=== PATIENT | female | born 1935 | race Caucasian/White ===

== ENCOUNTER 2017-06-18 19:16 | Inpatient (IN) | payer OTHER, BC ==
[~2017-06-18] VITALS: Ht 149.9 cm; Wt 80.6 kg
[~2017-06-18 19:16] MED LIST changes: -ASPI-232 PO; -ATOR-26 PO; -CARV3.122 PO; -CRG625 PO; -FLVHFA110 INH; -IRBE1TAB46 PO; -POTA20TA16 PO; -PRED1SUS17 OPR
--- NOTE | 2017-06-18 19:47 | EMERGENCY ROOM VISIT NOTE ---
History Report prepared by Larissa: Perico Dietrich Under the Supervision of: Dr. Thiago Pardo M.D. First contact with patient: 19:34 Chief Complaint: CARDIAC ASSESSMENT Stated Complaint: RAPID AND IRREGULAR HEART RATE History of Present Illness The patient is an 82 year old female who presents to the Emergency Room with complaints of episodes of a rapid and irregular heart rate that started yesterday. She says that she may have had this before but not this persistent. She states that she has not been getting any pain, but has felt very anxious. The patient notes that she has asthma, and has been increasing her use of her albuterol to 2 puffs twice per day. She states that she sometimes does not use the albuterol at all, and she tries to not take it too often because she knows that it can cause a rapid or irregular heart rate. The patient notes that she had a double bypass in 2007, and 4 years ago she was notified that at least one bypass was 90 to 95% blocked. She went to [facility] to have stents placed but there were concerns so it did not happen. She notes no history of atrial flutter , atrial fibrillation, of supraventricular tachycardia. She denies any leg swelling. Source of History: patient Onset: Yesterday Position: other (heart) Quality: other (rapid and irregular heart rate) Timing: other (episodes) Associated Symptoms: No chest pain Note: Associated symptoms: Anxiety from palpitations. Denies leg swelling. Review of Systems See HPI for pertinent positives & negatives. A total of 10 systems reviewed and were otherwise negative. Past Medical & Surgical Medical Problems: (1) Coronary artery disease (2) Hypertension Surgical Problems: (1) H/O cardiac catheterization (2) S/P CABG (coronary artery bypass graft) Family History Family history omitted secondary to patient's advanced age. Social History Smoking Status: Never Smoker Alcohol Use: occasionally Marital Status: Occupation Status: retired Current/Historical Medications Scheduled Amoxicillin (Amoxil), 2,000 MG PO UD Aspirin (Aspir-81), 1 TAB PO DAILY Atorvastatin (Lipitor), 80 MG PO DAILY Carvedilol (Coreg), 3.125 MG PO BID Ferrous Sulfate (Ferrous Sulfate), 325 MG PO 3XWK Furosemide (Lasix), 20 MG PO DAILY Irbesartan (Irbesartan), 0.5 TAB PO DAILY Multiple Vitamins W/ Minerals (Preservision Areds), 1 CAP PO BID Nitroglycerin (Nitrostat), 0.4 MG UT PRN Potassium Ext Rel (Klor-Con), 20 MEQ PO DAILY Prednisolone Acetate (Ophth) (Prednisolone Acetate), 1 DROP OPR HS Ranolazine (Ranexa), 500 MG PO BID Scheduled PRN Fluticasone Propionate (Flovent Hfa), 2 PUFFS INH BID PRN for Shortness of Breath Allergies Coded Allergies: Lisinopril (Verified Allergy, Unknown, "THROAT CLOSES", 06/01/12) Sulfamethoxazole (Verified Allergy, Unknown, RASH, 06/01/12) Aspirin (Verified Adverse Reaction, Unknown, BLEEDING, 06/01/12) Physical Exam Vital Signs Date Time Temp Pulse Resp B/P (MAP) Pulse Ox O2 Delivery O2 Flow Rate FiO2 06/18/17 22:21 73 16 95 06/18/17 22:06 68 22 96 06/18/17 22:01 134/80 06/18/17 21:51 73 21 98 06/18/17 21:46 171/78 06/18/17 21:36 65 20 98 06/18/17 21:21 68 20 97 06/18/17 21:06 64 19 96 06/18/17 21:01 144/76 06/18/17 20:51 81 17 95 06/18/17 20:46 71 26 96 06/18/17 20:31 73 24 95 Room Air 06/18/17 20:30 116/68 06/18/17 20:01 122/75 06/18/17 19:23 36.8 89 18 169/101 96 Room Air Physical Exam GENERAL: Patient is in no acute distress. HEENT: No acute trauma, normocephalic atraumatic, mucous membranes moist, no nasal congestion, no scleral icterus. NECK: No stridor, no adenopathy, no meningismus, trachea is midline. LUNGS: Crackles at both bases. No wheezing. Breath sounds are equal. HEART: 2/6 systolic murmur. Irregular rhythm with a normal rate. ABDOMEN: Soft, nontender, bowel sounds positive, no hernias, no peritonitis. EXTREMITIES: No cyanosis or edema, full range of motion of all the joints without pain or difficulty, no signs for acute trauma. NEUROLOGIC: Oriented x 3, no acute motor or sensory deficits, no focal weakness. SKIN: No rash, no jaundice, no diaphoresis. Medical Decision & Procedures ER Provider Diagnostic Interpretation: X-ray results as stated below per interpretation by me and the radiologist: SINGLE VIEW CHEST CLINICAL HISTORY: Dyspnea. FINDINGS: An AP, portable, upright chest radiograph is compared to study dated 12/14/2013. The examination is degraded by portable technique and patient rotation. The patient is status post midline sternotomy. The heart is enlarged and there is atherosclerotic calcification of the thoracic area. There is pulmonary vascular congestion. A large hiatal hernia is identified. Bibasilar atelectasis is observed. No airspace consolidation, large pleural effusion, or pneumothorax is seen. The skeletal structures are osteopenic. The bony thorax is grossly intact. Degenerative change and scoliosis are noted in the thoracic spine. IMPRESSION: 1. Cardiomegaly with evidence of mild congestive failure. 2. Large hiatal hernia. Electronically signed by: Thiago Ng M.D. 06/18/2017 8:16 PM Dictated Date/Time: 06/18/2017 8:15 PM Laboratory Results 06/18/17 19:55 Red Blood Count 4.02, Mean Corpuscular Volume 91.3, Mean Corpuscular Hemoglobin 30.3, Mean Corpuscular Hemoglobin Concent 33.2, Mean Platelet Volume 10.2, Neutrophils (%) (Auto) 56.5, Lymphocytes (%) (Auto) 25.8, Monocytes (%) (Auto) 13.0, Eosinophils (%) (Auto) 3.2, Basophils (%) (Auto) 1.2, Neutrophils # (Auto ) 3.70, Lymphocytes # (Auto) 1.69, Monocytes # (Auto) 0.85, Eosinophils # (Auto ) 0.21, Basophils # (Auto) 0.08 06/18/17 19:55 Test 06/18/17 19:55 White Blood Count 6.55 K/uL (4.8-10.8) Red Blood Count 4.02 M/uL (4.2-5.4) Hemoglobin 12.2 g/dL (12.0-16.0) Hematocrit 36.7 % (37-47) Mean Corpuscular Volume 91.3 fL (80-100) Mean Corpuscular Hemoglobin 30.3 pg (25-34) Mean Corpuscular Hemoglobin Concent 33.2 g/dl (32-36) Platelet Count 234 K/uL (130-400) Mean Platelet Volume 10.2 fL (7.4-10.4) Neutrophils (%) (Auto) 56.5 % Lymphocytes (%) (Auto) 25.8 % Monocytes (%) (Auto) 13.0 % Eosinophils (%) (Auto) 3.2 % Basophils (%) (Auto) 1.2 % Neutrophils # (Auto) 3.70 K/uL (1.4-6.5) Lymphocytes # (Auto) 1.69 K/uL (1.2-3.4) Monocytes # (Auto) 0.85 K/uL (0.11-0.59) Eosinophils # (Auto) 0.21 K/uL (0-0.5) Basophils # (Auto) 0.08 K/uL (0-0.2) RDW Standard Deviation 52.8 fL (36.4-46.3) RDW Coefficient of Variation 15.8 % (11.5-14.5) Immature Granulocyte % (Auto) 0.3 % Immature Granulocyte # (Auto) 0.02 K/uL (0.00-0.02) Anion Gap 9.0 mmol/L (3-11) Est Creatinine Clear Calc Drug Dose 43.1 ml/min Estimated GFR () 68.6 Estimated GFR (Non- 59.2 BUN/Creatinine Ratio 23.4 (10-20) Calcium Level 8.6 mg/dl (8.5-10.1) Magnesium Level 1.9 mg/dl (1.8-2.4) Total Bilirubin 0.4 mg/dl (0.2-1) Aspartate Amino Transf (AST/SGOT) 23 U/L (15-37) Alanine Aminotransferase (ALT/SGPT) 20 U/L (12-78) Alkaline Phosphatase 85 U/L (45-117) Troponin I 0.208 ng/ml (0-0.045) Total Protein 6.6 gm/dl (6.4-8.2) Albumin 3.1 gm/dl (3.4-5.0) Globulin 3.5 gm/dl (2.5-4.0) Albumin/Globulin Ratio 0.9 (0.9-2) Thyroid Stimulating Hormone (TSH) 1.310 uIu/ml (0.300-4.500) Laboratory results reviewed by me. ECG Indication: palpitations Rate (beats per minute): 86 Rhythm: sinus rhythm Findings: PVC, no acute ischemic change Change: no significant change (compared to December 15 2013) ED Course 1934: The patient was evaluated in room B5. A complete history and physical exam was performed. 2111: Upon reexamination the patient is resting. I discussed results and treatment plan with the patient. She verbalizes agreement and understanding. The patient will be evaluated for further management. 2119: I discussed the patient with Dr. Earnestine Almeida investigation clerk - he will evaluate the patient for further treatment. Medical Decision Differential diagnosis includes but is not limited to atrial fibrillation or atrial flutter, SVT, PVC's or PAC's, anxiety, anemia, [place], electrolyte imbalance , medication reaction. The patient presents with palpitations. Testing here reveals no leukocytosis or concerning anemia. No significant electrolyte abnormality, kidney failure or hepatitis. There is no coagulopathy. EKG shows a sinus rhythm with PVCs, there is no acute ischemia. Cardiac enzyme testing 1 is elevated-this could be consistent with cardiac injury or strain. Chest film shows some possible mild pulmonary vascular congestion, there was no pneumonia or pneumothorax. The patient denies chest pain but she does have an elevation to her cardiac troponin. Given her coronary history, I do think a hospital stay is warranted. She may have had a dysrhythmia yesterday or earlier today that led to the troponin bump. Non-Q-wave [place] I suppose is also a possibility. I did speak to the on-call hospitalist, I talked with case management. The patient is aware of her findings. Of note, no aspirin was given as the patient takes aspirin daily. Medication Reconcilliation Current Medication List: was personally reviewed by me Blood Pressure Screening Patient's blood pressure: Elevated blood pressure Blood pressure disposition: Elevated BP felt to be situational Consults Time Called: 2114 Consulting Physician: Dr. Earnestine Almeida investigation clerk Returned Call: [id number] I discussed the patient with Dr. Earnestine Almeida investigation clerk - he will evaluate the patient for further treatment. Impression Primary Impression: Palpitations Additional Impression: Elevated troponin Scribe Attestation The scribe's documentation has been prepared under my direction and personally reviewed by me in its entirety. I confirm that the note above accurately reflects all work, treatment, procedures, and medical decision making performed by me. Departure Information Dispostion Being Evaluated By Hospitalist Referrals Flakita Reyna M.D. (PCP) Patient Instructions My [facility] Problem Qualifiers
[2017-06-18 20:12] LABS: BASO % 1.2 %; BASO ABS # 0.08 K/uL (0-0.2); COMPLETE YES; EOS % 3.2 %; HEMATOCRIT 36.7 % (37-47); IG% 0.3 %; LYMPH % 25.8 %; LYMPH ABS # 1.69 K/uL (1.2-3.4); MEAN CELL VOLUME 91.3 fL (80-100); MEAN CORPUSCULAR HEMOGLOBIN 30.3 pg (25-34); MEAN CORPUSCULAR HGB CONC 33.2 g/dl (32-36); MEAN PLATELET VOLUME 10.2 fL (7.4-10.4); NEUT % 56.5 %; PLATELET COUNT 234 K/uL (130-400); RED BLOOD COUNT 4.02 M/uL (4.2-5.4); WHITE BLOOD COUNT 6.55 K/uL (4.8-10.8)
--- NOTE | 2017-06-18 20:18 | DIAGNOSTIC IMAGING REPORT ---
SINGLE VIEW CHEST CLINICAL HISTORY: Dyspnea. FINDINGS: An AP, portable, upright chest radiograph is compared to study dated 12/14/2013. The examination is degraded by portable technique and patient rotation. The patient is status post midline sternotomy. The heart is enlarged and there is atherosclerotic calcification of the thoracic area. There is pulmonary vascular congestion. A large hiatal hernia is identified. Bibasilar atelectasis is observed. No airspace consolidation, large pleural effusion, or pneumothorax is seen. The skeletal structures are osteopenic. The bony thorax is grossly intact. Degenerative change and scoliosis are noted in the thoracic spine. IMPRESSION: 1. Cardiomegaly with evidence of mild congestive failure. 2. Large hiatal hernia. Electronically signed by: Thiago Ng M.D. 06/18/2017 8:16 PM Dictated Date/Time: 06/18/2017 8:15 PM
[2017-06-18] MEDS ORDERED: CARV3.122 PO (20:28)
[2017-06-18] MEDS ORDERED: ASPI-232 PO (20:28)
[2017-06-18] MEDS ORDERED: IRBE1TAB46 PO ×2 (20:28→22:36)
[2017-06-18] MEDS ORDERED: PRED1SUS17 OPR (20:28)
[2017-06-18] MEDS ORDERED: FLVHFA110 INH (20:28)
[2017-06-18] MEDS ORDERED: FURO-85 PO (20:28)
[2017-06-18] MEDS ORDERED: ATOR-26 PO (20:28)
[2017-06-18] MEDS ORDERED: POTA20TA16 PO (20:28)
[2017-06-18 20:36] LABS: BUN/CREATININE RATIO 23.4 (10-20); CALCIUM 8.6 mg/dl (8.5-10.1); CREATININE 0.91 mg/dl (0.60-1.20); MAGNESIUM 1.9 mg/dl (1.8-2.4); POTASSIUM 3.6 mmol/L (3.5-5.1)
[2017-06-18 20:50] LABS: ALB/GLOB RATIO 0.9 (0.9-2); THYROID STIMULATING HORMONE 1.31 uIu/ml (0.300-4.500)
[2017-06-18] MEDS ORDERED: ONDANSETRON INJ 2 MG/ML 2 ML VIAL IV PRN (22:30)
[2017-06-18] MEDS ORDERED: NITROGLYCERIN 0.4 MG SL PER TAB CHARGE UT SCH (22:30)
[2017-06-18] MEDS ORDERED: FLUTICASONE HFA 110MCG INHALER INH PRN (22:30)
[2017-06-18] MEDS ORDERED: NITROGLYCERIN 0.4 MG SL PER TAB CHARGE SL PRN (22:30)
[2017-06-18] MEDS ORDERED: MAGNESIUM HYDROXIDE SUSP 30 ML UDC PO PRN (22:30)
[2017-06-18] MEDS ORDERED: ALUMINUM/MAGNESIUM/SIMETH (MAALOX MAX) 30 ML UDC PO PRN (22:30)
[2017-06-18] MEDS ORDERED: ACETAMINOPHEN 325 MG TAB PO PRN (22:30)
[2017-06-18] MEDS ORDERED: FUROSEMIDE INJ 20 MG in SYRINGE 0 ML IV ONE (22:50)
[2017-06-18 23:21] VITALS: BP 181/101; PULSE 81; TEMP 36.8; O2SAT 98; Ht 149.9 cm; Wt 80.6 kg
--- NOTE | 2017-06-18 23:41 | HISTORY & PHYSICAL EXAMINATION ---
DATE OF ADMISSION: 06/18/2017 CHIEF COMPLAINT: Palpitations. HISTORY OF PRESENT ILLNESS: This is an 82-year-old female with past medical history significant for CAD, status post double bypass in 2007 and about 4 years ago had one of the bypass graft blocked, tried to put a stent but decided not put it and on medical management and advised to avoid strenuous activity, history of angioedema, history of hypertension, hyperlipidemia, asthma, exertional angina, macular degeneration, enlarged thyroid presents with palpitations. The patient says since last couple of days she noticed heart racing and also at times irregular and that caused the worry and she came to the ER. Denies any chest pain with heart racing, no shortness of breath. She denies any headaches, no dizziness, no blurred vision, no sore throat. She has chronic cough with her asthma. No difficulty swallowing. No nausea, no vomiting, no abdominal pain. Normal bowel and bladder movements. Appetite is okay. No blood in the stools, no black stools, no blood in the urine. No skin rash, no swelling in the legs. Otherwise, ambulates okay in the house, but lately she is getting more short of breath. Denies any PND. ALLERGIES: LISINOPRIL, SULFA, ANTIBIOTICS. PAST MEDICAL HISTORY: As mentioned above. PAST SURGICAL HISTORY: CABG in 2007, cardiac catheterization, colonoscopies, injection of drug into eyes, appendectomy, cataract surgery, total knee arthroplasty. MEDICATIONS: Currently, the patient is on Coreg 3.125 mg p.o. b.i.d., irbesartan 75 mg p.o. daily, potassium chloride 20 mEq p.o. daily, Ranexa 500 mg p.o. b.i.d., Lasix 20 mg p.o. daily, atorvastatin 80 mg p.o. daily, Flovent HFA 110 mcg 2 puffs b.i.d., albuterol 2 puffs 4 times daily, ferrous sulfate 325 mg p.o. 3 times weekly, PreserVision tablets 1 tablet p.o. b.i.d., Nitrostat 0.4 mg sublingual p.r.n., prednisolone 1% ophthalmic solution on right eye before bedtime, aspirin 81 mg p.o. daily, amoxicillin 2000 mg 1 hour before dental work. FAMILY HISTORY: Significant for father had heart disorder and of heart attack at the age of 57 and father had hypertension. Mother had lupus. Daughter has asthma. Brother has osteoarthritis, heart disorder. SOCIAL HISTORY: Never smoked. No alcohol use. No drug use. She is currently single and lives alone and daughter lives close by. REVIEW OF SYMPTOMS: As per HPI. Rest of review of systems negative. PHYSICAL EXAMINATION: GENERAL: The patient is moderately build, patient is old and frail, not in distress. VITAL SIGNS: Temperature 36.8, pulse 65, respiration 20, blood pressure 171/78, oxygen 98% on room air. HEENT: No pallor, no icterus. Pupils equal, round react to light. NECK: No JVD, no neck masses, no carotid bruits. CARDIOVASCULAR: S1, S2 heard. Somewhat irregular rhythm. No murmurs. RESPIRATORY SYSTEM: Normal AP diameter. No accessory muscle use. Mild bibasilar crackles present. No wheezing. ABDOMEN: Soft, bowel sounds present, nontender. No distention. CENTRAL NERVOUS SYSTEM: Cranial nerves II-XII grossly intact. Nonfocal. EXTREMITIES: No edema, no erythema. LABORATORIES: Sodium 142, potassium 3.6, chloride 107, bicarbonate 26, BUN 21, creatinine 0.9, serum glucose 125, calcium 8.6, magnesium 1.9, total bilirubin 0.4, AST 23, ALT 20, alkaline phosphatase 25, troponin 10.2. TSH 1.3. WBC 6.5, hemoglobin 12.2, hematocrit 36.7, platelets 234. Chest x-ray: Cardiomegaly with evidence of mild CHF. EKG: Sinus rhythm with a rate of 86, PVCs: No acute ST changes seen. ASSESSMENT AND PLAN: This is an 82-year-old female who presents with palpitations. 1. Palpitations and EKG shows normal sinus rhythm with PVCs. The patient thought her pulses are irregular. Patient has history of coronary artery disease status post double bypass in 2007 and about 4 years ago one of the bypasses blocked, but currently only on medical management and advised not to climb steps and not to do strenuous work. We will monitor in the tele floor. Follow repeat EKG and echocardiogram, cardiology consult. 2. Mild elevation of troponin, possibly secondary to palpation, rule out acute coronary syndrome secondary to history of coronary artery disease. Follow serial cardiac enzymes, echocardiogram. 3. Possible acute diastolic congestive heart failure, chest x-ray showed mild congestion and the patient relatively getting more short of breath. We will follow echocardiogram and patient is on Lasix 20 mg p.o. daily but we will give IV Lasix 20 daily and follow the response. 4. Hypertension. Continue home medications of Coreg and irbesartan. We will monitor the blood pressure. 5. Hyperlipidemia. Continue statin. 6. Exertional angina on Ranexa. 5. Deep venous thrombosis prophylaxis, heparin subQ. DISPOSITION: Admit to tele floor. Expect to discharge home and follow with family doctor and cardiology. Level 1 full code. MTDD
[2017-06-19] VITALS (7 sets, daily range): BP systolic 122–152; BP diastolic 73–83; PULSE 62–72; TEMP 36.6–37; O2SAT 94–99
[2017-06-19] MEDS ORDERED: INFLUENZA VACCINE HIGH DOSE 65+ 0.5 ML SYR IM. ONE (00:15)
[2017-06-19] MEDS ORDERED: INFLUENZA ADMINISTRATION CHARGE ONE (00:15)
[2017-06-19] MEDS ORDERED: PrednisoLONE ACET 1% OP SUSP 5 ML BTL OPR STA (00:45)
[2017-06-19] MEDS ORDERED: NURSING VERBAL MED ORDER ONE (00:45)
[2017-06-19] MEDS ORDERED: IRBESARTAN 75 MG TAB PO STA (00:47)
[2017-06-19] MEDS ORDERED: POTASSIUM CHLORIDE 20 MEQ TABCR PO STA (00:47)
[2017-06-19] MEDS ORDERED: ATORVASTATIN 40 MG TAB PO STA (00:47)
[2017-06-19 07:03] LABS: BASO ABS # 0.06 K/uL (0-0.2); COMPLETE YES; EOS % 3.3 %; HEMATOCRIT 38.5 % (37-47); IG% 0.2 %; LYMPH % 36.2 %; LYMPH ABS # 2.21 K/uL (1.2-3.4); MEAN CELL VOLUME 91.4 fL (80-100); MEAN CORPUSCULAR HEMOGLOBIN 30.4 pg (25-34); MEAN CORPUSCULAR HGB CONC 33.2 g/dl (32-36); MEAN PLATELET VOLUME 10.2 fL (7.4-10.4); MONO % 11.8 %; NEUT % 47.5 %; PLATELET COUNT 228 K/uL (130-400); RED BLOOD COUNT 4.21 M/uL (4.2-5.4); WHITE BLOOD COUNT 6.11 K/uL (4.8-10.8)
[2017-06-19 07:13] LABS: PROTHROMBIN TIME (PATIENT) 10.8 SECONDS (9.0-12.0)
[2017-06-19 07:20] LABS: CALCIUM 9.1 mg/dl (8.5-10.1); CREATININE 0.85 mg/dl (0.60-1.20); POTASSIUM 3.6 mmol/L (3.5-5.1)
[2017-06-19] MEDS: ASPIRIN 81 MG ECTAB PO SCH (07:56)
[2017-06-19] MEDS: RANOLAZINE 500 MG ER TAB PO SCH ×2 (07:56→22:10)
[2017-06-19] MEDS: CEROVITE ADV FORMULA TAB PO SCH (07:56)
[2017-06-19 08:00] LABS: CKMB/CK RATIO 5.7 (0-3.0)
[2017-06-19] MEDS ORDERED: FUROSEMIDE INJ 20 MG in SYRINGE 0 ML IV SCH (09:00)
[2017-06-19] MEDS ORDERED: POTASSIUM CHLORIDE 20 MEQ TABCR PO SCH ×2 (09:00→21:00)
[2017-06-19] MEDS ORDERED: CARVEDILOL 3.125 MG TAB PO SCH (09:00)
[2017-06-19] MEDS ORDERED: ATORVASTATIN 40 MG TAB PO SCH ×2 (09:00→21:00)
[2017-06-19] MEDS ORDERED: IRBESARTAN 75 MG TAB PO SCH ×2 (09:00→21:00)
[2017-06-19] MEDS: HEPARIN SOD 5000 UNIT/0.5 ML CARP SQ SCH ×2 (09:07→22:13)
[2017-06-19] MEDS ORDERED: CARVEDILOL 3.125 MG TAB PO ONE (09:30)
--- NOTE | 2017-06-19 10:17 | Progress Note ---
Internal Med Progress Note Date of Service: Jun 19, 2017. Provider Documentation: SUBJECTIVE: pt sitting on chair , offers no complain no palpitation , no chest discomfort ,no SOB mentions of having palpitation intermittently associated with SOB /FARIAS and occasional dizzy spell no symptoms since admission BP was elevated 170 -160 evaluated by Cardiology -Coreg dose increased observe in tele for further adjustment OBJECTIVE: Vital Signs-as noted below Exam: General-no sign of distress , comfortable Eyes-sclera non icteric ENT-NAd Neck-no thyromegaly , no carotid bruit Lungs-CTA ,no rales or wheeze noted Heart-regular S1/s2 Abdomen-soft, non tender Extremities-bilateral trace edema Neuro-AAO x3, no focal deficit Lab data as noted below. ASSESSMENT & PLAN: PALPITATION /DIZZY SPELL tele reveals no Afib ; frequent PVC's symptom has resolved since admission appreciate Cardiology eval Coreg dose increased form 3.125 mg BID to 6.25 mg BID monitor in tele HTN : BP elevated SBP > 160 Coreg dose increased -BP has improved cont on ARB cont Lasix ACUTE ON CHRONIC DIASTOLIC CHF possible due to uncontrolled BP /HTN had SOB /FARIAS Cxray shows mild pulmonary congestion ordered for PRO BNP to be checked pt given IV Lasix transitioned to PO Lasix 20 mg daily ( home dose ) ECHO ordered to assess LV function -report pending cardiology following CKD STAGE 3 : renal function at baseline HX OF CAD : s/p CABD in 2007 repeat Cardiac cath in 2013 Severe torres martinez CAD (left main and left circumflex stenosis) with patent LYOSN to LAD. LCx intervention not performed secondary to severe LM disease. pt is continued with medical management ECHO ordered for assessment of LV function mild elevation of Troponin possible due to CHF /uncontrolled HTN on Renexa for chronic stable angina DVT PROPHYLAXIS sub q heparin DISPOSITION: lives at home ; independent in ADL's PT/OT eval requested expected to be discharged home will benefit with home health visiting nurse Medicine follow up with Dr Reyna Cardiology follow up with Dr Babcock Vital Signs: Date Time Temp Pulse Resp B/P (MAP) Pulse Ox O2 Delivery O2 Flow Rate FiO2 06/20/17 12:25 36.9 72 16 117/74 (88) 94 Room Air 06/20/17 12:00 Room Air 06/20/17 08:12 37.0 61 20 145/79 (101) 93 Room Air 06/20/17 08:00 Room Air 06/20/17 04:00 Room Air 06/20/17 03:48 36.5 70 18 117/70 (86) 94 Room Air 06/20/17 00:03 36.6 74 18 116/70 (85) 95 Room Air 06/20/17 00:01 Room Air 06/19/17 20:00 Room Air 06/19/17 16:00 Room Air 06/19/17 15:30 36.8 72 18 123/73 (90) 95 Room Air Lab Results: Results Past 24 Hours Test 06/20/17 06:24 Range/Units Sodium Level 139 136-145 mmol/L Potassium Level 3.8 3.5-5.1 mmol/L Chloride Level 103 98-107 mmol/L Carbon Dioxide Level 30 21-32 mmol/L Anion Gap 6.0 3-11 mmol/L Blood Urea Nitrogen 24 7-18 mg/dl Creatinine 1.05 0.60-1.20 mg/dl Est Creatinine Clear Calc Drug Dose 38.6 ml/min Estimated GFR () 57.7 Estimated GFR (Non- 49.8 BUN/Creatinine Ratio 22.6 10-20 Random Glucose 99 70-99 mg/dl Calcium Level 9.0 8.5-10.1 mg/dl Magnesium Level 2.1 1.8-2.4 mg/dl
--- NOTE | 2017-06-19 10:17 | CARDIOLOGY CONSULTATION ---
DATE OF CONSULTATION: 06/19/2017 [facility] FOR: [facility] REASON FOR CONSULTATION: Heart palpitations. HISTORY OF PRESENT ILLNESS: This is an 82-year-old female who had 2-vessel bypass in 2007 due to left main trunk disease. She had a cardiac catheterization performed approximately 4 years ago at which time it was noted that the LYONS to the LAD was patent, but the graft to the left circumflex was occluded. An attempt was made to intervene and open up the proximal left circumflex, but because of the severe left main trunk disease, this was not possible. The patient has been treated medically. She has chronic but stable angina. Last evening, she felt her heart was a little bit irregular. She took her pulse and noticed some skipped beats. This made her very anxious and worried. She called our service and talk with Dr. Tamayo who recommended that she come to the Emergency Department. She has been admitted in the Emergency Department and after admission she has maintained sinus rhythm but has unifocal PVCs which I believe she may be feeling. She was noted to be hypokalemic and has been given potassium supplements. She has had no chest pain, but in general, she does not get chest pain should become short of breath with pressure on her chest, radiating to her back as her angina equivalent. This usually occurs with activity. She is currently symptom free. Her EKG on admission shows no acute changes. Her cardiac markers; the troponins are slightly elevated at 0.23. I am uncertain as to whether this is chronic elevation of troponin. ALLERGIES: ASPIRIN, LISINOPRIL, SULFAMETHOXAZOLE. PAST MEDICAL HISTORY: As outlined above, the patient does have ischemic heart disease with prior CABG in 2007 receiving a LYONS to the LAD and a saphenous vein graft to left circumflex artery closed several years ago and she has been treated medically for severe [place] coronary artery disease with chronic but stable angina. She has a history of hypertension which at times is labile. She is treated for chronic stage III kidney disease and dyslipidemia. FAMILY MEDICAL HISTORY: Significant for heart disease and hypertension. SOCIAL HISTORY: She is a never smoker. She is single and lives alone with her daughter close by. REVIEW OF SYSTEMS: A 10-point review of systems is negative except for the history of chief complaint. PHYSICAL EXAMINATION: GENERAL: She is alert and oriented. VITAL SIGNS: Blood pressure is 150/80. Pulse is regular at 70 beats per minute. She is afebrile. HEENT: She is normocephalic. Pupils are equal and reactive to light. Extraocular muscles are intact bilaterally. NECK: The neck veins are flat. Carotids have good upstrokes bilaterally without bruits. Thyroid is nonpalpable. RESPIRATORY: Breath sounds equal bilaterally and clear to auscultation. CARDIOVASCULAR: Heart has a regular rhythm. Normal S1, S2. No S3, S4. No cardiac rubs or murmurs. GASTROINTESTINAL: Abdomen is soft, nontender without organomegaly. EXTREMITIES: Free of edema, digit clubbing, or cyanosis. NEUROLOGIC: Grossly intact. SKIN: Warm to touch. LYMPH NODES: Negative to palpation. IMPRESSION: 1. Symptomatic premature ventricular contractions. 2. Known ischemic heart disease with prior coronary artery bypass surgery with a patent left internal mammary artery to the left anterior descending and a closed saphenous vein graft to the left circumflex artery. 3. Chronic but stable angina. RECOMMENDATIONS: At this point, I would replace the patient's potassium with supplements. I will contact Dr. Christine, her usual manager quality improvement to ask regarding the extent of her coronary artery disease and status. I think that she is medical management only. I will increase her carvedilol as this may improve her PVCs.
[2017-06-19] MEDS ORDERED: CRG625 PO (10:37)
[2017-06-19 15:23] LABS: CKMB/CK RATIO 4.5 (0-3.0)
--- NOTE | 2017-06-19 15:25 | ECHOCARDIOGRAM REPORT ---
*NOTICE TO RECEIVING [employer] This information is strictly Confidential and protected under [place] law. [place] law prohibits you from making any further disclosure of this information unless further disclosure is expressly permitted by the written consent of the person to whom it pertains or is authorized by law. A general authorization for the release of medical or other information is not sufficient for this purpose. Hospital accepts no responsibility if the information is made available to any other person, INCLUDING THE PATIENT. Interpretation Summary * Name: BALWINDER BALTAZAR Study Date: 06/19/2017 07:13 AM BP: 133/74 mmHg * Patient Location: C.2T\S\S239\S\1 HR: 71 * : 1935 (M/d/yyyy) Gender: Female Height: 58 in * Age: 82 yrs Ethnicity: [place] Weight: 175 lb * Ordering Physician: Manish Colby * Referring Physician: Kieran Christine * Performed By: Kathleen Obrien RCS * * Reason For Study: PALIPITATIONS / ELEVATED TROPONIN * BSA: 1.7 m2 * -- Conclusions -- * The left ventricle is grossly normal size. * Left ventricular systolic function is normal. * Ejection Fraction = 55-60%. * The right ventricular systolic function is normal. * The left atrial size is normal. * Right atrial size is normal. * No significant valvular pathology Procedure Details * A complete two-dimensional transthoracic echocardiogram was performed (2D, M-mode, Doppler and color flow Doppler). Left Ventricle * The left ventricle is grossly normal size. * Left ventricular systolic function is normal. * Ejection Fraction = 55-60%. Right Ventricle * The right ventricle is normal size. * The right ventricular systolic function is normal. Atria * The left atrial size is normal. * Right atrial size is normal. * The interatrial septum is intact with no evidence for an atrial septal defect. Mitral Valve * The mitral valve anatomy is normal. * Significant mitral regurgitation is absent. Tricuspid Valve * The tricuspid valve anatomy is normal. * Significant tricuspid regurgitation is absent. Aortic Valve * The aortic valve is tricuspid. The leaflet thickness if normal. There is no aortic stenosis, and no significant insufficiency. * The aortic valve opens well. * There is no significant aortic regurgitation. Pulmonic Valve * The pulmonic valve is not well seen, but is grossly normal. * Mild pulmonic valvular regurgitation. Great Vessels * The aortic root and proximal ascending aorta are normal sized. Pericardium/Pleural * There is no pericardial effusion. Left Ventricular Diastolic Function * Grade I diastolic dysfunction, (abnormal relaxation pattern). MMode 2D Measurements and Calculations IVSd 1.6 cm IVSs 2.0 cm LVIDd 3.9 cm LVIDs 2.7 cm LVPWd 1.2 cm LVPWs 1.5 cm IVS/LVPW 1.3 FS 29.6 % EDV(Teich) 64.3 ml ESV(Teich) 27.5 ml EF(Teich) 57.3 % EDV(cubed) 57.5 ml ESV(cubed) 20.1 ml EF(cubed) 65.1 % % IVS thick 25.1 % % LVPW thick 21.3 % LV mass(C)d 201.4 grams LV mass(C)dI 117.0 grams/m\S\2 LV mass(C)s 182.8 grams LV mass(C)sI 106.2 grams/m\S\2 SV(Teich) 36.8 ml SI(Teich) 21.4 ml/m\S\2 SV(cubed) 37.4 ml SI(cubed) 21.8 ml/m\S\2 Ao root diam 3.3 cm Ao root area 8.7 cm\S\2 ACS 1.9 cm LA dimension 3.9 cm LA/Ao 1.2 LVOT diam 2.0 cm LVOT area 3.2 cm\S\2 LVAd ap4 27.7 cm\S\2 LVLd ap4 6.8 cm EDV(MOD-sp4) 90.8 ml EDV(sp4-el) 95.4 ml LVAs ap4 21.2 cm\S\2 LVLs ap4 6.1 cm ESV(MOD-sp4) 60.9 ml ESV(sp4-el) 62.3 ml EF(MOD-sp4) 32.9 % EF(sp4-el) 34.7 % LVAd ap2 23.2 cm\S\2 LVLd ap2 6.4 cm EDV(MOD-sp2) 71.2 ml EDV(sp2-el) 72.0 ml LVAs ap2 14.9 cm\S\2 LVLs ap2 5.4 cm ESV(MOD-sp2) 35.5 ml ESV(sp2-el) 35.0 ml EF(MOD-sp2) 50.1 % EF(sp2-el) 51.4 % LVLd %diff -6.99 % EDV(MOD-bp) 82.9 ml LVLs %diff -14.09 % ESV(MOD-bp) 47.0 ml EF(MOD-bp) 43.3 % SV(MOD-sp4) 29.9 ml SI(MOD-sp4) 17.4 ml/m\S\2 SV(MOD-sp2) 35.6 ml SI(MOD-sp2) 20.7 ml/m\S\2 SV(MOD-bp) 35.9 ml SI(MOD-bp) 20.9 ml/m\S\2 SV(sp4-el) 33.1 ml SI(sp4-el) 19.2 ml/m\S\2 SV(sp2-el) 37.0 ml SI(sp2-el) 21.5 ml/m\S\2 Doppler Measurements and Calculations MV E max henrietta 77.6 cm/sec MV A max henrietta 103.0 cm/sec MV E/A 0.75 MV P1/2t max henrietta 82.8 cm/sec MV P1/2t 79.1 msec MVA(P1/2t) 2.8 cm\S\2 MV dec slope 306.5 cm/sec\S\2 MV dec time 0.25 sec Ao V2 max 108.8 cm/sec Ao max PG 4.7 mmHg Ao max PG (full) 2.5 mmHg ANGÉLICA(V,A) 2.2 cm\S\2 ANGÉLICA(V,D) 2.2 cm\S\2 LV V1 max PG 2.3 mmHg LV V1 max 75.5 cm/sec PA V2 max 73.2 cm/sec PA max PG 2.1 mmHg PI max henrietta 160.8 cm/sec PI max PG 10.3 mmHg PI dec slope 138.0 cm/sec\S\2 PI P1/2t 341.2 msec
[2017-06-19] MEDS ORDERED: PrednisoLONE ACET 1% OP SUSP 5 ML BTL OPR SCH (21:00)
[2017-06-19] MEDS: CARVEDILOL 6.25 MG TAB PO SCH (22:11)
[2017-06-20 00:03] VITALS: BP 116/70; PULSE 74; TEMP 36.6; O2SAT 95
[2017-06-20 03:48] VITALS: BP 117/70; PULSE 70; TEMP 36.5; O2SAT 94
--- NOTE | 2017-06-20 07:22 | Clinical Documentation Query ---
RAQUEL Alfaro : CLINICAL DOCUMENTATION QUERY Patient is an 82 year old female admitted for evaluation of palpitations and acute on chronic diastolic CHF. bi consultant noted a history of CKD stage 3. Despite normal creatinine, estimated GFR since 2010 of 44-64 ml/min. Please clarify as clinically appropriate as this impacts accurate DRG assignment. Thank you. In your clinical opinion is this patient being managed for: ( x ) Chronic kidney disease, stage 3 ( ) Not Agree ( ) Other explanation of clinical findings (Please Explain) ( ) Unable to determine (Please Define) ( ) Need to Discuss The medical record reflects the following clinical findings, treatment, and risk factors. Clinical Indicators:estimated GFR since 2011 of 44-64 ml/min Treatment: Serial chemistries Risk Factors: Age, hypertension, medications Please clarify and document your clinical opinion in the progress notes and discharge summary. Terms such as "probable", "suspected", "likely", "questionable", "possible", or "still to be ruled out" are acceptable. IF IN AGREEMENT, YOU MUST DOCUMENT ABOVE DIAGNOSTIC STATEMENT IN DAILY PROGRESS NOTES AND DISCHARGE SUMMARY. This document is not part of the patient's record. Thank You, Niko Ferrari, RN [phone]
[2017-06-20 07:26] LABS: BUN/CREATININE RATIO 22.6 (10-20); CREATININE 1.05 mg/dl (0.60-1.20); MAGNESIUM 2.1 mg/dl (1.8-2.4); POTASSIUM 3.8 mmol/L (3.5-5.1)
[2017-06-20] MEDS: RANOLAZINE 500 MG ER TAB PO SCH (07:52)
[2017-06-20] MEDS: ASPIRIN 81 MG ECTAB PO SCH (07:52)
[2017-06-20] MEDS: CEROVITE ADV FORMULA TAB PO SCH (07:53)
[2017-06-20] MEDS: CARVEDILOL 6.25 MG TAB PO SCH (07:53)
[2017-06-20] MEDS: HEPARIN SOD 5000 UNIT/0.5 ML CARP SQ SCH (07:54)
[2017-06-20 08:12] VITALS: BP 145/79; PULSE 61; TEMP 37; O2SAT 93
[2017-06-20] MEDS ORDERED: FUROSEMIDE 20 MG TAB PO SCH (09:00)
[2017-06-20] MEDS ORDERED: FERROUS SULFATE 325 MG TAB PO SCH (09:00)
[2017-06-20 12:25] VITALS: BP 117/74; PULSE 72; TEMP 36.9; O2SAT 94
--- NOTE | 2017-06-20 12:36 | PROGRESS NOTE ---
DATE: 06/20/2017 FOLLOWUP VISIT SUBJECTIVE: The patient is an 82-year-old female who was admitted with symptomatic premature ventricular contractions. She has a history of significant coronary artery disease, deemed medical management. I spoke with her usual compensation and hris analyst, Dr. Christine yesterday, who indicated that she was medical management for her ischemic heart disease. The patient did have a slight elevation in her cardiac troponins on admission, which remained consistently elevated and may be chronic. Following admission, she has done well. Her potassium was supplemented and her carvedilol was increased. This seemed to improve the frequency of her PVCs. Her chest x-ray on admission suggested some mild congestive heart failure and she did have an elevated pro-natriuretic peptide. She was given extra diuretics on admission and currently feels well. I believe that she may be transitioned to outpatient care and early followup through our office. ALLERGIES: ASPIRIN, LISINOPRIL, AND SULFAMETHOXAZOLE. OBJECTIVE: GENERAL: She is alert and oriented in no acute distress, sitting comfortably, eating her lunch. VITAL SIGNS: Blood pressure is 130/80. Pulse is regular at 60 beats per minute. She is afebrile. HEENT: She is normocephalic. Pupils are equal and reactive to light. Extraocular muscles are intact bilaterally. NECK: The neck veins are flat. Carotids have good upstrokes bilaterally without bruits. Thyroid is nonpalpable. RESPIRATORY: Breath sounds equal bilaterally and clear to auscultation. CARDIOVASCULAR: Heart has a regular rhythm. Normal S1 and S2. No S3 or S4. No cardiac rubs or murmurs. GASTROINTESTINAL: Abdomen is soft and nontender without organomegaly. EXTREMITIES: Free of edema, digit clubbing, or cyanosis. NEUROLOGIC: Grossly intact. SKIN: Warm to touch. LYMPH NODES: Negative to palpation. IMPRESSION: 1. Symptomatic premature ventricular contractions. 2. Known ischemic heart disease, deemed to medical management. 3. Mild to congestive heart failure. 4. Chronic renal insufficiency. RECOMMENDATIONS: The patient, I believe, can be discharged with close followup as an outpatient. I will arrange for her to be seen in our office next week. ZUCKER HILLSIDE HOSPITALJose A
--- NOTE | 2017-06-20 15:04 | Discharge Instructions ---
Discharge Instructions Date of Service Jun 20, 2017. Admission Reason for Admission: Elevated Troponin, Palpitations Discharge Discharge Diagnosis / Problem: PALPITATION /PREMATURE VENTRICULAR CONTRACTIONS -IMPROVED Discharge Goals Goal(s): Decrease discomfort, Improve disease control, Diagnostic testing, Therapeutic intervention Activity Recommendations Activity Limitations: resume your previous activity . Instructions / Follow-Up Instructions / Follow-Up HOSPITAL FOLLOW UP : CARDIOLOGY FOLLOW UP 06/27/2017 2:40 PM Kieran Christine, Cardiology, [facility] MEDICATION : COREG 6.25 MG TWICE DAILY ( DOSE INCREASED ) -SCRIPT SENT TO YOUR PHARMACY STOP TAKING COREG 3.125 TWICE DAILY Current Hospital Diet Patient's current hospital diet: AHA Diet (Heart Healthy) Discharge Diet Recommended Diet: AHA Diet (Heart Healthy) Pending Studies Studies pending at discharge: no Medical Emergencies . Who to Call and When: Medical Emergencies: If at any time you feel your situation is an emergency, please call 911 immediately. . Non-Emergent Contact Non-Emergency issues call your: Primary Care Provider . . "Provider Documentation" section prepared by Teresa Gupta. . VTE Core Measure Inpt VTE Proph given/why not?: Unfractionated heparin SQ
[2017-06-20 15:14] VITALS: BP 117/74; PULSE 72; TEMP 36.9; O2SAT 94
--- NOTE | 2017-06-20 18:08 | Discharge Summary ---
Discharge Summary Date of Service Jun 20, 2017. Discharge Summary Admission Date: Jun 18, 2017 at 22:35 Discharge Date: Jun 20, 2017 Discharge Disposition: Home with services Principal Diagnosis: PALPITATION /PREMATURE VENTRICULAR CONTRACTIONS -IMPROVED Procedures: ECHO : * The left ventricle is grossly normal size. * Left ventricular systolic function is normal. * Ejection Fraction = 55-60%. * The right ventricular systolic function is normal. * The left atrial size is normal. * Right atrial size is normal. * No significant valvular pathology Consultations: [facility] CARDIOLOGY DR ESTEVEZ Medication Reconciliation New Medications: Carvedilol (Carvedilol) 6.25 Mg Tab 6.25 MG PO BID for 30 Days, #60 TAB 2 Refills Continued Medications: Amoxicillin (Amoxil) 500 Mg Cap 2000 MG PO UD, #21 CAP 4 CAPSULES 1 HOUR BEFORE DENTAL PROCEDURES Aspirin (Aspir-81) 81 Mg Tab 1 TAB PO DAILY for 90 Days, #90 TAB 3 Refills Atorvastatin (Lipitor) 80 Mg Tab 80 MG PO DAILY, TAB Ferrous Sulfate (Ferrous Sulfate) 325 Mg Tab 325 MG PO 3XWK Fluticasone Propionate (Flovent Hfa) 120 Puffs/56717 Mcg Aero 2 PUFFS INH BID PRN for Shortness of Breath for 30 Days, #1 INHALER 3 Refills Furosemide (Lasix) 20 Mg Tab 20 MG PO DAILY, TAB Irbesartan (Irbesartan) 75 Mg Tab 1 TAB PO DAILY, #20 Multiple Vitamins W/ Minerals (Preservision Areds) 1 Cap Cap 1 CAP PO BID Nitroglycerin (Nitrostat) 0.4 Mg Sub 0.4 MG UT PRN, BTL Potassium Ext Rel (Klor-Con) 20 Meq Tabcr 20 MEQ PO DAILY, TAB Prednisolone Acetate (Ophth) (Prednisolone Acetate) 1 % Blanca 1 DROP OPR HS for 10 Days, BTL EACH EYE Ranolazine (Ranexa) 500 Mg Tab 500 MG PO BID Discontinued Medications: Carvedilol (Coreg) 3.125 Mg Tab 3.125 MG PO BID, TAB Admission Information HPI (per Admitting provider): DATE OF ADMISSION: 06/18/2017 CHIEF COMPLAINT: Palpitations. HISTORY OF PRESENT ILLNESS: This is an 82-year-old female with past medical history significant for CAD, status post double bypass in 2007 and about 4 years ago had one of the bypass graft blocked, tried to put a stent but decided not put it and on medical management and advised to avoid strenuous activity, history of angioedema, history of hypertension, hyperlipidemia, asthma, exertional angina, macular degeneration, enlarged thyroid presents with palpitations. The patient says since last couple of days she noticed heart racing and also at times irregular and that caused the worry and she came to the ER. Denies any chest pain with heart racing, no shortness of breath. She denies any headaches, no dizziness, no blurred vision, no sore throat. She has chronic cough with her asthma. No difficulty swallowing. No nausea, no vomiting, no abdominal pain. Normal bowel and bladder movements. Appetite is okay. No blood in the stools, no black stools, no blood in the urine. No skin rash, no swelling in the legs. Otherwise, ambulates okay in the house, but lately she is getting more short of breath. Denies any PND. ALLERGIES: LISINOPRIL, SULFA, ANTIBIOTICS. PAST MEDICAL HISTORY: As mentioned above. PAST SURGICAL HISTORY: CABG in 2007, cardiac catheterization, colonoscopies, injection of drug into eyes, appendectomy, cataract surgery, total knee arthroplasty. MEDICATIONS: Currently, the patient is on Coreg 3.125 mg p.o. b.i.d., irbesartan 75 mg p.o. daily, potassium chloride 20 mEq p.o. daily, Ranexa 500 mg p.o. b.i.d., Lasix 20 mg p.o. daily, atorvastatin 80 mg p.o. daily, Flovent HFA 110 mcg 2 puffs b.i.d., albuterol 2 puffs 4 times daily, ferrous sulfate 325 mg p.o. 3 times weekly, PreserVision tablets 1 tablet p.o. b.i.d., Nitrostat 0.4 mg sublingual p.r.n., prednisolone 1% ophthalmic solution on right eye before bedtime, aspirin 81 mg p.o. daily, amoxicillin 2000 mg 1 hour before dental work. FAMILY HISTORY: Significant for father had heart disorder and of heart attack at the age of 57 and father had hypertension. Mother had lupus. Daughter has asthma. Brother has osteoarthritis, heart disorder. SOCIAL HISTORY: Never smoked. No alcohol use. No drug use. She is currently single and lives alone and daughter lives close by. REVIEW OF SYMPTOMS: As per HPI. Rest of review of systems negative. Physical Exam (per Admitting): PHYSICAL EXAMINATION: GENERAL: The patient is moderately build, patient is old and frail, not in distress. VITAL SIGNS: Temperature 36.8, pulse 65, respiration 20, blood pressure 171/78, oxygen 98% on room air. HEENT: No pallor, no icterus. Pupils equal, round react to light. NECK: No JVD, no neck masses, no carotid bruits. CARDIOVASCULAR: S1, S2 heard. Somewhat irregular rhythm. No murmurs. RESPIRATORY SYSTEM: Normal AP diameter. No accessory muscle use. Mild bibasilar crackles present. No wheezing. ABDOMEN: Soft, bowel sounds present, nontender. No distention. CENTRAL NERVOUS SYSTEM: Cranial nerves II-XII grossly intact. Nonfocal. EXTREMITIES: No edema, no erythema. Hospital Course PALPITATION /DIZZY SPELL resolved, no further symptoms Coreg dose increased form 3.125 mg BID to 6.25 mg BID frequent PVC's -improved since adjustment of Beta phyllis appreciate Cardiology eval stable to be discharged home with above adjustment Cardiology follow up with Dr Babcock next week in [facility] Cardiology office HTN : BP improved after Coreg dose increased cont on ARB /Lasix ACUTE ON CHRONIC DIASTOLIC CHF compensated now given IV Lasix on admission possible due to uncontrolled BP /HTN Cxray shows mild pulmonary congestion -elevated Pro BNP transitioned to PO Lasix 20 mg daily ( home dose ) /cont on ARB ECHO : * The left ventricle is grossly normal size. * Left ventricular systolic function is normal. * Ejection Fraction = 55-60%. * The right ventricular systolic function is normal. * The left atrial size is normal. * Right atrial size is normal. * No significant valvular pathology cardiology following no further adjustment of diuretics needed CKD STAGE 3 : renal function at baseline HX OF CAD : s/p CABD in 2007 repeat Cardiac cath in 2013 Severe [place] CAD (left main and left circumflex stenosis) with patent LYONS to LAD. LCx intervention not performed secondary to severe LM disease. pt is continued with medical management ECHO shows normal LV , no wall motion abnormality mild elevation of Troponin possible due to CHF /uncontrolled HTN on Renexa for chronic stable angina DVT PROPHYLAXIS sub q heparin DISPOSITION: stable to be discharged home arrangements made for home health visiting nurse Medicine follow up with Dr Reyna Cardiology follow up with Dr Babcock Total time spent on discharge = 38 MINS This includes examination of the patient, discharge planning, medication reconciliation, and communication with other providers. Discharge Instructions Discharge Instructions Date of Service Jun 20, 2017. Admission Reason for Admission: Elevated Troponin, Palpitations Discharge Discharge Diagnosis / Problem: PALPITATION /PREMATURE VENTRICULAR CONTRACTIONS -IMPROVED Discharge Goals Goal(s): Decrease discomfort, Improve disease control, Diagnostic testing, Therapeutic intervention Activity Recommendations Activity Limitations: resume your previous activity . Instructions / Follow-Up Instructions / Follow-Up HOSPITAL FOLLOW UP : CARDIOLOGY FOLLOW UP 06/27/2017 2:40 PM Kieran Christine DO Cardiology, [facility] MEDICATION : COREG 6.25 MG TWICE DAILY ( DOSE INCREASED ) -SCRIPT SENT TO YOUR PHARMACY STOP TAKING COREG 3.125 TWICE DAILY Current Hospital Diet Patient's current hospital diet: AHA Diet (Heart Healthy) Discharge Diet Recommended Diet: AHA Diet (Heart Healthy) Pending Studies Studies pending at discharge: no Medical Emergencies . Who to Call and When: Medical Emergencies: If at any time you feel your situation is an emergency, please call 911 immediately. . Non-Emergent Contact Non-Emergency issues call your: Primary Care Provider . . "Provider Documentation" section prepared by Teresa Gupta. . VTE Core Measure Inpt VTE Proph given/why not?: Unfractionated heparin SQ Additional Copies To Flakita Reyna M.D. Nanci, Kieran Manzo DO
--- NOTE | 2017-06-20 18:08 | Progress Note ---
Internal Med Progress Note Date of Service: Jun 20, 2017. Provider Documentation: SUBJECTIVE: no complain of chest pain or discomfort no palpitation BP much improved pt feels well evaluated by Cardiology earlier stable to be discharged home today OBJECTIVE: Vital Signs-as noted below Exam: General-no sign of distress , comfortable Eyes-sclera non icteric ENT-NAd Neck-no thyromegaly , no carotid bruit Lungs-CTA ,no rales or wheeze noted Heart-regular S1/s2 Abdomen-soft, non tender Extremities-bilateral trace edema Neuro-AAO x3, no focal deficit Lab data as noted below. ASSESSMENT & PLAN: PALPITATION /DIZZY SPELL resolved, no further symptoms Coreg dose increased form 3.125 mg BID to 6.25 mg BID frequent PVC's -improved since adjustment of Beta phyllis appreciate Cardiology eval stable to be discharged home with above adjustment Cardiology follow up with Dr Babcock next week in [facility] Cardiology office HTN : BP improved after Coreg dose increased cont on ARB /Lasix ACUTE ON CHRONIC DIASTOLIC CHF compensated now given IV Lasix on admission possible due to uncontrolled BP /HTN Cxray shows mild pulmonary congestion -elevated Pro BNP transitioned to PO Lasix 20 mg daily ( home dose ) /cont on ARB ECHO : * The left ventricle is grossly normal size. * Left ventricular systolic function is normal. * Ejection Fraction = 55-60%. * The right ventricular systolic function is normal. * The left atrial size is normal. * Right atrial size is normal. * No significant valvular pathology cardiology following no further adjustment of diuretics needed CKD STAGE 3 : renal function at baseline HX OF CAD : s/p CABD in 2007 repeat Cardiac cath in 2013 Severe [place] CAD (left main and left circumflex stenosis) with patent LYONS to LAD. LCx intervention not performed secondary to severe LM disease. pt is continued with medical management ECHO ordered for assessment of LV function mild elevation of Troponin possible due to CHF /uncontrolled HTN on Renexa for chronic stable angina DVT PROPHYLAXIS sub q heparin DISPOSITION: stable to be discharged home arrangements made for home health visiting nurse Medicine follow up with Dr Reyna Cardiology follow up with Dr Babcock Vital Signs: Date Time Temp Pulse Resp B/P (MAP) Pulse Ox O2 Delivery O2 Flow Rate FiO2 06/20/17 15:14 36.9 72 16 94 Room Air 06/20/17 12:25 36.9 72 16 117/74 (88) 94 Room Air 06/20/17 12:00 Room Air 06/20/17 08:12 37.0 61 20 145/79 (101) 93 Room Air 06/20/17 08:00 Room Air 06/20/17 04:00 Room Air 06/20/17 03:48 36.5 70 18 117/70 (86) 94 Room Air 06/20/17 00:03 36.6 74 18 116/70 (85) 95 Room Air 06/20/17 00:01 Room Air 06/19/17 20:00 Room Air Lab Results: Results Past 24 Hours Test 06/20/17 06:24 Range/Units Sodium Level 139 136-145 mmol/L Potassium Level 3.8 3.5-5.1 mmol/L Chloride Level 103 98-107 mmol/L Carbon Dioxide Level 30 21-32 mmol/L Anion Gap 6.0 3-11 mmol/L Blood Urea Nitrogen 24 7-18 mg/dl Creatinine 1.05 0.60-1.20 mg/dl Est Creatinine Clear Calc Drug Dose 38.6 ml/min Estimated GFR () 57.7 Estimated GFR (Non- 49.8 BUN/Creatinine Ratio 22.6 10-20 Random Glucose 99 70-99 mg/dl Calcium Level 9.0 8.5-10.1 mg/dl Magnesium Level 2.1 1.8-2.4 mg/dl
== END 2017-06-20 15:36 | disposition home health service (06) | DRG 291 ==
LOC: C.EDB 19:18 → C.2T 22:35 → ENRESERV 22:44
PROVIDERS: ADMIT Hospitalist; ATTEND Hospitalist
DX: I13.0 Hypertensive heart and chronic kidney disease with heart failure and stage 1 through stage 4 chronic kidney disease, or unspecified chronic kidney disease (principal); I50.33 Acute on chronic diastolic (congestive) heart failure; I49.3 Ventricular premature depolarization; N18.3 Chronic kidney disease, stage 3 (moderate); I25.118 Atherosclerotic heart disease of native coronary artery with other forms of angina pectoris; E78.5 Hyperlipidemia, unspecified; J45.909 Unspecified asthma, uncomplicated; H35.30 Unspecified macular degeneration; Z51.81 Encounter for therapeutic drug level monitoring; Z79.899 Other long term (current) drug therapy; Z79.82 Long term (current) use of aspirin; Z95.1 Presence of aortocoronary bypass graft; Z82.49 Family history of ischemic heart disease and other diseases of the circulatory system; Z82.69 Family history of other diseases of the musculoskeletal system and connective tissue; Z82.61 Family history of arthritis; Z82.5 Family history of asthma and other chronic lower respiratory diseases

== ENCOUNTER → 2017-06-18 | Outpatient (CLI) | payer OTHER, BC ==
[~2017-06-18] MED LIST: ALBUAER2 INH; AMOX500C3 PO; ASPEC81 PO; ASPI-232 PO; ATOR-26 PO; CALC8.5C PO; CARV3.122 PO; CARV6.252 PO; CLC100 PO; CRG625 PO; FAMO40TA6 PO; FERR325T5 PO; FLUT110A INH; FLVHFA110 INH; FURO-85 PO; IRBE1TAB46 PO; LPT/40 PO; MULTCAP33 PO; NITR0.4S UT; POTA-335 PO; POTA20TA16 PO; PRED1SUS17 OPR; PRED1SUS3 OPR; RANO500T PO; TRIA0.1C20 TOP; VLT500 PO
== END | disposition home or self-care (01) ==
LOC: C.RDSM 13:30
PROVIDERS: ATTEND Physical Medicine & Rehabilitation Sports Medicine
DX: M25.561 Pain in right knee (principal); Z96.698 Presence of other orthopedic joint implants

== ENCOUNTER 2019-10-23 06:30 | Inpatient (IN) ==
[2019-10-23 07:00] LABS: Basophils # (auto) 0.06 K/uL (0-0.2); Basophils % (auto) 0.8 %; Eosinophils # (auto) 0.26 K/uL (0-0.5); Eosinophils % (auto) 3.4 %; Hematocrit (blood only) 40.2 % (37-47); Hemoglobin 13.5 g/dL (12.0-16.0); Immature Granulocytes # (auto) 0.03 K/uL (0.00-0.02); Immature Granulocytes % (auto) 0.4 %; Lymphocytes # (auto) 1.65 K/uL (1.2-3.4); Lymphocytes % (auto) 21.7 %; Mean Corpuscular Hemoglobin 31.5 pg (25-34); Mean Corpuscular Hgb Conc 33.6 g/dL (32-36); Mean Corpuscular Volume 93.7 fL (80-100); Mean Platelet Volume 10.8 fL (7.4-10.4); Monocytes # (auto) 0.91 K/uL (0.11-0.59); Neutrophils % (auto) 61.7 %; Platelet Count 211 K/uL (130-400); RDW Coefficient of Variation 16.1 % (11.5-14.5); RDW Standard Deviation 55.1 fL (36.4-46.3); Red Blood Count 4.29 M/uL (4.2-5.4); White Blood Count 7.61 K/uL (4.8-10.8)
[2019-10-23] MEDS ORDERED: FUROSEMIDE 40 MG/4 ML VIAL IV STA (07:04)
[2019-10-23] MEDS ORDERED: METOPROLOL TARTRATE 1 MG/ML VIAL IV PRN (07:06)
[2019-10-23] MEDS: MAGNESIUM SULFATE / D5W 1 GM/100 ML BAG IV SCH ×4 (07:13→08:13)
[2019-10-23 07:17] LABS: Alanine Aminotransferase 21 U/L (12-78); Albumin Level 3.5 gm/dl (3.4-5.0); Aspartate Aminotransferase 23 U/L (15-37); BUN Creatinine Ratio 22.1 (10-20); Blood Urea Nitrogen 21 mg/dl (7-18); Calcium 8.8 mg/dl (8.5-10.1); Carbon Dioxide 28 mmol/L (21-32); Chloride 107 mmol/L (98-107); Est GFR (African American) 65.9; Est GFR (Non-African American) 56.8; Glucose 109 mg/dl (70-99); Lipase 305 U/L (73-393); Sodium 140 mmol/L (136-145)
[2019-10-23 07:19] LABS: INR 1.1 (0.9-1.1); Partial Thromboplastin Time 25.9 Seconds (21.0-31.0); Prothrombin Time 10.8 Seconds (9.0-12.0)
[2019-10-23 07:31] LABS: Alkaline Phosphatase 78 U/L (45-117); Bilirubin,Total 0.6 mg/dl (0.2-1); Creatine Kinase 52 U/L (26-192); Creatine Kinase MB 2.8 ng/ml (0.5-3.6); Globulin 3.6 gm/dl (2.5-4.0); Total Protein 7.1 gm/dl (6.4-8.2); Troponin I 0.056 ng/ml (0-0.045)
[2019-10-23] MEDS ORDERED: Heparin IV Standard *NO* Bolus IV ONE (07:45)
--- NOTE | 2019-10-23 07:57 | XRay Report ---
XR chest 1V portable HISTORY: Atypical Chest Pain COMPARISON: Chest 03/01/2019. FINDINGS: There are low lung volumes. Large hiatus hernia, unchanged. There are poststernotomy change s. The heart remains mildly enlarged. Bibasilar linear densities favor subsegmental atelectasis. Ther e is mild central pulmonary vascular congestion without overt edema. No pleural effusions. No pneumot horax. IMPRESSION: 1. Mild central pulmonary vascular congestion without overt edema. 2. Large hiatus hernia, unchanged. 3. Bibasilar linear densities are nonspecific but favor subsegmental atelectasis. ACT 112: Negative or not required by law. Electronically signed by: Lg Mills M.D. 10/23/2019 7:55 AM
[2019-10-23] MEDS: HEPARIN SODIUM/DEXTROSE 25,000 UNITS/500 ML BAG IV SCH (08:43)
[2019-10-23] MEDS ORDERED: METOPROLOL TARTRATE 25 MG TAB PO STA (09:27)
[2019-10-23] MEDS ORDERED: METOPROLOL TARTRATE 25 MG TAB PO SCH (09:30)
--- NOTE | 2019-10-23 09:52 | History & Physical Report ---
Date of Service October 23, 2019 Assessment & Plan (1) Atrial fibrillation: The patient presented with palpitations and was found to be in rapid atrial fibrillation. She was given 5 mg of IV Lopressor and seemed to have converted to sinus rhythm. Her heart rate was in 60s at the time of my evaluation. Will obtain an EKG to confirm the rhythm. As stated above she is not sure if she took her carvedilol last night but she did take it this morning before coming to the ER. We will start metoprolol tartrate 25 mg twice a day and titrate the dose to achieve heart rate in 60s and maintaining sinus rhythm. She may be converted to metoprolol succinate once optimum dosing is reached. Sh daya had mild pitting edema in the left leg only, likely because of obtaining vein from that leg for the CABG surgery. Otherwise she looked euvolemic. She was given 40 mg of IV Lasix in the ER. We will continue 40 mg IV Lasix daily. Given her significant coronary artery disease, will request cardiology to evaluate. A consult order has already been placed by ER. We will continue heparin for now and she may be switched to some oral anticoagulant. We will also order an echocardiogram. Pathophysiology of atrial fibrillation and the rationale of anticoagulation and risk of bleeding discussed with the patient and her daughter. Present on Admission?: Yes (2) Coronary artery disease: Her first troponin is mildly elevated which may be secondary to stress because by tachycardia as she has an occluded graft. Will trend troponin. Continue aspirin and atorvastatin. Present on Admission?: Yes (3) Hypertension: Continue irbesartan Present on Admission?: Yes (4) Asthma: She takes Flovent and albuterol as needed. Currently not active. Present on Admission?: Yes History of Present Illness Chief Complaint: Palpitations Primary Care Provider: Emely Christine DO This is an 84-year-old female who lives at home alone and came to the ER because of palpitations. Her significant past medical history includes coronary artery disease for which she underwent bypass surgery by Dr. Rico in [facility] in 2007. She had left main disease and she underwent internal mammary artery graft to the LAD and SVG from the aorta to the posterior ventricular branch of the right coronary artery. She has since developed total occlusion of the SVG graft and had patent LYONS to the LAD according to the cardiac catheterization done in 2012. She suffers from chronic stable angina as a result and has been advised by her duct cleaner, Dr. Christine to avoid extreme physical exertion. Her room is on the first floor and she has an electric chair that takes her upst airs. She is on optimal medications including aspirin 81 mg, atorvastatin 80 mg, carvedilol 6.25 mg twice a day, Lasix 20 mg daily and ranolazine 500 mg twice a day. She saw Dr. Christine on 10/13 for a routine follow-up and all her medications were continued. It was noticed that she had some more pedal edema so she was advised to take an additional 20 mg of Lasix that day. Last night she woke up in the middle of the night and felt her heart racing. She went back to sleep and this morning she woke up around 5 AM and still felt her heart beating very fast. She obtained her blood pressure, is not sure about the exact reading but stated that her blood pressure was okay. The heart rate rate in 120s. She decided to come to the ER because of that. She denied any chest pain or shortness of breath during that time. She denied any lightheadedness or dizziness. She denies any abdominal pain, diarrhea or constipation. She has not had any nausea or vomiting. She does not have any problems urinating. She has not had any fever or chills in the past few days. She has never had this sensation of palpitations before. In the ER EKG demonstrated rapid atrial fibrillation. She was given 5 mg of IV Lopressor and seemed to have converted to sinus rhythm after that. Of note she stated that she does not remember if she took her carvedilol and ranolazine last night. But she did take them this morning before coming to the ER. She has never smoked, she drinks occasionally. She lives at home by herself. Her daughter lives nearby. 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 Allergies Allergy/AdvReac Type Severity Reaction Status Date / Time lisinopril Allergy Unknown "THROAT Verified 10/23/19 07:57 CLOSES" sulfamethoxazole Allergy Unknown RASH Verified 10/23/19 07:57 aspirin AdvReac Unknown BLEEDING Verified 10/23/19 07:57 ENVIRONMENTAL ALLERGIES Allergy Unknown . Uncoded 10/23/19 07:57 Home Medications Home Medications Medication Instructions Recorded Confirmed Type ferrous sulfate 325 mg PO 3XWK #0 12/14/13 10/23/19 History nitroglycerin 0.4 mg SUBLINGUAL DIRECTED PRN 12/14/13 10/23/19 History #0 btl ranolazine 500 mg PO BID #0 12/14/13 10/23/19 History vitamins A,C,I-sayh-hwibif 1 cap PO BID #0 12/14/13 10/23/19 History [PreserVision AREDS] aspirin [Aspirin Low Dose] 81 mg PO QAM #0 06/18/17 10/23/19 History atorvastatin 80 mg PO HS #0 tab 06/18/17 10/23/19 History furosemide 20 mg PO QAM #0 tab 06/18/17 10/23/19 History potassium chloride 20 meq PO HS #0 tab 06/18/17 10/23/19 History prednisolone acetate 1 drp OPHTHALMIC (EYE) HS 10 Days 06/18/17 10/23/19 History #0 btl albuterol sulfate 2 puff INHALATION Q6H PRN #0 01/27/18 10/23/19 History irbesartan 75 mg PO HS #0 01/27/18 10/23/19 History alendronate 70 mg PO WK 03/01/19 10/23/19 History carvedilol 6.25 mg PO BID 03/01/19 10/23/19 History fluticasone propionate [Flovent 2 puff INHALATION BID 03/01/19 10/23/19 History HFA] Past Med/Surg History Medical History (Updated 10/23/19 @ 09:44 by Leonard Benavidez MD) Asthma (Chronic) CHF (congestive heart failure) Coronary artery disease (Chronic) Hypertension (Chronic) Scoliosis (Chronic) Surgical History H/O cardiac catheterization (Resolved) S/P CABG (coronary artery bypass graft) (Resolved) Social History Preferred Language: Telugu Communication Ability: Effective [place] Order Scheduler Required: No Beliefs That Will Affect Care: None Current Living Situation: Alone Other Information That Helps Us Care for You: No Feels Safe at Home: Yes Safety Concerns: Feels Safe At This Time Smoking Status: Never smoker Hx Alcohol Use: Yes Alcohol type: wine Hx Substance Use: No Review of Systems Review of Systems: All systems reviewed & are unremarkable except as noted in HPI & below Physical Exam Physical Exam: General: Alert and oriented x 3. NAD HENT: Normocephalic, atraumatic, pupils round and equally reactive to light, oral mucosa: moist Neck: Supple, no lymph nodes palpated, no thyromegaly CVS: Normal S1, S2. No murmur, rub or gallop. PMI non displaced. Peripheral pulses normal. Resp: Normal percussion. Normal breath sounds bilaterally. No wheezing or rales heard Abdomen: Soft, non tender, no hepatosplenomegaly. Bowel sounds positive Extremities: Mild pitting edema in the left leg Neuro: Power 5/5 throughout, grossly normal sensations, DTR's normal Psychiatry: Normal mood, normal thought process Results & Data Vital Signs (Past 12 Hours) Vital Signs Temp Pulse Pulse Resp BP BP Pulse Ox 10/23/19 07:58 121 H 17 121/72 96 10/23/19 07:12 130 H 134/85 10/23/19 06:38 36.3 C L 152 H 18 101/66 97 Laboratory Results Laboratory Results - last 24 hr 10/23/19 10/23/19 10/23/19 06:51 06:51 06:51 WBC 7.61 RBC 4.29 Hgb 13.5 Hct 40.2 MCV 93.7 MCH 31.5 MCHC 33.6 RDW Std Deviation 55.1 H RDW Coeff of [place] 16.1 H Plt Count 211 MPV 10.8 H Immature Gran % (Auto) 0.4 Neut % (Auto) 61.7 Lymph % (Auto) 21.7 [place] % (Auto) 12.0 Eos % (Auto) 3.4 Baso % (Auto) 0.8 Immature Gran # (Auto) 0.03 H Neut # (Auto) 4.70 Lymph # (Auto) 1.65 [place] # (Auto) 0.91 H Eos # (Auto) 0.26 Baso # (Auto) 0.06 PT 10.8 INR 1.1 APTT 25.9 PTT Ratio 1.0 Sodium 140 Potassium 4.0 Chloride 107 Carbon Dioxide 28 Anion Gap 5.0 BUN 21 H Creatinine 0.93 Est Cr Clr Drug Dosing Not Reportable Est GFR ( Amer) 65.9 Est GFR (Non-Af Amer) 56.8 BUN/Creatinine Ratio 22.1 H Glucose 109 H Calcium 8.8 Total Bilirubin 0.6 AST 23 ALT 21 Alkaline Phosphatase 78 Total Creatine Kinase 52 CK-MB (CK-2) 2.8 CK/CKMB % Calc 5.4 H Troponin I 0.056 H* NT-Pro-B Natriuret Pep Total Protein 7.1 Albumin 3.5 Globulin 3.6 Albumin/Globulin Ratio 1.0 Lipase 305 10/23/19 06:51 WBC RBC Hgb Hct MCV MCH MCHC RDW Std Deviation RDW Coeff of [place] Plt Count MPV Immature Gran % (Auto) Neut % (Auto) Lymph % (Auto) [place] % (Auto) Eos % (Auto) Baso % (Auto) Immature Gran # (Auto) Neut # (Auto) Lymph # (Auto) [place] # (Auto) Eos # (Auto) Baso # (Auto) PT INR APTT PTT Ratio Sodium Potassium Chloride Carbon Dioxide Anion Gap BUN Creatinine Est Cr Clr Drug Dosing Est GFR ( Amer) Est GFR (Non-Af Amer) BUN/Creatinine Ratio Glucose Calcium Total Bilirubin AST ALT Alkaline Phosphatase Total Creatine Kinase CK-MB (CK-2) CK/CKMB % Calc Troponin I NT-Pro-B Natriuret Pep 1475 Total Protein Albumin Globulin Albumin/Globulin Ratio Lipase Diagnostic Findings Chest x-ray, personally reviewed did not show any acute infiltrate ECG Indication: tachycardia Rate (beats per minute): 130 Rhythm: atrial fibrillation Findings: + RBBB Code Status & VTE Plan VTE Prophylaxis Plan VTE Prophylaxis will be ordered: Yes
[2019-10-23] MEDS ORDERED: ICU PROTOCOL FOR HYPERGLYCEMIA PRN (10:31)
[2019-10-23] MEDS: ASPIRIN 81 MG ECTAB PO SCH (11:43)
--- NOTE | 2019-10-23 14:06 | Emergency Department Note ---
Entered by Angelica Van acting as a scribe for History of Present Illness General Chief complaint: Tachycardia Stated complaint: RAPID HEART BEAT Time Seen by Provider: 10/23/19 06:48 History of Present Illness Provider complaint: tachycardia Onset (ago): hour(s) 6 Severity: similar to prior episodes (of Afib) Pain Consistency: + other (episode) Quality: + other (tachycardia) Associated symptoms: + chest pain (tightness) and + other (under mild stress and excitement, ) Treatments prior to arrival: other (carvedilol 0500) The patient is an 84 year old female who presents to the ED with complaints of an episode of tachycardia that started 6 hours ago. The patient states that this feeling started in the middle of the night. The patient notes that she has been in Afib one time in the past, but she quickly reverted back into a normal sinus rhythm. The patient states that she was packing late last night to go to [place] which was slightly stressful but also exciting. The patient notes that she feels a mild tightness in her chest. The patient states that she forgot to take her carvedilol last night, so she took it at 0500 this morning. The patient notes that she also takes a baby aspirin and Lasix daily. Home Medications Home Medications Medication Instructions Recorded Confirmed Type ferrous sulfate 325 mg PO 3XWK #0 12/14/13 10/23/19 History nitroglycerin 0.4 mg SUBLINGUAL DIRECTED PRN 12/14/13 10/23/19 History #0 btl ranolazine 500 mg PO BID #0 12/14/13 10/23/19 History vitamins A,C,Q-xrbl-pcbksp 1 cap PO BID #0 12/14/13 10/23/19 History [PreserVision AREDS] aspirin [Aspirin Low Dose] 81 mg PO QAM #0 06/18/17 10/23/19 History atorvastatin 80 mg PO HS #0 tab 06/18/17 10/23/19 History furosemide 20 mg PO QAM #0 tab 06/18/17 10/23/19 History potassium chloride 20 meq PO HS #0 tab 06/18/17 10/23/19 History prednisolone acetate 1 drp OPHTHALMIC (EYE) HS 10 Days 06/18/17 10/23/19 History #0 btl albuterol sulfate 2 puff INHALATION Q6H PRN #0 01/27/18 10/23/19 History irbesartan 75 mg PO HS #0 01/27/18 10/23/19 History alendronate 70 mg PO WK 03/01/19 10/23/19 History carvedilol 6.25 mg PO BID 03/01/19 10/23/19 History fluticasone propionate [Flovent 2 puff INHALATION BID 03/01/19 10/23/19 History HFA] Allergies Allergy/AdvReac Type Severity Reaction Status Date / Time lisinopril Allergy Unknown "THROAT Verified 10/23/19 07:57 CLOSES" sulfamethoxazole Allergy Unknown RASH Verified 10/23/19 07:57 aspirin AdvReac Unknown BLEEDING Verified 10/23/19 07:57 ENVIRONMENTAL ALLERGIES Allergy Unknown . Uncoded 10/23/19 07:57 Past Med/Surg History Medical History (Updated 10/23/19 @ 14:05 by Gautam Anthony MD) Asthma (Chronic) CHF (congestive heart failure) Coronary artery disease (Chronic) Hypertension (Chronic) Scoliosis (Chronic) Surgical History H/O cardiac catheterization (Resolved) S/P CABG (coronary artery bypass graft) (Resolved) Social History Preferred Language: [place] Citizen Communication Ability: Effective [place] Required: No Beliefs That Will Affect Care: None Current Living Situation: Alone Other Information That Helps Us Care for You: No Feels Safe at Home: Yes Safety Concerns: Feels Safe At This Time Smoking Status: Never smoker Hx Alcohol Use: Yes Alcohol type: wine Hx Substance Use: No Review of Systems See HPI for pertinent positives & negatives. and A total of 10 systems reviewed and were otherwise negative Physical Exam Vital Signs Vital Signs - 24 hr 10/23/19 06:38 10/23/19 06:46 10/23/19 07:12 Temperature 36.3 C L Temperature Source Oral Pulse Rate 152 H 130 H Pulse Rate [Apical] Pulse Rhythm [Apical] Respiratory Rate 18 Respiratory Effort / Characteristics Non-Labored Spontaneous Respiratory Depth Normal Respiratory Pattern Blood Pressure 101/66 134/85 Blood Pressure [Right Arm] Blood Pressure Mean 77 Blood Pressure Mean [Right Arm] Pulse Oximetry 97 Oxygen Delivery Method Room Air Room Air Sepsis Recent Fever Within 48 Hours No Sepsis Action Taken by Nursing No Action Required 10/23/19 07:58 Temperature Temperature Source Pulse Rate Pulse Rate [Apical] 121 H Pulse Rhythm [Apical] Irregular Respiratory Rate 17 Respiratory Effort / Characteristics Non-Labored Spontaneous Respiratory Depth Normal Respiratory Pattern Regular Blood Pressure Blood Pressure [Right Arm] 121/72 Blood Pressure Mean Blood Pressure Mean [Right Arm] 88 Pulse Oximetry 96 Oxygen Delivery Method Room Air Sepsis Recent Fever Within 48 Hours Sepsis Action Taken by Nursing GENERAL: Awake, alert, well-appearing, in no acute distress HENT: Normocephalic, atraumatic. Oropharynx unremarkable. EYES: Normal conjunctiva. Sclera non-icteric. NECK: Supple. No nuchal rigidity. FROM. No JVD. RESPIRATORY: Clear to auscultation. CARDIAC: Regular rate, normal rhythm. Extremities warm and well perfused. Pulses equal. ABDOMEN: Soft, non-distended. No tenderness to palpation. No rebound or guarding. No masses. RECTAL: Deferred. MUSCULOSKELETAL: Chest examination reveals no tenderness. The back is symmetrical on inspection without obvious abnormality. There is no CVA t enderness to palpation. No joint edema. LOWER EXTREMITIES: Calves are equal size bilaterally and non-tender. No edema. No discoloration. NEURO: Normal sensorium. No sensory or motor deficits noted. SKIN: No rash or jaundice noted. Course Course 0659: Past medical records reviewed. The patient was evaluated in room C05. A complete history and physical exam was performed. 0744: I discussed the patient's case with Dr. Sabi Almeida, Hospitalist. He will evaluate the patient for further management. Consultations Consultation #1: I discussed the patient's case with Dr. Sabi Almeida, Hospitalist. He will evaluate the patient for further management. Time: 07:44 Administered Medications Aspirin (Ecotrin Ectab) 81 mg PO QAM [facility] Stop: 11/22/19 10:59 Last Admin: 10/23/19 11:43 Dose: 81 mg Documented by: [id number] Heparin Sodium/Dextrose (Heparin Sodium/Dextrose) 25,000 units in 500 mls @ 20 mls/hr IV .Q24H [facility]; Protocol Stop: 11/22/19 07:44 Last Admin: 10/23/19 08:43 Dose: 1,000 units/hr, 20 mls/hr Documented by: [id number] Cosigned by: [id number] Discontinued Medications Furosemide (Lasix) 40 mg IV NOW STA Stop: 10/23/19 07:05 Last Admin: 10/23/19 07:12 Dose: 40 mg Documented by: [id number] Heparin Sodium/Dextrose () 1 ea IV ONE ONE; Protocol Stop: 10/23/19 07:46 Last Admin: 10/23/19 08:44 Dose: 1 ea Documented by: [id number] Magnesium Sulfate/Dextrose (Magnesium Sulfate / D5w) 1 gm in 100 mls @ 100 mls/hr IV Q1H [facility] Stop: 10/23/19 11:14 Last Infusion: 10/23/19 08:43 Dose: 0 mls/hr Documented by: [id number] Admin: 10/23/19 08:13 Dose: 400 mls/hr Documented by: [id number] Infusion: 10/23/19 08:12 Dose: 0 mls/hr Documented by: [id number] Admin: 10/23/19 07:57 Dose: 400 mls/hr Documented by: [id number] Infusion: 10/23/19 07:56 Dose: 0 mls/hr Documented by: [id number] Admin: 10/23/19 07:42 Dose: 400 mls/hr Documented by: [id number] Infusion: 10/23/19 07:42 Dose: 400 mls/hr Documented by: [id number] Admin: 10/23/19 07:13 Dose: 100 mls/hr Documented by: [id number] Metoprolol Tartrate (Lopressor) 5 mg IV Q5M PRN PRN Reason: Tachycardia Stop: 11/22/19 07:05 Last Admin: 10/23/19 07:12 Dose: 5 mg Documented by: [id number] Metoprolol Tartrate (Lopressor) 25 mg PO NOW STA Stop: 10/23/19 09:28 Last Admin: 10/23/19 09:42 Dose: 25 mg Documented by: [id number] Critical Care Time I have personally spent greater than 30 minutes of critical care time in the direct management of this patient. This includes bedside care, interpretation of diagnostic studies, and testing, discussion with consultants, patient, and family members, and other required patient management activities. This 30 minutes is in excess of all separately billable procedures. Medical Decision Making Differential Diagnosis Differential diagnosis: Etiologies such as premature contractions, electrolyte abnormality, cardiac dysrhythmia, thyroid dysfunction, pulmonary embolism, infection, gastrointestinal, as well as others were entertained. Medical Records Attestation: I reviewed the patient's medical records. Home Medications Current Medication List: was personally reviewed by me Laboratory Data Attestation: I reviewed the patient's lab results. Result diagrams: 10/23/19 06:51 10/23/19 06:51 Lab Results 10/23/19 10/23/19 10/23/19 Range/Units 06:51 06:51 06:51 WBC 7.61 (4.8-10.8) K/uL RBC 4.29 (4.2-5.4) M/uL Hgb 13.5 (12.0-16.0) g/dL Hct 40.2 (37-47) % MCV 93.7 (80-100) fL MCH 31.5 (25-34) pg MCHC 33.6 (32-36) g/dL RDW Std Deviation 55.1 H (36.4-46.3) fL RDW Coeff of Mariana 16.1 H (11.5-14.5) % Plt Count 211 (130-400) K/uL MPV 10.8 H (7.4-10.4) fL Immature Gran % (Auto) 0.4 % Neut % (Auto) 61.7 % Lymph % (Auto) 21.7 % [place] % (Auto) 12.0 % Eos % (Auto) 3.4 % Baso % (Auto) 0.8 % Immature Gran # (Auto) 0.03 H (0.00-0.02) K/uL Neut # (Auto) 4.70 (1.4-6.5) K/uL Lymph # (Auto) 1.65 (1.2-3.4) K/uL [place] # (Auto) 0.91 H (0.11-0.59) K/uL Eos # (Auto) 0.26 (0-0.5) K/uL Baso # (Auto) 0.06 (0-0.2) K/uL PT 10.8 (9.0-12.0) Seconds INR 1.1 (0.9-1.1) APTT 25.9 (21.0-31.0) Seconds PTT Ratio 1.0 Sodium 140 (136-145) mmol/L Potassium 4.0 (3.5-5.1) mmol/L Chloride 107 (98-107) mmol/L Carbon Dioxide 28 (21-32) mmol/L Anion Gap 5.0 (3-11) BUN 21 H (7-18) mg/dl Creatinine 0.93 (0.6-1.2) mg/dl Est Cr Clr Drug Dosing Not Reportable Est GFR ( Amer) 65.9 Est GFR (Non-Af Amer) 56.8 BUN/Creatinine Ratio 22.1 H (10-20) Glucose 109 H (70-99) mg/dl Calcium 8.8 (8.5-10.1) mg/dl Total Bilirubin 0.6 (0.2-1) mg/dl AST 23 (15-37) U/L ALT 21 (12-78) U/L Alkaline Phosphatase 78 (45-117) U/L Total Creatine Kinase 52 (26-192) U/L CK-MB (CK-2) 2.8 (0.5-3.6) ng/ml CK/CKMB % Calc 5.4 H (0-3.0) Troponin I 0.056 H* (0-0.045) ng/ml NT-Pro-B Natriuret Pep (0-1800) pg/ml Total Protein 7.1 (6.4-8.2) gm/dl Albumin 3.5 (3.4-5.0) gm/dl Globulin 3.6 (2.5-4.0) gm/dl Albumin/Globulin Ratio 1.0 (0.9-2) Lipase 305 (73-393) U/L 10/23/19 Range/Units 06:51 WBC (4.8-10.8) K/uL RBC (4.2-5.4) M/uL Hgb (12.0-16.0) g/dL Hct (37-47) % MCV (80-100) fL MCH (25-34) pg MCHC (32-36) g/dL RDW Std Deviation (36.4-46.3) fL RDW Coeff of [place] (11.5-14.5) % Plt Count (130-400) K/uL MPV (7.4-10.4) fL Immature Gran % (Auto) % Neut % (Auto) % Lymph % (Auto) % [place] % (Auto) % Eos % (Auto) % Baso % (Auto) % Immature Gran # (Auto) (0.00-0.02) K/uL Neut # (Auto) (1.4-6.5) K/uL Lymph # (Auto) (1.2-3.4) K/uL [place] # (Auto) (0.11-0.59) K/uL Eos # (Auto) (0-0.5) K/uL Baso # (Auto) (0-0.2) K/uL PT (9.0-12.0) Seconds INR (0.9-1.1) APTT (21.0-31.0) Seconds PTT Ratio Sodium (136-145) mmol/L Potassium (3.5-5.1) mmol/L Chloride (98-107) mmol/L Carbon Dioxide (21-32) mmol/L Anion Gap (3-11) BUN (7-18) mg/dl Creatinine (0.6-1.2) mg/dl Est Cr Clr Drug Dosing Est GFR ( Amer) Est GFR (Non-Af Amer) BUN/Creatinine Ratio (10-20) Glucose (70-99) mg/dl Calcium (8.5-10.1) mg/dl Total Bilirubin (0.2-1) mg/dl AST (15-37) U/L ALT (12-78) U/L Alkaline Phosphatase (45-117) U/L Total Creatine Kinase (26-192) U/L CK-MB (CK-2) (0.5-3.6) ng/ml CK/CKMB % Calc (0-3.0) Troponin I (0-0.045) ng/ml NT-Pro-B Natriuret Pep 1475 (0-1800) pg/ml Total Protein (6.4-8.2) gm/dl Albumin (3.4-5.0) gm/dl Globulin (2.5-4.0) gm/dl Albumin/Globulin Ratio (0.9-2) Lipase (73-393) U/L Imaging Data Radiologist's Impression: Radiology results as stated below per my review and the radiologist's interpretation: XR chest 1V portable HISTORY: Atypical Chest Pain COMPARISON: Chest 03/01/2019. FINDINGS: There are low lung volumes. Large hiatus hernia, unchanged. There are poststernotomy changes. The heart remains mildly enlarged. Bibasilar linear densities favor subsegmental atelectasis. There is mild central pulmonary vascular congestion without overt edema. No pleural effusions. No pneumothorax. IMPRESSION: 1. Mild central pulmonary vascular congestion without overt edema. 2. Large hiatus hernia, unchanged. 3. Bibasilar linear densities are nonspecific but favor subsegmental atelectasis. ACT 112: Negative or not required by law. Electronically signed by: Lg Mills M.D. 10/23/2019 7:55 AM ECG Data Attestation: I personally reviewed and interpreted this ECG as follows: Indication: + palpitations Rate (beats per minute): 135 Rhythm: + atrial fibrillation (withh RVR) ECG Intervals/blocks: + Right Bundle branch block ECG ST segments: no ST depression and no ST elevation ECG Findings: + Other (QTC 453) Comparison ECG Date: from (03/01/2019) Change: the following changes noted (Afib is new) Blood Pressure Blood Pressure Findings: Normal blood pressure Blood Pressure Disposition: did not require urgent referral MDM Narrative This is an 84-year-old female who presents emergency department and new onset A. fib with RVR. The patient was given 4 g of magnesium here in the emergency department as well as Lopressor. She was also started on a heparin drip. She does have an elevation in her troponin and she was discussed with both the hospitalist as well as cardiology service. Patient and family were in agreement with the treatment plan. Impression & Plan Atrial fibrillation with RVR Discharge Plan Visit Data *Final* Discharge Date/Time: 10/23/19 09:51 Chief Complaint: Tachycardia Stated Complaint: RAPID HEART BEAT ED Provider: Gautam Anthony Discharge Problem: Atrial fibrillation with RVR Patient Disposition: Admitted As Inpatient Discharge Instructions Interventions: ED Discharge Assessment Last Done: 10/23/19 09:51 The scribe's documentation has been prepared under my direction and personally reviewed by me in its entirety. I confirm that the note above accurately reflects all work, treatment, procedures, and medical decision making performed by me.
--- NOTE | 2019-10-23 14:11 | Cardiology Consultation ---
Date of Consultation October 23, 2019 Assessment & Plan (1) Paroxysmal atrial fibrillation with rapid ventricular response: Patient is a 84-year-old female with underlying ischemic heart disease with prior remote coronary bypass grafting for left main disease and stable class 2-3 angina pectoris. She presents now with an episode of atrial fibrillation with rapid response occurring without overt precipitating cause other than the stressors of packing for an upcoming trip. Patient spontaneously converted to sinus rhythm after dose of metoprolol. Currently is comfortable however telemetry continues to demonstrate short runs of wide-complex tachycardia asymptomatically. Troponins are minimally elevated consistent with heart rate and demand based on chronic ischemia. Echocardiogram is pending Discussed above findings in detail with patient and daughter. I am concerned regarding likelihood of recurrence of atrial arrhythmias in this patient as well as the presence of ventricular arrhythmias. Her history and current presentation does not suggest an acute coronary syndrome. Plan: We will initiate antiarrhythmic therapy with amiodarone following EKGs and telemetry. Echocardiogram will be reviewed carvedilol will be reduced to 3.125 mg twice per day. We will continue anticoagulation with IV heparin initiated on presentation with ultimate goals likely conversion to Eliquis. Would anticipate at least 48 hours more telemetry (2) S/P CABG (coronary artery bypass graft): Underwent two-vessel grafting in 2007 for left main disease receiving a LYONS graft to the LAD and a saphenous vein graft to the circumflex. Vein graft to circumflex has been known to be occluded by past evaluation History of Present Illness Reason for Consultation: Paroxysmal atrial fibrillation, symptomatic Requesting Physician: Dr Benavidez Attending Physician: Leonard Benavidez MD History of Present Illness Patient is a very complex 84-year-old female with ongoing cardiac issues 1. Chronic severe CAD - left main and left circumflex stenosis status post coronary bypass grafting 2007 with patent LYONS to LAD and occluded SVG to Lcx. - stable class 2-3 angina. 2. Compensated diastolic heart failure 4. Symptomatic premature ventricular complexes - palpitations controlled 5. Chronic pedal edema - more prominent per examination today 6. Labile HTN - controlled 7. Kyphoscoliosis with restricted respiratory physiology 8. Dyslipidemia - controlled - tolerating 80 mg atorvastatin 9. CKD 3 Patient presents this admission noting with packing last evening with anticipation of travel to [place] today. Shortly after completing activities she developed sudden cessation of heart pounding in her back and chest with mild chest tightness. She noted no dizziness lightness syncope or near syncope. Did check her heart rate and blood pressure with blood pressure normal though heart rate significantly elevated. She presented to the emergency room where she was found to be in atrial fibrillation with rapid response rates 135 to 140 bpm. She was given IV metoprolol subset conversion to sinus rhythm. She is referred now for further evaluation. She notes no chest pains or recent anginal symptoms and up until event had been active as per usual with good tolerance. Notes no fevers chills unexplained infections. Notes no abdominal pain or bloating notes no worsening edema. Was given a diuretic and has been using it for lower extremity edema with good control. Appetite and weight have been generally stable. Currently feels well without complaints since admission. Telemetry however is demonstrated intermittent runs of wide-complex tachycardia 6-12 beats in duration. Allergies Allergy/AdvReac Type Severity Reaction Status Date / Time lisinopril Allergy Unknown "THROAT Verified 10/23/19 07:57 CLOSES" sulfamethoxazole Allergy Unknown RASH Verified 10/23/19 07:57 aspirin AdvReac Unknown BLEEDING Verified 10/23/19 07:57 ENVIRONMENTAL ALLERGIES Allergy Unknown . Uncoded 10/23/19 07:57 Home Medications Home Medications Medication Instructions Recorded Confirmed Type ferrous sulfate 325 mg PO 3XWK #0 12/14/13 10/23/19 History nitroglycerin 0.4 mg SUBLINGUAL DIRECTED PRN 12/14/13 10/23/19 History #0 btl ranolazine 500 mg PO BID #0 12/14/13 10/23/19 History vitamins A,C,K-[id number] 1 cap PO BID #0 12/14/13 10/23/19 History [PreserVision AREDS] aspirin [Aspirin Low Dose] 81 mg PO QAM #0 06/18/17 10/23/19 History atorvastatin 80 mg PO HS #0 tab 06/18/17 10/23/19 History furosemide 20 mg PO QAM #0 tab 06/18/17 10/23/19 History potassium chloride 20 meq PO HS #0 tab 06/18/17 10/23/19 History prednisolone acetate 1 drp OPHTHALMIC (EYE) HS 10 Days 06/18/17 10/23/19 History #0 btl albuterol sulfate 2 puff INHALATION Q6H PRN #0 01/27/18 10/23/19 History irbesartan 75 mg PO HS #0 05/29/18 02/22/20 History alendronate 70 mg PO WK 03/01/19 10/23/19 History carvedilol 6.25 mg PO BID 03/01/19 10/23/19 History fluticasone propionate [Flovent 2 puff INHALATION BID 03/01/19 10/23/19 History HFA] Patient History Medical History (Updated 10/23/19 @ 15:59 by Jere Bah MD) Asthma (Chronic) CHF (congestive heart failure) Coronary artery disease (Chronic) Hypertension (Chronic) Scoliosis (Chronic) Surgical History H/O cardiac catheterization (Resolved) S/P CABG (coronary artery bypass graft) (Resolved) Social History Preferred Language: Haitian Communication Ability: Effective Market Investigator Required: No Beliefs That Will Affect Care: None Current Living Situation: Alone Other Information That Helps Us Care for You: No Feels Safe at Home: Yes Safety Concerns: Feels Safe At This Time Smoking Status: Never smoker Hx Alcohol Use: Yes Alcohol type: wine Hx Substance Use: No Review of Systems Review of Systems: All systems reviewed & are unremarkable except as noted in HPI & below Physical Exam Constitutional: WD/WN, vitals as above + thin; no acute distress Eyes: PERRL, conjunctivae normal, anicteric sclerae ENMT: external ear and nose normal, oropharynx normal Neck: trachea midline, no thyromegaly Respiratory: normal respiratory effort, lungs clear to auscultation Auscultation: + diminished lung sounds Cardiovascular: Rate/Rhythm: regular rate and regular rhythm Heart Sounds: normal S1 and normal S2; no gallop and no murmur Palpation: normal PMI Vessels: normal carotid upstroke and radial pulses present; no JVD and no carotid bruit Extremities: no edema Gastrointestinal (Abdomen): normal bowel sounds, soft, nontender, no hepatosplenomegaly Musculoskeletal: no cyanosis or clubbing, extremities motor strength 5/5 Skin: no rashes, warm and dry Neurologic: PERRL, EOMI, accommodation nl, no face palsy, no dysarthria Psychiatric: A+Ox3, euthymic affect Results & Data ([facility]) Vital Signs (Past 12 Hours) Vital Signs Temp Pulse Pulse Resp BP BP Pulse Ox 10/23/19 10:42 36.4 C L 61 16 119/72 95 10/23/19 09:51 62 16 108/57 L 96 10/23/19 07:58 121 H 17 121/72 96 10/23/19 07:12 130 H 134/85 10/23/19 06:38 36.3 C L 152 H 18 101/66 97 Laboratory Results Laboratory Results - last 24 hr 10/23/19 10/23/19 10/23/19 06:51 06:51 06:51 WBC 7.61 RBC 4.29 Hgb 13.5 Hct 40.2 MCV 93.7 MCH 31.5 MCHC 33.6 RDW Std Deviation 55.1 H RDW Coeff of [place] 16.1 H Plt Count 211 MPV 10.8 H Immature Gran % (Auto) 0.4 Neut % (Auto) 61.7 Lymph % (Auto) 21.7 [place] % (Auto) 12.0 Eos % (Auto) 3.4 Baso % (Auto) 0.8 Immature Gran # (Auto) 0.03 H Neut # (Auto) 4.70 Lymph # (Auto) 1.65 [place] # (Auto) 0.91 H Eos # (Auto) 0.26 Baso # (Auto) 0.06 PT 10.8 INR 1.1 APTT 25.9 PTT Ratio 1.0 Sodium 140 Potassium 4.0 Chloride 107 Carbon Dioxide 28 Anion Gap 5.0 BUN 21 H Creatinine 0.93 Est Cr Clr Drug Dosing Not Reportable Est GFR ( Amer) 65.9 Est GFR (Non-Af Amer) 56.8 BUN/Creatinine Ratio 22.1 H Glucose 109 H Calcium 8.8 Total Bilirubin 0.6 AST 23 ALT 21 Alkaline Phosphatase 78 Total Creatine Kinase 52 CK-MB (CK-2) 2.8 CK/CKMB % Calc 5.4 H Troponin I 0.056 H* NT-Pro-B Natriuret Pep Total Protein 7.1 Albumin 3.5 Globulin 3.6 Albumin/Globulin Ratio 1.0 Lipase 305 10/23/19 10/23/19 10/23/19 06:51 14:06 14:06 WBC RBC Hgb Hct MCV MCH MCHC RDW Std Deviation RDW Coeff of [place] Plt Count MPV Immature Gran % (Auto) Neut % (Auto) Lymph % (Auto) [place] % (Auto) Eos % (Auto) Baso % (Auto) Immature Gran # (Auto) Neut # (Auto) Lymph # (Auto) [place] # (Auto) Eos # (Auto) Baso # (Auto) PT INR APTT 47.7 H* PTT Ratio 1.8 Sodium Potassium Chloride Carbon Dioxide Anion Gap BUN Creatinine Est Cr Clr Drug Dosing Est GFR ( Amer) Est GFR (Non-Af Amer) BUN/Creatinine Ratio Glucose Calcium Total Bilirubin AST ALT Alkaline Phosphatase Total Creatine Kinase CK-MB (CK-2) CK/CKMB % Calc Troponin I 10.400 H* NT-Pro-B Natriuret Pep 1475 Total Protein Albumin Globulin Albumin/Globulin Ratio Lipase
[2019-10-23 14:49] LABS: Partial Thromboplastin Ratio 1.8
[2019-10-23 14:55] LABS: Partial Thromboplastin Time 47.7 Seconds (21.0-31.0)
[2019-10-23] MEDS: AMIODARONE 200 MG TAB PO SCH ×2 (17:11→20:57)
--- NOTE | 2019-10-23 18:12 | Electrocardiogram Report ---
Test Reason : Blood Pressure : / mmHG Vent. Rate : 135 BPM Atrial Rate : 136 BPM P-R Int : 000 ms QRS Dur : 144 ms QT Int : 302 ms P-R-T Axes : 000 076 -74 degrees QTc Int : 453 ms Atrial fibrillation with rapid ventricular response Right bundle branch block Abnormal ECG When compared with ECG of 01-MAR-2019 08:57, Atrial fibrillation has replaced Sinus rhythm Vent. rate has increased BY 66 BPM Questionable change in QRS axis Inverted T waves have replaced nonspecific T wave abnormality in Inferior leads Confirmed by Yaniv Pickens ([id number]) on 10/23/2019 6:12:12 PM Referred By: REFERRED SELF Confirmed By:Uche Pickens
--- NOTE | 2019-10-23 18:20 | Electrocardiogram Report ---
Test Reason : Blood Pressure : / mmHG Vent. Rate : 066 BPM Atrial Rate : 066 BPM P-R Int : 156 ms QRS Dur : 090 ms QT Int : 472 ms P-R-T Axes : 044 008 089 degrees QTc Int : 494 ms Normal sinus rhythm Prolonged QT Right bundle branch block Abnormal ECG When compared with ECG of 23-OCT-2019 06:46, (unconfirmed) Sinus rhythm has replaced Atrial fibrillation Vent. rate has decreased BY 69 BPM Confirmed by Yaniv Pickens ([id number]) on 10/23/2019 6:20:28 PM Referred By: REFERRED SELF Confirmed By:Uche Pickens
[2019-10-23] MEDS: RANOLAZINE 500 MG ER TAB PO SCH (20:53)
[2019-10-23] MEDS: IRBESARTAN 75 MG TAB PO SCH (20:54)
[2019-10-23] MEDS: carvediloL 3.125 MG TAB PO SCH (20:54)
[2019-10-23] MEDS: ATORVASTATIN 40 MG TAB PO SCH (20:55)
[2019-10-23] MEDS ORDERED: PNEUMOCOCCAL POLYSACCHARIDES 25 MCG/0.5 ML VIAL/SYR IM ONE (21:00)
[2019-10-23] MEDS ORDERED: PNEUMOCOCCAL ADMINISTRATION CHARGE ONE (21:00)
[2019-10-24 04:09] LABS: Basophils # (auto) 0.05 K/uL (0-0.2); Basophils % (auto) 0.9 %; Eosinophils # (auto) 0.25 K/uL (0-0.5); Eosinophils % (auto) 4.6 %; Hematocrit (blood only) 34.6 % (37-47); Hemoglobin 11.5 g/dL (12.0-16.0); Immature Granulocytes # (auto) 0.01 K/uL (0.00-0.02); Immature Granulocytes % (auto) 0.2 %; Lymphocytes # (auto) 1.97 K/uL (1.2-3.4); Lymphocytes % (auto) 35.9 %; Mean Corpuscular Hemoglobin 30.4 pg (25-34); Mean Corpuscular Hgb Conc 33.2 g/dL (32-36); Mean Corpuscular Volume 91.5 fL (80-100); Monocytes # (auto) 0.85 K/uL (0.11-0.59); Monocytes % (auto) 15.5 %; Neutrophils # (auto) 2.36 K/uL (1.4-6.5); Neutrophils % (auto) 42.9 %; Platelet Count 182 K/uL (130-400); RDW Coefficient of Variation 16.1 % (11.5-14.5); RDW Standard Deviation 54.2 fL (36.4-46.3); Red Blood Count 3.78 M/uL (4.2-5.4); White Blood Count 5.49 K/uL (4.8-10.8)
[2019-10-24 04:34] LABS: BUN Creatinine Ratio 23.7 (10-20); Calcium 8.4 mg/dl (8.5-10.1); Creatinine Clr Calc Pharmacy 37.7 ml/min; Est GFR (African American) 63.4; Est GFR (Non-African American) 54.7; Potassium 3.4 mmol/L (3.5-5.1)
[2019-10-24 04:36] LABS: Partial Thromboplastin Ratio 3.3
[2019-10-24 04:39] LABS: Partial Thromboplastin Time 88.1 Seconds (21.0-31.0)
[2019-10-24] MEDS ORDERED: POTASSIUM CHLORIDE 20 MEQ TABCR PO STA (08:08)
[2019-10-24] MEDS: AMIODARONE 200 MG TAB PO SCH ×4 (08:26→20:23)
[2019-10-24] MEDS: carvediloL 3.125 MG TAB PO SCH ×2 (08:27→20:23)
[2019-10-24] MEDS: ASPIRIN 81 MG ECTAB PO SCH (08:27)
[2019-10-24] MEDS: RANOLAZINE 500 MG ER TAB PO SCH ×2 (08:28→20:24)
[2019-10-24] MEDS: FUROSEMIDE 40 MG in SYRINGE 0 ML IV SCH (08:28)
[2019-10-24] MEDS ORDERED: FUROSEMIDE 40 MG/4 ML VIAL IV SCH (09:00)
[2019-10-24] MEDS: HEPARIN SODIUM/DEXTROSE 25,000 UNITS/500 ML BAG IV SCH (09:55)
[2019-10-24 11:24] LABS: Partial Thromboplastin Ratio 2.4
[2019-10-24 11:33] LABS: Partial Thromboplastin Time 64.9 Seconds (21.0-31.0)
--- NOTE | 2019-10-24 12:13 | Cardiology Progress Note ---
Date of Service October 24, 2019 Assessment & Plan (1) Paroxysmal atrial fibrillation with rapid ventricular response: Patient is a 84-year-old female with underlying ischemic heart disease with prior remote coronary bypass grafting for left main disease and stable class 2-3 angina pectoris. She presents now with an episode of atrial fibrillation with rapid response occurring without overt precipitating cause other than the stressors of packing for an upcoming trip. Patient spontaneously converted to sinus rhythm after dose of metoprolol. Currently is comfortable however telemetry continues to demonstrate short runs of wide-complex tachycardia asymptomatically. Troponins are minimally elevated consistent with heart rate and demand based on chronic ischemia. Echocardiogram is pending Discussed above findings in detail with patient and daughter. I am concerned regarding likelihood of recurrence of atrial arrhythmias in this patient as well as the presence of ventricular arrhythmias. Her history and current presentation does not suggest an acute coronary syndrome. Plan: We will initiate antiarrhythmic therapy with amiodarone following EKGs and telemetry. Echocardiogram will be reviewed carvedilol will be reduced to 3.125 mg twice per day. We will continue anticoagulation with IV heparin initiated on presentation with ultimate goals likely conversion to Eliquis. Would anticipate at least 48 hours more telemetry 10/24/2019 as above. Troponins have risen further consistent with demand based ischemia on area of distribution of known coronary artery disease. Echocardiogram with hypokinesis posterior lateral wall consistent with circumflex area distribution. Patient asymptomatic we will continue anticoagulation with heparin with planned conversion to Eliquis. Continue amiodarone load EKG in a.m. maintain telemetry (2) S/P CABG (coronary artery bypass graft): Underwent two-vessel grafting in 2007 for left main disease receiving a LYONS graft to the LAD and a saphenous vein graft to the circumflex. Vein graft to circumflex has been known to be occluded by past evaluation (3) Demand ischemia of myocardium: Subjective Patient feels well today. No chest pains or shortness of breath. No tachypalpitations. No further arrhythmias on telemetry. No bleeding difficulties on anticoagulation with heparin Review of Systems Review of Systems: All systems reviewed & are unremarkable except as noted in HPI & below Physical Exam Constitutional: WD/WN, vitals as above + thin; no acute distress Eyes: PERRL, conjunctivae normal, anicteric sclerae ENMT: external ear and nose normal, oropharynx normal Neck: trachea midline, no thyromegaly Respiratory: normal respiratory effort, lungs clear to auscultation Auscultation: + diminished lung sounds Cardiovascular: Rate/Rhythm: regular rate and regular rhythm Heart Sounds: normal S1 and normal S2; no gallop and no murmur Palpation: normal PMI Vessels: normal carotid upstroke and radial pulses present; no JVD and no carotid bruit Extremities: no edema Gastrointestinal (Abdomen): normal bowel sounds, soft, nontender, no hepatosplenomegaly Musculoskeletal: no cyanosis or clubbing, extremities motor strength 5/5 Skin: no rashes, warm and dry Neurologic: PERRL, EOMI, accommodation nl, no face palsy, no dysarthria Psychiatric: A+Ox3, euthymic affect Results & Data Vital Signs (Past 12 Hours) Vital Signs Temp Pulse Pulse Resp BP Pulse Ox 10/24/19 11:40 36.7 C 72 18 120/69 95 10/24/19 07:42 36.8 C 61 18 134/71 93 10/24/19 07:00 55 L 10/24/19 02:56 36.6 C 69 18 109/74 97 Laboratory Results Laboratory Results - last 24 hr 10/23/19 10/23/19 10/23/19 14:06 14:06 18:45 WBC RBC Hgb Hct MCV MCH MCHC RDW Std Deviation RDW Coeff of [place] Plt Count MPV Immature Gran % (Auto) Neut % (Auto) Lymph % (Auto) [place] % (Auto) Eos % (Auto) Baso % (Auto) Immature Gran # (Auto) Neut # (Auto) Lymph # (Auto) [place] # (Auto) Eos # (Auto) Baso # (Auto) APTT 47.7 H* PTT Ratio 1.8 Sodium Potassium Chloride Carbon Dioxide Anion Gap BUN Creatinine Est Cr Clr Drug Dosing Est GFR ( Amer) Est GFR (Non-Af Amer) BUN/Creatinine Ratio Glucose Calcium Magnesium Troponin I 10.400 H* 13.700 H* 10/24/19 10/24/19 10/24/19 03:56 03:56 03:56 WBC 5.49 RBC 3.78 L Hgb 11.5 L Hct 34.6 L MCV 91.5 MCH 30.4 MCHC 33.2 RDW Std Deviation 54.2 H RDW Coeff of [place] 16.1 H Plt Count 182 MPV 11.0 H Immature Gran % (Auto) 0.2 Neut % (Auto) 42.9 Lymph % (Auto) 35.9 [place] % (Auto) 15.5 Eos % (Auto) 4.6 Baso % (Auto) 0.9 Immature Gran # (Auto) 0.01 Neut # (Auto) 2.36 Lymph # (Auto) 1.97 [place] # (Auto) 0.85 H Eos # (Auto) 0.25 Baso # (Auto) 0.05 APTT 88.1 H* PTT Ratio 3.3 Sodium 138 Potassium 3.4 L Chloride 105 Carbon Dioxide 28 Anion Gap 5.0 BUN 23 H Creatinine 0.96 Est Cr Clr Drug Dosing 37.7 Est GFR ( Amer) 63.4 Est GFR (Non-Af Amer) 54.7 BUN/Creatinine Ratio 23.7 H Glucose 110 H Calcium 8.4 L Magnesium Troponin I 10/24/19 10/24/19 03:56 10:49 WBC RBC Hgb Hct MCV MCH MCHC RDW Std Deviation RDW Coeff of [place] Plt Count MPV Immature Gran % (Auto) Neut % (Auto) Lymph % (Auto) [place] % (Auto) Eos % (Auto) Baso % (Auto) Immature Gran # (Auto) Neut # (Auto) Lymph # (Auto) [place] # (Auto) Eos # (Auto) Baso # (Auto) APTT 64.9 H* PTT Ratio 2.4 Sodium Potassium Chloride Carbon Dioxide Anion Gap BUN Creatinine Est Cr Clr Drug Dosing Est GFR ( Amer) Est GFR (Non-Af Amer) BUN/Creatinine Ratio Glucose Calcium Magnesium 2.6 H Troponin I
--- NOTE | 2019-10-24 14:33 | Hospitalist Progress Note ---
Date of Service October 24, 2019 Assessment & Plan (1) Atrial fibrillation: The patient presented with palpitations and was found to be in rapid atrial fibrillation. She was given 5 mg of IV Lopressor and seemed to have converted to sinus rhythm. She took her carvedilol last night but she did take it this morning before coming to the ER. She was given 40 mg of IV Lasix in the ER. Has had 2 episodes of wide-complex tachycardia She has been put amiodarone Beta-phyllis has been discontinued and continue with carvedilol Appreciate cardiology input and recommendation Remains in sinus rhythm as of this morning (2) Coronary artery disease: Her first troponin is mildly elevated which may be secondary to stress because by tachycardia as she has an occluded graft.Continue aspirin and atorvastatin. Troponin went up to 13 (3) NSTEMI (non-ST elevated myocardial infarction): Initial troponin on admission was 0.05 Subsequent troponin troponin went up to 13 Echocardiogram showed hypokinesis posterior lateral wall consistent with circumflex area distribution Troponin elevation is secondary to demand ischemia Has been on intravenous heparin and remains free of any chest pain and/or shortness of breath (4) Hypertension: Continue irbesartan Remains stable (5) Asthma: She takes Flovent and albuterol as needed. Currently not active No acute issue. Admission and Anticipated Discharge Date Admission Date: October 24, 2019 Subjective 10/24/2019 Patient was seen and examined in medical telemetry unit She has significant CAD with remote coronary bypass graft for left main arterial disease and vein graft to circumflex has been known to be occluded by past evaluation Presented with palpitations secondary to A. fib with RVR without significant chest Has been feeling a lot better as of today on intravenous amiodarone Review of Systems Review of Systems: All systems reviewed and are unremarkable except as noted below Cardiovascular: no chest pain, no chest pain at rest, no dyspnea and no palpitations Physical Exam Physical Exam: Lying in bed comfortably Constitutional: well developed and well nourished; no acute distress and not ill appearing Eyes: PERRL, conjunctivae normal, anicteric sclerae ENMT: external ear and nose normal, oropharynx normal Neck: trachea midline, no thyromegaly Respiratory: normal respiratory effort Auscultation: lungs clear to auscultation bilaterally Cardiovascular: Rate/Rhythm: regular rate and regular rhythm Heart Sounds: no murmur Gastrointestinal (Abdomen): Inspection/Auscultation: abdomen normal to inspection and normal bowel sounds Percussion/Palpation: abdomen soft; abdomen nontender Musculoskeletal: No acute arthritis involving any joint Neurologic: moves all extremities; no focal motor deficits Lymphatic: no cervical or axillary lymphadenopathy Results & Data ([facility]) Vital Signs (Past 12 Hours) Vital Signs Temp Pulse Pulse Resp BP Pulse Ox 10/24/19 11:40 36.7 C 72 18 120/69 95 10/24/19 07:42 36.8 C 61 18 134/71 93 10/24/19 07:00 55 L 10/24/19 02:56 36.6 C 69 18 109/74 97 Laboratory Results Short CBC 10/24/19 Range/Units 03:56 WBC 5.49 (4.8-10.8) K/uL Hgb 11.5 L (12.0-16.0) g/dL Hct 34.6 L (37-47) % Plt Count 182 (130-400) K/uL BMP 10/24/19 03:56 Sodium 138 Potassium 3.4 L Chloride 105 Carbon Dioxide 28 BUN 23 H Creatinine 0.96 Glucose 110 H Calcium 8.4 L Cardiac Enzymes 10/23/19 10/23/19 Range/Units 14:06 18:45 Troponin I 10.400 H* 13.700 H* (0-0.045) ng/ml Medications Administered Current Inpatient Medications Amiodarone HCl (Cordarone) 200 mg PO QID BRADEN Stop: 11/22/19 16:59 Last Admin: 10/24/19 12:19 Dose: 200 mg Documented by: Aspirin (Ecotrin Ectab) 81 mg PO QAM BRADEN Stop: 11/22/19 10:59 Last Admin: 10/24/19 08:27 Dose: 81 mg Documented by: Atorvastatin Calcium (Lipitor) 80 mg PO HS BRADEN Stop: 11/22/19 20:59 Last Admin: 10/23/19 20:55 Dose: 80 mg Documented by: Carvedilol (Coreg) 3.125 mg PO BID BRADEN Stop: 11/22/19 20:59 Last Admin: 10/24/19 08:27 Dose: 3.125 mg Documented by: Ferrous Sulfate (Feosol) 325 mg PO MoWeFr@0900 BRADEN Stop: 11/24/19 08:59 Heparin Sodium/Dextrose (Heparin Sodium/Dextrose) 25,000 units in 500 mls @ 20 mls/hr IV .Q24H BRADEN; Protocol Stop: 11/22/19 07:44 Last Titration: 10/24/19 13:09 Dose: 900 units/hr, 18 mls/hr Documented by: Furosemide 40 mg/ Syringe 4 mls @ 4 mls/min IV DAILY BRADEN Stop: 11/23/19 08:59 Last Admin: 10/24/19 08:28 Dose: 4 mls/min Documented by: Irbesartan (Avapro) 75 mg PO HS BRADEN Stop: 11/22/19 20:59 Last Admin: 10/23/19 20:54 Dose: 75 mg Documented by: Ranolazine (Ranexa) 500 mg PO BID BRADEN Stop: 11/22/19 20:59 Last Admin: 10/24/19 08:28 Dose: 500 mg Documented by:
--- NOTE | 2019-10-24 16:50 | Electrocardiogram Report ---
Test Reason : Blood Pressure : / mmHG Vent. Rate : 066 BPM Atrial Rate : 066 BPM P-R Int : 146 ms QRS Dur : 154 ms QT Int : 494 ms P-R-T Axes : 079 094 093 degrees QTc Int : 517 ms Normal sinus rhythm Right bundle branch block Abnormal ECG When compared with ECG of 23-OCT-2019 12:10, Right bundle branch block is now Present Confirmed by Yaniv Pickens ([id number]) on 10/24/2019 4:50:01 PM Referred By: REFERRED SELF Confirmed By:Uche Pickens
[2019-10-24] MEDS: ATORVASTATIN 40 MG TAB PO SCH (20:23)
[2019-10-24] MEDS: IRBESARTAN 75 MG TAB PO SCH (20:23)
[2019-10-25 04:12] LABS: BUN Creatinine Ratio 25.2 (10-20); Est GFR (African American) 56.2; Est GFR (Non-African American) 48.5; Potassium 4.1 mmol/L (3.5-5.1)
[2019-10-25 04:16] LABS: Partial Thromboplastin Ratio 2.4
[2019-10-25 04:18] LABS: Partial Thromboplastin Time 66.1 Seconds (21.0-31.0)
[2019-10-25 04:26] LABS: Thyroid Stimulating Hormone 1.81 uIu/ml (0.300-4.500)
[2019-10-25] MEDS: HEPARIN SODIUM/DEXTROSE 25,000 UNITS/500 ML BAG IV SCH (07:55)
[2019-10-25] MEDS: AMIODARONE 200 MG TAB PO SCH ×2 (07:56→17:28)
[2019-10-25] MEDS: ASPIRIN 81 MG ECTAB PO SCH (07:56)
[2019-10-25] MEDS: RANOLAZINE 500 MG ER TAB PO SCH (07:56)
[2019-10-25] MEDS: carvediloL 3.125 MG TAB PO SCH ×2 (07:56→21:09)
[2019-10-25] MEDS: FUROSEMIDE 40 MG in SYRINGE 0 ML IV SCH (07:57)
[2019-10-25] MEDS ORDERED: FERROUS SULFATE 325 MG TAB PO SCH (09:00)
--- NOTE | 2019-10-25 09:52 | Cardiology Progress Note ---
Date of Service October 25, 2019 Assessment & Plan (1) Paroxysmal atrial fibrillation with rapid ventricular response: Patient is a 84-year-old female with underlying ischemic heart disease with prior remote coronary bypass grafting for left main disease and stable class 2-3 angina pectoris. She presents now with an episode of atrial fibrillation with rapid response occurring without overt precipitating cause other than the stressors of packing for an upcoming trip. Patient spontaneously converted to sinus rhythm after dose of metoprolol. Currently is comfortable however telemetry continues to demonstrate short runs of wide-complex tachycardia asymptomatically. Troponins are minimally elevated consistent with heart rate and demand based on chronic ischemia. Echocardiogram is pending Discussed above findings in detail with patient and daughter. I am concerned regarding likelihood of recurrence of atrial arrhythmias in this patient as well as the presence of ventricular arrhythmias. Her history and current presentation does not suggest an acute coronary syndrome but rather demand based ischemia secondary to rapid rate. Plan: Reduce amiodarone to 200 mg twice per day. Stop ranolazine. Switch IV heparin to Eliquis this evening Continue monitor overnight (2) S/P CABG (coronary artery bypass graft): Underwent two-vessel grafting in 2007 for left main disease receiving a LYONS graft to the LAD and a saphenous vein graft to the circumflex. Vein graft to circumflex has been known to be occluded by past evaluation (3) Demand ischemia of myocardium: Subjective Patient seen and examined, chart, medications, telemetry reviewed. No arrhythmias overnight, no further atrial fibrillation QT is chronically prolonged Physical Exam Constitutional: WD/WN, vitals as above + thin; no acute distress Eyes: PERRL, conjunctivae normal, anicteric sclerae ENMT: external ear and nose normal, oropharynx normal Neck: trachea midline, no thyromegaly Respiratory: normal respiratory effort, lungs clear to auscultation Auscultation: + diminished lung sounds Cardiovascular: Rate/Rhythm: regular rate and regular rhythm Heart Sounds: normal S1 and normal S2; no gallop and no murmur Palpation: normal PMI Ve ssels: normal carotid upstroke and radial pulses present; no JVD and no carotid bruit Extremities: no edema Gastrointestinal (Abdomen): normal bowel sounds, soft, nontender, no hepatosplenomegaly Musculoskeletal: no cyanosis or clubbing, extremities motor strength 5/5 Skin: no rashes, warm and dry Neurologic: PERRL, EOMI, accommodation nl, no face palsy, no dysarthria Psychiatric: A+Ox3, euthymic affect Results & Data Vital Signs (Past 12 Hours) Vital Signs Temp Pulse Pulse Resp BP BP Pulse Ox 10/25/19 07:43 36.7 C 61 18 133/70 96 10/25/19 07:25 57 L 10/25/19 03:06 37 C 67 18 110/60 95 10/24/19 23:11 98/51 L 10/24/19 22:57 36.9 C 66 18 95/53 L 94 10/24/19 22:20 63
--- NOTE | 2019-10-25 10:28 | Electrocardiogram Report ---
Test Reason : Blood Pressure : / mmHG Vent. Rate : 064 BPM Atrial Rate : 064 BPM P-R Int : 156 ms QRS Dur : 154 ms QT Int : 502 ms P-R-T Axes : 076 060 074 degrees QTc Int : 517 ms Normal sinus rhythm Right bundle branch block Abnormal ECG When compared with ECG of 24-OCT-2019 06:55, T wave inversion no longer evident in Anterior leads Confirmed by Yaniv Pickens ([id number]) on 10/25/2019 10:28:15 AM Referred By: REFERRED SELF Confirmed By:Uche Pickens
--- NOTE | 2019-10-25 13:34 | Hospitalist Progress Note ---
Date of Service October 25, 2019 Assessment & Plan (1) Atrial fibrillation: The patient presented with palpitations and was found to be in rapid atrial fibrillation. She was given 5 mg of IV Lopressor and seemed to have converted to sinus rhythm. She took her carvedilol last night but she did take it this morning before coming to the ER. She was given 40 mg of IV Lasix in the ER. Has had 2 episodes of wide-complex tachycardia She has been put amiodarone Beta-phyllis has been discontinued and continue with carvedilol Appreciate cardiology input and recommendation Remains in sinus rhythm as of this morning potline monitor did not show any more arrhythmias Remains asymptomatic and has been ambulating without any difficulty We will continue current medications and discharge home tomorrow morning (2) Coronary artery disease: Her first troponin is mildly elevated which may be secondary to stress because by tachycardia as she has an occluded graft.Continue aspirin and atorvastatin. Troponin went up to 13 (3) NSTEMI (non-ST elevated myocardial infarction): Initial troponin on admission was 0.05 Subsequent troponin troponin went up to 13 Echocardiogram showed hypokinesis posterior lateral wall consistent with circumflex area distribution Troponin elevation is secondary to demand ischemia Has been on intravenous heparin and remains free of any chest pain and/or shortness of breath She will be discharged tomorrow morning (4) Hypertension: Continue irbesartan Remains stable (5) Asthma: She takes Flovent and albuterol as needed. Currently not active No acute issue. Admission and Anticipated Discharge Date Admission Date: October 24, 2019 Subjective 10/24/2019 Patient was seen and examined in medical telemetry unit She has significant CAD with remote coronary bypass graft for left main arterial disease and vein graft to circumflex has been known to be occluded by past evaluation Presented with palpitations secondary to A. fib with RVR without significant chest Has been feeling a lot better as of today on intravenous amiodarone 10/25/2019 The patient was seen and examined in medical telemetry unit She remains in sinus rhythm and did not have any more arrhythmias She is free of pain and has been ambulating without any difficulty Review of Systems Review of Systems: All systems reviewed and are unremarkable except as noted below Cardiovascular: no chest pain, no chest pain at rest and no palpitations Physical Exam Physical Exam: Lying in bed comfortably Constitutional: well developed and well nourished; no acute distress and not ill appearing Eyes: PERRL, conjunctivae normal, anicteric sclerae ENMT: external ear and nose normal, oropharynx normal Neck: trachea midline, no thyromegaly Respiratory: normal respiratory effort Auscultation: lungs clear to auscultation bilaterally Cardiovascular: Rate/Rhythm: regular rate and regular rhythm Heart Sounds: no murmur Gastrointestinal (Abdomen): Inspection/Auscultation: abdomen normal to inspection and normal bowel sounds Percussion/Palpation: abdomen soft; abdomen nontender Neurologic: moves all extremities; no focal motor deficits Lymphatic: no cervical or axillary lymphadenopathy Results & Data ([facility]) Vital Signs (Past 12 Hours) Vital Signs Temp Pulse Pulse Resp BP BP Pulse Ox 10/25/19 11:59 36.8 C 62 18 107/63 96 10/25/19 07:43 36.7 C 61 18 133/70 96 10/25/19 07:25 57 L 10/25/19 03:06 37 C 67 18 110/60 95 Laboratory Results BMP 10/25/19 03:47 Sodium 140 Potassium 4.1 D Chloride 107 Carbon Dioxide 28 BUN 27 H Creatinine 1.06 Glucose 108 H Calcium 8.0 L Medications Administered Current Inpatient Medications Amiodarone HCl (Cordarone) 200 mg PO BIDM [facility] Stop: 11/24/19 16:59 Apixaban (Eliquis) 5 mg PO BID [facility] Stop: 11/24/19 20:59 Aspirin (Ecotrin Ectab) 81 mg PO QAM [facility] Stop: 11/22/19 10:59 Last Admin: 10/25/19 07:56 Dose: 81 mg Documented by: Atorvastatin Calcium (Lipitor) 80 mg PO HS [facility] Stop: 11/22/19 20:59 Last Admin: 10/24/19 20:23 Dose: 80 mg Documented by: Carvedilol (Coreg) 3.125 mg PO BID [facility] Stop: 11/22/19 20:59 Last Admin: 10/25/19 07:56 Dose: 3.125 mg Documented by: Ferrous Sulfate (Feosol) 325 mg PO MoWeFr@0900 [facility] Stop: 11/24/19 08:59 Last Admin: 10/25/19 07:56 Dose: 325 mg Documented by: Heparin Sodium/Dextrose (Heparin Sodium/Dextrose) 25,000 units in 500 mls @ 20 mls/hr IV .Q24H [facility]; Protocol Stop: 11/22/19 07:44 Last Admin: 10/25/19 07:55 Dose: 900 units/hr, 18 mls/hr Documented by: Furosemide 40 mg/ Syringe 4 mls @ 4 mls/min IV DAILY [facility] Stop: 11/23/19 08:59 Last Admin: 10/25/19 07:57 Dose: 4 mls/min Documented by: Irbesartan (Avapro) 75 mg PO HS [facility] Stop: 11/22/19 20:59 Last Admin: 10/24/19 20:23 Dose: 75 mg Documented by: Miscellaneous (Stop Order) 1 ea N/A ONE ONE Stop: 10/25/19 21:01 Ranolazine (Ranexa) 500 mg PO BID [facility] Stop: 11/22/19 20:59 Last Admin: 10/25/19 07:56 Dose: 500 mg Documented by:
[2019-10-25] MEDS ORDERED: Nursing to Pharmacy Communication ONE (18:39)
[2019-10-25] MEDS ORDERED: PREDNISOLONE ACETATE 1% OPB SCH (21:00)
[2019-10-25] MEDS: PRESERVISION ARED PO SCH (21:02)
[2019-10-25] MEDS: IRBESARTAN 75 MG TAB PO SCH (21:04)
[2019-10-25] MEDS: APIXABAN 5 MG TABLET PO SCH (21:05)
[2019-10-25] MEDS: ATORVASTATIN 40 MG TAB PO SCH (21:07)
[2019-10-26 07:55] LABS: Partial Thromboplastin Time 27.6 Seconds (21.0-31.0)
[2019-10-26] MEDS: AMIODARONE 200 MG TAB PO SCH (08:11)
[2019-10-26] MEDS: ASPIRIN 81 MG ECTAB PO SCH (08:14)
[2019-10-26] MEDS: carvediloL 3.125 MG TAB PO SCH (08:14)
[2019-10-26] MEDS: APIXABAN 5 MG TABLET PO SCH (08:16)
[2019-10-26] MEDS: PRESERVISION ARED PO SCH (08:17)
[2019-10-26] MEDS: FUROSEMIDE 40 MG in SYRINGE 0 ML IV SCH (08:17)
--- NOTE | 2019-10-26 10:09 | Cardiology Progress Note ---
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 She presents now with an episode of atrial fibrillation with rapid response occurring without overt precipitating cause other than the stressors of packing for an upcoming trip. Patient spontaneously converted to sinus rhythm after dose of metoprolol. Currently is comfortable however telemetry continues to demonstrate short runs of wide-complex tachycardia asymptomatically. Troponins are minimally elevated consistent with heart rate and demand based on chronic ischemia. Echocardiogram is pending Discussed above findings in detail with patient and daughter. I am concerned regarding likelihood of recurrence of atrial arrhythmias in this patient as well as the presence of ventricular arrhythmias. Her history and current presentation does not suggest an acute coronary syndrome but rather demand based ischemia secondary to rapid rate. Plan: Patient with paroxysmal atrial fibrillation with associated demand induced ischemia. Tolerating amiodarone load. Will discharge on amiodarone 200 mg twice per day for 1 week then 200 mg/day. Reduced dose carvedilol 3.125 mg twice per day. Addition of Isordil 20 mg twice daily. Continue outpatient medications otherwise including ibesartan and furosemide. 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 Vein graft to circumflex has been known to be occluded by past evaluation (3) Demand ischemia of myocardium: Subjective Patient was seen and examined, chart, medications, telemetry reviewed. No complaints overnight no chest pains or shortness of breath. No dizziness or lightheadedness. No swelling ankles legs feet. EKG demonstrates shortening QT interval. No arrhythmias on telemetry Review of Systems Review of Systems: All systems reviewed & are unremarkable except as noted in HPI & below Physical Exam Constitutional: WD/WN, vitals as above + thin; no acute distress Eyes: PERRL, conjunctivae normal, anicteric sclerae ENMT: external ear and nose normal, oropharynx normal Neck: trachea midline, no thyromegaly Respiratory: normal respiratory effort, lungs clear to auscultation Auscultation: + diminished lung sounds Cardiovascular: Rate/Rhythm: regular rate and regular rhythm Heart Sounds: normal S1 and normal S2; no gallop and no murmur Palpation: normal PMI Vessels: normal carotid upstroke and radial pulses present; no JVD and no carotid bruit Extremities: no edema Gastrointestinal (Abdomen): normal bowel sounds, soft, nontender, no hepatosplenomegaly Musculoskeletal: no cyanosis or clubbing, extremities motor strength 5/5 Skin: no rashes, warm and dry Neurologic: PERRL, EOMI, accommodation nl, no face palsy, no dysarthria Psychiatric: A+Ox3, euthymic affect Results & Data Vital Signs (Past 12 Hours) Vital Signs Temp Pulse Pulse Resp BP BP Pulse Ox 10/26/19 08:10 64 154/74 H 10/26/19 07:56 56 L 10/26/19 07:51 36.7 C 62 18 145/78 H 96 10/26/19 03:00 36.5 C 65 18 109/63 94 10/25/19 23:15 36.8 C 66 18 129/66 94 10/25/19 22:58 63
--- NOTE | 2019-10-26 13:31 | Hospitalist Progress Note ---
Date of Service October 26, 2019 Assessment & Plan (1) Atrial fibrillation: The patient presented with palpitations and was found to be in rapid atrial fibrillation. She was given 5 mg of IV Lopressor and seemed to have converted to sinus rhythm. She took her carvedilol last night but she did take it this morning before coming to the ER. She was given 40 mg of IV Lasix in the ER. Has had 2 episodes of wide-complex tachycardia She has been put amiodarone Beta-phyllis has been discontinued and continue with carvedilol Appreciate cardiology input and recommendation Remains in sinus rhythm as of this morning library monitor did not show any more arrhythmias Remains asymptomatic and has been ambulating without any difficulty No cardiac symptoms and no arrhythmias Will be discharged home this afternoon Cardiac medications as per instructions from the production control clerk will be continued (2) Coronary artery disease: Her first troponin is mildly elevated which may be secondary to stress because by tachycardia as she has an occluded graft.Continue aspirin and atorvastatin. Troponin went up to 13 (3) NSTEMI (non-ST elevated myocardial infarction): Initial troponin on admission was 0.05 Subsequent troponin troponin went up to 13 Echocardiogram showed hypokinesis posterior lateral wall consistent with circumflex area distribution Troponin elevation is secondary to demand ischemia Has been on intravenous heparin and remains free of any chest pain and/or shortness of breath She will be discharged tomorrow morning Remains asymptomatic and without any arrhythmias (4) Hypertension: Continue irbesartan Remains stable (5) Asthma: She takes Flovent and albuterol as needed. Currently not active No acute issue. Admission and Anticipated Discharge Date Admission Date: October 24, 2019 Anticipated date of discharge: 10/26/19 Subjective 10/24/2019 Patient was seen and examined in medical telemetry unit She has significant CAD with remote coronary bypass graft for left main arterial disease and vein graft to circumflex has been known to be occluded by past evaluation Presented with palpitations secondary to A. fib with RVR without significant chest Has been feeling a lot better as of today on intravenous amiodarone 10/25/2019 The patient was seen and examined in medical telemetry unit She remains in sinus rhythm and did not have any more arrhythmias She is free of pain and has been ambulating without any difficulty 10/26/2019 The patient was seen and examined in medical telemetry unit in presence of the daughter She remains stable and she denies any complaints She has been ambulating well in the hallway and is ready to go home Review of Systems Review of Systems: All systems reviewed and are unremarkable except as noted below Cardiovascular: no chest pain, no chest pain at rest and no palpitations Physical Exam Physical Exam: Lying in bed comfortably Constitutional: well developed and well nourished; no acute distress and not ill appearing Eyes: PERRL, conjunctivae normal, anicteric sclerae ENMT: external ear and nose normal, oropharynx normal Neck: trachea midline, no thyromegaly Respiratory: normal respiratory effort Auscultation: lungs clear to auscultation bilaterally Cardiovascular: Rate/Rhythm: regular rate and regular rhythm Heart Sounds: no murmur Extremities: no edema Gastrointestinal (Abdomen): Inspection/Auscultation: abdomen normal to inspection and normal bowel sounds Percussion/Palpation: abdomen soft; abdomen nontender Musculoskeletal: No acute arthritis involving any joints Neurologic: moves all extremities; no focal motor deficits Psychiatric: A+Ox3, euthymic affect Lymphatic: no cervical or axillary lymphadenopathy Results & Data ([facility]) Vital Signs (Past 12 Hours) Vital Signs Temp Pulse Pulse Resp BP BP Pulse Ox 10/26/19 11:18 36.6 C 72 18 134/74 96 10/26/19 08:10 64 154/74 H 10/26/19 07:56 56 L 10/26/19 07:51 36.7 C 62 18 145/78 H 96 10/26/19 03:00 36.5 C 65 18 109/63 94 Medications Administered Current Inpatient Medications Amiodarone HCl (Cordarone) 200 mg PO BIDM [facility] Stop: 11/24/19 16:59 Last Admin: 10/26/19 08:11 Dose: 200 mg Documented by: Apixaban (Eliquis) 5 mg PO BID [facility] Stop: 11/24/19 20:59 Last Admin: 10/26/19 08:16 Dose: 5 mg Documented by: Aspirin (Ecotrin Ectab) 81 mg PO QAM [facility] Stop: 11/22/19 10:59 Last Admin: 10/26/19 08:14 Dose: 81 mg Documented by: Atorvastatin Calcium (Lipitor) 80 mg PO HS [facility] Stop: 11/22/19 20:59 Last Admin: 10/25/19 21:07 Dose: 80 mg Documented by: Carvedilol (Coreg) 3.125 mg PO BID [facility] Stop: 11/22/19 20:59 Last Admin: 10/26/19 08:14 Dose: 3.125 mg Documented by: Ferrous Sulfate (Feosol) 325 mg PO MoWeFr@0900 [facility] Stop: 11/24/19 08:59 Last Admin: 10/25/19 07:56 Dose: 325 mg Documented by: Furosemide (Lasix) 20 mg PO QAM [facility] Stop: 11/26/19 08:59 Heparin Sodium/Dextrose (Heparin Sodium/Dextrose) 25,000 units in 500 mls @ 0 mls/hr IV .Q0M [facility]; Protocol Stop: 11/22/19 07:44 Last Titration: 10/25/19 21:09 Dose: 0 units/hr, 0 mls/hr Documented by: Irbesartan (Avapro) 75 mg PO [facility] Stop: 11/22/19 20:59 Last Admin: 10/25/19 21:04 Dose: 75 mg Documented by: Isosorbide Dinitrate (Isordil) 20 mg PO BID17 [facility] Stop: 11/25/19 16:59 Preservision Ared 2 - Nf Patient's Own Med 1 ea PO BID [facility] Stop: 11/24/19 20:59 Last Admin: 10/26/19 08:17 Dose: 1 tabs Documented by: Prednisolone Acetate (Pred Forte 1%) 1 drops OPB [facility] Stop: 11/24/19 20:59 Last Admin: 10/25/19 21:02 Dose: 1 drops Documented by:
--- NOTE | 2019-10-26 14:41 | Electrocardiogram Report ---
Test Reason : Blood Pressure : / mmHG Vent. Rate : 062 BPM Atrial Rate : 062 BPM P-R Int : 140 ms QRS Dur : 150 ms QT Int : 496 ms P-R-T Axes : 071 043 087 degrees QTc Int : 503 ms Normal sinus rhythm Right bundle branch block Abnormal ECG When compared with ECG of 25-OCT-2019 06:36, T wave inversion now evident in Anterior leads Confirmed by Yaniv Pickens ([id number]) on 10/26/2019 2:40:32 PM Referred By: REFERRED SELF Confirmed By:Uche Pickens
[2019-10-26] MEDS ORDERED: ISOSORBIDE DINITRATE 20 MG TAB PO SCH (17:00)
[2019-10-27] MEDS ORDERED: FUROSEMIDE 20 MG TAB PO SCH (09:00)
--- NOTE | 2019-10-27 10:36 | Discharge Summary ---
Date of Service October 27, 2019 Admission HPI Per Admitting Provider This is an 84-year-old female who lives at home alone and came to the ER because of palpitations. Her significant past medical history includes coronary artery disease for which she underwent bypass surgery by Dr. Rico in [facility] in 2007. She had left main disease and she underwent internal mammary artery graft to the LAD and SVG from the aorta to the posterior ventricular branch of the right coronary artery. She has since developed total occlusion of the SVG graft and had patent LYONS to the LAD according to the cardiac catheterization done in 2012. She suffers from chronic stable angina as a result and has been advised by her graduate rn, Dr. Christine to avoid extreme physical exertion. Her room is on the first floor and she has an electric chair that takes her upstairs. She is on optimal medications including aspirin 81 mg, atorvastatin 80 mg, carvedilol 6.25 mg twice a day, Lasix 20 mg daily and ranolazine 500 mg twice a day. She saw Dr. Christine on 10/13 for a routine follow-up and all her medications were continued. It was noticed that she had some more pedal edema so she was advised to take an additional 20 mg of Lasix that day. Last night she woke up in the middle of the night and felt her heart racing. She went back to sleep and this morning she woke up around 5 AM and still felt her heart beating very fast. She obtained her blood pressure, is not sure about the exact reading but stated that her blood pressure was okay. The heart rate rate in 120s. She decided to come to the ER because of that. She denied any chest pain or shortness of breath during that time. She denied any lightheadedness or dizziness. She denies any abdominal pain, diarrhea or constipation. She has not had any nausea or vomiting. She does not have any problems urinating. She has not had any fever or chills in the past few days. She has never had this sensation of palpitations before. In the ER EKG demonstrated rapid atrial fibrillation. She was given 5 mg of IV Lopressor and seemed to have converted to sinus rhythm after that. Of note she stated that she does not remember if she took her carvedilol and ranolazine last night. But she did take them this morning before coming to the ER. She has never smoked, she drinks occasionally. She lives at home by herself. Her daughter lives nearby. 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 Admission Exam Per Admitting Provider Physical Exam: General: Alert and oriented x 3. NAD HENT: Normocephalic, atraumatic, pupils round and equally reactive to light, o ral mucosa: moist Neck: Supple, no lymph nodes palpated, no thyromegaly CVS: Normal S1, S2. No murmur, rub or gallop. PMI non displaced. Peripheral pulses normal. Resp: Normal percussion. Normal breath sounds bilaterally. No wheezing or rales heard Abdomen: Soft, non tender, no hepatosplenomegaly. Bowel sounds positive Extremities: Mild pitting edema in the left leg Neuro: Power 5/5 throughout, grossly normal sensations, DTR's normal Psychiatry: Normal mood, normal thought process Principal Diagnosis Atrial fibrillation with RVR, demand ischemia/non-ST elevation CT, CAD, controlled asthma Discharge Exam Constitutional well developed and well nourished; no acute distress and not ill appearing Eyes PERRL, conjunctivae normal, anicteric sclerae ENMT external ear and nose normal, oropharynx normal Neck trachea midline, no thyromegaly Respiratory normal respiratory effort Auscultation: lungs clear to auscultation bilaterally Cardiovascular Rate/Rhythm: regular rate and regular rhythm Heart Sounds: no murmur Extremities: no edema Gastrointestinal (Abdomen) Inspection/Auscultation: abdomen normal to inspection and normal bowel sounds Percussion/Palpation: abdomen soft; abdomen nontender Neurologic moves all extremities; no focal motor deficits Psychiatric A+Ox3, euthymic affect Lymphatic no cervical or axillary lymphadenopathy Discharge Data Allergies Allergy/AdvReac Type Severity Reaction Status Date / Time lisinopril Allergy Unknown "THROAT Verified 10/23/19 07:57 CLOSES" sulfamethoxazole Allergy Unknown RASH Verified 10/23/19 07:57 aspirin AdvReac Unknown BLEEDING Verified 10/23/19 07:57 ENVIRONMENTAL ALLERGIES Allergy Unknown . Uncoded 10/23/19 07:57 Consultations 10/23/19 08:28 Consult Cardiology Stat 10/23/19 08:29 ED Decision to Admit Stat 10/23/19 10:31 Consult Case Management - Discharge Planning Routine Hospital Course (1) Atrial fibrillation: The patient presented with palpitations and was found to be in rapid atrial fibrillation. She was given 5 mg of IV Lopressor and seemed to have converted to sinus rhythm. She took her carvedilol last night but she did take it this morning before coming to the ER. She was given 40 mg of IV Lasix in the ER. Has had 2 episodes of wide-complex tachycardia She has been put amiodarone Beta-phyllis has been discontinued and continue with carvedilol Appreciate cardiology input and recommendation Remains in sinus rhythm as of this morning monitoring analyst did not show any more arrhythmias Remains asymptomatic and has been ambulating without any difficulty No cardiac symptoms and no arrhythmias Will be discharged home this afternoon Cardiac medications as per instructions from the graduate rn will be continued (2) Coronary artery disease: Her first troponin is mildly elevated which may be secondary to stress because by tachycardia as she has an occluded graft.Continue aspirin and atorvastatin. Troponin went up to 13 (3) NSTEMI (non-ST elevated myocardial infarction): Initial troponin on admission was 0.05 Subsequent troponin troponin went up to 13 Echocardiogram showed hypokinesis posterior lateral wall consistent with circumflex area distribution Troponin elevation is secondary to demand ischemia Has been on intravenous heparin and remains free of any chest pain and/or shortness of breath She will be discharged tomorrow morning Remains asymptomatic and without any arrhythmias (4) Hypertension: Continue irbesartan Remains stable (5) Asthma: She takes Flovent and albuterol as needed. Currently not active No acute issue. Total Time Total Time Spent Total Time Spent (In Minutes): 35 minutes Total Time Includes: Examination of the Patient, Discharge Planning, Medication Reconciliation and Communication With Other Providers Discharge Plan Discharge Items Patient Disposition: Home - Self-Care Reason For Visit: ATRIAL FIBRILLATION Discharge Diagnosis: Atrial fibrillation with RVR, demand ischemia/non-ST elevation CT, CAD, controlled asthma Condition on Discharge: Good Activity: Resume your previous activity Non-emergency contact: Primary Care Provider Call non-emergency contact if: you have any medication questions and your symptoms worsen Follow-up/Referrals: Emely Christine DO [Primary Care Provider] - 10/28/19 10:05 am (Your appointment is with Dr Trotter in the [place] office. If you need to change this appointment, please call [phone]. Your cardiology appointment is with him Fede Marino on 03 November at 10:45 AM) Diet: Heart Healthy Addtl Attending Provider Instructions: Please take precaution to avoid falls Take your cardiac medications as directed Pending Studies at Discharge: No Stand-Alone Forms: My [facility], Smoking Cessation Medications and DC Order Prescriptions: New amiodarone 200 mg Tablet 200 mg PO UD 30 Days Qty: 60 RF: 0 Eliquis 5 mg Tablet 5 mg PO BID 30 Days Qty: 60 RF: 0 carvedilol 3.125 mg Tablet 3.125 mg PO BID 30 Days Qty: 60 RF: 0 isosorbide dinitrate 20 mg Tablet 20 mg PO BID17 30 Days Qty: 60 RF: 0 Continued ferrous sulfate 325 mg (65 mg iron) Tablet 325 mg PO 3XWK Qty: 0 RF: 0 nitroglycerin 0.4 mg Tablet, Sublingual 0.4 mg sublingual DIRECTED PRN (Reason: Chest Pain) Qty: 0 RF: 0 PreserVision AREDS [id number] Capsule 1 cap PO BID Qty: 0 RF: 0 atorvastatin 80 mg Tablet 80 mg PO HS Qty: 0 RF: 0 aspirin [Aspirin Low Dose] 81 mg Tablet,Delayed Release (Dr/Ec) 81 mg PO QAM Qty: 0 RF: 0 prednisolone acetate 1 % Drops,Suspension 1 drp OPHTHALMIC (EYE) HS 10 Days Qty: 0 RF: 0 furosemide 20 mg Tablet 20 mg PO QAM Qty: 0 RF: 0 potassium chloride 20 mEq Tablet Extended Release 20 meq PO HS Qty: 0 RF: 0 irbesartan 75 mg Tablet 75 mg PO HS Qty: 0 RF: 0 albuterol sulfate 90 mcg/actuation Hfa Aerosol Inhaler 2 puff INHALATION Q6H PRN (Reason: shortness of breath/ wheezing) Qty: 0 RF: 0 alendronate 70 mg tablet 70 mg PO WK RF: 0 Flovent HFA 110 mcg/actuation HFA aerosol inhaler 2 puff inhalation BID RF: 0 Discontinued ranolazine 500 mg Tablet Extended Release 12 Hr 500 mg PO BID Qty: 0 RF: 0 carvedilol 6.25 mg tablet 6.25 mg PO BID RF: 0 Discharge Orders: Discharge Order (Routine); Ordered 10/26/19 Ordered By: Mia Arshad Admission Data Admit Date/Time: 10/24/19 08:05 Attending Provider: Mia Arshad Admit Provider: Leonard Benavidez Primary Care Provider: Emely Christine Other Providers: Jere Bah ; Leonard Benavidez DC Date/Time DO NOT enter until pt leaves facility: 10/26/19 16:40
--- NOTE | 2019-10-29 08:48 | Coding Query ---
PRESENT ON ADMISSION QUERY To promote full compliance with coding requirements relating to pateint care, physician participation is requested in all cases of warp tying machine knotter uncertainty. Please assist us with the question(s) below: Please place an X within the parenthesis (x). The following diagnosis(es) listed in this patient's medical record require physician assistance to determine if they were present on admission (POA) or not. Please advise for each diagnosis whether it was present on admission, not present on admission, or if it was clinically undetermined. 1.Per the progress notes: NSTEMI (non-ST elevated myocardial infarction): Initial troponin on admission was 0.05 Subsequent troponin troponin went up to 13 Echocardiogram showed hypokinesis posterior lateral wall consistent with circumflex area distribution Troponin elevation is secondary to demand ischemia ( ) Present On Admission ( ) Not Present On Admission ( +) Clinically Undetermined My document stated what she had so as the cardiology note. Thank you for your time, Ryann Cid, CLIP RIVETER, SYSTEMS SOFTWARE DESIGNER *Definition of the present on admission (POA)-Present on admission is defined as present at the time the order for inpatient admission occurs. Conditions that develop during an outpatient encounter prior to a written order for inpatient admission (including emergency department, observation, or outpatient surgery) are considered present on admission. MTDD
== END 2019-10-26 16:40 | disposition home or self-care (01) | DRG 281 ==
LOC: ED 06:30 → 2W 06:30 → SUATTDRO 09:15 → 2W 09:51

== ENCOUNTER 2020-04-12 10:50 | Observation (INO) ==
[2020-04-12] MEDS ORDERED: MIDAZOLAM HCL 5 MG/ML 1 ML VIAL ONE (11:23)
[2020-04-12] MEDS ORDERED: fentaNYL citrate 100 MCG/2 ML VIAL ONE ×2 (11:23→13:23)
[2020-04-12] MEDS ORDERED: CEFAZOLIN 250 MG/ML 1 GM VIAL ONE (11:23)
--- NOTE | 2020-04-12 11:37 | Pre Anesthesia Assessment ---
Date of Service April 12, 2020 Pre Sedation Assessment Cardiovascular + bradycardic Respiratory normal respiratory effort, lungs clear to auscultation Pre-Sedation Airway Assessment Smoking Status: Never smoker Hx Sleep Apnea: No Short, Thick Neck: No Thyromental Distance: > or= 3.5 Finger Breadths Oral Cavity: + Dentures Mallampati Class: III ASA: ASA2 NPO Status Date of Last Intake of Fluids: 04/12/20 Time of Last Intake of Fluids: 07:00 Date of Last Intake of Solid Food: 04/11/20 Time of Last Intake of Solid Foods: 22:00 Procedure Planning Contraindications for Sedation: none Current Medications Reviewed: Yes Notes The planned sedation has been discussed with the patient. Informed Consent was obtained. I have identified the patient, determined the appropriateness of sedation and have assessed the patient immediately prior to the procedure. All medicine(s) and interventions are by my order.
--- NOTE | 2020-04-12 11:37 | History & Physical Bridge Note ---
Date of Service April 12, 2020 History & Physical Bridge Note I have examined the patient, reviewed the History & Physical and in the interval since the performance of the History & Physical I have noted the following changes of clinical significance: no changes noted
[2020-04-12] MEDS ORDERED: LIDOCAINE HCL 1% 20 ML VIAL ONE (11:42)
[2020-04-12] MEDS ORDERED: BUPIVACAINE 0.25% 30 ML VIAL ONE (11:42)
[2020-04-12] MEDS ORDERED: BACITRACIN INJ 50,000 UNIT VIAL ONE (11:43)
[2020-04-12] MEDS ORDERED: MIDAZOLAM HCL 1 MG/ML 2ML VIAL ONE (13:23)
--- NOTE | 2020-04-12 14:01 | Post Anesthesia Assessment ---
Date of Service April 12, 2020 Post Sedation Assessment Recovery Score Activity: Moves 4 extremities Respiration: Deep Breath/Cough Circulation: +/-20% PreAnes Value Consciousness: Fully Awake Oxygen Saturation: > 92% On Room Air Discharge Sedation Level of Care: Fast Track Phase II Post Sedation Plan On clinical assessment, the patient appears to have tolerated the sedation without complications. Patient is recovering as anticipated. Patient will continue to be monitored by nursing and may be discharged when sedation discharge criteria are met per below protocol. Upon Completions of procedure up to 15 minutes continue every 5 minute vital signs and the P.A.R. score; then discharge to a Phase I or Fast Track to Phase II per the following guidelines: * Discharge Patient to appropriate Phase II area if PAR is 8 or greater or return to pre- procedure baseline. The post - procedure orders will be as directed. * If PAR score is less than 8 or not return to pre-procedure baseline then patient will follow Phase I monitoring till PAR is reached for Phase II. The Phase I may be done in procedure room or may call to secure a Phase I area. * If naloxone or flumazenil are used for reversal, hold in Phase I for continued monitoring from when last reversal dose was given for a minimum of 60 minutes or longer pending the nurse and/or physician discretion of patient condition before discharge to Phase II. Please call the Sedation Physician to re-evaluate and complete post-note for discharge to Phase II area. Do NOT discharge from procedure sedation or Phase 1 until post- sedation evaluation note is complete by procedure /sedation MD Sedation Discharge Instructions to be given to the patient at discharge to home.
[2020-04-12] MEDS ORDERED: ACETAMINOPHEN 325 MG TAB PO PRN (14:03)
[2020-04-12] MEDS ORDERED: NURSING DECISION MEDICATION ONE (14:03)
--- NOTE | 2020-04-12 14:03 | Operative Report ---
Post Operative Report Pre & Post Diagnosis sss Operation Date: 04/12/20 13:00 <No data on this case meets the specified criteria> I identified the patient and participated in the time-out.: Yes Procedure Operation Date: 04/12/20 13:00 Actual Procedures p Pacer with A/V Leads (Dual) - Carlene Perrin DO Surgeon Carlene Perrin, Varnisher none Estimated Blood Loss 20 Findings Consistent with Post-Op Diagnosis Fluids 25 Specimens none Anesthesia Type MAC Complications none Disposition Accompanied Patient To Recovery: Yes Disposition: Recovery Room Indications SSS Description of Procedure see official report I attest to the content of the Intraoperative Record and any orders documented therein. Any exceptions are noted below.
[2020-04-12] MEDS ORDERED: NITROGLYCERIN SL 0.4 MG/TAB TAB SL PRN (14:21)
--- NOTE | 2020-04-12 14:21 | Discharge Summary ---
Date of Service April 13, 2020 Admission HPI Per Admitting Provider Pt admitted for elective ppm due to TBS/SSS Admission Exam Per Admitting Provider aaox3, NAD NC/AT, EOMI Supple No JVD Nrl S1/S2, No murmur CTA b/l no w/r/r soft nt/nd no LE edema b/l skin intact no focal deficits Principal Diagnosis TBS/SSS s/p ppm Discharge Exam aaox3, NAD NC/AT, EOMI Supple No JVD Nrl S1/S2, No murmur CTA b/l no w/r/r soft nt/nd no LE edema b/l skin intact no focal deficits left pectoral incision intact, no hematoma mild ecchymosis Discharge Data Allergies Allergy/AdvReac Type Severity Reaction Status Date / Time lisinopril Allergy Unknown "THROAT Verified 04/12/20 14:08 CLOSES" sulfamethoxazole Allergy Unknown RASH Verified 04/12/20 14:08 aspirin AdvReac Unknown BLEEDING Verified 04/12/20 14:08 ENVIRONMENTAL ALLERGIES Allergy Unknown . Uncoded 04/12/20 14:08 Procedures Performed Operation Date: 04/12/20 13:00 Actual Procedures p Pacer with A/V Leads (Dual) - Carlene Perrin DO Ordered Studies ECG: SR CXR: No PTX, leads in position PPM Interrogation: Normal function Stable lead testing since implant 04/12/20 06:45 EP Lab Images for PACS ONCE 04/12/20 12:30 CL Cath Imgs for PACS use only Routine Hospital Course (1) SSS (sick sinus syndrome): (2) Tachy-trish syndrome: (3) Atrial fibrillation: Total Time Total Time Spent Total Time Spent (In Minutes): 40 Total Time Includes: Examination of the Patient, Discharge Planning, Medication Reconciliation and Other Discharge Plan Discharge Items Patient Disposition: Home - Self-Care Reason For Visit: DC ICD Discharge Diagnosis: SSS and TBS s/p dual chamber ppm Condition on Discharge: Good Activity: As commented below Activity Comment: do not raise the left elbow over the left shoulder for 1 month Lifting: No more than 10 pounds Lifting Comment: do not lift more than 10 pounds with the left arm for 2 weeks Bathing: Keep incision dry Bathing Comment: keep dressing on and dry until your wound check next week Non-emergency contact: Spanish Interpreter Call non-emergency contact if: you have any medication questions Follow-up/Referrals: Emely Christine DO [Primary Care Provider] - Diet: Heart Healthy Addtl Attending Provider Instructions: device and wound check next week as scheduled at [facility] Try to wear either a sport bra or the surgical bra for the next few weeks to help with healing If you notice any swelling at the device site call [facility] Pending Studies at Discharge: No Stand-Alone Forms: My [facility] Medications and DC Order Prescriptions: New carvedilol 6.25 mg Tablet 6.25 mg PO BID 30 Days Qty: 60 RF: 0 Continued ferrous sulfate 325 mg (65 mg iron) Tablet 325 mg PO 3XWK Qty: 0 RF: 0 nitroglycerin 0.4 mg Tablet, Sublingual 0.4 mg sublingual DIRECTED PRN (Reason: Chest Pain) Qty: 0 RF: 0 PreserVision AREDS [id number] Capsule 1 cap PO BID Qty: 0 RF: 0 atorvastatin 80 mg Tablet 80 mg PO HS Qty: 0 RF: 0 aspirin [Aspirin Low Dose] 81 mg Tablet,Delayed Release (Dr/Ec) 81 mg PO QAM Qty: 0 RF: 0 prednisolone acetate 1 % Drops,Suspension 1 drp OPHTHALMIC (EYE) HS 10 Days Qty: 0 RF: 0 furosemide 20 mg Tablet 20 mg PO QAM Qty: 0 RF: 0 potassium chloride 20 mEq Tablet Extended Release 20 meq PO HS Qty: 0 RF: 0 irbesartan 75 mg Tablet 37.5 mg PO HS Qty: 0 RF: 0 albuterol sulfate 90 mcg/actuation Hfa Aerosol Inhaler 2 puff INHALATION Q6H PRN (Reason: shortness of breath/ wheezing) Qty: 0 RF: 0 isosorbide dinitrate [Isordil] 10 mg Tablet 10 mg PO BID RF: 0 betamethasone valerate 0.1 % Ointment See Rx Instructions .ROUTE .COMPLEX RF: 0 fluorouracil [Efudex] 5 % Cream 1 applic TOPICAL BID RF: 0 apixaban 5 mg Tablet 5 mg PO BID RF: 0 alendronate 70 mg tablet 70 mg PO WK RF: 0 Flovent HFA 110 mcg/actuation HFA aerosol inhaler 2 puff inhalation BID RF: 0 Discontinued carvedilol [Coreg] 3.125 mg Tablet 3.125 mg PO BID RF: 0 Discharge Orders: Discharge Order (Routine); Ordered 04/13/20 Ordered By: Carlene Perrin Admission Data Admit Date/Time: 04/12/20 12:51 Attending Provider: Carlene Perrin Admit Provider: Carlene Perrin Primary Care Provider: Emely Christine
[2020-04-12 15:48] LABS: Creatinine Clr Calc Pharmacy 38.5 ml/min; Est GFR (African American) 63.7
[2020-04-12] MEDS: ISOSORBIDE DINITRATE 10 MG TAB PO SCH (17:51)
[2020-04-12] MEDS ORDERED: IRBESARTAN 75 MG TAB PO SCH (21:00)
[2020-04-12] MEDS ORDERED: ATORVASTATIN 40 MG TAB PO SCH (21:00)
[2020-04-12] MEDS ORDERED: POTASSIUM CHLORIDE 20 MEQ TABCR PO SCH (21:00)
[2020-04-12] MEDS ORDERED: prednisoLONE acetate 1% OP SUSP 5 ML BTL OPB SCH (21:00)
[2020-04-12] MEDS ORDERED: FLUTICASONE HFA 110MCG INHALER INH SCH (21:00)
[2020-04-12] MEDS: APIXABAN 5 MG TABLET PO SCH (21:08)
[2020-04-12] MEDS: carvediloL 6.25 MG TAB PO SCH (21:08)
[2020-04-12] MEDS: OXYCODONE/ACETAMINOPHEN 5mg/325mg TAB PO PRN (21:15)
--- NOTE | 2020-04-13 06:36 | Electrocardiogram Report ---
Test Reason : Blood Pressure : / mmHG Vent. Rate : 060 BPM Atrial Rate : 060 BPM P-R Int : 190 ms QRS Dur : 158 ms QT Int : 494 ms P-R-T Axes : 000 024 048 degrees QTc Int : 494 ms Atrial-paced rhythm Right bundle branch block Abnormal ECG When compared with ECG of 26-OCT-2019 07:05, Electronic atrial pacemaker has replaced Sinus rhythm Nonspecific T wave abnormality now evident in Inferior leads Confirmed by Vivek Lovett ([id number]) on 04/13/2020 6:36:16 AM Referred By: Carlene Perrin Confirmed By:Vivek Lovett
[2020-04-13] MEDS: OXYCODONE/ACETAMINOPHEN 5mg/325mg TAB PO PRN (07:44)
[2020-04-13] MEDS: ISOSORBIDE DINITRATE 10 MG TAB PO SCH (07:45)
[2020-04-13] MEDS: APIXABAN 5 MG TABLET PO SCH (07:45)
[2020-04-13] MEDS: carvediloL 6.25 MG TAB PO SCH (07:46)
[2020-04-13] MEDS ORDERED: FUROSEMIDE 20 MG TAB PO SCH (09:00)
[2020-04-13] MEDS ORDERED: CEROVITE ADV FORMULA TAB PO SCH (09:00)
[2020-04-13] MEDS ORDERED: ASPIRIN 81 MG ECTAB PO SCH (09:00)
[2020-04-13] MEDS ORDERED: FLUTICASONE FUROATE 100MCG 14 PUFFS/INHALER INH SCH (09:00)
--- NOTE | 2020-04-13 09:45 | XRay Report ---
XR chest 2V PA/lateral CLINICAL HISTORY: post ppm dyspnea COMPARISON STUDY: 10/23/2019 FINDINGS: Fixed hiatal hernia. Prior median sternotomy. Lungs are considered clear. IMPRESSION: No acute process. Fixed hiatal hernia. ACT 112: Negative or not required by law. The above report was generated using voice recognition software. It may contain grammatical, syntax or spelling errors. Electronically signed by: Fede Astorga M.D. 04/13/2020 9:44 AM
--- NOTE | 2020-04-17 22:44 | Operative Report (OR) ---
DATE OF OPERATION: 04/12/2020 PREOPERATIVE DIAGNOSIS: Sick sinus syndrome. POSTOPERATIVE DIAGNOSIS: Sick sinus syndrome. PROCEDURE: Dual chamber rate responsive permanent pacemaker under fluoroscopic guidance. SURGEON: Carlene Perrin DO. ASSISTANTS: None. ANESTHESIA: Monitored conscious sedation administered under my supervision by Yesenia Campo. Start time 12:40, end time 1352. A total of 7 mg of Versed and 150 mcg of fentanyl. INTRAVENOUS LOSS: 25 mL. ANTIBIOTICS: 1 gram of Ancef. BLOOD LOSS: 30 mL. URINE OUTPUT: Not applicable. SPECIMENS: None. FINDINGS: See below. DRAINS: None. INDICATIONS: This is an 85-year-old female with past medical history for sick sinus syndrome, paroxysmal atrial fibrillation diagnosed in October 2019. She did not tolerate amiodarone secondary to hyperthyroidism. Her CHADS2-VASc score is 6. She is on Coreg and Eliquis. PAT, coronary artery disease, history of CABG x2 with her catheterization in 2012 showing that the LYONS to LAD was patent, but the SVG to the circ was occluded, right bundle branch block, chronic heart failure with preserved ejection fraction secondary to diastolic dysfunction, [place] Heart Association class 2, chronic kidney disease stage III, prediabetic, hypertension, very uncontrolled hyperlipidemia, osteoporosis, history of nonmelanoma skin cancer. Due to her sick sinus syndrome, she was recommended a pacemaker. CONSENT: Consent was obtained prior to the patient going into electrophysiology lab. The patient was informed of the risks, benefits and alternative procedure. Risks include but not limited to, coronary artery disease, myocardial infarction, arrhythmias, , cerebrovascular accident, injury to the blood vessels, chamber of the heart, lung, bleeding, and infection. The patient understood these risks and agreed with procedure as planned. Informed consent was obtained. DESCRIPTION OF THE PROCEDURE: The patient was brought into the electrophysiology lab in fasting state. She was connected to continuous monitoring analyst. Timeout was performed to ensure patient identity and procedure correctly. The patient was prepped and draped over the left inferior space in normal surgical standard fashion. Monitored conscious sedation was given throughout the procedure for patient's comfort level. [place] precautions were maintained throughout the procedure. 10 mL of 1% lidocaine, bupivacaine mixture were given in the left deltopectoral groove. Incision was made in left deltopectoral groove. Blunt dissection was performed down to identify the cephalic vein. Cephalic vein was identified and isolated using 0 silk ties. The vein was nicked with 11 blade and a guidewire was inserted without any resistance. An 8-Indian sheath was inserted over the guidewire without any resistance. Dilator was removed and second guidewire was then advanced through the sheath to allow for retained venous access. Sheath was removed, flushed and reinserted over the dilator, reinserted over one of the guidewires. Guidewire and dilator removed. The right ventricular lead was then advanced into right ventricle and positioned in intraventricular apex under fluoroscopic guidance. There was adequate pacing and sensing thresholds and no diaphragmatic stimulation with high output pacing. The 8-Indian sheath was peeled away and lead was fixated in pectoralis muscle using 0 silk suture. An OptiSeal 7-Indian sheath was advanced through the retained guidewire without any resistance. Guidewire and dilator removed. The right atrial lead was then advanced into right atrium and positioned interatrial appendage under fluoroscopic guidance. There was adequate pacing and sensing thresholds and no diaphragmatic stimulation with high output pacing. The 8-Indian sheath was peeled away and lead was fixated to pectoralis muscle using 0 silk suture. A pursestring was placed around the venous puncture site to stop any backbleeding with a 2-[address] needle. Then, a pacemaker pocket was created using blunt dissection over the pectoralis muscle within the pectoralis fascia. The pocket was flushed with copious amounts of bacitracin saline wash and inspected for hemostasis. The pulse generator was then attached to the leads making sure the pins were in appropriate position, passed set screws and set screws were all tightened. Pulse generator was in a Tyrx pouch followed then by being placed in the pocket, making sure that the leads were lying flat beneath the device. Incision was closed in 3-layer fashion with 2-0 Vicryl interrupted suture followed by 3-0 Vicryl interrupted suture, followed by 4-0 Monocryl running stitch and Dermabond was applied followed by a Telfa and micropore dressing. EQUIPMENT: 1. Pulse generator is a Medtronic Krystal XT DR ATUL Marina [id number], serial number [id number]. 2. Tyrx pouch is reference [id number], lot #[id number], expiration 01/15/2021. 3. Right atrial lead Medtronic 5076-52 cm, serial #[id number]. 4. Right ventricular lead, Medtronic 5076-58 cm, serial #[id number]. INTRAOPERATIVE TESTIN. Right atrial lead: P waves 1.6 millivolts, impedance 570 ohms, threshold 0.6 volts at 0.4 milliseconds. 2. Right ventricular lead: R waves 8.4 millivolts, impedance is 1083 ohms, threshold 0.4 volts at 0.4 milliseconds. FINAL PARAMETERS THROUGH THE DEVICE: 1. Right atrial lead: P waves 1.5 millivolts, impedance 608 ohms, threshold 0.7 volts at 0.4 milliseconds. 2. Right ventricular lead: R-wave 8.8 millivolts, impedance 988 ohms, threshold 0.5 volts at 0.4 milliseconds. FINAL PARAMETERS: MVP-R 60/130, right atrial amplitude 3.5 volts, pulse width 0.4 milliseconds, sensitivity 0.3 millivolts. Right ventricular amplitude 3.5 volts, pulse width 0.4 milliseconds, sensitivity 1.2 millivolts. IMPRESSION: Successful implantation of a dual chamber rate responsive permanent pacemaker under fluoroscopic guidance secondary to sick sinus syndrome. PLAN: Monitor patient overnight, 12-lead ECG, chest x-ray. She is not allowed to lift left elbow or left shoulder for 1 month. She cannot lift more than 10 pounds with the left arm for 2 weeks. She is to keep the dressing on and dry until her wound check next week. I attest to the content of the Intraoperative Record and any orders documented therein. Any exceptions are noted below. MARIO
== END 2020-04-13 10:58 | disposition home or self-care (01) ==
LOC: EP 10:50 → 2S 10:50

== ENCOUNTER 2024-07-20 10:41 | Inpatient (IN) ==
--- NOTE | 2024-07-20 11:13 | Emergency Department Note ---
History of Present Illness General Chief complaint: Back Injury/Pain Stated complaint: TROUBLE WALKING, LOWER BACK/HIP PAIN, SCOLLIOSIS Time Seen by Provider: 07/20/24 10:59 History of Present Illness Maximum Pain Intensity: 1 This is an 89-year-old female that presents to the emergency department via private vehicle accompanied by daughter with complaints of "low back pain". The patient notes that this past Friday morning she began with left hip pain but describes it where the low back and hip meet in the posterior aspect. She denies any known trauma or injury. Now it is on both sides. She does take anticoagulation she believes for stroke prevention noting history of A-fib but last dose was yesterday waiting on mail order to arrive. She denies any trauma, injury or falls. She denies any fevers, chills, nausea or vomiting. No chest pain. The patient denies any bowel or bladder incontinence. No numbness or tingling in the genital region. She notes pain at the present time as she is in bed is quite minimal but when she attempts to walk the pain significantly increases. Home Medications Medication Instructions Recorded Confirmed Type ferrous sulfate 325 mg (65 mg 325 mg PO DAILY ##0 12/14/13 07/20/24 History iron) tablet nitroglycerin 0.4 mg sublingual 0 mg sublingual DIRECTED PRN 12/14/13 07/20/24 History tablet Chest Pain #0 BTLS vitamins A,C,L-[id number] 4,296 1 cap PO BID ##0 12/14/13 07/20/24 History mcg-226 mg-90 mg capsule (PreserVision AREDS) furosemide 20 mg tablet 10 mg PO DAILY #0 tabs 06/18/17 07/20/24 History potassium chloride 20 mEq 20 meq PO DAILY #0 tabs 06/18/17 07/20/24 History tablet,extended release albuterol sulfate 90 mcg/actuation 2 puff inhalation QID PRN 01/27/18 07/20/24 History aerosol inhaler Shortness Of Breath Or Wheezing ##0 irbesartan 75 mg tablet 37.5 mg PO HS ##0 01/27/18 07/20/24 History alendronate 70 mg tablet 70 mg PO WK 03/01/19 07/20/24 History apixaban 5 mg tablet 5 mg PO BID 04/12/20 07/20/24 History isosorbide dinitrate 10 mg tablet 10 mg PO TID 04/12/20 07/20/24 History aflibercept 2 mg/0.05 mL 0 mg intravitreal UD 01/30/21 07/20/24 History intravitreal syringe (Eylea) aspirin 81 mg chewable tablet 81 mg PO DAILY 01/30/21 07/20/24 History (Aspirin Childrens) ranolazine 500 mg tablet,extended 500 mg PO BID 01/30/21 07/20/24 History release,12 hr fluticasone furoate 100 1 inh inhalation QAM 04/21/24 07/20/24 History mcg/actuation blister powder for inhalation (Arnuity Ellipta) metoprolol succinate 100 mg 100 mg PO QAM 04/21/24 07/20/24 History tablet,extended release 24 hr pantoprazole 20 mg tablet,delayed 20 mg PO QAM 04/21/24 07/20/24 History release rosuvastatin 40 mg tablet 20 mg PO QAM 04/21/24 07/20/24 History meclizine 25 mg tablet 25 mg PO Q8H PRN dizzy 07/20/24 07/20/24 History prednisolone acetate 1 % eye 1 drp OPR HS 07/20/24 07/20/24 History drops,suspension Allergies Allergy/AdvReac Type Severity Reaction Status Date / Time lisinopril Allergy Unknown "THROAT Verified 01/31/21 00:02 CLOSES" sulfamethoxazole Allergy Unknown RASH Verified 01/31/21 00:02 aspirin AdvReac Unknown BLEEDING Verified 01/31/21 00:02 Past Med/Surg History Problem List (Updated 07/20/24 @ 18:04 by Trevon Valencia PA-C) Abnormal CT scan, pelvis (Acute) Abnormal urinalysis (Acute) Trouble walking (Acute) Low back pain at multiple sites Tachy-trish syndrome Pt admitted for elective ppm. Underwent procedure without any complications; monitored overnight; her coreg was increased and she was discharged home following day. NSTEMI (non-ST elevated myocardial infarction) Demand ischemia of myocardium Paroxysmal atrial fibrillation with rapid ventricular response Atrial fibrillation with RVR (Acute) Atrial fibrillation (Acute) increase coreg and restart eliquis Asthma (Chronic) Scoliosis (Chronic) Back pain, acute (Acute 12/14/13) Shoulder pain (Acute) Medical History Acute hyperglycemia Vertigo Kyphoscoliosis Dyslipidemia CKD (chronic kidney disease), stage III Chronic heart failure with preserved ejection fraction (HFpEF) PAF (paroxysmal atrial fibrillation) Ambulatory dysfunction Dizziness SSS (sick sinus syndrome) Pt admitted for elective ppm. Underwent procedure without any complications; monitored overnight; her coreg was increased and she was discharged home following day. Coronary artery disease Hypertension CHF (congestive heart failure) Surgical History History of cataract surgery History of appendectomy History of coronary artery bypass graft Family History Other Asthma Hypertension Social History Smoking Status: Never smoker Second Hand Exposure: No; Do You Dip or Chew Tobacco: No; Hx Alcohol Use: No Hx Substance Use: No Preferred Language: Tuvaluan Communication Ability: Effective Primer Charger Required: No Beliefs That Will Affect Care: None marital status: Current Living Situation: Alone Other Information That Helps Us Care for You: No Feels Safe at Home: Yes Safety Concerns: Feels Safe At This Time Assistive Devices: Cane, Denture - Upper, Glasses, Hearing Aid - Bilateral, Stair Lift, Walker and Wheelchair Review of Systems A total of 10 systems reviewed and were otherwise negative Physical Exam Vital Signs Vital Signs - 24 hr 07/20/24 10:55 07/20/24 12:16 07/20/24 14:02 Temperature 36.5 C Temperature Source Temporal Artery Scan Pulse Rate 79 Pulse Rate [Right Finger] 62 66 Respiratory Rate 17 16 18 Respiratory Effort / Characteristics Non-Labored Spontaneous Non-Labored Spontaneous Non-Labored Respiratory Depth Normal Normal Normal Respiratory Pattern Regular Regular Blood Pressure 104/67 Blood Pressure [Right Arm] 132/87 132/69 Blood Pressure Mean 79 Blood Pressure Mean [Right Arm] 102 90 Blood Pressure Position [Right Arm] Lying Pulse Oximetry 95 96 96 Oxygen Delivery Method Room Air Room Air Room Air Sepsis Recent Fever Within 48 Hours No Sepsis New/Unexplained Change in Mental Status N/A Sepsis Action Taken by Nursing No Action Required VITAL SIGNS - Vital signs and nursing notes were reviewed. Stable and afebrile. GENERAL -89-year-old female appearing her stated age who is in no acute distress. Communicates well with provider and answers questions appropriately. SKIN - Without rashes. No meningeal or petechial rash. No herpetic lesions. The skin overlying the low back area is unremarkable. HEAD - NC/AT. EYES - PERRL with EOMI bilaterally. Sclera anicteric. EARS - No deformities of external structures noted on gross examination bilaterally. NOSE - Midline and without cyanosis. No epistaxis or purulent drainage noted. MOUTH/OROPHARYNX - Without perioral cyanosis. NECK - Neck with FROM. No nuchal rigidity. LUNGS - CTA CARDIAC - RRR ABDOMEN - Abdominal contour normal without pulsations or visible masses. BS normoactive all four quadrants. No tenderness, palpable masses, hepatosplenomegaly, or ascites noted. EXTREMITIES - No clubbing or peripheral cyanosis. +5/5 strength noted in UE/LE bilaterally. NEUROLOGIC - Cranial nerves II through XII grossly intact. Patellar reflexes within normal limits. MUSCULOSKELETALthere is no reproducible tenderness overlying the low back to palpation. PSYCH -alert, oriented and pleasant on exam. Course Administered Medications Acetaminophen (Acetaminophen 325 Mg Tab) 650 mg PO QID [facility] Stop: 08/19/24 16:59 Last Admin: 07/20/24 16:45 Dose: 650 mg Documented By: JOYCELYN Isosorbide Dinitrate (Isosorbide Dinitrate 5 Mg Tab) 10 mg PO TID@0800,1300,1800 [facility] Stop: 08/19/24 17:59 Last Admin: 07/20/24 16:46 Dose: 10 mg Documented By: JOYCELYN Lidocaine (Lidocaine 5% 1 Patch) 1 patch TD QAM [facility] Stop: 08/19/24 16:14 Last Admin: 07/20/24 16:45 Dose: Not Given Documented By: [facility] Discontinued Medications Piperacillin Sod/Tazobactam Sod (Zosyn) 4.5 gm in 100 mls @ 200 mls/hr IV NOW ONE; Protocol Stop: 07/20/24 13:28 Last Infusion: 07/20/24 14:04 Dose: Infused Documented By: [facility] Admin: 07/20/24 13:16 Dose: 200 mls/hr Documented By: [facility] Medical Decision Making Laboratory Data 07/20/24 11:19 07/20/24 11:19 Lab Results 07/20/24 07/20/24 Range/Units 11:19 11:41 WBC 8.51 (4.8-10.8) K/ul RBC 4.23 (4.20-5.40) M/uL Hgb 13.0 (12.0-16.0) g/dl Hct 39.6 (37.0-47.0) % MCV 93.6 (80.0-100.0) fL MCH 30.7 (25.0-34.0) pg MCHC 32.8 (32.0-36.0) g/dL RDW Std Deviation 51.6 H (36.4-46.3) fL RDW Coeff of [place] 15.0 H (11.5-14.5) % Plt Count 156 (130-400) K/uL MPV 10.7 (9.4-12.4) fL Immature Gran % (Auto) 0.4 % Neut % (Auto) 67.6 % Lymph % (Auto) 14.8 % [place] % (Auto) 14.5 % Eos % (Auto) 1.9 % Baso % (Auto) 0.8 % Neut # (Auto) 5.76 (1.40-6.50) K/uL Lymph # (Auto) 1.26 (1.20-3.40) K/uL [place] # (Auto) 1.23 H (0.11-0.59) K/uL Eos # (Auto) 0.16 (0.00-0.50) K/uL Baso # (Auto) 0.07 (0.00-0.20) K/uL Immature Gran # (Auto) 0.03 (0.01-0.20) K/uL Sodium 140 (136-145) mmol/L Potassium 4.0 (3.5-5.1) mmol/L Chloride 105 (98-107) mmol/L Carbon Dioxide 29 (21-32) mmol/L Anion Gap 6 (3-11) BUN 16 (6-23) mg/dl Creatinine 0.86 (0.6-1.2) mg/dl Est Cr Clr Drug Dosing Not Reportable eGFR 64.94 BUN/Creatinine Ratio 18.6 (10-20) Glucose 125 H (70-99(Fasting)) mg/dl Calcium 9.4 (8.6-10.3) mg/dl Total Bilirubin 0.9 (0.2-1.0) mg/dl AST 23 (13-39) U/L ALT 10 (7-52) U/L Alkaline Phosphatase 69 (34-104) U/L Total Protein 6.7 (6.0-8.3) gm/dl Albumin 3.7 (3.4-5.0) gm/dl Globulin 3.0 (2.5-4.0) gm/dl Albumin/Globulin Ratio 1.2 (0.9-2) Urine Color Dark Yellow Urine Appearance Cloudy A (Clear) Urine pH 5.5 (4.5-7.5) Ur Specific [place] 1.027 (1.000-1.030) Urine Protein 1+ H (Negative) Urine Glucose (UA) Negative (Negative) Urine Ketones Trace H (Negative) Urine Blood Negative (Negative) Urine Nitrite Negative (Negative) Urine Bilirubin Negative (Negative) Urine Urobilinogen Positive H (Negative) Ur Leukocyte Esterase 2+ H (Negative) Urine WBC (Auto) 11-20 H (0-5) /hpf Urine RBC (Auto) 0-2 (0-2) /hpf U Hyaline Cast (Auto) 11-20 H (0-2) /lpf U Epithel Cells (Auto) >20 H (0-2) /hpf Urine Bacteria (Auto) 2+ H (None Seen) Urine Mucus Present A (None Prsent) Imaging Data Radiologist's Impression: Lumbar Spine CT 07/20/24 11:08 CT OF THE LUMBAR SPINE CLINICAL HISTORY: L>R low back pain COMPARISON STUDY: Lumbar spine radiographs May 16, 2021. TECHNIQUE: Helical axial images of the lumbar spine were obtained. Sagittal and coronal reconstructions were viewed. Automated exposure control was utilized for the study. A dose lowering technique was utilized adhering to the principles of ALARA. FINDINGS: There is severe lumbar spine levoscoliosis. Vertebral body heights are maintained. No acute fractures are identified. There are no osseous lesions. Severe multilevel disc space narrowing is noted with vacuum disc phenomenon at multiple levels. There is also severe multilevel facet arthrosis. The central canal and neural foramen are suboptimally assessed given CT technique. Please note that the pelvis CT will be reported separately. Paraspinal soft tissues are unremarkable by CT. The sacroiliac joints are intact. IMPRESSION: 1. No acute lumbar spine fracture or subluxation. 2. Severe lumbar spine scoliosis. 3. Severe multilevel degenerative changes within the lumbar spine. ACT 112: Negative or not required by law. Electronically signed by: Jose Carlos Doyle M.D. 07/20/2024 11:[address] 07/20/24 11:08 CT pelvis wo con HISTORY: 89 years-old Female L>R low back pain acute bilateral hip pain without reported trauma COMPARISON: Lumbar spine CT of same day TECHNIQUE: Multiple axial CT images of the bony pelvis were obtained without IV contrast. A dose lowering technique was used consistent with the principals of ALARA. FINDINGS: Colonic diverticulosis. There is mild wall thickening of the midsigmoid. Extensive colonic diverticulosis. Trace free pelvic fluid. Decompressed urinary bladder. Small fat filled umbilical hernia. Atherosclerosis of the aorta and branch vessels. CT lumbar spine dictated separately. Partially imaged scoliosis with moderate to advanced degenerative changes. Demineralized appearance of the bones. There is mild osteoarthritis of the hips. No acute fracture, dislocation or avascular necrosis. Mild to moderate degeneration of the SI joints. Chronic-appearing angulation of the S5 segment. IMPRESSION: 1. No acute fracture identified. 2. Colonic diverticulosis with equivocal mild acute diverticulitis of the mid sigmoid. 3. Trace free pelvic fluid. 4. Mild osteoarthritis of the hips. ACT 112: Negative or not required by law. The above report was generated using voice recognition software. It may contain grammatical, syntax or spelling errors. Electronically signed by: Alexis Tan M.D. 07/20/2024 11:55 AM MDM Narrative Patient was seen and evaluated as above in room D04. Review was performed of triage nursing notes and vital signs. I did review pertinent previous visits and patient history. After obtaining a thorough history and physical examination the above work up was performed. Patient presents to us today for evaluation of low back pain. On assessment she is clinically well-appearing and nontoxic. Current pain 1/10 and minimal. Pain does increase with movement/weightbearing. There has been no reported trauma or injury. Patient has a benign abdominal examination. No fever. Options of care were discussed with the patient. IV access with established. Labs were drawn. CT imaging of the L-spine and pelvis were ordered. CT imaging as above. There is potential mild diverticulitis. Labs reveal no leukocytosis or concerning anemia. No emergent metabolic disturbance. Mild hyperglycemia. Evidence of possible UTI noted. Patient did have significant trouble ambulating to the bathroom. Although the pain at rest in the bed is minimal to nonexistent, when she attempts to ambulate she is dragging the right leg secondary to severe pain in the back area. She has no neurovascular deficits on exam. At this time noting the patient's ambulatory dysfunction in the setting of potential diverticulitis plus UTI will proceed with IV antibiotics, and inpatient management for further evaluation and assessment. Case discussed with the hospitalist service. Please refer to further documentation regarding her stay. GCS: 15 In the evaluation and treatment of this patient the following differential diagnosis entertained: Fracture, dislocation, subluxation, cauda equina syndrome, AAA, diverticulitis, appendicitis, torsion, osteomyelitis, piriformis syndrome, strain, sprain, among others. Impression & Plan Back pain, acute, Trouble walking, Abnormal urinalysis, Abnormal CT scan, pelvis Discharge Plan Visit Data Chief Complaint: Back Injury/Pain Stated Complaint: TROUBLE WALKING, LOWER BACK/HIP PAIN, SCOLLIOSIS ED Provider: [facility] ED Midlevel Provider: Trevon Valencia Discharge Problem: Back pain, acute, Trouble walking, Abnormal urinalysis, Abnormal CT scan, pelvis Patient Disposition: Admitted As Inpatient Condition: Good Discharge Instructions Interventions: ED Discharge Assessment Last Done: 07/20/24 15:13
[2024-07-20 11:41] LABS: Basophils # (auto) 0.07 K/uL (0.00-0.20); Basophils % (auto) 0.8 %; Eosinophils # (auto) 0.16 K/uL (0.00-0.50); Eosinophils % (auto) 1.9 %; Hematocrit (blood only) 39.6 % (37.0-47.0); Immature Granulocytes # (auto) 0.03 K/uL (0.01-0.20); Immature Granulocytes % (auto) 0.4 %; Lymphocytes # (auto) 1.26 K/uL (1.20-3.40); Lymphocytes % (auto) 14.8 %; Mean Corpuscular Hemoglobin 30.7 pg (25.0-34.0); Mean Corpuscular Hgb Conc 32.8 g/dL (32.0-36.0); Mean Corpuscular Volume 93.6 fL (80.0-100.0); Mean Platelet Volume 10.7 fL (9.4-12.4); Monocytes # (auto) 1.23 K/uL (0.11-0.59); Monocytes % (auto) 14.5 %; Neutrophils # (auto) 5.76 K/uL (1.40-6.50); Neutrophils % (auto) 67.6 %; Platelet Count 156 K/uL (130-400); RDW Standard Deviation 51.6 fL (36.4-46.3); Red Blood Count 4.23 M/uL (4.20-5.40); White Blood Count 8.51 K/ul (4.8-10.8)
--- NOTE | 2024-07-20 11:45 | Emergency Department Note ---
ED Visit Note I was consulted by the Advanced Practice Provider Trevon Valencia PA-C. I performed a substantive portion of the visit including all aspects of medical decision making. Patient noted to have diverticulitis and UTI. Patient was admitted to the medicine service. .
--- NOTE | 2024-07-20 11:56 | CT Scan Report ---
CT pelvis wo con HISTORY: 89 years-old Female L>R low back pain acute bilateral hip pain without reported trauma COMPARISON: Lumbar spine CT of same day TECHNIQUE: Multiple axial CT images of the bony pelvis were obtained without IV contrast. A dose lowe ring technique was used consistent with the principals of DENISE. FINDINGS: Colonic diverticulosis. There is mild wall thickening of the midsigmoid. Extensive colonic diverticul osis. Trace free pelvic fluid. Decompressed urinary bladder. Small fat filled umbilical hernia. Ather osclerosis of the aorta and branch vessels. CT lumbar spine dictated separately. Partially imaged scoliosis with moderate to advanced degenerativ e changes. Demineralized appearance of the bones. There is mild osteoarthritis of the hips. No acute fracture, dislocation or avascular necrosis. Mild to moderate degeneration of the SI joints. Chronic- appearing angulation of the S5 segment. IMPRESSION: 1. No acute fracture identified. 2. Colonic diverticulosis with equivocal mild acute diverticulitis of the mid sigmoid. 3. Trace free pelvic fluid. 4. Mild osteoarthritis of the hips. ACT 112: Negative or not required by law. The above report was generated using voice recognition software. It may contain grammatical, syntax o r spelling errors. Electronically signed by: Alexis Tan M.D. 07/20/2024 11:55 AM
[2024-07-20 12:00] LABS: Alanine Aminotransferase 10 U/L (7-52); Albumin Globulin Ratio 1.2 (0.9-2); Albumin Level 3.7 gm/dl (3.4-5.0); Alkaline Phosphatase 69 U/L (34-104); Anion Gap 6 (3-11); Aspartate Aminotransferase 23 U/L (13-39); BUN Creatinine Ratio 18.6 (10-20); Bilirubin,Total 0.9 mg/dl (0.2-1.0); Blood Urea Nitrogen 16 mg/dl (6-23); Calcium 9.4 mg/dl (8.6-10.3); Carbon Dioxide 29 mmol/L (21-32); Chloride 105 mmol/L (98-107); Glucose 125 mg/dl (70-99(Fasting)); Sodium 140 mmol/L (136-145); Total Protein 6.7 gm/dl (6.0-8.3)
--- NOTE | 2024-07-20 12:01 | CT Scan Report ---
CT OF THE LUMBAR SPINE CLINICAL HISTORY: L>R low back pain COMPARISON STUDY: Lumbar spine radiographs May 16, 2021. TECHNIQUE: Helical axial images of the lumbar spine were obtained. Sagittal and coronal reconstruct ions were viewed. Automated exposure control was utilized for the study. A dose lowering technique was utilized adhering to the principles of ALARA. FINDINGS: There is severe lumbar spine levoscoliosis. Vertebral body heights are maintained. No acute fractures are identified. There are no osseous lesions. Severe multilevel disc space narrowing is no riley with vacuum disc phenomenon at multiple levels. There is also severe multilevel facet arthrosis. The central canal and neural foramen are suboptimally assessed given CT technique. Please note that t he pelvis CT will be reported separately. Paraspinal soft tissues are unremarkable by CT. The sacroil iac joints are intact. IMPRESSION: 1. No acute lumbar spine fracture or subluxation. 2. Severe lumbar spine scoliosis. 3. Severe multilevel degenerative changes within the lumbar spine. ACT 112: Negative or not required by law. Electronically signed by: Jose Carlos Doyle M.D. 07/20/2024 11:59 AM
[2024-07-20 12:06] LABS: Appearance Urine Cloudy (Clear); Bacteria Urine Automated 2+ (None Seen); Bilirubin Urine Negative (Negative); Blood Urine Negative (Negative); Color Urine Dark Yellow; Epithelial Cell Urine Auto >20 /hpf (0-2); Glucose Urine UA Negative (Negative); Ketones Urine Trace (Negative); Leukocyte Esterase Urine 2+ (Negative); Mucus Urine Present (None Prsent); Nitrite Urine Negative (Negative); Protein Urine 1+ (Negative); RBC Urine Automated 0-2 /hpf (0-2); Specific Gravity Urine 1.027 (1.000-1.030); Urobilinogen Urine Positive (Negative); pH Urine 5.5 (4.5-7.5)
[2024-07-20] MEDS: PIPERACILLIN/TAZOBACTAM 4.5 GM/100 ML BAG IV ONE (13:16)
--- NOTE | 2024-07-20 13:30 | History & Physical Report ---
Date of Service July 20, 2024 Assessment & Plan (1) Low back pain at multiple sites: (2) Ambulatory dysfunction: (3) Chronic heart failure with preserved ejection fraction (HFpEF): (4) CKD (chronic kidney disease), stage III: (5) Dyslipidemia: Plan This is an 89-year-old female who has significant past medical history of severe CAD, chronic HFpEF, PAF, TBI status post PPM, HTN, HLD, CKD stage III, osteoporosis, idiopathic scoliosis, macular degeneration who presents to the hospital secondary to severe pain in her hip/leg. Ambulatory dysfunction Low back pain admit to medical --Lumbar CT: . Severe lumbar spine scoliosis.Severe multilevel degenerative changes within the lumbar spine. --Pelvis CT: Colonic diverticulosis with equivocal mild acute diverticulitis of the mid sigmoid. Pt is without GI or abdominal sx, diverticulitis unlikely with tx with musculoskeletal back pain with scheduled APAP, Lidocaine patch, Heat, PT/OT prn tramadol for severe pain Abnormal Urinalysis received IV zosyn in ED pt w/o urinary sx, fever or leukocytosis, possible contamination await urine culture CAD hx of CABG Chronic HFpEF PAF TBI s/p PPM HTN/HLD chronic, stable continue home meds asa, statin, lasix, irbesartan, isosorbide dinitrate, metoprolol, apixaban, ranolazine CKD-3 baseline cr 1.1 avoid nephrotoxic agents DVT ppx: Eliquis FULL CODE PCP: Emely Christine Dispo: admit to med/surg Pt was seen and examined in collaboration with Dr. Gonzalez, please see addendum I spent a total of 76 minutes reviewing notes, outpatient records, labs, medication, coordinating, documenting and providing care for this patient excluding time spent in the performance of separately billed services. History of Present Illness Chief Complaint: Hip pain x 4 days. Primary Care Provider: Emely Christine, DO This is an 89-year-old female who has significant past medical history of severe CAD, chronic HFpEF, PAF, TBI status post PPM, HTN, HLD, CKD stage III, osteoporosis, idiopathic scoliosis, macular degeneration who presents to the hospital secondary to severe pain in her hip/leg. Pain started 4 days ago. Pain is now also located on the right hip. She has a cane/walker at home, but this pain has made it very difficult for her to move. Her hx was obtained from patient, daughter and chart review. She has hx of scoliosis and has chronic pain from this, but this felt different. She does have chronic knee pain due to arthritis. She denies f/c/s, beltre, dizziness, chest pain, n/v/d, abd pain, cough, congestion, sore throat, dysuria, increased urgency, frequency, hematuria. She does have chronic SOB with exertion, but she feels this is unchanged. She follows with [facility]. She has occasional constipation. She eats beans to help this. She denies any falls. She denies any alcohol or tobacco use. SHe lives alone and typically ambulates with a walker. Allergies Allergy/AdvReac Type Severity Reaction Status Date / Time lisinopril Allergy Unknown "THROAT Verified 01/31/21 00:02 CLOSES" sulfamethoxazole Allergy Unknown RASH Verified 01/31/21 00:02 aspirin AdvReac Unknown BLEEDING Verified 01/31/21 00:02 Home Medications Medication Instructions Recorded Confirmed Type ferrous sulfate 325 mg (65 mg 325 mg PO DAILY ##0 12/14/13 07/20/24 History iron) tablet nitroglycerin 0.4 mg sublingual 0 mg sublingual DIRECTED PRN 12/14/13 07/20/24 History tablet Chest Pain #0 BTLS vitamins A,C,M-cefh-vlnhts 4,296 1 cap PO BID ##0 12/14/13 07/20/24 History mcg-226 mg-90 mg capsule (PreserVision AREDS) furosemide 20 mg tablet 10 mg PO DAILY #0 tabs 06/18/17 07/20/24 History potassium chloride 20 mEq 20 meq PO DAILY #0 tabs 06/18/17 07/20/24 History tablet,extended release albuterol sulfate 90 mcg/actuation 2 puff inhalation QID PRN 01/27/18 07/20/24 History aerosol inhaler Shortness Of Breath Or Wheezing ##0 irbesartan 75 mg tablet 37.5 mg PO HS ##0 01/27/18 07/20/24 History alendronate 70 mg tablet 70 mg PO WK 03/01/19 07/20/24 History apixaban 5 mg tablet 5 mg PO BID 04/12/20 07/20/24 History isosorbide dinitrate 10 mg tablet 10 mg PO TID 04/12/20 07/20/24 History aflibercept 2 mg/0.05 mL 0 mg intravitreal UD 01/30/21 07/20/24 History intravitreal syringe (Eylea) aspirin 81 mg chewable tablet 81 mg PO DAILY 01/30/21 07/20/24 History (Aspirin Childrens) ranolazine 500 mg tablet,extended 500 mg PO BID 01/30/21 07/20/24 History release,12 hr fluticasone furoate 100 1 inh inhalation QAM 04/21/24 07/20/24 History mcg/actuation blister powder for inhalation (Arnuity Ellipta) metoprolol succinate 100 mg 100 mg PO QAM 04/21/24 07/20/24 History tablet,extended release 24 hr pantoprazole 20 mg tablet,delayed 20 mg PO QAM 04/21/24 07/20/24 History release rosuvastatin 40 mg tablet 20 mg PO QAM 04/21/24 07/20/24 History meclizine 25 mg tablet 25 mg PO Q8H PRN dizzy 07/20/24 07/20/24 History prednisolone acetate 1 % eye 1 drp OPR HS 07/20/24 07/20/24 History drops,suspension Past Med/Surg History Problem List (Updated 07/20/24 @ 13:45 by Keri Brantley PA-C) Low back pain at multiple sites Tachy-trish syndrome Pt admitted for elective ppm. Underwent procedure without any complications; monitored overnight; her coreg was increased and she was discharged home following day. NSTEMI (non-ST elevated myocardial infarction) Demand ischemia of myocardium Paroxysmal atrial fibrillation with rapid ventricular response Atrial fibrillation with RVR (Acute) Atrial fibrillation (Acute) increase coreg and restart eliquis Asthma (Chronic) Scoliosis (Chronic) Back pain, acute (Acute 12/14/13) Shoulder pain (Acute) Medical History Acute hyperglycemia Vertigo Kyphoscoliosis Dyslipidemia CKD (chronic kidney disease), stage III Chronic heart failure with preserved ejection fraction (HFpEF) PAF (paroxysmal atrial fibrillation) Ambulatory dysfunction Dizziness SSS (sick sinus syndrome) Pt admitted for elective ppm. Underwent procedure without any complications; monitored overnight; her coreg was increased and she was discharged home following day. Coronary artery disease Hypertension CHF (congestive heart failure) Surgical History History of cataract surgery History of appendectomy History of coronary artery bypass graft Family History Other Asthma Hypertension Social History Smoking Status: Never smoker Second Hand Exposure: No; Do You Dip or Chew Tobacco: No; Hx Alcohol Use: No Hx Substance Use: No Preferred Language: Bolivian Communication Ability: Effective Refueler Required: No Beliefs That Will Affect Care: None marital status: Current Living Situation: Alone Feels Safe at Home: Yes Assistive Devices: Cane, Glasses, Stair Lift, Walker and Wheelchair Review of Systems Review of Systems: All systems reviewed & are unremarkable except as noted in HPI & below Physical Exam Physical Exam: please refer to Dr. Gonzalez addendum for physical exam findings Results & Data Results & Data Vital Signs (Past 12 Hours) Vital Signs Temp Pulse Pulse Resp BP BP Pulse Ox 07/20/24 12:16 62 16 132/87 96 07/20/24 10:55 36.5 C 79 17 104/67 95 O2 Del Method 07/20/24 12:16 Room Air 07/20/24 10:55 Room Air Laboratory Results I have independently reviewed and interpreted patient's admitting labs including CBC, CMP,UA. Diagnostic Findings Lumbar Spine CT 07/20/24 11:08 CT OF THE LUMBAR SPINE CLINICAL HISTORY: L>R low back pain COMPARISON STUDY: Lumbar spine radiographs May 16, 2021. TECHNIQUE: Helical axial images of the lumbar spine were obtained. Sagittal and coronal reconstructions were viewed. Automated exposure control was utilized for the study. A dose lowering technique was utilized adhering to the principles of ALARA. FINDINGS: There is severe lumbar spine levoscoliosis. Vertebral body heights are maintained. No acute fractures are identified. There are no osseous lesions. Severe multilevel disc space narrowing is noted with vacuum disc phenomenon at multiple levels. There is also severe multilevel facet arthrosis. The central canal and neural foramen are suboptimally assessed given CT technique. Please note that the pelvis CT will be reported separately. Paraspinal soft tissues are unremarkable by CT. The sacroiliac joints are intact. IMPRESSION: 1. No acute lumbar spine fracture or subluxation. 2. Severe lumbar spine scoliosis. 3. Severe multilevel degenerative changes within the lumbar spine. ACT 112: Negative or not required by law. Electronically signed by: Jose Carlos Doyle M.D. 07/20/2024 11:[address] 07/20/24 11:08 CT pelvis wo con HISTORY: 89 years-old Female L>R low back pain acute bilateral hip pain without reported trauma COMPARISON: Lumbar spine CT of same day TECHNIQUE: Multiple axial CT images of the bony pelvis were obtained without IV contrast. A dose lowering technique was used consistent with the principals of DENISE. FINDINGS: Colonic diverticulosis. There is mild wall thickening of the midsigmoid. Extensive colonic diverticulosis. Trace free pelvic fluid. Decompressed urinary bladder. Small fat filled umbilical hernia. Atherosclerosis of the aorta and branch vessels. CT lumbar spine dictated separately. Partially imaged scoliosis with moderate to advanced degenerative changes. Demineralized appearance of the bones. There is mild osteoarthritis of the hips. No acute fracture, dislocation or avascular necrosis. Mild to moderate degeneration of the SI joints. Chronic-appearing angulation of the S5 segment. IMPRESSION: 1. No acute fracture identified. 2. Colonic diverticulosis with equivocal mild acute diverticulitis of the mid sigmoid. 3. Trace free pelvic fluid. 4. Mild osteoarthritis of the hips. ACT 112: Negative or not required by law. The above report was generated using voice recognition software. It may contain grammatical, syntax or spelling errors. Electronically signed by: Alexis Tan M.D. 07/20/2024 11:55 AM Medications Administered Medication List Discontinued Medications Piperacillin Sod/Tazobactam Sod (Zosyn) 4.5 gm in 100 mls @ 200 mls/hr IV NOW ONE; Protocol Stop: 07/20/24 13:28 Last Admin: 07/20/24 13:16 Dose: 200 mls/hr Documented By: SHUBHAM COVID-19 Results Results COVID-19 Adm Lab Results: RBC 4.23 M/uL (4.20-5.40) 07/20/24 WBC 8.51 K/ul (4.8-10.8) 07/20/24 Hgb 13.0 g/dl (12.0-16.0) 07/20/24 Hct 39.6 % (37.0-47.0) 07/20/24 Plt Count 156 K/uL (130-400) 07/20/24 Neutrophils (%) (Auto) 67.6 % 07/20/24 Lymphocytes (%) (Auto) 14.8 % 07/20/24 Monocytes # (Auto) 1.23 K/uL (0.11-0.59) H 07/20/24 Eosinophils # (Auto) 0.16 K/uL (0.00-0.50) 07/20/24 Immature Granulocyte % (Auto) 0.4 % 07/20/24 Neutrophils # (Auto) 5.76 K/uL (1.40-6.50) 07/20/24 Lymphocytes # (Auto) 1.26 K/uL (1.20-3.40) 07/20/24 Monocytes # (Auto) 1.23 K/uL (0.11-0.59) H 07/20/24 Eosinophils # (Auto) 0.16 K/uL (0.00-0.50) 07/20/24 Basophils # (Auto) 0.07 K/uL (0.00-0.20) 07/20/24 Immature Granulocyte # (Auto) 0.03 K/uL (0.01-0.20) 4 Na 140 mmol/L (136-145) 07/20/24 K 4.0 mmol/L (3.5-5.1) 07/20/24 Cl 105 mmol/L (98-107) 07/20/24 CO2 29 mmol/L (21-32) 07/20/24 Anion Gap 6 (3-11) 07/20/24 BUN 16 mg/dl (6-23) 07/20/24 Creatinine 0.86 mg/dl (0.6-1.2) 07/20/24 BUN/Creatinine Ratio 18.6 (10-20) 07/20/24 Glucose Level 125 mg/dl (70-99(Fasting)) H 07/20/24 Ca 9.4 mg/dl (8.6-10.3) 07/20/24 Total Bilirubin 0.9 mg/dl (0.2-1.0) 07/20/24 AST/SGOT 23 U/L (13-39) 07/20/24 ALT/SGPT 10 U/L (7-52) 07/20/24 Alkaline Phosphatase 69 U/L (34-104) 07/20/24 Total Protein 6.7 gm/dl (6.0-8.3) 07/20/24 Albumin 3.7 gm/dl (3.4-5.0) 07/20/24 Globulin 3.0 gm/dl (2.5-4.0) 07/20/24 Albumin/Globulin Ratio 1.2 (0.9-2) 07/20/24 Code Status & VTE Plan Code Status FULL CODE Supervising Physician Co-Signing Physician Notes 89-year-old female who has significant past medical history of severe CAD, chronic HFpEF, PAF, TBI status post PPM, HTN, HLD, CKD stage III, osteoporosis, idiopathic scoliosis, macular degeneration who presents to the hospital secondary to severe pain in her hip/leg over the past few days Denied abd pain, urinary symptoms, fever, chills On exam General: Elderly woman in no distress Eyes: PERRL, conjunctivae normal, not pale, anicteric sclerae, EOM intact bilaterally ENMT: External ear and nose normal, oropharynx normal Respiratory: Normal respiratory effort, no respiratory distress, lungs clear to auscultation, no crackles and no wheezes Cardiovascular: RRR s1 s2 Gastrointestinal (Abdomen): Abdomen is not distended, soft, non-tender to palpation, no guarding, no palpable hepatosplenomegaly, normal bowel sounds Musculoskeletal: Low back paraspinal tenderness Genitourinary: No CVA tenderness Neurologic: Alert and oriented x 3, No focal weakness, sensation grossly intact Psychiatric: Euthymic affect Pelvic and lumbar CT noted hip osteoarthritis, severe lumbar spine scoliosis, severe multilevel degenerative changes UA was suggestive of possible UTI. However, patient denied any urinary symptoms Will monitor CT reported equivocal mild acute diverticulitis. However, patient denied any GI complaints and no significant finding on abd exam. Diverticulitis unlikely Get PT/OT eval for ambulatory dysfunction. Agree with plans as detailed by Keri Brantley PA-C I spent a total of 40 minutes coordinating, documenting and providing care for this patient excluding time spent in performance of separately billed services
[2024-07-20] MEDS ORDERED: traMADol HCL 50 MG TABLET PO PRN (15:55)
[2024-07-20] MEDS ORDERED: ONDANSETRON INJ 2 MG/ML 2 ML VIAL IV PRN (15:55)
[2024-07-20] MEDS: LIDOCAINE 5% 1 PATCH TD SCH (16:45)
[2024-07-20] MEDS: ACETAMINOPHEN 325 MG TAB PO SCH (16:45)
[2024-07-20] MEDS: ISOSORBIDE DINITRATE 5 MG TAB PO SCH (16:46)
[2024-07-20] MEDS: APIXABAN 5 MG TABLET PO SCH (20:46)
[2024-07-20] MEDS: DOCUSATE SODIUM 100 MG CAP PO SCH (20:47)
[2024-07-20] MEDS: LOSARTAN POTASSIUM 25 MG TAB PO SCH (20:49)
[2024-07-20] MEDS: prednisoLONE acetate 1% OP SUSP 5 ML BTL OPR SCH (20:50)
[2024-07-20] MEDS: CEROVITE ADV FORMULA TAB PO SCH (20:50)
[2024-07-20] MEDS: RANOLAZINE 500 MG ER TAB PO SCH (20:51)
[2024-07-20] MEDS ORDERED: MELATONIN 3 MG TAB PO PRN (21:00)
--- OUTSIDE RECORDS SUMMARY | 2024-07-21 00:55 | External Medical Summary | Summary of Care ---
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)*; Advanced atrophic nonexudative age-related macular degeneration of left eye without subfoveal involvement Allergies Active Allergy Reactions Criticality Noted Date Comments Aspirin Bleeding High 03/01/2019 Lisinopril Edema airway High 05/02/2009 Pollen Wheezing 03/01/2019 Sulfa Antibiotics Rash 05/14/1999 documented as of this encounter (statuses as of 07/13/2024) Medications aspirin 81 MG chewable tabletIndications:Ph lebitis and thrombophlebitis of superficial vessels of lower extremities 1 TABLET DAILY 100 0 10/20/19 08 Active PREDNISOLONE ACETATE 1 % OP SUSP Instill 1 Drop into the right eye at bedtime. 04/13/20 13 Active PRESERVISION AREDS 2 PO CAPS one by mouth twice a day Active Ferrous Sulfate 325 (65 Fe) MG Oral Tablet Take 1 Tablet by mouth daily with breakfast. Active Polyethylene Glycol 3350 17 GM/SCOOP Oral Powder Take 17 g by mouth as needed. 06/21/20 22 Active Fluticasone Propionate 50 MCG/ACT Nasal Suspension (Flonase) Administer 2 Sprays into each nostril in the morning. 16 g 1 01/25/20 23 Active Montelukast Sodium 10 MG Oral Tablet (Singulair) Take 1 Tablet by mouth in the morning. 90 Tablet 3 01/25/20 23 Active Fluticasone Propionate HFA 110 MCG/ACT Inhalation Aerosol (Flovent HFA)Indications:Mode rate persistent asthma, unspecified whether complicated Inhale 2 Puffs by mouth as needed for Wheezing. 12 g 10 02/04/20 23 Active busPIRone HCl 5 MG Oral Tablet (Buspar)Indications: Anxiety state Take 1 Tablet by mouth at bedtime as needed (anxiety). 60 Tablet 2 02/20/20 23 Active Amoxicillin 500 MG Oral Capsule (Amoxil) 03/23/20 23 Active Albuterol Sulfate HFA 108 (90 Base) MCG/ACT Inhalation Aerosol Solution Inhale 2 Puffs by mouth as needed for Wheezing or Shortness of Breath. 18 g 5 09/11/19 24 Active Arnuity Ellipta 100 MCG/ACT Inhalation Aerosol Powder Breath Activated (fluticasone Furoate) Inhale 1 Puff by mouth in the morning. 30 Each 3 12/17/19 24 Active Alendronate Sodium 70 MG Oral Tablet (Fosamax) TAKE ONE TABLET BY MOUTH ONCE A WEEK, WITH 8 OUNCES OF WATER 30 MINUTES BEFORE EATING. REMAIN UPRIGHT FOR 30 MINUTES AFTER TAKING. 12 Tablet 1 12/22/19 24 Active Nitroglycerin 0.4 MG Sublingual Tablet Sublingual (Nitrostat)Indicatio ns:Angina pectoris (HCC) One pill under tongue every 5 minutes as needed for chest pain, maximum 3 doses 25 Tablet 11 01/12/20 24 Active Rosuvastatin Calcium 40 MG Oral Tablet (Crestor)Indications :Dyslipidemia, goal LDL below 70 Take 0.5 Tablets by mouth daily. 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 45 Tablet 3 02/26/20 24 Active Zoster Vac Recomb Adjuvanted 50 MCG/0.5ML Intramuscular Suspension Reconstituted (Shingrix)Indication s:Need for shingles vaccine Inject 0.5 mL into a large muscle now and repeat dose in 60 to 180 days 1 Each 1 03/05/20 24 Active Furosemide 20 MG Oral Tablet (Lasix)Indications:H eart failure, systolic, due to CAD (HCC) Take 0.5 Tablets by mouth in the morning. Take an extra half tablet daily as needed for swelling.. 90 Tablet 1 03/08/20 24 Active Eliquis 5 MG Oral Tablet (Apixaban)Indication s:Paroxysmal atrial fibrillation (HCC) TAKE 1 TABLET BY MOUTH IN THE MORNING AND BEFORE BEDTIME 180 Tablet 3 03/10/20 24 Active Hydrocortisone (Perianal) 2.5 % External CreamIndications:Hem orrhoids, external without complications ADMINISTER INTO RECTUM TWICE A DAY 30 g 2 03/11/20 24 Active Metoprolol Succinate ER 100 MG Oral Tablet Extended Release 24 Hour (toPROL XL)Indications:Essen tial hypertension with goal blood pressure less than 140/90,Paroxysmal atrial fibrillation (HCC) TAKE 1 TABLET BY MOUTH EVERY DAY IN THE MORNING 90 Tablet 3 04/05/20 24 Active Klor-Con M20 20 MEQ Oral Tablet Extended Release (Potassium Chloride ER)Indications:Hypok alemia TAKE 1 TABLET BY MOUTH EVERY DAY IN THE MORNING 90 Tablet 3 04/15/20 24 Active Isosorbide Dinitrate 10 MG Oral Tablet (Isordil)Indications :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 04/23/20 24 Active Fluticasone Propionate 50 MCG/ACT Nasal Suspension (Flonase) Administer 2 Sprays into each nostril in the morning. 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 07/10/2020 Overview: Per CKD protocol Hx of nonmelanoma skin cancer 03/06/2020 Overview (03/12/2021): basal cell carcinoma (R clavicle 03/2021), Eleuterio (L pretibial region 03/20- treated with Efudex) Heart failure, systolic, due to CAD 06/23/2017 Exudative age-related macula r degeneration of right eye with inactive choroidal neovascularization 08/06/2016 Exudative age-related macula r degeneration of left eye with active choroidal neovascularization 08/06/2016 Enlarged thyroid 06/15/2015 Exertional angina 08/09/2013 Small bowel mass 01/17/2012 BMI 35-39 ISOLATED (SEE ACTUAL BMI) 02/12/2010 Overview (02/12/2010): Per Obesity Protocol, #19 DYSLIPIDEMIA, GOAL LDL BELOW 100 08/10/2009 Overview (08/10/2009): Per Lipid Taxonomy. ANGIOEDEMA 03/10/2009 Other chronic allergic conjunctivitis 03/10/2009 Diaphragmatic hernia 08/02/2008 Overview (08/02/2008): Moderately large size Coronary atherosclerosis of artery bypass graft 09/22/2007 Idiopathic scoliosis 01/07/2005 Other osteoporosis without current pathological fracture Overview (06/24/2017): ICD-10 update of inactive term Diverticulosis of colon (HFpEF) heart failure with preserved ejection fr action documented as of this encounter (statuses as of 07/13/2024) Resolved Problems Problem Noted Date Diagnosed Date Resolved Date Stage 3a chronic kidney disease 07/10/2020 10/12/2020 Overview: Per CKD protocol - - 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 and stage 3 chronic kidney disease 12/11/2018 07/13/2020 Overview: Per CKD protocol Kidney disease, chronic, sta ge III (GFR 30-59 ml/min) 04/14/2018 07/13/2020 Overview: Per CKD protocol #1 - Prediabetes 04/14/2018 03/16/2020 Overview: Per Prediabetes protocol #1 - [employer] Other*[id number] 08/12/2013 10/08/2016 Overview (08/12/2013): Study Title: Genomic Markers for Patients with Cardiovascular Disease Project # [id number] Message And Delivery Service Pricer: Swati Ashraf MD [phone] Chest pain 08/06/2013 08/09/2013 Screening for iron deficiency anemia 02/14/2011 01/03/2012 Shortness of breath 11/19/2010 01/03/20 12 HYPERTENSIVE HEART DZ 04/20/20092018 Overview (04/20/2009): Per Heart Failure Taxonomy Protocol. ADVANCE DIRECTIVE INFORMATION 10/18/2008 07/05/2024 Overview (10/18/2008): No, Advance Directive brochure given to patient. Information given to patient. Hypertensive Heart Dz, severity unknown 08/18/2008 04/20/2009 Overview (04/20/2009): Per Heart Failure Taxonomy Protocol. Shortness of breath 07/06/2008 08/18/20 08 Examination following surgery 09/08/2007 09/22/2007 Acute posthemorrhagic anemia 09/08/2007 08/19/2017 Coronary atherosclerosis of upper sioux coronary artery 09/03/2007 12/11/2018 Other nonspecific abnormal c ardiovascular system function study 07/29/2007 09/22/2007 Dyslipidemia, goal to be determined 10/23/2001 08/10/2009 Overview (08/10/2009): Per Lipid Taxonomy. PURE HYPERCHOLESTEROLEM 09/29/200008/01 Respiratory symptoms 008 Overview (06/03/2019): ICD-10 update of inactive term BENIGN HYPERTENSION 08/18/20 08 documented as of this encounter (statuses as of 07/13/2024) Immunizations Name Administration Dates Next Due COVID-19 mRNA, LNP-s, No Pre serve, 2-Dose Series (Moderna) 10/27/2020,09/29/2020 COVID-19, mRNA, LNP-s, PF, B ooster, 100mcg/0.5mg (Moderna) 08/05/2022,08/06/2021 Pneumococcal Conjugate Vacc, 13 Valent (Prevnar) 02/15/2015 Season Influenza, Quad, PF, Adjuvanted, 65+ Yrs, IM (FLUAD) 06/09/2020 Seasonal Influenza Vac., MDV , IM, 0.5 mL (Fluzone) 06/07/2013,08/21/2012,06/05/2011,2009,07/06/2008,06/25/2007,06/26/2006 Seasonal Influenza, PF, 6 M & above, IM , (FluLaval or Fluzone) 07/27/2018 Seasonal Influenza, Quadriva lent Hd (Fluzone Hd) 07/11/2023,06/21/2022,07/17/2021 Seasonal Influenza, Quadriva lent, No Preserve, IM 06/19/2017,06/20/2016,06/15/2015 Seasonal Influenza, Trivalen t, Adjuvanted, 65+ YRS, PF, (Fluad) 06/29/2019 TD, Preservative Free 07/06/2008 TDAP (age 10 and older)(Boostrix) 12/22/2018 Varicella Zoster Vaccine (Adult) 04/17/2011 documented as of this encounter Social History Tobacco Use Types Packs/Day Years Used Date Smoking Tobacco: Never Passive Smoke Exposure: Never Smokeless Tobacco: Never Comments:no passive smoke ex posures Alcohol Use Standard Drinks/Week Comments Yes 0 (1 standard drink = 0.6 oz pure alcohol) only a very small amount rarely PHQ-2 Answer Date Recorded PHQ Adult Total Score 1 10/09/2023 Hunger Vital Sign Answer Date Recorded Within the past 12 months, y ou worried that your food would run out before you got the money to buy more. Never true 03/05/20 24 Within the past 12 months, t he food you bought just didn't last and you didn't have money to get more. Never true 03/05/2024 Childcare Answer Date Recorded Do you feel overwhelmed with taking care of a child, family member or friend? No 03/05/2024 Does your family need help f inding childcare? (Household - for ages 0-17 years) Not on file 03/05/2024 Clothing Answer Date Recorded Have you been unable to get clothing when it was really needed? No 03/05/2024 Is your family able to get c lothes or diapers when needed? (Household - for ages 0-17 years) Not on file 03/05/2024 Personal Safety Answer Date Recorded Do you feel unsafe or have concerns for your saf ety? No 03/05/2024 Do you have concerns for you r family's safety? (Household - for ages 0-17 years) Not on file 03/05/2024 Utilities Answer Date Recorded Do you have trouble paying y our heating, water, or electric bill? No 03/05/2024 Is your family able to pay t he heat, water, or electric bill? (Household - for ages 0-17 years) Not on file 03/05/2024 Does your family have access to good internet? (Household - for ages 0-17 years) Not on file 03/05/2024 Employment Status Answer Date Recorded Are you unemployed or without regular income? No 03/05/2024 Does the household have a re gular source of income? (Household - for ages 0-17 years) Not on file 03/05/2024 Social Connections Answer Date Recorded How often do you feel lonely or isolated from th ose around you? Never 03/05/2024 Financial Resource Strain Answer Date R ecorded Do you have any trouble payi ng for your medications, or do you think you might in the future? No 03/05/2024 Does your family have troubl e paying for medicine? (Household - for ages 0-17 years) Not on file 03/05/2024 Transportation Needs Answer Date Record ed Do you have trouble getting a ride to medical visits or work? (Adult - for ages 18 years and over) Not on file 03/05/2024 Does your family have a hard time getting a ride to doctors visits? (Household - for ages 0-17 years) Not on file 03/05/2024 Has lack of transportation k ept you from medical appointments, meetings, work, or from getting things needed for daily living? Check all that apply. No 03/05/2024 Do you (or your family) have trouble finding or paying for a ride (transportation)? (Household - for ages 0-17 years) Not on file 03/05/2024 Housing Stability Answer Date Recorded Do you currently live in a s helter or have no steady place to sleep at night? No 03/05/2024 Do you think you are at risk of becoming homeless? (Adult - for ages 18 years and over) Not on file 03/05/2024 Does your family worry about paying for your home or becoming homeless? (Household - for ages 0-17 years) Not on file 0 03/05/2024 Are you homeless or worried that you might be in the future? No 03/05/2024 Are you (or your family) usha eless or worried that you might be in the future? (Household - for ages 0-17 years) Not on file Food Insecurity Answer Date Recorded Do you need food for this week? No 03/05/2024 Are you able to get enough f ood for your family? (Household - for ages 0-17 years) Not on file 03/05/2024 Does your family need food t his week? (Household - for ages 0-17 years) Not on file 03/05/2024 Do you always have enough fo od for your family? (Household - for ages 0-17 years) Not on file 03/05/2024 Comments No Sex and Gender Information Value Date Recorded Sex Assigned at Female 05/16/2020 10:05 AM EDT Legal Sex Female 6:01 AM EST Gender Identity Female 05/16/2020 10:05 AM EDT Sexual Orientation Not on file Occupation Industry Job Start Date Job End Date retired. Not on file Not on file Not on file documented as of this encounter Progress Notes * Yaniv Jacobs, DO - 07/13/2024 3:00 PM EST [facility] [place] Nursing Notes: Swati Chang TECH 07/13/24 1513 Signed Zarina Vines is a 89 year old year old female who presents for AMD OU. Last Office Visit: 05/18/2024 (in office), Visit date not found (telemedicine) Patient currently states no change in vision. Are you diabetic? No Do you drive? no OCT image(s) of both eyes acquired and filed/scanned into chart. Base Eye Exam Visual Acuity (Snellen - Linear) Right Left Dist cc CF 1' 20/50 Dist ph cc NI Correction: Glasses Tonometry (Tonopen, 3:11 PM) Right Left Pressure 19 15 Pupils Shape React APD Right Round Minimal None Left Round Minimal None Visual Gore (Counting fingers) Right Left Full Full Extraocular Movement Right Left Full, Ortho Full, Ortho Neuro/Psych Oriented x3: Yes Mood/Affect: Normal Dilation Both eyes: 0.5% Proparacaine @ 3:09 PM Dilation #2 Both eyes: 1.0% Mydriacyl, 2.5% Phenylephrine @ 3:11 PM Dilation #3 Both eyes: 1.0% Mydriacyl @ 3:13 PM Dilation Comments Patient cautioned that effects of dilation may last 2-7 hours dependant upon individual reaction. It was discussed that driving while dilated is not recommended. EXTERNAL: The ocular adnexae are unremarkable. SLE: Lids/Lashes: wnl OU Conjunctiva/Sclera: quiet OU Cornea: +DSAEK OD w/ surface MDF; clear OS Anterior Chamber: deep and quiet OU Iris: normal OU; no NVI OU Lens: PCIOL OU; s/p yag cap OU Dilated fundus exam OD: vitreous: clear optic nerve: 0.2, no edema/pallor/NVD macula: +CGA, large soft drusen and pigmentary changes vessels: wnl midperiphery: wnl periphery: no RT/RD Dilated fundus exam OS: vitreous: clear optic nerve: 0.2, no edema/pallor/NVD macula: +GA, large soft drusen and pigmentary changes, no SRF/SRH/CME vessels: wnl midperiphery: wnl periphery: no RT/RD OCT Interpretation: OD: +drusen, +trace ERM atrophic cystic changes - STABLE, prior TABLE, prior STABLE, prior STABLE, prior worse, prior improved, prior worse, prior STABLE, prior STABLE, prior trace worse, prior STABLE, prior STABLE, prior improved, prior worse, prior STABLE, prior improvSTABLE, prior STABLE, prior STABLE, prior STABLE, prior STABLE, prior STABLE, prior STABLE, prior STABLE, prior STABLE, prior stable OS: +drusen, resolved recurent SRFluid, +inner cystic change - STABLE, prior STABLE, prior STABLE, prior STABLE, prior STABLE, prior STABLE, prior STABLE, prior STABLE, prior STABLE, prior stable A/P: 1. Age-related macular degeneration OU OD: wet, low activity occult -s/p Eylea (04-10-21, 12-12-20, 09-21-20, 06/20/20.....01/19/13, 10/28/12, 08/21/12) - >3 year since last injection, previously has gone 7 years since last injection - hold on further injections OD OS: wet -s/p Eylea (12-25-16, 10-08-16, 08/06/16, 06/11/16, 04/30/16, 03/19/19, 01/23/16, 12/12/15, 11/13/15) - >7 years since last injection - pt wants prn tx -recommend AREDS2 MVI as directed and Amsler grid qday 2. DSAEK OD 06/24/[address] Sullivan -using Pred Forte qday OD 3. Pseudophakia OU -had CE 11/[address] Goldberg, had retained lens fragments, then developed corneal decompensation -had CE 03/2018 OS, -currently not legal to drive at nightime, pt. understands F/u 10-12 weeks - dilate and OCT OU Yaniv Jacobs DO CC: Miah Sullivan MD CC: Mohit Yeh, OD documented in this encounter Nursing Notes * Swati Chang TECH - 07/13/2024 3:06 PM EST Zarina Vines is a 89 year old year old female who presents for AMD OU. Last Office Visit: 05/18/2024 (in office), Visit date not found (telemedicine) Patient currently states no change in vision. Are you diabetic? No Do you drive? no OCT image(s) of both eyes acquired and filed/scanned into chart. documented in this encounter Plan of Treatment Upcoming Encounters Date Type Department Care Team (Late Contact Info) Description 07/22/2024 2:30 PM EST [facility] [address] [facility] [address] Kieran Christine, DO [address] [facility] [place] [address] 09/24/2024 9:30 AM EST Office [address] [address] Emely Christine, DO [address] [facility] [place] [address] 10/05/2024 3:15 PM EST Office Visit Ophthalmology, [facility] [address] [facility] [place] [address] Yaniv Jacobs, DO [address] [facility] [address] 10/12/2024 1:00 PM EST Nurse Only Ancillary Department, [address] [address] [place], Nurse Annual Wellness [address] [facility] [place] [address] 03/22/2025 11:00 AM EDT Office Visit Dermatology, [place] [address] [facility] [place] [address] Gertrude Cooper PA-C [address] [place] [address] [place] [address] Scheduled Orders Name Type Priority Associated Diagnoses Orde r Schedule RETINA SCAN DIAGNOSTIC IMAGE, POSTERIOR Procedures Routine 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) Advanced atrophic nonexudative age-related macular degeneration of left eye without subfoveal involvement Ordered: 07/13/2024 Health Maintenance Due Date Last Done Comments Zoster Vaccines (2 of 3) 06/12/2011 04/17/2011 DXA Scan 08/08/2023 08/08/2021, 12/04/2021, 12/29/2018, Additional history exists Albumin/Creatinine Ratio 04/30/2024 04/30/2023 COVID-19 Vaccine ( season) 2024 08/05/2022, 08/06/2021, 10/27/2020, Additional history exists Influenza Vaccine (FLU shot) (#1) 2024 07/11/2023, 06/21/2022, 07/17/2021, Additional history exists Adult Wellness Visit 10/09/2024 10/09/2023, 10/07/19 23 Depression Screening 10/09/2024 10/09/2023 CKD HGB USE SMARTSET 93671 02/23/202502/23, 12/20/2022, 06/21/2022, Additional history exists CKD PHOS USE SMARTSET 84523 02/23/202501/31, 06/21/2022, 01/30/2021, Additional history exists DTap/Tdap Vaccines (2 - Td or Tdap) 12/22/2028 12/22/2018, 07/06/2008, 12/30/1992 VITAMIN D LEVEL ONCE IN A LIFETIME-USE SMARTSET# [id number] Completed 06/02/2008 Pneumococcal Vaccine: 65+ Years Completed 02/15/2015, 04/01/2001 HPV (Gardasil) Vaccine Aged Out No lo nger eligible based on patient's age to complete this topic Hepatitis B Vaccine Aged Out No longe r eligible based on patient's age to complete this topic MENINGOCOCCAL (MENACTRA/MENVEO) Aged Out No longer eligible based on patient's age to complete this topic documented as of this encounter Medical Devices Not on filedocumented as of this encounter Visit Diagnoses Diagnosis 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)- Primary Advanced atrophic nonexudative age-related macular degeneration of left eye without subfoveal involvement documented in this encounter Advance Directives * Full Code (Latest Code Status on File) Date Activated Date Inactivated Comments 09/07/2007 3:02 PM 09/13/2007 9:02 PM * Full Code Date Activated Date Inactivated Comments 09/03/2007 8:43 PM 09/07/2007 3:02 PM Care Teams Rubber Worker Relationship Specialty Start Date End Date Emely Christine DO [address] [facility] [place] [address] PCP - General Family Medicine 10/20/19 documented as of this encounter
--- OUTSIDE RECORDS SUMMARY | 2024-07-21 00:55 | External Medical Summary | Summary of Care ---
Author Name Unknown Organization [facility] Address [address] [place] [address] Phone [phone] Care Team Providers Care Outpatient Services Director Name Role Phone Emely Christine DO Primary Care Provider Reason for Visit * Reason Comments Hospital Follow-Up Pt here today for ho spital discharge follow up Encounter Details Date Type Department Care Team (Late st Contact Info) Description 04/28/2024 9:10 AM EDT Office Visit [facility] [address] [place] [address] Emely Christine DO [address] [place] [address] Vertigo*; Risk and functional assessment; Dysfunction of both eustachian tubes; Paroxysmal atrial fibrillation (HCC); Hypokalemia; Dizziness; Chronic kidney disease, stage 3a (HCC) Allergies Active Allergy Reactions Criticality Noted Date Comments Aspirin Bleeding High 03/01/2019 Lisinopril Edema airway High 05/02/2009 Pollen Wheezing 03/01/2019 Sulfa Antibiotics Rash 05/14/1999 documented as of this encounter (statuses as of 04/28/2024) Medications Medication Sig Dispensed Refills Start Date End Date Status aspirin 81 MG chewable tabletIndications:Phle bitis and thrombophlebitis of superficial vessels of lower extremities 1 TABLET DAILY 100 0 10/20/2007 Active PREDNISOLONE ACETATE 1 % OP SUSP Instill 1 Drop into the right eye at bedtime. 04/13/2013 Active PRESERVISION AREDS 2 PO CAPS one by mouth twice a day Active Ferrous Sulfate 325 (65 Fe) MG Oral Tablet Take 1 Tablet by mouth daily with breakfast. Active Polyethylene Glycol 3350 17 GM/SCOOP Oral Powder Take 17 g by mouth as needed. 06/21/2022 Active Fluticasone Propionate 50 MCG/ACT Nasal Suspension (Flonase) Administer 2 Sprays into each nostril in the morning. 16 g 1 01/24/2023 Active Montelukast Sodium 10 MG Oral Tablet (Singulair) Take 1 Tablet by mouth in the morning. 90 Tablet 3 01/24/2023 Active Fluticasone Propionate HFA 110 MCG/ACT Inhalation Aerosol (Flovent HFA)Indications:Modera te persistent asthma, unspecified whether complicated Inhale 2 Puffs by mouth as needed for Wheezing. 12 g 10 02/03/2023 Active busPIRone HCl 5 MG Oral Tablet (Buspar)Indications:An xiety state Take 1 Tablet by mouth at bedtime as needed (anxiety). 60 Tablet 2 02/19/2023 Active Amoxicillin 500 MG Oral Capsule (Amoxil) 03/23/2023 Act yenni Albuterol Sulfate HFA 108 (90 Base) MCG/ACT Inhalation Aerosol Solution Inhale 2 Puffs by mouth as needed for Wheezing or Shortness of Breath. 18 g 5 09/11/2023 Active Arnuity Ellipta 100 MCG/ACT Inhalation Aerosol Powder Breath Activated (fluticasone Furoate) Inhale 1 Puff by mouth in the morning. 30 Each 3 12/17/2023 Active Alendronate Sodium 70 MG Oral Tablet (Fosamax) TAKE ONE TABLET BY MOUTH ONCE A WEEK, WITH 8 OUNCES OF WATER 30 MINUTES BEFORE EATING. REMAIN UPRIGHT FOR 30 MINUTES AFTER TAKING. 12 Tablet 1 12/22/2023 Active Nitroglycerin 0.4 MG Sublingual Tablet Sublingual (Nitrostat)Indications :Angina pectoris (HCC) One pill under tongue every 5 minutes as needed for chest pain, maximum 3 doses 25 Tablet 11 01/12/2024 Active Rosuvastatin Calcium 40 MG Oral Tablet (Crestor)Indications:D yslipidemia, goal LDL below 70 Take 0.5 Tablets by mouth daily. 01/12/2024 Active Pantoprazole Sodium 20 MG Oral Tablet Delayed Release (Protonix)Indications: Diaphragmatic hernia,Acid reflux TAKE 1 TABLET BY MOUTH EVERY DAY IN THE MORNING 90 Tablet 3 01/27/2024 Active Ranolazine ER 500 MG Oral Tablet Extended Release 12 Hour (Ranexa)Indications:At herosclerosis of coronary artery bypass graft of alutiiq heart with angina pectoris with documented spasm (HCC),Exertional angina (HCC),Angina pectoris (HCC) TAKE 1 TABLET BY MOUTH IN THE MORNING AND BEFORE BEDTIME 180 Tablet 3 02/25/2024 Active Irbesartan 75 MG Oral Tablet (Avapro)Indications:At herosclerosis of coronary artery bypass graft of alutiiq heart with angina pectoris with documented spasm (HCC),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 45 Tablet 3 02/26/2024 Active Zoster Vac Recomb Adjuvanted 50 MCG/0.5ML Intramuscular Suspension Reconstituted (Shingrix)Indications: Need for shingles vaccine Inject 0.5 mL into a large muscle now and repeat dose in 60 to 180 days 1 Each 1 03/05/2024 Active Furosemide 20 MG Oral Tablet (Lasix)Indications:Hea rt failure, systolic, due to CAD (HCC) Take 0.5 Tablets by mouth in the morning. Take an extra half tablet daily as needed for swelling.. 90 Tablet 1 03/08/2024 Active Eliquis 5 MG Oral Tablet (Apixaban)Indications: Paroxysmal atrial fibrillation (HCC) TAKE 1 TABLET BY MOUTH IN THE MORNING AND BEFORE BEDTIME 180 Tablet 3 03/10/2024 Active Hydrocortisone (Perianal) 2.5 % External CreamIndications:Hemor rhoids, external without complications ADMINISTER INTO RECTUM TWICE A DAY 30 g 2 03/11/2024 Active Metoprolol Succinate ER 100 MG Oral Tablet Extended Release 24 Hour (toPROL XL)Indications:Essenti al hypertension with goal blood pressure less than 140/90,Paroxysmal atrial fibrillation (HCC) TAKE 1 TABLET BY MOUTH EVERY DAY IN THE MORNING 90 Tablet 3 04/05/2024 Active Klor-Con M20 20 MEQ Oral Tablet Extended Release (Potassium Chloride ER)Indications:Hypokal emia TAKE 1 TABLET BY MOUTH EVERY DAY IN THE MORNING 90 Tablet 3 04/15/2024 Active Isosorbide Dinitrate 10 MG Oral Tablet (Isordil)Indications:A therosclerosis of coronary artery bypass graft of alutiiq heart with angina pectoris with documented spasm (HCC) TAKE ONE PILL AROUND 8 AM, ONE PILL AROUND 1 PM AND ONE PILL AROUND 5-6 PM 270 Tablet 3 04/21/2024 Active Meclizine HCl 25 MG Oral Tablet (Antivert) Take 1 Tablet by mouth 3 times a day as needed for Dizziness. 04/23/2024 Active Fluticasone Propionate 50 MCG/ACT Nasal Suspension (Flonase) Administer 2 Sprays into each nostril in the morning. 9.9 mL 6 04/28/2024 Active documented as of this encounter (statuses as of 04/28/2024) Active Problems Problem Noted Date Diagnosed Date [...] protocol Hx of nonmelanoma skin cancer 03/06/2020 Overview: basal cell carcinoma (R clavicle 03/2021), Eleuterio [...] BMI 35-39 ISOLATED (SEE ACTUAL BMI) 02/12/2010 Overview: Per Obesity Protocol, #19 DYSLIPIDEMIA, GOAL LDL BELOW 100 08/10/2009 Overview: Per Lipid Taxonomy. ANGIOEDEMA 03/10/2009 Other chronic allergic conjunctivitis 03/10/2009 ADVANCE DIRECTIVE INFORMATION 10/18/2008 Overview: No, Advance Directive brochure given to patient. Information given to patient. Diaphragmatic hernia 08/02/2008 Overview: Moderately large size Coronary atherosclerosis of artery bypass graft 09/22/2007 Idiopathic scoliosis 01/07/2005 Other osteoporosis without current pathological fracture Overview: ICD-10 update of inactive term Diverticulosis of colon (HFpEF) heart failure with preserved ejection fr action documented as of this encounter (statuses as of 04/28/2024) Resolved Problems Problem Noted Date Diagnosed Date [...] Prediabetes protocol #1 - [employer] Other*[id number] 08/12/2013 10/08/2016 Overview: Study Title: [employer] Mark[employer] for Patients with Cardiovascular Disease Project # [id number] [employer] Engineer: Swati Ashraf MD [phone] Chest pain 08/06/2013 08/09/2013 Screening for iron deficiency anemia 02/14/2011 01/03/2012 Shortness of breath 11/19/2010 01/03/20 12 HYPERTENSIVE HEART DZ 04/20/20092018 Overview: Per Heart Failure Taxonomy Protocol. Hypertensive Heart Dz, severity unknown 08/18/2008 04/20/2009 Overview: Per Heart Failure Taxonomy Protocol. Shortness of breath 07/06/2008 08/18/20 08 Examination following surgery 09/08/2007 09/22/2007 Acute posthemorrhagic anemia 09/08/2007 08/19/2017 Coronary atherosclerosis of alutiiq coronary artery 09/03/2007 12/11/2018 Other nonspecific abnormal c ardiovascular system function study 07/29/2007 09/22/2007 Dyslipidemia, goal to be determined 10/23/2001 08/10/2009 Overview: Per Lipid Taxonomy. PURE HYPERCHOLESTEROLEM 09/29/200008/01 Respiratory symptoms 008 Overview: ICD-10 update of inactive term BENIGN HYPERTENSION 08/18/20 08 documented as of this encounter (statuses as of 04/28/2024) Immunizations Name Administration Dates Next Due COVID-19 mRNA, LNP-s, No Pre serve, 2-Dose Series (Moderna) 10/27/2020,09/29/2020 COVID-19, mRNA, LNP-s, PF, B ooster, 100mcg/0.5mg (Moderna) 08/05/2022,08/06/2021 Pneumococcal Conjugate Vacc, 13 Valent (Prevnar) 02/15/2015 Season Influenza, Quad, PF, Adjuvanted, 65+ Yrs, IM (FLUAD) 06/09/2020 Seasonal Influenza, PF, 6 M & above, IM , (FluLaval or Fluzone) 07/27/2018 Seasonal Influenza, Quadriva lent Hd (Fluzone Hd) 07/11/2023,06/21/2022,07/17/2021 Seasonal Influenza, Quadriva lent, No Preserve, IM 06/19/2017,06/20/2016,06/15/2015 Seasonal Influenza, Split, I IV3, With Preserve, Inj 06/07/2013,08/21/2012,06/05/2011,2009,07/06/2008,06/25/2007,06/26/2006 Seasonal Influenza, Trivalen t, Adjuvanted, 65+ yrs 06/29/2019 TD, Preservative Free 07/06/2008 TDAP (age [...] the money to buy more. Never true 10/07/19 23 Within the past 12 months, t he food you bought just didn't last and you didn't have money to get more. Never true 10/07/2022 Utilities Answer Date Recorded Do you have trouble paying y our heating, water, or electric bill? (Adult - for ages 18 years and over) Not on file 02/17/2024 Is your family able to pay t he heat, water, or electric bill? (Household - for ages 0-17 years) Not on file 02/17/2024 Does your family have access to good internet? (Household - for ages 0-17 years) Not on file 02/17/2024 Social Connections Answer Date Recorded How often do you feel lonely or isolated from those around you? (Adult - for ages 18 years and over) Not on file 02/17/2024 Sex and Gender Information Value Date Recorded Sex Assigned at Female 05/16/2020 10:05 AM EDT Gender Identity Female 05/16/2020 10:05 AM EDT Sexual Orientation Not on file Job Start Date Occupation Industry Not on file Not on file Not on file documented as of this encounter Last Filed Vital Signs Vital Sign Reading Time Taken Comments Blood Pressure 100/72 04/28/2024 9:17 AM EDT Pulse 65 04/28/2024 9:17 AM EDT Temperature 36.4 C (97.6 F) 04/28/2024 9:17 AM ED T Respiratory Rate 18 04/28/2024 9:17 AM EDT Oxygen Saturation 95% 04/28/2024 9:17 AM EDT Inhaled Oxygen Concentration - - Weight 66.7 kg (147 lb) 04/28/2024 9:17 AM EDT Height - - Body Mass Index 30.72 03/29/2024 4:28 PM EDT documented in this encounter Patient Instructions * Patient Instructions* Maksim Maddoxmelo Felipe, ITA - 04/28/2024 9:20 AM EDT Patient Instructions - Fall Prevention (This education is for all patients over 65 regardless of symptoms) Remember to take your current medications as prescribed. In order to prevent falls, you are encouraged to: Exercise Utilize assistive/adaptive devices Avoid multifocal lenses when walking Avoid hazards in home Maintain a regular toileting schedule Any questions please contact our office. Preventing Falls in the Home (This education is for all patients over 65 regardless of symptoms) As you get older, falls are more likely. Thats because your reaction time slows. Your muscles and joints may also get stiffer, making them less flexible. Illness, medications, and vision changes can also affect your balance. A fall could leave you unable to live on your own. To make your home safer, follow these tips: Floors Put nonskid pads under area rugs Remove throw rugs Replace worn floor coverings Tack carpets firmly to each step on carpeted stairs. Put nonskid strips on the edges of uncarpeted stairs Keep floors and stairs free of clutter and cords Arrange furniture so there are clear pathways Clean up any spills right away Bathrooms Install grab bars in the tub or shower Apply nonskid strips or put a nonskid rubber mat in the tub or shower Sit on a bath chair to bathe Use bathmats with nonskid backing Lighting Keep a flashlight in each room Put a nightlight along the pathway between the bedroom and the bathroom Asael Patient Education Copyright 2008 - 2010 Asael except where otherwise noted Preventing Falls: Exercises to Improve Balance, Flexibility, Strength, and Staying Power (This education is for all patients over 65 regardless of symptoms) Certain types of exercises may help make you less likely to fall. Try the ones below. Or do other exercises that your healthcare provider suggests. Depending on your health, you may need to start slowly. Dont let that stop you. Even small amounts of exercise can help you. Be sure to talk to yourhealthcare provider before starting any exercise program. Improve Balance Many types of exercise can help improve balance. Nacho chi and yoga are good examples. Heres another one to try. You can do it anytime and almost anywhere. Stand next to a counter or solid support. Push yourself up onto your tiptoes. Hold for 5 seconds. If you start to lose your balance, hold on to the counter. Rest and repeat 5 times. Work up to holding for 20 to 30 seconds, if you can. Increase Flexibility Being more flexible makes it easier for you to move around safely. Try exercises like the seated hamstring stretch. Sit in a chair and put one foot on a stool. Straighten your leg and reach with both hands down either side of your leg. Reach as far down your leg as you can. Hold for about 20 seconds. Go back to the starting position. Then repeat 5 times. Switch legs. Build Strength Resistance exercises help build strength. You can do them without equipment. Or you can use weights, elastic bands, or special machines. One such exercise is called the biceps curl. You can hold a 1 pound weight or even a can of soup. Do this exercise at least 3 times a week. Strive for everyday. Sit up straight in a chair. Keep your elbow close to your body and your wrist straight. Bend your arm, moving your hand up to your shoulder. Then slowly lower your arm. Repeat 5 times. Switch to the other arm. Build Your Staying Power Aerobic exercises make your heart and lungs stronger so you can keep moving longer. Walking and swimming are two of the best types of exercises you can do. Using a stationary bike is great, too. Find an aerobic exercise that you enjoy. Start slowly and build up. Even 5 minutes is helpful. Aimfor a goal of 30 minutes, at least 3 times a week. You dont have to do 30 minutes in one session. Break it up and walk a little throughout the day. More Helpful Tips Start easy. Slowly work up to doing more. Talk with your healthcare provider about the best exercises for you. Call senior centers or health clubs about exercise programs. If needed, have a family member watch you walk every so often to check your stability. Exercise with a friend. Choose an activity you both enjoy. Try exercises that you can do anytime, anywhere. Here are two examples. Have someone with you when you first try these: Practice walking by placing one foot right in front of the other. Stand up and sit down 10 times. Repeat this throughout the day. Asael Patient Education Copyright 2009 - 2010 Asael except where otherwise noted. Preventing Falls: Moving Safely Using a Cane or Walker (This education is for all patients over 65 regardless of symptoms) Keep the cane away from your feet so you dont trip. A walking aid, such as a cane or walker, can help you stay more independent and avoid falls. Remember to keep your walking aid within easy reach when youre in a chair or in bed. And learn how to use it safely so you dont injure yourself. Using a Cane If you have a stronger side, hold the cane on that side. Get your balance. Move the cane and your weaker leg forward. Support your weight on both the cane and your weaker side. Step with your stronger leg. Start again from step 1. If youre using a folding walker, be sure you know how to lock it open. Check that its locked open before each use. Using a Walker Roll the walker (or lift it, if youre using one without wheels) forward about 12 inches. Step forward with your weaker leg first. Use the walker to help keep your balance. Bring your other foot forward to the center of the walker. Start again from step 1. Helpful Tips Check with your healthcare provider about the right walking aid to use. Ask about a walker with a seat attached. Check the tips of your cane or walker to make sure they have nonskid covers. Move slowly from room to room. Dont gabriel. Sit down to get dressed. Use a estefani pack or backpack to keep your hands free. Get help for jobs that mean climbing, even on a stepstool. [employer]ael Patient Education Copyright 2008 - 2010 Asael except where otherwise noted. Urinary Incontinence Plan of Care Documentation: (This education is for all patients over 65 regardless of symptoms) Current medications reconciled. Patient encouraged to: Practice kegal exercises Provide education materials Use the restroom every 2 hours throughout the day Limit caffeine, alcohol, spicy foods and acidic foods Keep a bladder diary Limit fluid intake 3-4 hours before bed Lose weight Prevent constipation Take fluid pills at a time when you can get to the bathroom quickly Control sugar better if diabetic Limit fluid intake to 60 oz. per day Wear support stockings (TEDs)if you have edema Shamika Maddox LPN 04/28/2024 Kegel Exercises Kegel exercises dont require special clothing or equipment. Theyre easy to learn and simple to do. And if you do them right, no one can tell youre doing them, so they can be done almost anywhere. Your doctor, nurse, or physical therapist can answer any questions you have and help you get started. A Weak Pelvic Floor The pelvic floor muscles may weaken due to aging, and vaginal childbirth, injury, surgery, chronic cough, or lack of exercise. If the pelvic floor is weak, your bladder and other pelvic organs may sag out of place. The urethra may also open too easily and allow urine to leak out. Kegel exercises can help you strengthen your pelvic floor muscles so they can better support the pelvic organs and control urine flow. How Kegel Exercises Are Done Try each of the Kegel exercises described below. When youre doing them, try not to move your leg, buttock, or stomach muscles. While youre urinating, try to stop the flow of urine. Start and stop it as often as you can. Contract as if you were stopping your urine stream, but do it when youre not urinating. Tighten your rectum as if trying not to pass gas. Contract your anus, but dont move your buttocks. Helpful Hints Do your Kegels as often as you can. The more you do them, the faster youll feel the results. Pick an activity you do often as a reminder. For instance, do your Kegels every time you sit down. Tighten your pelvic floor before you sneeze, get up from a chair, cough, laugh, or lift. This protects your pelvic floor from injury and can help prevent urine leakage. Try to hold each Kegel for a slow count to five. You probably wont be able to hold them for thatlong at first, but keep practicing. It will get easier as your pelvic floor gets stronger. Eventually, special weights that you place in your vagina may be recommended to help make your Kegels even more effective. Asael Patient Education Copyright 2009 - 2010 Asael except where otherwise noted. Here are some helpful tips for your urinary incontinence: (This education is for all patients over 65 regardless of symptoms) Practice Kegel exercises Use the restroom every 2 hours throughout the day Limit caffeine, alcohol, spicy foods, and acidic foods Keep a bladder diary Limit fluid intake 3-4 hours before bed Lose weight Prevent constipation Take fluid pills at a time when can get to the bathroom quickly Control sugar better if diabetic Limit fluid intake to 60 oz. per day Any questions, please feel free to contact our office. documented in this encounter Progress Notes * Emely Christine, - 04/28/2024 9:24 AM EDT Subjective: Zarina Vines is a 89 year old female. Chief Complaint Patient presents with Hospital Follow-Up Pt here today for hospital discharge follow up HPI: 89 year old female presents today for hospital follow-up. Carries hx of pacemaker for Sick sinus syndrome, CKD III, CAD, Chronic heart failure, PAF, on eliquis, HTN, and went to the ER on 04/21 for dizziness. She had CT head, and CTA of her neck, and this was normal. Carries low BP, but orthostatic were negative. And saw PT and consistent with vertigo had the Epleys's maneuver and this helped greatly. Looks like medication changes were that her norvasc was stopped due to hypotension. Currently feels well, but the only time she gets the vertigo is when she goes to get up and turningin bed. She may be having a home PT arranged soon. BP is stable. Tearful at times as her son has prostate cancer, and had his gland removed. 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) Exudative age-related macular degeneration of left eye with active choroidal neovascularization (HCC) Heart failure, systolic, due to CAD (HCC) (HFpEF) heart failure with preserved ejection fraction (HCC) Hx of nonmelanoma skin cancer 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 PRESERVISION AREDS 2 PO CAPS one by mouth twice a day Ferrous Sulfate 325 (65 Fe) MG Oral Tablet Take 1 Tablet by mouth daily with breakfast. Polyethylene Glycol 3350 17 GM/SCOOP Oral Powder Take 17 g by mouth as needed. Fluticasone Propionate 50 MCG/ACT Nasal Suspension (Flonase) Administer 2 Sprays into each nostril in the morning. 16 g 1 Montelukast Sodium 10 MG Oral Tablet (Singulair) Take 1 Tablet by mouth in the morning. 90 Tablet 3 Fluticasone Propionate HFA 110 MCG/ACT Inhalation Aerosol (Flovent HFA) Inhale 2 Puffs by mouth as needed for Wheezing. 12 g 10 busPIRone HCl 5 MG Oral Tablet (Buspar) Take 1 Tablet by mouth at bedtime as needed (anxiety). 60 Tablet 2 Amoxicillin 500 MG Oral Capsule (Amoxil) Albuterol Sulfate HFA 108 (90 Base) MCG/ACT Inhalation Aerosol Solution Inhale 2 Puffs by mouth as needed for Wheezing or Shortness of Breath. 18 g 5 Arnuity Ellipta 100 MCG/ACT Inhalation Aerosol Powder Breath Activated (fluticasone Furoate) Inhale1 Puff by mouth in the morning. 30 Each 3 Alendronate Sodium 70 MG Oral Tablet (Fosamax) TAKE ONE TABLET BY MOUTH ONCE A WEEK, WITH 8 OUNCES OF WATER 30 MINUTES BEFORE EATING. REMAIN UPRIGHT FOR 30 MINUTES AFTER TAKING. 12 Tablet 1 Nitroglycerin 0.4 MG Sublingual Tablet Sublingual (Nitrostat) One pill under tongue every 5 minutesas needed for chest pain, maximum 3 doses 25 Tablet 11 Rosuvastatin Calcium 40 MG Oral Tablet (Crestor) Take 0.5 Tablets by mouth daily. Pantoprazole Sodium 20 MG Oral Tablet Delayed Release (Protonix) TAKE 1 TABLET BY MOUTH EVERY DAY IN THE MORNING 90 Tablet 3 Ranolazine ER 500 MG Oral Tablet Extended Release 12 Hour (Ranexa) TAKE 1 TABLET BY MOUTH IN THE MORNING AND BEFORE BEDTIME 180 Tablet 3 Irbesartan 75 MG Oral Tablet (Avapro) Take 0.5 Tablets by mouth in the morning. 45 Tablet 3 Zoster Vac Recomb Adjuvanted 50 MCG/0.5ML Intramuscular Suspension Reconstituted (Shingrix) Inject 0.5 mL into a large muscle now and repeat dose in 60 to 180 days 1 Each 1 Furosemide 20 MG Oral Tablet (Lasix) Take 0.5 Tablets by mouth in the morning. Take an extra half tablet daily as needed for swelling.. 90 Tablet 1 Eliquis 5 MG Oral Tablet (Apixaban) TAKE 1 TABLET BY MOUTH IN THE MORNING AND BEFORE BEDTIME 180 Tablet 3 Hydrocortisone (Perianal) 2.5 % External Cream ADMINISTER INTO RECTUM TWICE A DAY 30 g 2 Metoprolol Succinate ER 100 MG Oral Tablet Extended Release 24 Hour (toPROL XL) TAKE 1 TABLET BY MOUTH EVERY DAY IN THE MORNING 90 Tablet 3 Klor-Con M20 20 MEQ Oral Tablet Extended Release (Potassium Chloride ER) TAKE 1 TABLET BY MOUTH EVERY DAY IN THE MORNING 90 Tablet 3 Isosorbide Dinitrate 10 MG Oral Tablet (Isordil) TAKE ONE PILL AROUND 8 AM, ONE PILL AROUND 1 PM AND ONE PILL AROUND 5-6 PM 270 Tablet 3 Meclizine HCl 25 MG Oral Tablet (Antivert) Take 1 Tablet by mouth 3 times a day as needed for Dizziness. No current facility-administered medications for this visit. Review of patient's allergies indicates: Allergen Reactions Aspirin Bleeding Lisinopril Edema airway Pollen Wheezing Sulfa Antibiotics Rash Objective: BP 100/72 | Pulse 65 | Temp 36.4 C (97.6 F) (Tympanic) | Resp 18 | Wt 66.7 kg (147 lb) | SpO2 95% | BMI 30.72 kg/m | BSA 1.65 m Physical Exam: General: alert, healthy, and no distress Ears: External ears normal, Canals clear, TM's Normal Nose: no mucosal erythema, no mucosal edema, no purulent discharge Oropharynx: no exudate, no erythema, lips, buccal mucosa, and tongue normal, and mucous membranes are moist Neck: supple, no adenopathy Heart: regular rate & rhythm, no murmur, and no gallops Lungs: chest symmetric with normal AP diameter, no chest deformities noted, no chest wall tenderness, lungs clear to auscultation Extremities: no edema ASSESSMENT/PLAN: Vertigo (Primary) Risk and functional assessment Dysfunction of both eustachian tubes Paroxysmal atrial fibrillation (HCC) Hypokalemia Dizziness Chronic kidney disease, stage 3a (HCC) Other orders - Fluticasone Propionate 50 MCG/ACT Nasal Suspension (Flonase); Administer 2 Sprays into each nostril in the morning. Emely Christine DO documented in this encounter Nursing Notes * Shamika Maddox LPN - 04/28/2024 9:09 AM EDT Chief Complaint Patient presents with Hospital Follow-Up Pt here today for hospital discharge follow up documented in this encounter Plan of Treatment Upcoming Encounters Date Type Department Care Team (Late st Contact Info) Description 04/29/2024 3:40 PM EDT Office Visit Dermatology, [address], [place] [address] Gertrude Cooper, PAWalter [address] [place] [address] [place] [address] 05/18/2024 3:15 PM EDT Office Visit Ophthalmology, [facility] [address] [facility] [place] [address] Yaniv Jacobs, DO [address] [place] [address] 07/22/2024 2:30 PM EST Office Visit Cardiology, [facility] [address] [facility] [place] [address] Kieran Christine DO [address] [place] [address] 09/24/2024 9:30 AM EST Office Visit Family [facility], [place] [address] [address] [facility], [place] [address] Emely Christine DO [address] [facility] [address] 10/12/2024 1:00 PM EST Nurse Only Ancillary Department, [address], [place] [address] [place], Nurse Annual Wellness [address] [place] [address] Health Maintenance Due Date Last Done Comments Zoster Vaccines (2 of 3) 06/12/2011 04/17/2011 COVID-19 Vaccine ( season) 2023 08/05/2022, 08/06/2021, 10/27/2020, Additional history exists DXA Scan 08/08/2023 08/08/2021, 04/2021, 12/29/2018, Additional history exists Albumin/Creatinine Ratio 04/30/2024 04/30/2023 Influenza Vaccine (FLU shot) (#1) 2024 07/11/2023, 06/21/2022, 07/17/2021, Additional history exists Adult Wellness Visit 10/09/2024 10/09/2023, 10/07/19 23 Depression Screening 10/09/2024 10/09/2023 CKD HGB USE SMARTSET 07825 02/23/202502/23, 12/20/2022, 06/21/2022, Additional history exists CKD PHOS USE SMARTSET 54456 02/23/202501/31, 06/21/2022, 01/30/2021, Additional history exists DTap/Tdap Vaccines (2 - Td or Tdap) 12/22/2028 12/22/2018, 07/06/2008, 12/30/1992 VITAMIN D LEVEL ONCE IN A LIFETIME-USE SMARTSET# [id number] Completed 06/02/2008 Pneumococcal Vaccine: 65+ Years Completed [...] as of this encounter Visit Diagnoses Diagnosis Vertigo- Primary Dizziness and giddiness Risk and functional assessment Screening for unspecified condition Dysfunction of both eustachian tubes Dysfunction of Eustachian tube Paroxysmal atrial fibrillation (HCC) Atrial fibrillation Hypokalemia Hypopotassemia Dizziness Dizziness and giddiness Chronic kidney disease, stage 3a (HCC) documented in this encounter Advance Directives * Full Code (Latest Code Status on File) Date Activated Date Inactivated Comments 09/07/2007 3:02 PM 09/13/2007 9:02 PM * Full Code Date Activated Date Inactivated Comments 09/03/2007 8:43 PM 09/07/2007 3:02 PM Care Teams Outpatient Services Director Relationship Specialty Start Date End Date Emely Christine DO [address] [place] [address] PCP - General Family Medicine 10/20/19 documented as of this encounter"
--- OUTSIDE RECORDS SUMMARY | 2024-07-21 00:55 | External Medical Summary | Summary of Care ---
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 3 Active PRESERVISION AREDS 2 PO CAPS one by mouth twice a day Active Ferrous Sulfate 325 (65 Fe) MG Oral Tablet Take 1 Tablet by mouth daily with breakfast. Active Polyethylene Glycol 3350 17 GM/SCOOP Oral Powder Take 17 g by mouth as needed. 2 Active Fluticasone Propionate 50 MCG/ACT Nasal Suspension (Flonase) Administer 2 Sprays into each nostril in the morning. 16 g 1 3 Active Montelukast Sodium 10 MG Oral Tablet (Singulair) Take 1 Tablet by mouth in the morning. 90 Tablet 3 3 Active Fluticasone Propionate HFA 110 MCG/ACT Inhalation Aerosol (Flovent HFA)Indications:Mode rate persistent asthma, unspecified whether complicated Inhale 2 Puffs by mouth as needed for Wheezing. 12 g 10 3 Active busPIRone HCl 5 MG Oral Tablet (Buspar)Indications: Anxiety state Take 1 Tablet by mouth at bedtime as needed (anxiety). 60 Tablet 2 3 Active Amoxicillin 500 MG Oral Capsule (Amoxil) 3 Active Albuterol Sulfate HFA 108 (90 Base) MCG/ACT Inhalation Aerosol Solution Inhale 2 Puffs by mouth as needed for Wheezing or Shortness of Breath. 18 g 5 4 Active Arnuity Ellipta 100 MCG/ACT Inhalation Aerosol Powder Breath Activated (fluticasone Furoate) Inhale 1 Puff by mouth in the morning. 30 Each 3 4 Active Alendronate Sodium 70 MG Oral Tablet (Fosamax) TAKE ONE TABLET BY MOUTH ONCE A WEEK, WITH 8 OUNCES OF WATER 30 MINUTES BEFORE EATING. REMAIN UPRIGHT FOR 30 MINUTES AFTER TAKING. 12 Tablet 1 4 Active Nitroglycerin 0.4 MG Sublingual Tablet Sublingual (Nitrostat)Indicatio ns:Angina pectoris (HCC) One pill under tongue every 5 minutes as needed for chest pain, maximum 3 doses 25 Tablet 11 4 Active Rosuvastatin Calcium 40 MG Oral Tablet (Crestor)Indications :Dyslipidemia, goal LDL below 70 Take 0.5 Tablets by mouth daily. 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 45 Tablet 3 4 Active Zoster Vac Recomb Adjuvanted 50 MCG/0.5ML Intramuscular Suspension Reconstituted (Shingrix)Indication s:Need for shingles vaccine Inject 0.5 mL into a large muscle now and repeat dose in 60 to 180 days 1 Each 1 4 Active Furosemide 20 MG Oral Tablet (Lasix)Indications:H eart failure, systolic, due to CAD (HCC) Take 0.5 Tablets by mouth in the morning. Take an extra half tablet daily as needed for swelling.. 90 Tablet 1 4 Active Eliquis 5 MG Oral Tablet (Apixaban)Indication s:Paroxysmal atrial fibrillation (HCC) TAKE 1 TABLET BY MOUTH IN THE MORNING AND BEFORE BEDTIME 180 Tablet 3 4 Active Hydrocortisone (Perianal) 2.5 % External CreamIndications:Hem orrhoids, external without complications ADMINISTER INTO RECTUM TWICE A DAY 30 g 2 4 Active Metoprolol Succinate ER 100 MG Oral Tablet Extended Release 24 Hour (toPROL XL)Indications:Essen tial hypertension with goal blood pressure less than 140/90,Paroxysmal atrial fibrillation (HCC) TAKE 1 TABLET BY MOUTH EVERY DAY IN THE MORNING 90 Tablet 3 4 Active Klor-Con M20 20 MEQ Oral Tablet Extended Release (Potassium Chloride ER)Indications:Hypok alemia TAKE 1 TABLET BY MOUTH EVERY DAY IN THE MORNING 90 Tablet 3 4 Active Isosorbide Dinitrate 10 MG Oral Tablet (Isordil)Indications :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) TAKE ONE PILL AROUND 8 AM, ONE PILL AROUND 1 PM AND ONE PILL AROUND 5-6 PM 270 Tablet 3 4 Active Isosorbide Dinitrate 10 MG Oral Tablet (Isordil)Indications :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) Take one pill around 8 AM, one pill around 1 PM and one pill around 5-6 PM 270 Tablet 3 3 04/21/20 24 Discontinued documented as of this encounter (statuses as of 04/21/2024) Active Problems Problem Noted Date Diagnosed Date [...] as of this encounter (statuses as of 04/21/2024) Resolved Problems Problem Noted Date Diagnosed Date [...] Prediabetes protocol #1 - [employer] Other*[id number] 08/12/2013 10/08/2016 Overview: Study Title: [employer] Markers for Patients with Cardiovascular Disease Project # [id number] Painter Bottom: Swati Ashraf MD [phone] Chest pain 08/06/2013 08/09/2013 Screening for iron deficiency anemia 02/14/2011 01/03/2012 Shortness of breath 11/19/2010 01/03/20 12 HYPERTENSIVE HEART DZ 04/20/20092018 Overview: Per Heart Failure Taxonomy Protocol. Hypertensive Heart Dz, severity unknown 08/18/2008 04/20/2009 Overview: Per Heart Failure Taxonomy Protocol. Shortness of breath 07/06/2008 08/18/20 08 Examination following surgery 09/08/2007 09/22/2007 Acute posthemorrhagic anemia 09/08/2007 08/19/2017 Coronary atherosclerosis of [place] coronary artery 09/03/2007 12/11/2018 Other nonspecific abnormal c ardiovascular system function study 07/29/2007 09/22/2007 Dyslipidemia, goal to be determined 10/23/2001 08/10/2009 Overview: Per Lipid Taxonomy. PURE HYPERCHOLESTEROLEM 09/29/200008/01 Respiratory symptoms 008 Overview: ICD-10 update of inactive term BENIGN HYPERTENSION 08/18/20 08 documented as of this encounter (statuses as of 04/21/2024) Immunizations Name Administration Dates Next Due COVID-19 [...] on file documented as of this encounter Miscellaneous Notes * Telephone Encounter - Luis Calvert PA-C - 04/21/2024 1:27 PM EDTSigned Prescriptions: Disp Refills Isosorbide Dinitrate 10 MG Oral Tablet (Is*270 Ta*3 Sig: TAKE ONE PILL AROUND 8 AM, ONE PILL AROUND 1 PM AND ONE PILL AROUND 5-6 PM Authorizing Provider: LUIS CALVERT * Telephone Encounter - Mary Cazares CMA - 04/21/2024 1:08 PM EDTPending Prescriptions: Disp Refills Isosorbide Dinitrate 10 MG Oral Tablet (Is*270 Ta*3 Sig: TAKE ONE PILL AROUND 8 AM, ONE PILL AROUND 1 PM AND ONE PILL AROUND 5-6 PM * Telephone Encounter - Mary Cazares CMA - 04/21/2024 1:06 PM EDT Did you pend patient's preferred pharmacy and medication before forwarding?yes Pharmacy: [id number] [address] Pending Prescriptions: Disp Refills Isosorbide Dinitrate 10 MG Oral Tablet (I*270 Ta*3 Sig: TAKE ONE PILL AROUND 8 AM, ONE PILL AROUND 1 PM AND ONE PILL AROUND 5-6 PM Last Visit: 01/12/2024 (in office), 12/15/2019 (telemedicine) Next Visit: 07/22/2024 If no future appointments scheduled, and last appointment is greater than a year ago, please schedule patient for a follow-up appointment Last date the medication was ordered: 04/21/23 Is this request for a controlled substance?No Urine Drug Screen:No results found. However, due to the size of the patient record, not all encounters were searched. Please check Results Review for a complete set of results. Patient Phone Numbers Labs: Lab Results Component Value Date/Time CREAT 0.8 02/24/2024 08:29 AM CREAT 0.77 01/30/2021 12:00 AM CREAT 0.8 09/27/2020 01:17 PM CREAT 0.9 08/06/1996 03:10 PM POTASSIUM 3.9 02/24/2024 08:29 AM POTASSIUM 4.2 01/30/2021 12:00 AM POTASSIUM 4.4 09/27/2020 01:17 PM POTASSIUM 3.4 (L) 08/06/1996 03:10 PM TSH 2.04 02/24/2024 08:29 AM TSH 0.65 09/27/2020 01:17 PM TSH 1.03 08/06/1996 03:10 PM LDLCALC 68 11/23/2020 08:27 AM LDLCALC 68 10/20/2019 08:12 AM LDLCALC 119. 08/10/1996 08:15 AM LDLDIRECT 62 12/20/2022 11:04 AM LDLDIRECT NOT APPLICABLE 10/20/2019 08:12 AM LDLDIRECT 79 10/09/2015 10:09 AM ALT 19 02/24/2024 08:29 AM ALT 22 02/15/2020 11:15 AM HGBA1C 5.7 (H) 11/12/2019 10:55 AM documented in this encounter Plan of Treatment Upcoming Encounters Date Type Department Care Team (Late st Contact Info) Description 04/29/2024 3:40 PM EDT Office [address] [address] Gertrude Cooper, PA-Moe [address] [place] [address] [place] [address] 05/18/2024 3:15 PM EDT Office [facility], [facility] [place] [address] Yaniv Jacobs, DO [address] [place] [address] 07/22/2024 2:30 PM EST Office Visit Cardiology, [facility] [address] [place] [address] Kieran Christine O, DO [address] [place] [address] 09/24/2024 9:30 AM EST Office Visit Family Practice, [place] [address] [facility] [place] [phone] Emely Christine DO [address] [place] [facility] [place] [address] 10/12/2024 1:00 PM EST Nurse Only Ancillary Department, [place] [address] [facility] [place] [address] [place], Nurse Annual Wellness [address] [facility], [place] [phone] Health Maintenance Due Date Last Done Comments [...] Screening 10/09/2024 10/09/2023 CKD HGB USE SMARTSET 79898 02/23/202502/23, 12/20/2022, 06/21/2022, Additional history exists CKD PHOS USE SMARTSET 04732 02/23/202501/31, 06/21/2022, 01/30/2021, Additional history exists DTaP,Tdap,and Td Vaccines (2 - Td or Tdap) 12/22/2028 12/22/2018, 07/06/2008, 12/30/1992 VITAMIN D LEVEL ONCE IN A LIFETIME-USE SMARTSET# 08990 Completed 06/02/2008 Pneumococcal Vaccine: 65+ Years Completed [...] as of this encounter Visit Diagnoses Diagnosis 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
--- OUTSIDE RECORDS SUMMARY | 2024-07-21 00:55 | External Medical Summary | Summary of Care ---
Author Name Unknown Organization [facility] Address [address] [place] [address] Phone [phone] Care Team Providers Care Vp Account Director Name Role Phone Emely Christine DO Primary Care Provider Reason for Visit * Reason Onset Date Comments Advice 06/09/2024 Encounter Details Date Type Department Care Team (Late st Contact Info) Description 06/09/2024 Telephone [facility] [address] [place] [address] Emely Christine [address] [place] [address] Advice Allergies Active Allergy Reactions Criticality Noted Date Comments Aspirin Bleeding High 03/01/2019 Lisinopril Edema airway High 05/02/2009 Pollen Wheezing 03/01/2019 Sulfa Antibiotics Rash 05/14/1999 documented as of this encounter (statuses as of 06/10/2024) Medications Medication Sig Dispensed Refills Start Date [...] herosclerosis of coronary artery bypass graft of [place] heart with angina pectoris with documented spasm (HCC),Exertional angina (HCC),Angina pectoris (HCC) TAKE 1 TABLET BY MOUTH IN THE MORNING AND BEFORE BEDTIME 180 Tablet 3 02/25/2024 Active Irbesartan 75 MG Oral Tablet (Avapro)Indications:At herosclerosis of coronary artery bypass graft of [place] heart with angina pectoris with documented spasm [...] therosclerosis of coronary artery bypass graft of [place] heart with angina pectoris with documented spasm [...] as of this encounter (statuses as of 06/10/2024) Active Problems Problem Noted Date Diagnosed Date [...] as of this encounter (statuses as of 06/10/2024) Resolved Problems Problem Noted Date Diagnosed Date [...] Prediabetes protocol #1 - [employer] Other*[id number] 08/12/2013 10/08/2016 Overview: Study Title: [employer] Markers for Patients with Cardiovascular Disease Project # [id number] Reworker: Swati Ashraf MD [phone] Chest pain 08/06/2013 08/09/2013 Screening for iron deficiency anemia 02/14/2011 01/03/2012 Shortness of breath 11/19/2010 01/03/20 12 HYPERTENSIVE HEART DZ 04/20/20092018 Overview: Per Heart Failure Taxonomy Protocol. Hypertensive Heart Dz, severity unknown 08/18/2008 04/20/2009 Overview: Per Heart Failure Taxonomy Protocol. Shortness of breath 07/06/2008 08/18/20 08 Examination following surgery 09/08/2007 09/22/2007 Acute posthemorrhagic anemia 09/08/2007 08/19/2017 Coronary atherosclerosis of [place] coronary artery 09/03/2007 12/11/2018 Other nonspecific abnormal c ardiovascular system function study 07/29/2007 09/22/2007 Dyslipidemia, goal to be determined 10/23/2001 08/10/2009 Overview: Per Lipid Taxonomy. PURE HYPERCHOLESTEROLEM 09/29/200008/01 Respiratory symptoms 008 Overview: ICD-10 update of inactive term BENIGN HYPERTENSION 08/18/20 08 documented as of this encounter (statuses as of 06/10/2024) Immunizations Name Administration Dates Next Due COVID-19 mRNA, LNP-s, No Pre serve, 2-Dose Series (Moderna) 10/27/2020,09/29/2020 COVID-19, mRNA, LNP-s, PF, B ooster, 100mcg/0.5mg (Moderna) 08/05/2022,08/06/2021 Pneumococcal Conjugate Vacc, 13 Valent (Prevnar) 02/15/2015 Pneumococcal Polysaccharide PPV23 (Pneumovax) 04/01/2001 Season Influenza, Quad, PF, Adjuvanted, 65+ Yrs, IM (FLUAD) 06/09/2020 Seasonal Influenza Vac., MDV , IM, 0.5 mL (Fluzone) 06/07/2013,08/21/2012,06/05/2011,07/12,07/06/2008,06/25/2007,06/26/2006 ,07/10/2005,07/06/2003,08/03/2002,08/01 Seasonal Influenza, PF, 6 M & above, IM , (FluLaval or Fluzone) 07/27/2018 Seasonal Influenza, Quadriva lent Hd (Fluzone Hd) 07/11/2023,06/21/2022,07/17/2021 Seasonal Influenza, Quadriva lent, No Preserve, IM 06/19/2017,06/20/2016,06/15/2015 Seasonal Influenza, Trivalen t, Adjuvanted, 65+ YRS, PF, (Fluad) 06/29/2019 TD - Tetanus/Diptheria (ADULT) 12/30/1992 TD, Preservative Free 07/06/2008 TDAP (age 10 [...] encounter Miscellaneous Notes * Telephone Encounter - Patricia Nance LPN - 06/10/2024 11:43 AM EDT Called and spoke with the patient and she is aware Dr. Christine can fill out the form and states she will bring it to the office for Dr. Christine to fill out * Telephone Encounter - Emely Christine DO - 06/10/2024 10:32 AM EDT Yes I can, does she have the form >? * Telephone Encounter - Ab Dalal OSA - 06/09/2024 3:09 PM EDT Patient stated that she was getting her Eliquis 5 MG Oral Tablet (Apixaban) free from [facility]. She then decided to pay for it herself. Well now the medication has gone up in [place] and she wants to know if her provider can fill out theform for her to get this medication again through them. Please advise. documented in this encounter Plan of Treatment Upcoming Encounters Date Type Department Care Team (Late st Contact Info) Description 07/13/2024 3:00 PM EST Office Visit Ophthalmology, [facility] [address] [place] [address] Yaniv Jacobs, DO [address] [place] [address] 07/22/2024 2:30 PM EST Office Visit Cardiology, [facility] [address] [place] [address] Kieran Christine DO [address] [place] [address] 09/24/2024 9:30 AM EST Office Visit Family [facility], [address] [phone] Emely Christine DO [address] [place], [place] [address] [address] 10/12/2024 1:00 PM EST Nurse Only Ancillary Department, [address] [place] [address] [place], Nurse [facility] [address] [facility] [address] 03/22/2025 11:00 AM EDT Office Visit Dermatology, [place] [address] [facility] [place] [address] Gertrude Cooper PA-C [address] [place] [address] [place] [address] Health Maintenance Due Date Last Done Comments Zoster Vaccines (2 of 3) 06/12/2011 04/17/2011 DXA Scan 08/08/2023 08/08/2021, 04/2021, 12/29/2018, Additional history exists Albumin/Creatinine Ratio 04/30/2024 04/30/2023 COVID-19 Vaccine ( season) 2024 08/05/2022, 08/06/2021, 10/27/2020, Additional history exists Influenza Vaccine (FLU shot) (#1) 2024 07/11/2023, 06/21/2022, 07/17/2021, Additional history exists Adult Wellness Visit 10/09/2024 10/09/2023, 10/07/19 23 Depression Screening 10/09/2024 10/09/2023 CKD HGB USE SMARTSET 49409 02/23/202502/23, 12/20/2022, 06/21/2022, Additional history exists CKD PHOS USE SMARTSET 70186 02/23/202501/31, 06/21/2022, 01/30/2021, Additional history exists DTap/Tdap Vaccines (2 - Td or Tdap) 12/22/2028 12/22/2018, 07/06/2008, 12/30/1992 VITAMIN D LEVEL ONCE IN A LIFETIME-USE SMARTSET# 86100 Completed 06/02/2008 Pneumococcal Vaccine: 65+ Years Completed [...] Not on filedocumented as of this encounter Advance Directives * Full Code (Latest Code Status on File) Date Activated Date Inactivated Comments 09/07/2007 3:02 PM 09/13/2007 9:02 PM * Full Code Date Activated Date Inactivated Comments 09/03/2007 8:43 PM 09/07/2007 3:02 PM Care Teams Vp Account Director Relationship Specialty Start Date End Date Emely Christine DO [address] [place] [address] PCP - General Family Medicine 10/20/19 documented as of this encounter
--- OUTSIDE RECORDS SUMMARY | 2024-07-21 00:55 | External Medical Summary | Summary of Care ---
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),Exertional angina (HCC),Angina pectoris (HCC) TAKE 1 TABLET BY MOUTH IN THE MORNING AND BEFORE BEDTIME 180 Tablet 3 02/25/2024 Active Irbesartan 75 MG Oral Tablet (Avapro)Indications:At 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 Hypertensive Heart Dz, severity unknown 08/18/2008 04/20/2009 Overview: Per Heart Failure Taxonomy Protocol. Shortness of breath 07/06/2008 08/18/20 08 Examination following surgery 09/08/2007 09/22/2007 Acute posthemorrhagic anemia 09/08/2007 08/19/2017 Coronary atherosclerosis of [place] coronary artery 09/03/2007 12/11/2018 Other nonspecific abnormal [...] encounter Miscellaneous Notes * Telephone Encounter - Emely Christine DO - 06/10/2024 10:32 AM EDT Yes I can, does she have the form >? * Telephone Encounter - Ab Dalal OSA - 06/09/2024 3:09 PM EDT Patient stated that she was getting her Eliquis 5 MG Oral Tablet (Apixaban) free from [employer]. She then decided to pay for it [...] 07/13/2024 3:00 PM EST Office Visit Ophthalmology, [facility] [address] [facility] [place] [address] Yaniv Jacobs, DO [address] [place] [address] 07/22/2024 2:30 PM EST Office Visit Cardiology, [facility] [address] [place] [address] Kieran Christine, DO [address] [place] [address] 09/24/2024 9:30 AM EST Office Visit [facility], [place] [address] [facility] [phone] Emely Christine, DO [address] [facility] [address] 10/12/2024 1:00 PM EST Nurse Only Ancillary Department, [place] [address] [facility] [address] [place], Nurse Annual Well[facility] [address] [facility] [address] 03/22/2025 11:00 AM EDT Office [address], [address] [address] Gertrude Cooper PA-C [address] [place] [address] [place] [address] Health Maintenance Due Date Last Done Comments Zoster Vaccines (2 of 3) 06/12/2011 04/17/2011 DXA Scan 08/08/2023 08/08/2021, 12/04/2021, 12/29/2018, Additional history exists Albumin/Creatinine Ratio 04/30/2024 04/30/2023 COVID-19 Vaccine ( season) 2024 08/05/2022, 08/06/2021, 10/27/2020, Additional history exists Influenza Vaccine (FLU shot) (#1) 2024 07/11/2023, 06/21/2022, 07/17/2021, Additional history exists Adult Wellness Visit 10/09/2024 10/09/2023, 10/07/19 Depression Screening 10/09/2024 10/09/2023 CKD HGB USE SMARTSET 44215 02/23/202502/23, 12/20/2022, 06/21/2022, Additional history exists CKD PHOS USE SMARTSET 15762 02/23/202501/31, 06/21/2022, 01/30/2021, Additional history exists DTap/Tdap Vaccines (2 - Td or Tdap) 12/22/2028 12/22/2018, 07/06/2008, 12/30/1992 VITAMIN D LEVEL ONCE IN A LIFETIME-USE SMARTSET# [id number] Completed 06/02/2008 Pneumococcal Vaccine: 65+ Years Completed [...] 8:43 PM 09/07/2007 3:02 PM Care Teams Power Superintendent Relationship Specialty Start Date End Date Emely Christine DO [address] [place] [address] PCP - General Family Medicine 10/20/19 documented as of this encounter
--- OUTSIDE RECORDS SUMMARY | 2024-07-21 00:55 | External Medical Summary | Summary of Care ---
Author Name Unknown Organization [facility] Address [address] [facility] [place] [address] Phone [phone] Care Team Providers Care Acquisition Advisor Name Role Phone Emely Christine DO Primary Care Provider [phone] Encounter Details Date Type Department Care Team (Late st Contact Info) Description 07/09/2024 Result Scan Unspecified Department Kieran Christine DO [address] [place] [address] <No scans attached> Allergies Active Allergy Reactions Criticality Noted Date Comments Aspirin Bleeding High 03/01/2019 Lisinopril Edema airway High 05/02/2009 Pollen Wheezing 03/01/2019 Sulfa Antibiotics Rash 05/14/1999 documented as of this encounter (statuses as of 07/09/2024) Medications aspirin 81 MG chewable tabletIndications:Ph lebitis [...] 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),Exertional angina (HCC),Angina pectoris (HCC) TAKE 1 TABLET BY MOUTH IN THE MORNING AND BEFORE BEDTIME 180 Tablet 3 02/25/20 24 Active Irbesartan 75 MG Oral Tablet (Avapro)Indications: 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 [...] :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 [...] as of this encounter (statuses as of 07/09/2024) Active Problems Problem Noted Date Diagnosed Date [...] as of this encounter (statuses as of 07/09/2024) Resolved Problems Problem Noted Date Diagnosed Date [...] Prediabetes protocol #1 - [employer] Other*[id number] 08/12/2013 10/08/2016 Overview (08/12/2013): Study Title: [employer] Markers for Patients with Cardiovascular Disease Project # [id number] Heel Slugger: Swati Ashraf MD [phone] Chest pain 08/06/2013 08/09/2013 Screening for iron [...] posthemorrhagic anemia 09/08/2007 08/19/2017 Coronary atherosclerosis of [place] coronary artery 09/03/2007 12/11/2018 Other nonspecific abnormal c ardiovascular system function study 07/29/2007 09/22/2007 Dyslipidemia, goal to be determined 10/23/2001 08/10/2009 Overview (08/10/2009): Per Lipid Taxonomy. PURE HYPERCHOLESTEROLEM 09/29/200008/01 Respiratory symptoms 008 Overview (06/03/2019): ICD-10 update of inactive term BENIGN HYPERTENSION 08/18/20 08 documented as of this encounter (statuses as of 07/09/2024) Immunizations Name Administration Dates Next Due COVID-19 [...] years and over) Not on file 02/17/2024 Comments No Sex and Gender Information Value Date Recorded Sex Assigned at Female 05/16/2020 10:05 AM EDT Legal Sex Female 6:01 AM EST Gender Identity Female 05/16/2020 10:05 AM EDT Sexual Orientation Not on file Occupation Industry Job Start Date Job End Date retired. Not on file Not on file Not on file documented as of this encounter Plan of Treatment Upcoming Encounters Date Type Department Care Team (Late st Contact Info) Description 07/13/2024 3:00 PM EST Office Visit Ophthalmology, [facility] [address] [place] [address] Yaniv Jacobs, DO [address] [place] [address] 07/22/2024 2:30 PM EST Office Visit Cardiology, [facility] [address] [place] [address] Kieran Christine DO [address] [place] [address] 09/24/2024 9:30 AM EST Office Visit Family Practice, [facility] [address] [facility] [address] Emely Christine DO [address] [facility] [address] 10/12/2024 1:00 PM EST Nurse Only Ancillary Department, [facility] [address] [facility] [address] [place], Nurse Annual Wellness [address] [facility] [address] 03/22/2025 11:00 AM EDT Office Visit Dermatology, [place] [address] [facility] [address] Gertrude Cooper PA-C [address] [place] [address] [place] [address] Health Maintenance Due Date Last Done Comments [...] Screening 10/09/2024 10/09/2023 CKD HGB USE SMARTSET 95556 02/23/202502/23, 12/20/2022, 06/21/2022, Additional history exists CKD PHOS USE SMARTSET 25033 02/23/2025 0612/2023, 06/21/2022, 01/30/2021, Additional history exists DTap/Tdap Vaccines (2 - Td or Tdap) 12/22/2028 12/22/2018, 07/06/2008, 12/30/1992 VITAMIN D LEVEL ONCE IN A LIFETIME-USE SMARTSET# [id number] Completed 06/02/2008 Pneumococcal Vaccine: 65+ Years Completed [...] Not on filedocumented as of this encounter Procedures Procedure Name Priority Date/Time Associated Diagnosis Comments CARDIOLOGY SCANNED RESULT 07/09/2024 documented in this encounter Results * CARDIOLOGY SCANNED RESULT (07/09/2024) 07/09/2024 us Kieran Christine DO OTHER Final Resul t documented in this encounter Advance Directives * Full Code (Latest Code Status on File) Date Activated Date Inactivated Comments 09/07/2007 3:02 PM 09/13/2007 9:02 PM * Full Code Date Activated Date Inactivated Comments 09/03/2007 8:43 PM 09/07/2007 3:02 PM Care Teams Acquisition Advisor Relationship Specialty Start Date End Date Emely Christine DO [address] [facility] [place] [address] PCP - General Family Medicine 10/20/19 documented as of this encounter
--- OUTSIDE RECORDS SUMMARY | 2024-07-21 00:55 | External Medical Summary | Summary of Care ---
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)* Allergies Active Allergy Reactions Criticality Noted Date Comments Aspirin Bleeding High 03/01/2019 Lisinopril Edema airway High 05/02/2009 Pollen Wheezing 03/01/2019 Sulfa Antibiotics Rash 05/14/1999 documented as of this encounter (statuses as of 05/18/2024) Medications Medication Sig Dispensed Refills Start Date [...] 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),Exertional angina (HCC),Angina pectoris (HCC) TAKE 1 TABLET BY MOUTH IN THE MORNING AND BEFORE BEDTIME 180 Tablet 3 02/25/2024 Active Irbesartan 75 MG Oral Tablet (Avapro)Indications: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 [...] 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 [...] as of this encounter (statuses as of 05/18/2024) Active Problems Problem Noted Date Diagnosed Date [...] as of this encounter (statuses as of 05/18/2024) Resolved Problems Problem Noted Date Diagnosed Date [...] Prediabetes protocol #1 - [employer] Other*[id number] 08/12/2013 10/08/2016 Overview: Study Title: [employer]omic Markers for Patients with Cardiovascular Disease Project # [id number] Silo Filler: Swati Ashraf MD [phone] Chest pain 08/06/2013 08/09/2013 Screening for iron deficiency anemia 02/14/2011 01/03/2012 Shortness of breath 11/19/2010 01/03/20 12 HYPERTENSIVE HEART DZ 04/20/20092018 Overview: Per Heart Failure Taxonomy Protocol. Hypertensive Heart Dz, severity unknown 08/18/2008 04/20/2009 Overview: Per Heart Failure Taxonomy Protocol. Shortness of breath 07/06/2008 08/18/20 08 Examination following surgery 09/08/2007 09/22/2007 Acute posthemorrhagic anemia 09/08/2007 08/19/2017 Coronary atherosclerosis of [place] coronary artery 09/03/2007 12/11/2018 Other nonspecific abnormal c ardiovascular system function study 07/29/2007 09/22/2007 Dyslipidemia, goal to be determined 10/23/2001 08/10/2009 Overview: Per Lipid Taxonomy. PURE HYPERCHOLESTEROLEM 09/29/200008/01 Respiratory symptoms 008 Overview: ICD-10 update of inactive term BENIGN HYPERTENSION 08/18/20 08 documented as of this encounter (statuses as of 05/18/2024) Immunizations Name Administration Dates Next Due COVID-19 [...] Preserve, IM 06/19/2017,06/20/2016,06/15/2015 Seasonal Influenza, Trivalen t, (IIV3), with Preserv, (Fluzone) 06/07/2013,08/21/2012,06/05/2011,2009,07/06/2008,06/25/2007,06/26/2006 Seasonal Influenza, Trivalen t, Adjuvanted, 65+ YRS, [...] this encounter Progress Notes * Yaniv Jacobs, - 05/18/2024 3:15 PM EDT [facility] [place] Nursing Notes: Shamika Terry LPN 05/18/24 1526 Signed Zarina Vines is a 89 year old year old female who presents for AMD OU. Last Office Visit: 03/23/2024 (in office), Visit date not found (telemedicine) Patient currently states no change in vision. Are you diabetic? No Do you drive? yes OCT image(s) of both eyes acquired and filed/scanned into chart. Base Eye Exam Visual Acuity (Snellen - Linear) Right Left Dist cc HM 20/50 +1 Dist ph cc 20/40 -1 Tonometry (Tonopen, 3:25 PM) Right Left Pressure 17 14 Pupils Pupils APD Right PERRL None Left PERRL None Visual Gore (Counting fingers) Right Left Full Full Extraocular Movement Right Left Full, Ortho Full, Ortho Neuro/Psych Oriented x3: Yes Dilation Both eyes: 0.5% Proparacaine @ 3:25 PM Dilation #2 Both eyes: 1.0% Mydriacyl, 2.5% Phenylephrine @ 3:25 PM Dilation Comments Patient cautioned that effects [...] (04-10-21, 12-12-20, 09-21-20, 06/20/20.....01/19/13, 10/28/12, 08/21/12) - >2 year since last injection, previously has gone 7 years since last injection - hold on further injections OD OS: wet -s/p Eylea (12-25-16, 10-08-16, 08/06/16, 06/11/16, 04/30/16, 03/19/19, 01/23/16, 12/12/15, 11/13/15) - >6 years since last injection - pt wants prn tx -recommend AREDS2 MVI as directed and Amsler grid qday 2. DSAEK OD 06/24/[address] Sullivan -using Pred Forte qday OD 3. Pseudophakia OU -had CE 11/[address] Goldberg, had retained lens fragments, then developed corneal decompensation -had CE 03/2018 OS, -currently not legal to drive at nightime, pt. understands F/u 8-10 weeks - dilate and OCT OU Yaniv Jacobs DO CC: Miah Sullivan MD CC: Mohit Yeh, OD documented in this encounter Nursing Notes * Shamika Terry LPN - 05/18/2024 3:17 PM EDT Zarina Vines is a 89 year old year old female who presents for AMD OU. Last Office Visit: 03/23/2024 (in office), Visit date not found (telemedicine) Patient currently states no change in vision. Are you diabetic? No Do you drive? yes OCT image(s) of both eyes acquired and filed/scanned into chart. documented in this encounter Plan of Treatment Upcoming Encounters Date Type Department Care Team (Late st Contact Info) Description 07/13/2024 3:00 PM EST Office Visit Ophthalmology, [facility] [address] [facility] [place] [address] Yaniv Jacobs DO [address] [place] [address] 07/22/2024 2:30 PM EST Office Visit Cardiology, [facility] [address] [place] [address] Kieran Christine DO [address] [place] [address] 09/24/2024 9:30 AM EST Office Visit Family [facility], [place] [address] [facility] [phone] Emely Christine DO [address] [facility] [address] 10/12/2024 1:00 PM EST Nurse Only Ancillary Department, [place] [address] [facility] [address] [place], Nurse Annual Wellness [address] [facility] [address] 03/22/2025 11:00 AM EDT Office Visit Dermatology, [place] [address] [facility] [place] [address] Gertrude Cooper PA-C [address] [place] [address] [place] [address] Scheduled Orders Name Type Priority Associated Diagnoses Orde r Schedule RETINA SCAN DIAGNOSTIC IMAGE, POSTERIOR Procedures Routine 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) Ordered: 05/18/2024 Health Maintenance Due Date Last Done Comments [...] Screening 10/09/2024 10/09/2023 CKD HGB USE SMARTSET 72610 02/23/202502/23, 12/20/2022, 06/21/2022, Additional history exists CKD PHOS USE SMARTSET 98500 02/23/2025 06/12/2023, 06/21/2022, 01/30/2021, Additional history exists DTap/Tdap Vaccines (2 - Td or Tdap) 12/22/2028 12/22/2018, 07/06/2008, 12/30/1992 VITAMIN D LEVEL ONCE IN A LIFETIME-USE SMARTSET# 44835 Completed 06/02/2008 Pneumococcal Vaccine: 65+ Years Completed [...] eyes with inactive choroidal neovascularization (HCC)- Primary documented in this encounter Advance Directives * Full Code (Latest Code Status on File) Date Activated Date Inactivated Comments 09/07/2007 3:02 PM 09/13/2007 9:02 PM * Full Code Date Activated Date Inactivated Comments 09/03/2007 8:43 PM 09/07/2007 3:02 PM Care Teams Administrative Judge Relationship Specialty Start Date End Date Emely Christine DO [address] [place] [address] PCP - General Family Medicine 10/20/19 documented as of this encounter
[2024-07-21 07:08] LABS: Hematocrit (blood only) 34.8 % (37.0-47.0); Hemoglobin 11.5 g/dl (12.0-16.0); Mean Corpuscular Hemoglobin 30.3 pg (25.0-34.0); Mean Corpuscular Volume 91.6 fL (80.0-100.0); Mean Platelet Volume 10.4 fL (9.4-12.4); Platelet Count 128 K/uL (130-400); RDW Coefficient of Variation 14.9 % (11.5-14.5); RDW Standard Deviation 50.2 fL (36.4-46.3)
[2024-07-21 07:23] LABS: BUN Creatinine Ratio 18.7 (10-20); Calcium 9.1 mg/dl (8.6-10.3); Creatinine Clr Calc Pharmacy 34.5 ml/min; Potassium 4.3 mmol/L (3.5-5.1)
[2024-07-21] MEDS: ASPIRIN 81 MG CHEW PO SCH (08:00)
[2024-07-21] MEDS: POTASSIUM CHLORIDE CRTAB 20 MEQ TABCR PO SCH (08:00)
[2024-07-21] MEDS: METOPROLOL SUCC 50MG EXT REL TAB PO SCH (08:00)
[2024-07-21] MEDS: ROSUVASTATIN CALCIUM 20 MG TAB PO SCH (08:00)
[2024-07-21] MEDS: FLUTICASONE FUROATE 100MCG 14 PUFFS/INHALER INH SCH (08:01)
[2024-07-21] MEDS: PANTOprazole 40 MG TAB PO SCH (08:01)
[2024-07-21] MEDS: FERROUS SULFATE 325 MG TAB PO SCH (08:01)
[2024-07-21] MEDS: FUROSEMIDE 20 MG TAB PO SCH (08:01)
[2024-07-21] MEDS: PNEUMOCOCCAL VACCINE (PCV20) 20-VAL CONJ-DIP CRM/PF 0.5 ML SYR IM ONE (11:10)
[2024-07-21] MEDS: INFLUENZA VACC TS2024-25(65y+)/PF (IIV3) 0.5mL Syr IM ONE (11:12)
--- NOTE | 2024-07-21 12:44 | Hospitalist Progress Note ---
Date of Service July 21, 2024 Assessment & Plan (1) Acute exacerbation of chronic low back pain: (2) Ambulatory dysfunction: (3) Degenerative joint disease of spine: (4) Kyphoscoliosis: (5) Chronic heart failure with preserved ejection fraction (HFpEF): (6) CKD (chronic kidney disease), stage III: (7) PAF (paroxysmal atrial fibrillation): Plan Patient with acute exacerbation of her chronic back pain in the setting of significant kyphoscoliosis and degenerative joint disease of the spine. This is impacted her ability to ambulate and care for self at home Continue with pain control Continue therapies, noted they are recommending possible short-term rehab Case management aware of possibility for need for rehab Other medical issues appear to be stabilized, continue outpatient medications as ordered Admission and Anticipated Discharge Date Admission Date: July 20, 2024 Subjective Patient states her back pain is improved. Physical Exam Physical Exam: Constitutional: Alert, no acute distress HEENT: Mucous membranes moist. Lungs: Clear to auscultation, decreased, no wheezes rales or rhonchi CV: S1-S2, regular Abdomen: Soft, nontender, nondistended Extremities: No significant edema Musculoskeletal: Chronic somatic dysfunction lumbar paravertebral musculature Neuro: No focal deficits Psych: Cooperative, normal mood Results & Data Results & Data Vital Signs (Past 12 Hours) Vital Signs Temp Pulse Resp BP Pulse Ox O2 Del Method 07/21/24 07:16 36.7 C 71 18 131/68 94 Room Air Diagnostic Findings Reviewed imaging, laboratory and diagnostic studies. Pertinent findings as below. CBC reviewed, pancytopenia BMP reviewed stable Urine culture no specific growth
[2024-07-21] MEDS: ACETAMINOPHEN 500 MG TAB PO SCH (13:32)
[2024-07-22] MEDS: POLYETHYLENE (MIRALAX) 17 GM PACK PO PRN (07:42)
--- NOTE | 2024-07-22 14:51 | Hospitalist Progress Note ---
Date of Service July 22, 2024 Assessment & Plan (1) Acute exacerbation of chronic low back pain: (2) Ambulatory dysfunction: (3) Degenerative joint disease of spine: (4) Kyphoscoliosis: (5) Chronic heart failure with preserved ejection fraction (HFpEF): (6) CKD (chronic kidney disease), stage III: (7) PAF (paroxysmal atrial fibrillation): Plan Patient with acute exacerbation of chronic back pain and degenerative spine. Symptoms improved. Patient still requiring a fair amount of assistance and high risk for discharge to home to live independently. Communication with case management, pursuing rehab placement at [facility], discharge when bed available. Admission and Anticipated Discharge Date Admission Date: July 20, 2024 Subjective Patient is feels as though her back pain is improved. More tolerable. Is agreeable to short-term rehab at [facility] Physical Exam Physical Exam: Constitutional: Alert, sitting in chair HEENT: Mucous membranes moist. Lungs: No respiratory distress CV: S1-S2, regular Abdomen: Soft, nontender, nondistended Extremities: No significant edema Musculoskeletal: Tenderness in paravertebral musculature of the lumbar spine improved Results & Data Results & Data Vital Signs (Past 12 Hours) Vital Signs Temp Pulse Resp BP Pulse Ox O2 Del Method 07/22/24 08:14 36.5 C 65 16 151/75 H 95 Room Air Diagnostic Findings No new diagnostics
[2024-07-22 19:25] VITALS: O2SAT 94
[2024-07-23 08:08] VITALS: BP 145/74; PULSE 75; RESP 16; TEMP 98.2
--- NOTE | 2024-07-23 12:24 | Discharge Summary ---
Discharge Summary Date of Service July 23, 2024 Principal Dx & Hospital Course #1 = Principal Diagnosis (1) Acute exacerbation of chronic low back pain: (2) Ambulatory dysfunction: (3) Degenerative joint disease of spine: (4) Kyphoscoliosis: (5) Chronic heart failure with preserved ejection fraction (HFpEF): (6) CKD (chronic kidney disease), stage III: (7) PAF (paroxysmal atrial fibrillation): Plan Ms. Vines is an 89 year old female with PMH HTN, dyslipidemia, CAD s/p CABG, angina, chronic HFpEF, PAF anticoagulated on Eliquis, SSS s/p pacemaker, CKD III presented due to acute hip pain. Imaging revealed severe lumbar spin scoliosis and DJD. Patient was managed conservatively with tylenol and tramadol. PT OT recommended rehab. #Ambulatory dysfunction #Acute Low back pain admit to medical --Lumbar CT: . Severe lumbar spine scoliosis.Severe multilevel degenerative changes within the lumbar spine. --Pelvis CT: Colonic diverticulosis with equivocal mild acute diverticulitis of the mid sigmoid. continue tylenol jonny and prn tramadol continue lidocain patches rehab on discharge to [facility] #Abnormal Urinalysis received IV zosyn in ED pt w/o urinary sx, fever or leukocytosis, possible contamination suspect asymptomatic bacteruria given presentation #CAD s/p CABG #Chronic HFpEF #PAF #TBI s/p PPM #HTN/HLD chronic, stable continue home meds asa, statin, lasix, irbesartan, isosorbide dinitrate, metoprolol, apixaban, ranolazine CKD-3 baseline cr 1.1 avoid nephrotoxic agents Notes For Next Care Provider Medication Changes From Visit Tramadol prn q6 h for pain Admission HPI Per Admitting Provider This is an 89-year-old female who has significant past medical history of severe CAD, chronic HFpEF, PAF, TBI status post PPM, HTN, HLD, CKD stage III, osteoporosis, idiopathic scoliosis, macular degeneration who presents to the hospital secondary to severe pain in her hip/leg. Pain started 4 days ago. Pain is now also located on the right hip. She has a cane/walker at home, but this pain has made it very difficult for her to move. Her hx was obtained from patient, daughter and chart review. She has hx of scoliosis and has chronic p ain from this, but this felt different. She does have chronic knee pain due to arthritis. She denies f/c/s, beltre, dizziness, chest pain, n/v/d, abd pain, cough, congestion, sore throat, dysuria, increased urgency, frequency, hematuria. She does have chronic SOB with exertion, but she feels this is unchanged. She follows with [facility]. She has occasional constipation. She eats beans to help this. She denies any falls. She denies any alcohol or tobacco use. SHe lives alone and typically ambulates with a walker. Admission Exam Per Admitting Provider On exam General: Elderly woman in no distress Eyes: PERRL, conjunctivae normal, not pale, anicteric sclerae, EOM intact bilaterally ENMT: External ear and nose normal, oropharynx normal Respiratory: Normal respiratory effort, no respiratory distress, lungs clear to auscultation, no crackles and no wheezes Cardiovascular: RRR s1 s2 Gastrointestinal (Abdomen): Abdomen is not distended, soft, non-tender to palpation, no guarding, no palpable hepatosplenomegaly, normal bowel sounds Musculoskeletal: Low back paraspinal tenderness Genitourinary:No CVA tenderness Neurologic: Alert and oriented x 3, No focal weakness, sensation grossly intact Psychiatric: Euthymic affect Discharge Exam Constitutional WD/WN, vitals as above Respiratory normal respiratory effort, lungs clear to auscultation Cardiovascular RRR, no murmur, no edema Gastrointestinal (Abdomen) normal bowel sounds, soft, nontender, no hepatosplenomegaly Musculoskeletal moving all extremities equally Updated Medication List Medication Instructions Recorded Confirmed Type ferrous sulfate 325 mg (65 mg 325 mg PO DAILY ##0 12/14/13 07/20/24 History iron) tablet nitroglycerin 0.4 mg sublingual 0 mg sublingual DIRECTED PRN 12/14/13 07/20/24 History tablet Chest Pain #0 BTLS vitamins A,C,Q-qlws-kwnqcu 4,296 1 cap PO BID ##0 12/14/13 07/20/24 History mcg-226 mg-90 mg capsule (PreserVision AREDS) furosemide 20 mg tablet 10 mg PO DAILY #0 tabs 06/18/17 07/20/24 History potassium chloride 20 mEq 20 meq PO DAILY #0 tabs 06/18/17 07/20/24 History tablet,extended release albuterol sulfate 90 mcg/actuation 2 puff inhalation QID PRN 05/29/18 11/19/24 History aerosol inhaler Shortness Of Breath Or Wheezing ##0 irbesartan 75 mg tablet 37.5 mg PO HS ##0 01/27/18 07/20/24 History alendronate 70 mg tablet 70 mg PO WK 03/01/19 07/20/24 History apixaban 5 mg tablet 5 mg PO BID 04/12/20 07/20/24 History isosorbide dinitrate 10 mg tablet 10 mg PO TID 04/12/20 07/20/24 History aflibercept 2 mg/0.05 mL 0 mg intravitreal UD 01/30/21 07/20/24 History intravitreal syringe (Eylea) aspirin 81 mg chewable tablet 81 mg PO DAILY 01/30/21 07/20/24 History (Aspirin Childrens) ranolazine 500 mg tablet,extended 500 mg PO BID 01/30/21 07/20/24 History release,12 hr fluticasone furoate 100 1 inh inhalation QAM 04/21/24 07/20/24 History mcg/actuation blister powder for inhalation (Arnuity Ellipta) metoprolol succinate 100 mg 100 mg PO QAM 04/21/24 07/20/24 History tablet,extended release 24 hr pantoprazole 20 mg tablet,delayed 20 mg PO QAM 04/21/24 07/20/24 History release rosuvastatin 40 mg tablet 20 mg PO QAM 04/21/24 07/20/24 History meclizine 25 mg tablet 25 mg PO Q8H PRN dizzy 07/20/24 07/20/24 History prednisolone acetate 1 % eye 1 drp OPR HS 07/20/24 07/20/24 History drops,suspension acetaminophen 500 mg tablet 1,000 mg (2 x 500 mg) PO TID #0 07/23/24 Rx (Tylenol Extra Strength) tabs lidocaine 5 % topical patch 1 patch transdermal QAM #0 ea 07/23/24 Rx tramadol 50 mg tablet 25 mg (1/2 x 50 mg) PO Q6H PRN #0 07/23/24 Rx tabs Hospital Stay Data Consultations 07/20/24 13:10 ED Decision to Admit Stat Diagnostic Imagining Performed 07/20/24 11:08 CT lumbar spine wo con Stat CT pelvis wo con Stat Pending Results Patient Have Any Pending Studies at Discharge: No Discharge Instructions Given to Patient (Per Discharging Provider) You were admitted for acute hip pain and imaging revealed notable degenerative back disease. You improved with symptom control. PT recommended rehab. You can continue Tylenol 1000mg three times a day for pain control and tramadol 25mg as needed every 6 hours for pain. Total Time Total Time Spent Total Time Spent (In Minutes): 35
== END 2024-07-23 13:39 | DRG 552 ==
LOC: ED 10:41 → 3W 14:08 → SUATTDRO 14:08 → 3W 15:13

== ENCOUNTER 2024-08-13 05:35 | Inpatient (IN) ==
--- NOTE | 2024-08-13 05:55 | Emergency Department Note ---
History of Present Illness General Chief Complaint: Cardiac Assessment Stated Complaint: Chest Pressure, Chest Heaviness, SOB Time Seen by Provider: 08/13/24 05:44 History of Present Illness Provider Complaint: chest pain Time: 03:00 Duration: improved Onset: during rest Pain Location: substernal Pain Radiation: none Severity: moderate Current Pain Intensity: 0 Quality: + heaviness Relieved By: + nitroglycerin Exacerbated By: + nothing Context: no recent illness, no recent surgery, no recent travel or no trauma/injury Associated symptoms: no nausea, no diaphoresis, no dyspnea, no syncope, no palpitations, no fever or no cough Treatments prior to arrival: aspirin and nitroglycerin Home Medications Medication Instructions Recorded Confirmed Type ferrous sulfate 325 mg (65 mg 325 mg PO DAILY ##0 12/14/13 07/20/24 History iron) tablet nitroglycerin 0.4 mg sublingual 0 mg sublingual DIRECTED PRN 12/14/13 07/20/24 History tablet Chest Pain #0 BTLS vitamins A,C,X-dvcw-iyuopx 4,296 1 cap PO BID ##0 12/14/13 07/20/24 History mcg-226 mg-90 mg capsule (PreserVision AREDS) furosemide 20 mg tablet 10 mg PO DAILY #0 tabs 06/18/17 07/20/24 History potassium chloride 20 mEq 20 meq PO DAILY #0 tabs 06/18/17 07/20/24 History tablet,extended release albuterol sulfate 90 mcg/actuation 2 puff inhalation QID PRN 01/27/18 07/20/24 History aerosol inhaler Shortness Of Breath Or Wheezing ##0 irbesartan 75 mg tablet 37.5 mg PO HS ##0 01/27/18 07/20/24 History alendronate 70 mg tablet 70 mg PO WK 03/01/19 07/20/24 History apixaban 5 mg tablet 5 mg PO BID 04/12/20 07/20/24 History isosorbide dinitrate 10 mg tablet 10 mg PO TID 04/12/20 07/20/24 History aflibercept 2 mg/0.05 mL 0 mg intravitreal UD 01/30/21 07/20/24 History intravitreal syringe (Eylea) aspirin 81 mg chewable tablet 81 mg PO DAILY 01/30/21 07/20/24 History (Aspirin Childrens) ranolazine 500 mg tablet,extended 500 mg PO BID 01/30/21 07/20/24 History release,12 hr fluticasone furoate 100 1 inh inhalation QAM 04/21/24 07/20/24 History mcg/actuation blister powder for inhalation (Arnuity Ellipta) metoprolol succinate 100 mg 100 mg PO QAM 04/21/24 07/20/24 History tablet,extended release 24 hr pantoprazole 20 mg tablet,delayed 20 mg PO QAM 04/21/24 07/20/24 History release rosuvastatin 40 mg tablet 20 mg PO QAM 04/21/24 07/20/24 History meclizine 25 mg tablet 25 mg PO Q8H PRN dizzy 07/20/24 07/20/24 History prednisolone acetate 1 % eye 1 drp OPR HS 07/20/24 07/20/24 History drops,suspension acetaminophen 500 mg tablet 1,000 mg (2 x 500 mg) PO TID #0 07/23/24 Rx (Tylenol Extra Strength) tabs lidocaine 5 % topical patch 1 patch transdermal QAM #0 ea 07/23/24 Rx tramadol 50 mg tablet 25 mg (1/2 x 50 mg) PO Q6H PRN #0 07/23/24 Rx tabs Allergies Allergy/AdvReac Type Severity Reaction Status Date / Time lisinopril Allergy Unknown "THROAT Verified 01/31/21 00:02 CLOSES" sulfamethoxazole Allergy Unknown RASH Verified 01/31/21 00:02 aspirin AdvReac Unknown BLEEDING Verified 01/31/21 00:02 Past Med/Surg History Problem List (Updated 08/13/24 @ 06:46 by Roberto Caruso MD) Chest pain (Acute) Degenerative joint disease of spine Acute exacerbation of chronic low back pain Abnormal CT scan, pelvis (Acute) Abnormal urinalysis (Acute) Trouble walking (Acute) Low back pain at multiple sites Tachy-trish syndrome Pt admitted for elective ppm. Underwent procedure without any complications; monitored overnight; her coreg was increased and she was discharged home following day. NSTEMI (non-ST elevated myocardial infarction) Demand ischemia of myocardium Paroxysmal atrial fibrillation with rapid ventricular response Atrial fibrillation with RVR (Acute) Atrial fibrillation (Acute) increase coreg and restart eliquis Asthma (Chronic) Scoliosis (Chronic) Back pain, acute (Acute 12/14/13) Shoulder pain (Acute) Medical History Acute hyperglycemia Vertigo Kyphoscoliosis Dyslipidemia CKD (chronic kidney disease), stage III Chronic heart failure with preserved ejection fraction (HFpEF) PAF (paroxysmal atrial fibrillation) Ambulatory dysfunction Dizziness SSS (sick sinus syndrome) Pt admitted for elective ppm. Underwent procedure without any complications; monitored overnight; her coreg was increased and she was discharged home following day. Coronary artery disease Hypertension CHF (congestive heart failure) Surgical History History of cataract surgery History of appendectomy History of coronary artery bypass graft Family History Other Asthma Hypertension Social History Smoking Status: Never smoker Second Hand Exposure: No; Do You Dip or Chew Tobacco: No; Hx Alcohol Use: No Hx Substance Use: No Preferred Language: Lebanese Communication Ability: Effective Patient Resource Coordinator Required: No Beliefs That Will Affect Care: None marital status: Current Living Situation: Alone Feels Safe at Home: Yes Assistive Devices: None Physical Exam Vital Signs Vital Signs - 24 hr 08/13/24 05:39 08/13/24 05:42 08/13/24 05:43 Temperature 36.9 C Temperature Source Oral Pulse Rate 83 85 84 Pulse Rate from SpO2 Sensor 85 Pulse Rhythm Respiratory Rate 18 24 Respiratory Effort / Characteristics Non-Labored Spontaneous Respiratory Depth Normal Respiratory Pattern Regular Blood Pressure 136/70 136/70 Blood Pressure Mean 92 92 Blood Pressure Position Sitting Pulse Oximetry 95 94 Oxygen Delivery Method Room Air Room Air Oxygen Flow Rate Sepsis Recent Fever Within 48 Hours No Sepsis New/Unexplained Change in Mental Status N/A Sepsis Action Taken by Nursing No Action Required Oxygen Flow Rate - Titration Pulse Oximetry Post Tiitration 08/13/24 05:48 08/13/24 05:52 08/13/24 05:54 Temperature Temperature Source Pulse Rate 72 Pulse Rate from SpO2 Sensor Pulse Rhythm Regular Respiratory Rate 18 Respiratory Effort / Characteristics Non-Labored Spontaneous Respiratory Depth Normal Respiratory Pattern Blood Pressure Blood Pressure Mean Blood Pressure Position Pulse Oximetry 99 95 Oxygen Delivery Method Room Air Room Air Room Air Oxygen Flow Rate 2 Sepsis Recent Fever Within 48 Hours Sepsis New/Unexplained Change in Mental Status Sepsis Action Taken by Nursing Oxygen Flow Rate - Titration 0 Pulse Oximetry Post Tiitration 95 08/13/24 06:00 Temperature Temperature Source Pulse Rate 77 Pulse Rate from SpO2 Sensor 77 Pulse Rhythm Respiratory Rate 22 Respiratory Effort / Characteristics Respiratory Depth Respiratory Pattern Blood Pressure 121/64 Blood Pressure Mean 83 Blood Pressure Position Pulse Oximetry 95 Oxygen Delivery Method Room Air Oxygen Flow Rate Sepsis Recent Fever Within 48 Hours Sepsis New/Unexplained Change in Mental Status Sepsis Action Taken by Nursing Oxygen Flow Rate - Titration Pulse Oximetry Post Tiitration Physical Exam GENERAL: oriented to person, place, and time. appears well-developed and well- nourished. HENT: Exam performed. - Head: Normocephalic and atraumatic. EYES: Conjunctivae and EOM are normal. Right eye exhibits no discharge. Left eye exhibits no discharge. No scleral icterus. NECK: Normal range of motion. Neck supple. No JVD present. CV: Normal rate, regular rhythm, normal heart sounds and intact distal pulses. There is no peripheral edema. Palpable radial pulses bue. PULM/CHEST: Effort normal and breath sounds normal. No respiratory distress. No stridor. no wheezes. no rales. ABD: The abdomen is soft. There is no tenderness. NEURO: Motor and sensation grossly intact. SKIN: Skin is warm and dry. He is not diaphoretic. PSYCH: normal mood and affect. Behavior is normal. Judgment and thought content normal. Course Course 0544: The patient was evaluated in room A10. A complete history and physical exam was performed Cardiac monitoring: An order was placed for continuous cardiac monitoring. The monitor shows a rate of 80 with sinus rhythm interpreted by ut 0644: Vital signs stable. Labs are significant for an elevated troponin and chest x-ray shows mild cardiomegaly with cephalization. [facility] Medical Decision Making Laboratory Data Attestation: I reviewed the patient's lab results. 08/13/24 05:46 08/13/24 05:46 Labs: Lab Results 08/13/24 Range/Units 05:46 WBC 7.83 (4.8-10.8) K/ul RBC 3.05 L (4.20-5.40) M/uL Hgb 9.6 L (12.0-16.0) g/dl Hct 29.7 L (37.0-47.0) % MCV 97.4 (80.0-100.0) fL MCH 31.5 (25.0-34.0) pg MCHC 32.3 (32.0-36.0) g/dL RDW Std Deviation 65.2 H (36.4-46.3) fL RDW Coeff of [place] 19.1 H (11.5-14.5) % Plt Count 190 (130-400) K/uL MPV 9.8 (9.4-12.4) fL Immature Gran % (Auto) 0.8 % Neut % (Auto) 68.1 % Lymph % (Auto) 17.2 % [place] % (Auto) 12.0 % Eos % (Auto) 1.0 % Baso % (Auto) 0.9 % Neut # (Auto) 5.33 (1.40-6.50) K/uL Lymph # (Auto) 1.35 (1.20-3.40) K/uL [place] # (Auto) 0.94 H (0.11-0.59) K/uL Eos # (Auto) 0.08 (0.00-0.50) K/uL Baso # (Auto) 0.07 (0.00-0.20) K/uL Immature Gran # (Auto) 0.06 (0.01-0.20) K/uL PT 12.7 H (9.0-12.0) Seconds INR 1.2 H (0.9-1.1) APTT 31 (21-31) Seconds PTT Ratio 1.2 Sodium 141 (136-145) mmol/L Potassium 4.1 (3.5-5.1) mmol/L Chloride 110 H (98-107) mmol/L Carbon Dioxide 26 (21-32) mmol/L Anion Gap 5 (3-11) BUN 22 (6-23) mg/dl Creatinine 0.77 (0.6-1.2) mg/dl Est Cr Clr Drug Dosing 43.7 ml/min eGFR 74.15 BUN/Creatinine Ratio 28.6 H (10-20) Glucose 116 H (70-99(Fasting)) mg/dl Calcium 9.1 (8.6-10.3) mg/dl Troponin I High Sens 88.3 H* (0-14) pg/ml Lipase 42 (11-82) U/L Imaging Data Chest x-ray: Attestation: I personally reviewed and interpreted this imaging study as follows: My impression: Chest x-ray: Cardiomegaly with cephalization ECG Data Attestation: I personally reviewed and interpreted this ECG as follows: Additional Comments: Sinus arrhythmia with a rate of 81.IA 152 QRS [address] elevation or ST depression. [facility] Narrative 0544: The patient was evaluated in room A10. A complete history and physical exam was performed Cardiac monitoring: An order was placed for continuous cardiac monitoring. The monitor shows a rate of 80 with sinus rhythm interpreted by me 0644: Vital signs stable. Labs are significant for an elevated troponin and chest x-ray shows mild cardiomegaly with cephalization. Patient will be admitted to the [facility] hospitalist team for her chest pain. Impression & Plan Chest pain Discharge Plan Visit Data Chief Complaint: Cardiac Assessment Stated Complaint: Chest Pressure, Chest Heaviness, SOB ED Provider: Roberto Caruso Discharge Problem: Chest pain Patient Disposition: Being Evaluated by Hospitalist Forms Stand Alone Forms: My [facility] Prescriptions Prescriptions: No Action ferrous sulfate 325 mg (65 mg iron) Tablet 325 mg PO DAILY Qty: 0 nitroglycerin 0.4 mg Tablet, Sublingual 0 mg sublingual DIRECTED PRN (Reason: Chest Pain) Qty: 0 Rx Instructions: Unable to verify medication at this date/time PreserVision AREDS [id number] Capsule 1 cap PO BID Qty: 0 Rx Instructions: Unable to verify OTC meds at this date/time furosemide 20 mg Tablet 10 mg PO DAILY Qty: 0 Rx Instructions: take 10mg tablet daily, with an additional 10mg as needed for fluid retention potassium chloride 20 mEq Tablet Extended Release 20 meq PO DAILY Qty: 0 irbesartan 75 mg Tablet 37.5 mg PO HS Qty: 0 albuterol sulfate 90 mcg/actuation Hfa Aerosol Inhaler 2 puff INHALATION QID PRN (Reason: Shortness Of Breath Or Wheezing) Qty: 0 Rx Instructions: Unable to verify medication at this date/time isosorbide dinitrate 10 mg Tablet 10 mg PO TID Rx Instructions: 8am, 1pm, 5-6pm apixaban 5 mg Tablet 5 mg PO BID alendronate 70 mg tablet 70 mg PO WK Rx Instructions: take 1 tablet one time per week on an empty stomach. aspirin [Aspirin Childrens] 81 mg Tablet,Chewable 81 mg PO DAILY Rx Instructions: Unable to verify OTC meds at this date/time, this is also listed on pt's allergy list. ranolazine 500 mg tablet extended release 12 hr 500 mg PO BID Eylea 2 mg/0.05 mL Syringe 0 mg INTRAVITREAL UD Rx Instructions: Unable to verify medication at this date/time. Original Directions: 2mg intravitreal UD meclizine 25 mg tablet 25 mg PO Q8H PRN (Reason: dizzy) prednisolone acetate 1 % drops,suspension 1 drp OPR HS tramadol 50 mg Tablet 25 mg PO Q6H PRNQty: 0 0RF acetaminophen [Tylenol Extra Strength] 500 mg Tablet 1,000 mg PO TID Qty: 0 0RF lidocaine 5 % Adhesive Patch,Medicated 1 patch transdermal QAM Qty: 0 0RF metoprolol succinate 100 mg tablet extended release 24 hr 100 mg PO QAM pantoprazole 20 mg tablet,delayed release (DR/EC) 20 mg PO QAM rosuvastatin 40 mg tablet 20 mg PO QAM Arnuity Ellipta 100 mcg/actuation blister with device 1 inh INHALATION QAM Referrals Referrals: Emely Christine DO [Primary Care Provider] - Discharge Problem: Chest pain Qualifiers: Chest pain type: unspecified Qualified Code(s): R07.9 - Chest pain, unspecified
[2024-08-13 06:04] LABS: Basophils # (auto) 0.07 K/uL (0.00-0.20); Basophils % (auto) 0.9 %; Eosinophils # (auto) 0.08 K/uL (0.00-0.50); Hematocrit (blood only) 29.7 % (37.0-47.0); Hemoglobin 9.6 g/dl (12.0-16.0); Immature Granulocytes # (auto) 0.06 K/uL (0.01-0.20); Immature Granulocytes % (auto) 0.8 %; Lymphocytes # (auto) 1.35 K/uL (1.20-3.40); Lymphocytes % (auto) 17.2 %; Mean Corpuscular Hemoglobin 31.5 pg (25.0-34.0); Mean Corpuscular Hgb Conc 32.3 g/dL (32.0-36.0); Mean Corpuscular Volume 97.4 fL (80.0-100.0); Mean Platelet Volume 9.8 fL (9.4-12.4); Monocytes # (auto) 0.94 K/uL (0.11-0.59); Neutrophils # (auto) 5.33 K/uL (1.40-6.50); Neutrophils % (auto) 68.1 %; Platelet Count 190 K/uL (130-400); RDW Coefficient of Variation 19.1 % (11.5-14.5); RDW Standard Deviation 65.2 fL (36.4-46.3); Red Blood Count 3.05 M/uL (4.20-5.40); White Blood Count 7.83 K/ul (4.8-10.8)
[2024-08-13 06:19] LABS: BUN Creatinine Ratio 28.6 (10-20); Calcium 9.1 mg/dl (8.6-10.3); Creatinine Clr Calc Pharmacy 43.7 ml/min; Potassium 4.1 mmol/L (3.5-5.1)
[2024-08-13 06:33] LABS: INR 1.2 (0.9-1.1); Partial Thromboplastin Ratio 1.2; Partial Thromboplastin Time 31 Seconds (21-31); Prothrombin Time 12.7 Seconds (9.0-12.0)
[2024-08-13 06:38] LABS: Troponin I High Sensitivity 88.3 pg/ml (0-14)
--- NOTE | 2024-08-13 07:32 | XRay Report ---
EXAM: XR chest 1V portable CLINICAL HISTORY: CHEST PAIN. TECHNIQUE: An X-ray image of the chest was obtained in 1 view: AP projection. COMPARISON: X-ray dated 01/30/2021. FINDINGS: Pulmonary Parenchyma: Bilateral prominent interstitial markings [interstitial edema] with bilateral basal faint opacity. No evidence of pulmonary nodule is seen. Obliterated both costophrenic angles by likely small effusion. An atelectatic band traversing in the right lower zone. Heart and Mediastinum: Cardiac silhouette is enlarged. No mediastinal masses were seen. No hilar or mediastinal lymphadenopathy was seen. Cardiac pacemaker leads are in situ. Bony Thorax: Post CABG, sternotomy sutures in situ. Bilateral reduced glenohumeral joint space with subchondral sclerosis Bony thorax appears intact without fractures or deformities. Soft Tissues: Soft tissues overlying the chest wall are unremarkable. IMPRESSION: 1. Bilateral prominent interstitial markings with basal faint opacity. Interstitial edema. Suggest clinical correlation. 2. Mild cardiomegaly. 3. Atelectatic band in the right lower zone. 4. Bilateral small/minimal pleural effusion. 5. Comparing with the previous X-ray dated 01/30/2021, there is interval progression, mainly on the right side. Electronically signed by Smooth Velázquez 08-13-2024 07:31 AM
[2024-08-13] MEDS: FUROSEMIDE 40 MG/4 ML VIAL IV ONE (07:41)
--- NOTE | 2024-08-13 08:35 | History & Physical Report ---
Date of Service August 13, 2024 Assessment & Plan (1) Acute on chronic heart failure with preserved ejection fraction: (2) Demand ischemia of myocardium: (3) PAF (paroxysmal atrial fibrillation): (4) CKD (chronic kidney disease), stage III: (5) Coronary artery disease: (6) Chronic stable angina: Plan Patient is an 89-year-old female with known history of heart failure preserved ejection fraction, CAD, chronic angina, and paroxysmal atrial fibrillation with complaints of increasing edema, chest pressure and palpitations. Workup in the emergency department consistent with acute on chronic heart failure with demand ischemia. Admit to monitored setting IV diuresis with Lasix Monitor electrolytes and renal function Continue anticoagulation with Eliquis Troponins trending up slightly, suspect this is demand ischemia in the setting of heart failure and possibly a brief burst of her paroxysmal atrial fibrillation. Will consult cardiology for ongoing evaluation Update echocardiogram Continue beta-phyllis and angiotensin receptor phyllis Discussed advanced directives with patient and daughter at bedside, patient request full code History of Present Illness Chief Complaint: Chest pressure, palpitations and shortness of breath Primary Care Provider: Emely Christine DO Patient is an 89-year-old female with known Heart failure with preserved ejection fraction and paroxysmal atrial fibrillation. Woke up this morning with chest pressure and more shortness of breath. Came to the emergency room for evaluation. In the emergency room did have a elevated troponin, elevated BNP, and chest x-ray consistent with fluid overload. Referred to our service for further evaluation. Time my evaluation the patient was resting comfortably, she reports that her chest pain has resolved. Patient was recently in our hospital for exacerbation of her back pain and ambulatory dysfunction. [facility] and she reported she did very well there and rehab to the point where she could return to independent living. She has been in her own home since then. However, she has noticed increased swelling in her legs and weight gain over the last week or 2. She reports that her Lasix dosage had been adjusted over the past month or so but she does not really sure why. She does not admit to excessive fluid intake and does not admit to missing of any of her medications. She does state that she does not eat a lot that it would be weight gain from eating. And she has noticed that her legs are quite swollen. She does admit to a bit of cough when lying down and improves when sitting up. No fevers, no chills, no purulent sputum. Some intermittent constipation but no other changes in her bowel or bladder habits. She did admit to feeling as though her heart was racing this morning as well with some palpitations. She does have a history of paroxysmal atrial fibrillation and pacemaker placement. Daughter is at the bedside she to states that she just notices significant swelling in the patient's legs over the last day or 2. Normally she said this just in her ankles but now is extended up above the knee. Allergies Allergy/AdvReac Type Severity Reaction Status Date / Time lisinopril Allergy Unknown "THROAT Verified 08/13/24 08:08 CLOSES" sulfamethoxazole Allergy Unknown RASH Verified 08/13/24 08:08 aspirin AdvReac Unknown BLEEDING Verified 08/13/24 08:18 Home Medications Medication Instructions Recorded Confirmed Type ferrous sulfate 325 mg (65 mg 325 mg PO DAILY ##0 12/14/13 08/13/24 History iron) tablet nitroglycerin 0.4 mg sublingual 0.4 mg sublingual DIRECTED PRN 12/14/13 08/13/24 History tablet Chest Pain #0 BTLS vitamins A,C,Y-uyoq-yxcrcp 4,296 1 cap PO BID ##0 12/14/13 08/13/24 History mcg-226 mg-90 mg capsule (PreserVision AREDS) furosemide 20 mg tablet 10 mg PO DAILY #0 tabs 06/18/17 08/13/24 History potassium chloride 20 mEq 20 meq PO DAILY #0 tabs 06/18/17 08/13/24 History tablet,extended release irbesartan 75 mg tablet 37.5 mg PO HS ##0 01/27/18 08/13/24 History alendronate 70 mg tablet 70 mg PO WK 03/01/19 08/13/24 History apixaban 5 mg tablet 5 mg PO BID 04/12/20 08/13/24 History isosorbide dinitrate 10 mg tablet 10 mg PO TID 04/12/20 08/13/24 History aspirin 81 mg chewable tablet 81 mg PO DAILY 01/30/21 08/13/24 History (Aspirin Childrens) ranolazine 500 mg tablet,extended 500 mg PO BID 01/30/21 08/13/24 History release,12 hr metoprolol succinate 100 mg 50 mg PO QAM 04/21/24 08/13/24 History tablet,extended release 24 hr pantoprazole 20 mg tablet,delayed 20 mg PO QAM 04/21/24 08/13/24 History release rosuvastatin 40 mg tablet 20 mg PO QAM 04/21/24 08/13/24 History prednisolone acetate 1 % eye 1 drp OPR HS 07/20/24 08/13/24 History drops,suspension acetaminophen 500 mg tablet 1,000 mg (2 x 500 mg) PO TID #0 07/23/24 08/13/24 Rx (Tylenol Extra Strength) tabs Past Med/Surg History Problem List (Updated 08/13/24 @ 08:42 by Gabriel Ramírez DO) Chronic stable angina Acute on chronic heart failure with preserved ejection fraction Chest pain (Acute) Degenerative joint disease of spine Acute exacerbation of chronic low back pain Abnormal CT scan, pelvis (Acute) Abnormal urinalysis (Acute) Trouble walking (Acute) Low back pain at multiple sites Tachy-trish syndrome Pt admitted for elective ppm. Underwent procedure without any complications; monitored overnight; her coreg was increased and she was discharged home following day. NSTEMI (non-ST elevated myocardial infarction) Demand ischemia of myocardium Paroxysmal atrial fibrillation with rapid ventricular response Atrial fibrillation with RVR (Acute) Atrial fibrillation (Acute) increase coreg and restart eliquis Asthma (Chronic) Scoliosis (Chronic) Back pain, acute (Acute 12/14/13) Shoulder pain (Acute) Medical History Acute hyperglycemia Vertigo Kyphoscoliosis Dyslipidemia CKD (chronic kidney disease), stage III Chronic heart failure with preserved ejection fraction (HFpEF) PAF (paroxysmal atrial fibrillation) Ambulatory dysfunction Dizziness SSS (sick sinus syndrome) Pt admitted for elective ppm. Underwent procedure without any complications; monitored overnight; her coreg was increased and she was discharged home following day. Coronary artery disease Hypertension CHF (congestive heart failure) Surgical History History of cataract surgery History of appendectomy History of coronary artery bypass graft Family History Other Asthma Hypertension Social History Smoking Status: Never smoker Second Hand Exposure: No; Do You Dip or Chew Tobacco: No; Hx Alcohol Use: No Hx Substance Use: No Preferred Language: Jamaican Communication Ability: Effective Doormaker Required: No Beliefs That Will Affect Care: None marital status: Current Living Situation: Alone Feels Safe at Home: Yes Assistive Devices: None Review of Systems Review of Systems: Pertinent positive and negative review of systems as mentioned in the HPI Physical Exam Physical Exam: Constitutional: Alert, mild distress, nontoxic HEENT: Mucous membranes moist. Sclera clear Neck: Soft, no adenopathy Lungs: Decreased breath sounds, Rales at bases bilaterally, dullness right base CV: S1-S2, regular, systolic murmur, pacemaker left chest Abdomen: Soft, nontender, nondistended Extremities: Thick pitting edema up through knee Musculoskeletal: No significant joint tenderness Neuro: No focal deficits Psych: Cooperative, normal mood Results & Data Results & Data Vital Signs (Past 12 Hours) Vital Signs Temp Pulse Pulse Resp BP BP Pulse Ox 08/13/24 07:41 78 24 127/69 96 08/13/24 07:08 08/13/24 07:04 76 24 128/69 96 08/13/24 07:04 76 24 96 08/13/24 06:00 77 22 121/64 95 08/13/24 05:54 72 18 95 08/13/24 05:52 99 08/13/24 05:48 08/13/24 05:43 84 08/13/24 05:42 85 24 136/70 94 08/13/24 05:39 36.9 C 83 18 136/70 95 O2 Del Method O2 Flow Rate 08/13/24 07:41 Room Air 08/13/24 07:08 Room Air 08/13/24 07:04 Room Air 08/13/24 07:04 Room Air 08/13/24 06:00 Room Air 08/13/24 05:54 Room Air 08/13/24 05:52 Room Air 2 08/13/24 05:48 Room Air 08/13/24 05:43 08/13/24 05:42 Room Air 08/13/24 05:39 Room Air Diagnostic Findings Reviewed imaging, laboratory and diagnostic studies. Pertinent findings as below. Personally reviewed EKG, sinus rhythm without acute changes or ST changes Personally reviewed chest x-ray, pulmonary congestion at the bases bilaterally with small pleural effusions. No consolidative infiltrate BNP 1064 Troponin 88-133.8 Creatinine 0.77 Electrolytes stable Hemoglobin 9.6 Reviewed previous echocardiogram
--- NOTE | 2024-08-13 08:59 | Electrocardiogram Report ---
Test Reason : Blood Pressure : */* mmHG Vent. Rate : 81 BPM Atrial Rate : 81 BPM P-R Int : 152 ms QRS Dur : 136 ms QT Int : 430 ms P-R-T Axes : 66 69 65 degrees QTcB Int : 499 ms Sinus rhythm with Premature atrial complexes followed by atrial paced ventricular sensed beats Right bundle branch block ST depression in Anterolateral leads , consider ischemia Abnormal ECG When compared with ECG of 21-Apr-2024 09:10, Premature atrial complexes are now Present Atrial sensing, ventricular pacing now present ST depression in Anterolateral leads more pronounced Confirmed by Anson Metzger ([id number]) on 08/13/2024 8:58:58 AM Referred By: Confirmed By: Anson Metzger
[2024-08-13] MEDS ORDERED: ONDANSETRON INJ 2 MG/ML 2 ML VIAL IV PRN (10:58)
[2024-08-13] MEDS ORDERED: NITROGLYCERIN SL 0.4 MG/TAB TAB SL PRN (10:58)
[2024-08-13] MEDS ORDERED: MAGNESIUM HYDROXIDE SUSP 30 ML UDC PO PRN (10:58)
[2024-08-13] MEDS ORDERED: ALUMINUM/MAGNESIUM SUSP 30 ML UDC PO PRN (10:58)
--- NOTE | 2024-08-13 11:13 | Cardiology Consultation ---
Date of Consultation August 13, 2024 Assessment & Plan (1) Acute on chronic heart failure with preserved ejection fraction: (2) Demand ischemia of myocardium: Echocardiogram results from today as noted. Agree with current plan for furosemide 40 mg IV twice daily as blood pressure and renal function permits. Continue chronic treatment with Eliquis, aspirin, losartan, isosorbide dinitrate, metoprolol, Ranexa. As noted, patient was found to have an operable CAD at time of cardiac catheterization 11 years ago. Ongoing medication therapy recommended with regards to ischemic heart disease. History of Present Illness Attending Physician: Gabriel Ramírez, History of Present Illness Zarina Vines is an 89 year old female seen in cardiology consultation per the request of Dr Ramírez for the evaluation of acute on chronic heart failure with demand ischemia. Patient seen in the emergency department , room A10. Her daughter Roopa Bartlett , who is a school counselor at [employer] was at the bedside. Zarina lives alone. Roopa and her live nearby and look in on her. She describes that she has had progressive shortness of breath x 1 week and notes that her legs have become more swollen. This morning at 3 AM she felt acute sensation of a fluttering in the heart and also felt short of breath. She asked her daughter to come over and ultimately she presented to the emergency department. She had received 60 mg of IV furosemide prior to my arrival and noted already feeling improved. Telemetry revealed sinus rhythm in the 70s to 80s without arrhythmia. She had been admitted in July, for low back pain. Stable cardiac signs and symptoms at that time. History: 1.Chronic severe CAD with stable class 3 angina pectoris. CABG 2007, LYONS to LAD, SVG to LCx 2.Hospitalization in October 2019 with symptomatic paroxysmal atrial fibrillation, non ST segment elevation myocardial infarction in the setting of known severe chronic coronary artery disease - [place] [facility] [place], left main and left circumflex stenosis with patent LYONS to LAD and occluded SVG to LCX. LCx intervention not performed secondary to severe LM disease. 3.Paroxysmal atrial fibrillation. 1.Amiodarone discontinued in January 2020 due to hyperthyroidism. 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 5.Symptomatic premature ventricular complexes. 6.Diastolic congestive heart failure, HFpEF 7.Hypertension 8.Kyphoscoliosis with restricted respiratory physiology 9.Dyslipidemia. 10.CKD 3. 11.Dizziness Allergies Allergy/AdvReac Type Severity Reaction Status Date / Time lisinopril Allergy Unknown "THROAT Verified 08/13/24 08:08 CLOSES" sulfamethoxazole Allergy Unknown RASH Verified 08/13/24 08:08 aspirin AdvReac Unknown BLEEDING Verified 08/13/24 08:18 Home Medications Medication Instructions Recorded Confirmed Type ferrous sulfate 325 mg (65 mg 325 mg PO DAILY ##0 12/14/13 08/13/24 History iron) tablet nitroglycerin 0.4 mg sublingual 0.4 mg sublingual DIRECTED PRN 12/14/13 08/13/24 History tablet Chest Pain #0 BTLS vitamins A,C,W-kodm-iwzles 4,296 1 cap PO BID ##0 12/14/13 08/13/24 History mcg-226 mg-90 mg capsule (PreserVision AREDS) furosemide 20 mg tablet 10 mg PO DAILY #0 tabs 06/18/17 08/13/24 History potassium chloride 20 mEq 20 meq PO DAILY #0 tabs 06/18/17 08/13/24 History tablet,extended release irbesartan 75 mg tablet 37.5 mg PO HS ##0 01/27/18 08/13/24 History alendronate 70 mg tablet 70 mg PO WK 03/01/19 08/13/24 History apixaban 5 mg tablet 5 mg PO BID 04/12/20 08/13/24 History isosorbide dinitrate 10 mg tablet 10 mg PO TID 04/12/20 08/13/24 History aspirin 81 mg chewable tablet 81 mg PO DAILY 01/30/21 08/13/24 History (Aspirin Childrens) ranolazine 500 mg tablet,extended 500 mg PO BID 01/30/21 08/13/24 History release,12 hr metoprolol succinate 100 mg 50 mg PO QAM 04/21/24 08/13/24 History tablet,extended release 24 hr pantoprazole 20 mg tablet,delayed 20 mg PO QAM 04/21/24 08/13/24 History release rosuvastatin 40 mg tablet 20 mg PO QAM 04/21/24 08/13/24 History prednisolone acetate 1 % eye 1 drp OPR HS 07/20/24 08/13/24 History drops,suspension acetaminophen 500 mg tablet 1,000 mg (2 x 500 mg) PO TID #0 07/23/24 08/13/24 Rx (Tylenol Extra Strength) tabs Patient History Medical History Acute hyperglycemia Vertigo Kyphoscoliosis Dyslipidemia CKD (chronic kidney disease), stage III Chronic heart failure with preserved ejection fraction (HFpEF) PAF (paroxysmal atrial fibrillation) Ambulatory dysfunction Dizziness SSS (sick sinus syndrome) Pt admitted for elective ppm. Underwent procedure without any complications; monitored overnight; her coreg was increased and she was discharged home following day. Coronary artery disease Hypertension CHF (congestive heart failure) Surgical History History of cataract surgery History of appendectomy History of coronary artery bypass graft Family History Other Asthma Hypertension Social History Smoking Status: Never smoker Second Hand Exposure: No; Do You Dip or Chew Tobacco: No; Hx Alcohol Use: No Hx Substance Use: No Preferred Language: Luxembourgish Communication Ability: Effective Principal Account Clerk Required: No Beliefs That Will Affect Care: None marital status: Current Living Situation: Alone Feels Safe at Home: Yes Assistive Devices: None Review of Systems Review of Systems: All systems reviewed & are unremarkable except as noted in HPI & below Physical Exam Physical Exam: Temp Pulse Resp BP Pulse Ox O2 Del Method O2 Flow Rate 36.9 C 82 20 121/72 96 Room Air 2 08/13/24 05:39 08/13/24 10:05 08/13/24 10:05 08/13/24 10:05 08/13/24 10:05 08/13/24 10:59 08/13/24 05:52 General: no acute distress and stated age Eyes: conjunctiva are pink and non-injected, sclera clear Neck: normal jugular venous pulse, no hepatojugular reflux Chest: normal shape and normal respiratory effort -Left-sided infraclavicular pacemaker po cket clean dry and intact, no erythema Lungs: clear to auscultation and percussion Cardiac Exam: - regular heart sounds, no murmurs, rubs, or gallops, no jugular venous distention Abdomen: abdomen soft, non-tender, no abnormal masses and no hepatosplenomegaly Musculoskeletal: no gait disturbance, no weakness Extremities: 1+ bilateral lower extremity edema Neuro:awake, conversant, follows commands, no focal motor deficits Psych: appropriate affect and insight. Results & Data Laboratory Results Cardiac Enzymes 08/13/24 08/13/24 Range/Units 05:46 07:45 Troponin I High Sens 88.3 H* 133.8 H* D (0-14) pg/ml B-Natriuretic Peptide 1064 H (0-100) pg/ml Coagulation 08/13/24 08/13/24 Range/Units 05:46 07:45 PT 12.7 H (9.0-12.0) Seconds APTT 31 (21-31) Seconds B-Natriuretic Peptide 1064 H (0-100) pg/ml CBC 08/13/24 Range/Units 05:46 WBC 7.83 (4.8-10.8) K/ul RBC 3.05 L (4.20-5.40) M/uL Hgb 9.6 L (12.0-16.0) g/dl Hct 29.7 L (37.0-47.0) % Plt Count 190 (130-400) K/uL Neut # (Auto) 5.33 (1.40-6.50) K/uL Lymph # (Auto) 1.35 (1.20-3.40) K/uL Door # (Auto) 0.94 H (0.11-0.59) K/uL Eos # (Auto) 0.08 (0.00-0.50) K/uL Baso # (Auto) 0.07 (0.00-0.20) K/uL Comprehensive Metabolic Panel 08/13/24 Range/Units 05:46 Sodium 141 (136-145) mmol/L Potassium 4.1 (3.5-5.1) mmol/L Chloride 110 H (98-107) mmol/L Carbon Dioxide 26 (21-32) mmol/L BUN 22 (6-23) mg/dl Creatinine 0.77 (0.6-1.2) mg/dl Glucose 116 H (70-99(Fasting)) mg/dl Calcium 9.1 (8.6-10.3) mg/dl Intake and Output 08/12/24 08/13/24 08/13/24 22:59 06:59 14:59 Output Total 200 / 200 Balance -200 / -200 Output: Urine 200 / 200 Other: Weight 72.2 kg Weight Measurement Method Chair Scale Chest x-ray performed 08/13/2024 and interpreted independently: Mild interstitial edema bilaterally Diagnostic Findings EKG performed this morning 08/13/2024 at 5:41 AM and interpret independently revealed atrial paced sinus rhythm with frequent premature atrial contractions right bundle branch block, mild ST changes in the anterior precordial leads and lateral leads that are slightly more prominent than the previous tracing dating back to April, Summary of transthoracic echocardiogram performed today 08/13/2024: The study is technically adequate for the evaluation of the referral indication. Sinus rhythm was present during the echocardiogram. There is moderate concentric left ventricular hypertrophy. There is a moderate sized posterior and lateral wall motion abnormality with hypokinesis of the segments. Left ventricular systolic function is low normal. Left Ventricular Ejection Fraction = 50-55%. Aortic valve sclerosis mild, without significant aortic valvular stenosis. There is mild to moderate mitral regurgitation. Pulmonary systolic pressure is estimated be 38 mmHg (mildly elevated). Aortic root is mildly dilated, 3.9 cm. Compared to the previous study performed 10/24/2019, the LVEF and regional wall motion is relatively unchanged. Grade II diastolic function is now noted.
[2024-08-13] MEDS: RANOLAZINE 500 MG ER TAB PO SCH (15:46)
[2024-08-13] MEDS: METOPROLOL SUCC 50MG EXT REL TAB PO SCH (15:46)
[2024-08-13] MEDS: ASPIRIN 81 MG CHEW PO SCH (15:46)
[2024-08-13] MEDS: PANTOprazole 40 MG TAB PO SCH (15:46)
[2024-08-13] MEDS: POTASSIUM CHLORIDE CRTAB 20 MEQ TABCR PO SCH (15:46)
[2024-08-13] MEDS: APIXABAN 5 MG TABLET PO SCH (15:46)
[2024-08-13] MEDS: FERROUS SULFATE 325 MG TAB PO SCH (15:47)
[2024-08-13] MEDS: ACETAMINOPHEN 500 MG TAB PO SCH (15:47)
[2024-08-13] MEDS: ROSUVASTATIN CALCIUM 20 MG TAB PO SCH (15:47)
[2024-08-13] MEDS: CEROVITE ADV FORMULA TAB PO SCH (15:47)
[2024-08-13] MEDS: POLYETHYLENE (MIRALAX) 17 GM PACK PO SCH (15:48)
[2024-08-13] MEDS: ISOSORBIDE DINITRATE 5 MG TAB PO SCH (16:23)
[2024-08-13] MEDS: FUROSEMIDE 40 MG/4 ML VIAL IV SCH (17:01)
[2024-08-13] MEDS: LOSARTAN POTASSIUM 25 MG TAB PO SCH (21:05)
[2024-08-13] MEDS: prednisoLONE acetate 1% OP SUSP 5 ML BTL OPR SCH (21:15)
[2024-08-14 07:11] LABS: Hematocrit (blood only) 27.8 % (37.0-47.0); Hemoglobin 9.3 g/dl (12.0-16.0); Mean Corpuscular Hgb Conc 33.5 g/dL (32.0-36.0); Mean Corpuscular Volume 95.5 fL (80.0-100.0); Mean Platelet Volume 10.1 fL (9.4-12.4); Platelet Count 179 K/uL (130-400); RDW Coefficient of Variation 19.1 % (11.5-14.5); RDW Standard Deviation 63.7 fL (36.4-46.3); Red Blood Count 2.91 M/uL (4.20-5.40); White Blood Count 6.64 K/ul (4.8-10.8)
[2024-08-14 07:37] LABS: BUN Creatinine Ratio 26.3 (10-20); Calcium 8.7 mg/dl (8.6-10.3); Creatinine Clr Calc Pharmacy 36.4 ml/min; Magnesium 1.8 mg/dl (1.7-2.4); Potassium 3.9 mmol/L (3.5-5.1)
--- NOTE | 2024-08-14 11:51 | Cardiology Progress Note ---
Date of Service August 14, 2024 Assessment & Plan (1) Acute on chronic heart failure with preserved ejection fraction: (2) Demand ischemia of myocardium: (3) Chronic stable angina: (4) Tachy-trish syndrome: (5) Cardiac pacemaker in situ: Plan Admission on 08/13/2024 with acute decompensated diastolic congestive heart failure Patient with ongoing evidence of acute decompensation, responding well to IV Lasix Severe coronary artery disease with CCS class 3+ angina, inoperable CAD managed medically Symptomatic paroxysmal atrial fibrillation previously treated with amiodarone, discontinued in January 2020 secondary to hyperthyroidism Chronic Eliquis anticoagulation 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 Kyphoscoliosis with restricted respiratory physiology * Continue IV furosemide at 40 mg twice per day. * Supplement potassium and magnesium. * Evaluate need for ongoing IV furosemide in a.m. of August 15, 2024 * Prior to arrival diuretic regimen was furosemide 10 mg daily along with 20 mEq of potassium chloride. * Considering the addition of spironolactone * Continue Eliquis, aspirin, ARB, isosorbide dinitrate, metoprolol, Ranexa, rosuvastatin. * Maintain telemetry Admission and Anticipated Discharge Date Admission Date: August 13, 2024 Supervising Physician Co-Signing Physician Notes I spent a total of 30 minutes on the date of service in preparation, delivery, and documentation of the care provided to this patient, excluding any time spent in the performance of separately billed services. I have personally performed a history and physical examination on the patient. I have reviewed the advance practitioner's documentation, and I agree with, and take responsibility for the plan of care. Subjective Patient seen and examined. Chart, medications, telemetry reviewed. Feeling better today though still not back to baseline Ongoing nonproductive cough, dyspnea, lower extremity peripheral edema. No chest pain. No further palpitations. No PND. Telemetry: Sinus rhythm, heart rates predominantly in the 60s and 70s, occasional PVC. I's/O's -2760 mL overall Review of Systems Review of Systems: Complete Review of Systems is as stated above, negative, or noncontributory Physical Exam Physical Exam: Examined in a chair General: A&Ox3. NAD. + kyphoscoliosis. HENT: Normocephalic. Atraumatic. Eyes: Conjunctiva pink, no scleral icterus. Neck: JVD. Heart: Regular 76 bpm. Grade II/ systolic murmur. No diastolic murmur. Lungs: Diminished at the bases, with bibasilar rales. No wheeze. Abdomen: Normal bowel sounds. Soft. Nontender. No masses or organomegaly. No abdominal bruits. Extremities: Trace to 1+ edema. No clubbing. No cyanosis. Pulses: radial=2/4, posterior tibial=1/4. Neuro: No focal deficits. Results & Data Vital Signs (Past 12 Hours) Vital Signs Temp Pulse Pulse Resp BP Pulse Ox O2 Del Method 08/14/24 11:20 36.5 C 78 16 109/64 95 Room Air 08/14/24 10:44 Room Air 08/14/24 08:12 72 08/14/24 07:21 36.6 C 74 16 137/78 97 Room Air 08/14/24 04:45 36.4 C L 71 20 120/69 95 Room Air Laboratory Results Cardiac Enzymes 08/13/24 08/13/24 Range/Units 11:35 14:13 Troponin I High Sens 175.0 H* D 189.4 H* (0-14) pg/ml CBC 08/14/24 Range/Units 05:21 WBC 6.64 (4.8-10.8) K/ul RBC 2.91 L (4.20-5.40) M/uL Hgb 9.3 L (12.0-16.0) g/dl Hct 27.8 L (37.0-47.0) % Plt Count 179 (130-400) K/uL Comprehensive Metabolic Panel 08/14/24 Range/Units 05:21 Sodium 142 (136-145) mmol/L Potassium 3.9 (3.5-5.1) mmol/L Chloride 105 (98-107) mmol/L Carbon Dioxide 30 (21-32) mmol/L BUN 26 H (6-23) mg/dl Creatinine 0.99 (0.6-1.2) mg/dl Glucose 91 (70-99(Fasting)) mg/dl Calcium 8.7 (8.6-10.3) mg/dl Intake and Output 08/13/24 08/14/24 08/14/24 22:59 06:59 14:59 Intake Total 340 / 340 Output Total 1100 / 3100 Balance -760 / -2760 Intake: Oral 340 / 340 Output: Urine Amount (Catheter) 1100 / 1100 External 1100 / 1100 Other: Other Intake Source sips Weight 81.8 kg Weight Measurement Method Built in [facility]
--- NOTE | 2024-08-14 13:03 | Hospitalist Progress Note ---
Date of Service August 14, 2024 Assessment & Plan (1) Acute on chronic heart failure with preserved ejection fraction: (2) Demand ischemia of myocardium: (3) PAF (paroxysmal atrial fibrillation): (4) CKD (chronic kidney disease), stage III: (5) Coronary artery disease: (6) Chronic stable angina: Plan Continue IV diuretic A-CYS through today, anticipate transitioning to a higher dose oral Lasix tomorrow Therapies Compression stockings Monitor electrolytes and renal function Cardiology recommendations reviewed Extensive conversation with patient and son and [id number] at bedside. They are concerned about her returning home. She feels she is much more confident going home now with that the swelling is improved. They state that they were going to get some home health care in possibly by the name of Malachi Martinez. Will have case management discussed with the patient and family about home health care possibilities. Admission and Anticipated Discharge Date Admission Date: August 13, 2024 Subjective Patient feels significantly improved. Feels like she can get around better that she has significant decrease swelling in her legs. Breathing much easier chest heaviness resolved Physical Exam Physical Exam: Constitutional: Alert HEENT: Mucous membranes moist. Lungs: improved airflow, few crackles at bases CV: S1-S2, regular Abdomen: Soft, nontender, nondistended Extremities: Significantly decreased edema lower extremities Neuro: No focal deficits Psych: Cooperative, normal mood Results & Data Results & Data Vital Signs (Past 12 Hours) Vital Signs Temp Pulse Pulse Resp BP Pulse Ox O2 Del Method 08/14/24 11:20 36.5 C 78 16 109/64 95 Room Air 08/14/24 10:44 Room Air 08/14/24 08:12 72 08/14/24 07:21 36.6 C 74 16 137/78 97 Room Air 08/14/24 04:45 36.4 C L 71 20 120/69 95 Room Air Diagnostic Findings Reviewed imaging, laboratory and diagnostic studies. Pertinent findings as below. Negative greater than 2.5 L output Hemoglobin 9.3 Electrolytes stable Creatinine 0.99 Echocardiogram shows preserved ejection fraction 50 to 55%, however some hypokinesia of the posterior lateral pineda left ventricle, mild pulmonary pretension, mild mitral regurg. I refer you to the full report for details
[2024-08-14] MEDS: POTASSIUM CHLORIDE CRTAB 20 MEQ TABCR PO SCH (13:22)
--- OUTSIDE RECORDS SUMMARY | 2024-08-14 14:40 | External Medical Summary | Summary of Care ---
Author Name Unknown Organization [facility] Address [address] [place] [address] Phone [phone] Care Team Providers Care Harnessmaker Name Role Phone Emely Christine Primary Care Provider [phone] Reason for Visit * Reason Onset Date Comments Hospital Follow-Up Patient is he re for a hospital follow up from [facility] d/c on 08/02.. Patient is having pain at her L hip again since being discharged from [facility]- can not do recommended exercises due to pain. Patient would like to discuss becoming SOB with exertion as well. 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 stage 3a chronic kidney disease (HCC); Essential hypertension with goal blood pressure less than 140/90; Paroxysmal atrial fibrillation (HCC); Chronic heart failure with preserved ejection fraction (HCC) Allergies Active Allergy Reactions Criticality Noted Date Comments Aspirin Bleeding High 03/01/2019 Lisinopril Edema airway High 05/02/2009 Pollen Wheezing 03/01/2019 Sulfa Antibiotics Rash 05/14/1999 documented as of this encounter (statuses as of 08/09/2024) Medications aspirin 81 MG chewable tabletIndications:P hlebitis and thrombophlebitis of superficial vessels of lower extremities 1 TABLET DAILY 100 0 008 Active PREDNISOLONE ACETATE 1 % OP SUSP Instill 1 Drop into the right eye at bedtime. 013 Active PRESERVISION AREDS 2 PO CAPS one by mouth twice a day Active Ferrous Sulfate 325 (65 Fe) MG Oral Tablet Take 1 Tablet by mouth daily with breakfast. Active Polyethylene Glycol 3350 17 GM/SCOOP Oral Powder Take 17 g by mouth as needed. 022 Active Fluticasone Propionate 50 MCG/ACT Nasal Suspension (Flonase) Administer 2 Sprays into each nostril in the morning. 16 g 1 023 Active Montelukast Sodium 10 MG Oral Tablet (Singulair) Take 1 Tablet by mouth in the morning. 90 Tablet 3 023 Active Fluticasone Propionate HFA 110 MCG/ACT Inhalation Aerosol (Flovent HFA)Indications:Mod erate persistent asthma, unspecified whether complicated Inhale 2 Puffs by mouth as needed for Wheezing. 12 g 10 023 Active busPIRone HCl 5 MG Oral Tablet (Buspar)Indications :Anxiety state Take 1 Tablet by mouth at bedtime as needed (anxiety). 60 Tablet 2 023 Active Amoxicillin 500 MG Oral Capsule (Amoxil) 023 Active Albuterol Sulfate HFA 108 (90 Base) MCG/ACT Inhalation Aerosol Solution Inhale 2 Puffs by mouth as needed for Wheezing or Shortness of Breath. 18 g 5 024 Active Arnuity Ellipta 100 MCG/ACT Inhalation Aerosol Powder Breath Activated (fluticasone Furoate) Inhale 1 Puff by mouth in the morning. 30 Each 3 024 Active Alendronate Sodium 70 MG Oral Tablet (Fosamax) TAKE ONE TABLET BY MOUTH ONCE A WEEK, WITH 8 OUNCES OF WATER 30 MINUTES BEFORE EATING. REMAIN UPRIGHT FOR 30 MINUTES AFTER TAKING. 12 Tablet 1 024 Active Nitroglycerin 0.4 MG Sublingual Tablet Sublingual (Nitrostat)Indicati ons:Angina pectoris (HCC) One pill under tongue every 5 minutes as needed for chest pain, maximum 3 doses 25 Tablet 11 Active Rosuvastatin Calcium 40 MG Oral Tablet (Crestor)Indication s:Dyslipidemia, goal LDL below 70 Take 0.5 Tablets by mouth daily. 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 45 Tablet 3 Active Zoster Vac Recomb Adjuvanted 50 MCG/0.5ML Intramuscular Suspension Reconstituted (Shingrix)Indicatio ns:Need for shingles vaccine Inject 0.5 mL into a large muscle now and repeat dose in 60 to 180 days 1 Each 1 Active Additional Information Patient not taking.Reported on 08/09/2024 Eliquis 5 MG Oral Tablet (Apixaban)Indicatio ns:Paroxysmal atrial fibrillation (HCC) TAKE 1 TABLET BY MOUTH IN THE MORNING AND BEFORE BEDTIME 180 Tablet 3 024 Active Hydrocortisone (Perianal) 2.5 % External CreamIndications:He morrhoids, external without complications ADMINISTER INTO RECTUM TWICE A DAY 30 g 2 024 Active Klor-Con M20 20 MEQ Oral Tablet Extended Release (Potassium Chloride ER)Indications:Hypo kalemia TAKE 1 TABLET BY MOUTH EVERY DAY IN THE MORNING 90 Tablet 3 024 Active Isosorbide Dinitrate 10 MG Oral Tablet (Isordil)Indication s: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 024 Active Fluticasone Propionate 50 MCG/ACT Nasal Suspension (Flonase) Administer 2 Sprays into each nostril in the morning. 9.9 mL 6 024 Active Furosemide 20 MG Oral Tablet (Lasix)Indications: Heart failure, systolic, due to CAD (HCC) TAKE 0.5 TABLETS BY MOUTH IN THE MORNING. TAKE AN EXTRA HALF TABLET DAILY NEEDED FOR SWELLING.. 45 Tablet 1 024 Active Metoprolol Succinate ER 50 MG Oral Tablet Extended Release 24 Hour (toPROL XL)Indications:Esse ntial hypertension with goal blood pressure less than 140/90,Paroxysmal atrial fibrillation (HCC) Take 1 Tablet by mouth in the morning. 90 Tablet 3 024 Active Metoprolol Succinate ER 100 MG Oral Tablet Extended Release 24 Hour (toPROL XL)Indications:Esse ntial hypertension with goal blood pressure less than 140/90,Paroxysmal atrial fibrillation (HCC) TAKE 1 TABLET BY MOUTH EVERY DAY IN THE MORNING 90 Tablet 3 024 2023 Discontinued documented as of this encounter (statuses as of 08/09/2024) Active Problems Problem Noted Date Diagnosed Date [...] as of this encounter (statuses as of 08/09/2024) Resolved Problems Problem Noted Date Diagnosed Date [...] Prediabetes protocol #1 - [employer] Other*[id number] 08/12/2013 10/08/2016 Overview (08/12/2013): Study Title: Genomic Markers for Patients with Cardiovascular Disease Project # [id number] Neon Sign Erector: Swati Ashraf MD [phone] Chest pain 08/06/2013 08/09/2013 Screening for iron [...] posthemorrhagic anemia 09/08/2007 08/19/2017 Coronary atherosclerosis of [place] coronary artery 09/03/2007 12/11/2018 Other nonspecific abnormal c ardiovascular system function study 07/29/2007 09/22/2007 Dyslipidemia, goal to be determined 10/23/2001 08/10/2009 Overview (08/10/2009): Per Lipid Taxonomy. PURE HYPERCHOLESTEROLEM 09/29/200008/01 Respiratory symptoms 008 Overview (06/03/2019): ICD-10 update of inactive term BENIGN HYPERTENSION 08/18/20 08 documented as of this encounter (statuses as of 08/09/2024) Immunizations Name Administration Dates Next Due COVID-19 [...] No 03/05/2024 Does the household have a [facility] source of income? (Household - for ages [...] Sign Reading Time Taken Comments Blood Pressure 111/50 08/09/2024 9:22 AM EST Pulse 55 08/09/2024 9:22 AM EST Temperature 35.9 C (96.6 F) 08/09/2024 9:22 AM ES T Respiratory Rate 20 08/09/2024 9:22 AM EST Oxygen Saturation 96% 08/09/2024 9:22 AM EST Inhaled Oxygen Concentration - - Weight 68 kg (150 lb) 08/09/2024 9:22 AM EST Height - - Body Mass Index 31.35 03/29/2024 4:28 PM EDT documented in this encounter Patient Instructions * Patient Instructions* Claude Flores MD - 08/09/2024 9:56 AM EST Maximum dose of tylenol is 1000 mg four times daily. I recommend this rather than celbrex or ibuprofen. Celebrex and ibuprofen puts you at risk of kidney issues and bleeding due to interaction with eliquis. You may also get benefit from lidocaine patch, heat/ice, and voltaren gel (OTC cream) which can be used 4 times daily and acts as a topical ibuprofen/celebrex but does not put you at risk of kidney problems or bleeding. We have cut your metoprolol in half to 50 mg daily due to lightheadedness and dizziness along with slow heart rate and low BP. I would recommend calling the number on the back of your insurance card to ask about alf care. They should be able to give you the names of local care companies who may be covered. I would thenreach out to these companies to discuss care. They will often send paperwork to our office to ensure you qualify. Continue work with home PT. We could double your lasix dose for 3 days to help with the leg swelling. At the moment I worry this might drop your blood pressure. If you are feeling better on the lower dose of metoprolol in the next week or two and leg swelling continues, let the office know and we can instruct you on how to increase the lasix for a short time. Claude Flores MD documented in this encounter Progress Notes * Claude Flores MD - 08/09/2024 9:30 AM EST Images from the original note were not included. Assessment and Plan Patient doing reasonably well overall despite having ongoing left hip pain. I did recommend she useTylenol 1000 mg up to 4 times daily for pain. Recommend stopping Celebrex or any other NSAID given risk of interaction with Eliquis. She will benefit from lidocaine patch/heat/ice/Voltaren gel as well. She was having lightheadedness and dizziness and blood pressure at 111/50. Her heart rate was 50 in the office. Recommend cutting her metoprolol in half. New script for 50 mg daily sent to the pharmacy. We did discuss potentially getting assistance at home. Recommend that she reaches out to localcompanies to discuss options. I did discuss that it was difficult to get this covered by insurance at times. We will fill out any appropriate paperwork needed from the local company. She does have trace to 1+ edema of the ankles bilaterally. She was wearing compression stockings. Recommend ongoing use of compression stockings and elevating the legs. Could consider an increase dose of Lasix for a few days, however, want to hold off on this for now given borderline low blood pressure and lighthead edness/dizziness. 1. Hip pain, left 2. 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 Essential hypertension with goal blood pressure less than 140/90 - Metoprolol Succinate ER 50 MG Oral Tablet Extended Release 24 Hour (toPROL XL); Take 1 Tablet by mouth in the morning. Dispense: 90 Tablet; Refill: 3 5. Paroxysmal atrial fibrillation (HCC) - Metoprolol Succinate ER 50 MG Oral Tablet Extended Release 24 Hour (toPROL XL); Take 1 Tablet by mouth in the morning. Dispense: 90 Tablet; Refill: 3 6. Chronic heart failure with preserved ejection fraction (HCC) 7. Hospital discharge follow-up (Primary) - DISCH MED RECON CUR MED LIS Wrap-Up Follow up as scheduled with PCP. History of Present Illness The patient was an 89-year-old female with past medical history of dyslipidemia, exertional angina,heart failure with preserved ejection fraction, CKD stage IIIA, sick sinus syndrome s/p pacemaker, osteoporosis who presents for hospital follow up. Patient was admitted to [facility] from 07/20/2024 through 07/23/2024. She was then discharged to [facility] rehab. Patient presented due to hip pain. Lumbar CT showed severe lumbar spine scoliosis with multilevel degenerative changes within the lumbar spine. A pelvic CT showed colonic diverticulosis with equivocal mild acute diverticulitis. She was given Tylenol and tramadol along with lidocaine patches. All other health conditions were stable. She was discharged from this for rehab. Today patient reports that she has ongoing pain in the hip. She has been using Tylenol along with Celebrex for pain. Patient also has a number of other concerns including swelling of the legs and lightheadedness/dizziness. She has had some low blood pressures as well with blood pressure in office today 111/50. She was concerned about her ability to live at home as she lives alone though does havefamily members with an phyllis to of her house. She was interested in home instead or similar home assistance service. Physical Exam Vitals: 08/09/24921 Temp: 96.6 F (35.9 C) Pulse: 55 Resp: 20 SpO2: 96% BP: 111/50 Physical Exam Physical Exam Vitals reviewed. Constitutional: General: She is not in acute distress. Cardiovascular: Rate and Rhythm: Normal rate and regular rhythm. Heart sounds: No murmur heard. Pulmonary: Effort: Pulmonary effort is normal. No respiratory distress. Breath sounds: Normal breath sounds. No wheezing. Musculoskeletal: Comments: Difficult hip exam given patient was in a wheelchair. No obvious bruising. Bilateral trace to 1+ edema. Wearing compression stockings. Skin: General: Skin is warm and dry. Neurological: General: No focal deficit present. Mental Status: She is alert. Time: I spent a total of 40-54 minutes (exact time 44 mins) on the date of service in preparation, delivery, and documentation of the care provided to the patient excluding any time spent in the performance of separately billed services. This note has been completed in part utilizing [employer] Speech Voice Recognition Software. Due to technical limitations of the software, grammatical errors, random word insertions, prounoun errors, and incomplete sentences may occur. Any formal questions or concerns about the content, text, or information contained within the body of this dictation should be directly addressed to the provider for clarification. documented in this encounter Nursing Notes * Effie Driscoll LPN - 08/09/2024 9:22 AM EST The patient has been properly identified by confirmation of name and date of . Chief Complaint Patient presents with Hospital Follow-Up Patient is here for a hospital follow up from [facility] d/c on 08/02.. Patient is having pain at her L hip again since being discharged from [facility]- can not do recommended exercises due to pain. Patient would like to discuss becoming SOB with exertion as well. documented in this encounter Plan of Treatment Upcoming Encounters Date Type Department Care Team (Late st Contact Info) Description 09/08/2024 11:00 AM EST Office Visit Cardiology, [facility] [address] [place] [phone] Vianey Morillo CRNP [address] [place] [phone] 09/24/2024 9:30 AM EST [facility] [place] [facility] [address] [facility] [place] [phone] Emely Christine, DO [address] [facility] [place] [address] 10/05/2024 3:15 PM EST Office Visit Ophthalmology, [facility] [address] [place] [phone] Yaniv Jacobs [address] [facility] [place] [address] 10/12/2024 1:00 PM EST Nurse Only Ancillary Department, [place] [facility] [address] [facility] [place] [address] Nahid, Nurse [facility] [address] [facility] [place] [phone] 03/22/2025 11:00 AM EDT [facility] [place] [facility] [address] [facility] [place] [phone] Gertrude Cooper PA-C [address] [place] [address] [place] [address] Health Maintenance Due Date Last Done Comments Zoster Vaccines (2 of 3) 06/12/2011 04/17/2011 DXA Scan 08/08/2023 08/08/2021, 12/0 04/2021, 12/29/2018, Additional history exists Albumin/Creatinine Ratio 04/30/2024 04/30/2023 COVID-19 Vaccine ( season) 2024 08/05/2022, 08/06/2021, 10/27/2020, Additional history exists Adult Wellness Visit 10/09/2024 10/09/2023, 10/07/19 Depression Screening 10/09/2024 10/09/2023 CKD PHOS USE SMARTSET 26045 02/23/202501/31, 06/21/2022, 01/30/2021, Additional history exists CKD HGB USE SMARTSET 07721 07/31/202507/31, 07/24/2024, 02/24/2024, Additional history exists DTap/Tdap Vaccines (2 - Td or Tdap) 12/22/2028 12/22/2018, 07/06/2008, 12/30/1992 VITAMIN D LEVEL ONCE IN A LIFETIME-USE SMARTSET# [id number] Completed 06/02/2008 Influenza Vaccine (FLU shot) Completed , 07/11/2023, 06/21/2022, Additional history exists Pneumococcal Vaccine: 65+ Years Completed 07/21/2024, 02/15/2015, 04/01/2001 HPV (Gardasil) Vaccine Aged Out [...] as of this encounter Visit Diagnoses Diagnosis Hospital discharge follow-up- Primary Other follow-up examination Hip pain, left Pain in joint, pelvic region and thigh 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) 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 stage 3a chronic kidney disease (HCC) Essential hypertension with goal blood pressure less than 140/90 Paroxysmal atrial fibrillation (HCC) Atrial fibrillation Chronic heart failure with preserved ejection fraction (HCC) documented in this encounter Advance Directives * Full Code (Latest Code Status on File) Date Activated Date Inactivated Comments 09/07/2007 3:02 PM 09/13/2007 9:02 PM * Full Code Date Activated Date Inactivated Comments 09/03/2007 8:43 PM 09/07/2007 3:02 PM Care Teams Harnessmaker Relationship Specialty Start Date End Date Emely Christine DO [address] [place] [address] PCP - General Family Medicine 10/20/19 documented as of this encounter
--- OUTSIDE RECORDS SUMMARY | 2024-08-14 14:40 | External Medical Summary | Summary of Care ---
Author Name Unknown Organization [facility] Address [address] [place] [address] Phone [phone] Care Team Providers Care Metal Fabrication Supervisor Name Role Phone Emely Christine DO Primary Care Provider Reason for Visit * Reason Onset Date Comments Advice 06/09/2024 Encounter Details Date Type Department Care Team (Late st Contact Info) Description 06/09/2024 Telephone [facility] [address] [place] [address] Emely hCristine [address] [place] [address] Advice Allergies Active Allergy Reactions Criticality Noted Date Comments Aspirin Bleeding High 03/01/2019 Lisinopril Edema airway High 05/02/2009 Pollen Wheezing 03/01/2019 Sulfa Antibiotics Rash 05/14/1999 documented as of this encounter (statuses as of 07/20/2024) Medications aspirin 81 MG chewable tabletIndications:Ph lebitis [...] 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),Exertional angina (HCC),Angina pectoris (HCC) TAKE 1 TABLET BY MOUTH IN THE MORNING AND BEFORE BEDTIME 180 Tablet 3 02/25/20 24 Active Irbesartan 75 MG Oral Tablet (Avapro)Indications: 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 [...] :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 [...] as of this encounter (statuses as of 07/20/2024) Active Problems Problem Noted Date Diagnosed Date [...] as of this encounter (statuses as of 07/20/2024) Resolved Problems Problem Noted Date Diagnosed Date [...] Prediabetes protocol #1 - [employer] Other*[id number] 08/12/2013 10/08/2016 Overview (08/12/2013): Study Title: Genomic Markers for Patients with Cardiovascular Disease Project # [id number] Consumer Services Consultant: Swati Ashraf MD [phone] Chest pain 08/06/2013 08/09/2013 Screening for iron [...] posthemorrhagic anemia 09/08/2007 08/19/2017 Coronary atherosclerosis of [place] coronary artery 09/03/2007 12/11/2018 Other nonspecific abnormal c ardiovascular system function study 07/29/2007 09/22/2007 Dyslipidemia, goal to be determined 10/23/2001 08/10/2009 Overview (08/10/2009): Per Lipid Taxonomy. PURE HYPERCHOLESTEROLEM 09/29/200008/01 Respiratory symptoms 008 Overview (06/03/2019): ICD-10 update of inactive term BENIGN HYPERTENSION 08/18/20 08 documented as of this encounter (statuses as of 07/20/2024) Immunizations Name Administration Dates Next Due COVID-19 [...] encounter Miscellaneous Notes * Telephone Encounter - Effie Gibbons LPN - 07/20/2024 12:51 PM EST Alma Delia from the pt assistance Nina Mcmahon calling The provider page was not fill in, it needs pt's name an added. Advised to have provider page faxed to the [phone] office fax for completion. * Telephone Encounter - Patricia Nance LPN [...] 5 MG Oral Tablet (Apixaban) free from [employer]. She then decided to pay for it herself. Well now the medication has gone up in [place] and she wants to know if her provider can fill out theform for her to get this medication again through them. Please advise. documented in this encounter Plan of Treatment Upcoming Encounters Date Type Department Care Team (Late st Contact Info) Description 07/22/2024 2:30 PM EST Office Visit Cardiology, [facility] [address] [place] [address] Kieran Christine, DO [address] [facility] [place] [address] 09/24/2024 9:30 AM EST Office Visit Family Practice, [place] [facility] [address] [facility] [place] [address] Emely Christine, DO [address] [facility] [address] 10/05/2024 3:15 PM EST Office Visit Ophthalmology, [facility] [address] [place] [address] Yaniv Jacobs, DO [address] [place] [address] 10/12/2024 1:00 PM EST Nurse Only Ancillary Department, [place] Buckstacy Alvarado [address] [place] [address] Nahid Nurse Annual Wellness [address] [facility] [place] [address] 03/22/2025 11:00 AM EDT Office Visit Dermatology, [place] [address] [facility] [place] [address] Gertrude Cooper PA-C [address] [place] [address] [place] [address] Health Maintenance Due Date Last Done Comments Zoster Vaccines (2 of 3) 06/12/2011 04/17/2011 DXA Scan 08/08/2023 08/08/2021, 1204/2021, 12/29/2018, Additional history exists Albumin/Creatinine Ratio 04/30/2024 04/30/2023 COVID-19 Vaccine ( season) 2024 08/05/2022, 08/06/2021, 10/27/2020, Additional history exists Influenza Vaccine (FLU shot) (#1) 2024 07/11/2023, 06/21/2022, 07/17/2021, Additional history exists Adult Wellness Visit 10/09/2024 10/09/2023, 10/07/19 23 Depression Screening 10/09/2024 10/09/2023 CKD HGB USE SMARTSET 20027 02/23/202502/23, 12/20/2022, 06/21/2022, Additional history exists CKD PHOS USE SMARTSET 93180 02/23/202501/31, 06/21/2022, 01/30/2021, Additional history exists DTap/Tdap Vaccines (2 - Td or Tdap) 12/22/2028 12/22/2018, 07/06/2008, 12/30/1992 VITAMIN D LEVEL ONCE IN A LIFETIME-USE SMARTSET# 56175 Completed 06/02/2008 Pneumococcal Vaccine: 65+ Years Completed [...] 8:43 PM 09/07/2007 3:02 PM Care Teams Metal Fabrication Supervisor Relationship Specialty Start Date End Date Emely Christine DO [address] [place] [address] PCP - General Family Medicine 10/20/19 documented as of this encounter
--- OUTSIDE RECORDS SUMMARY | 2024-08-14 14:40 | External Medical Summary | Summary of Care ---
Author Name Unknown Organization [facility] Address [address] [facility] [place] [address] Phone [phone] Care Team Providers Care Plate Take Out Worker Name Role Phone Emely Christine Primary Care Provider [phone] Reason for Visit * Reason Comments eRx-Medication Refill Encounter Details Date Type Department Care Team (Late st Contact Info) Description 08/03/2024 Refill Cardiology, [facility] [address] [place] [address] Luis Calvert, PA-C [address] [place] [phone] Heart failure, systolic, due to CAD (HCC) Allergies Active Allergy Reactions Criticality Noted Date Comments Aspirin Bleeding High 03/01/2019 Lisinopril Edema airway High 05/02/2009 Pollen Wheezing 03/01/2019 Sulfa Antibiotics Rash 05/14/1999 documented as of this encounter (statuses as of 08/04/2024) Medications aspirin 81 MG chewable tabletIndications:P hlebitis [...] pain, maximum 3 doses 25 Tablet 11 024 Active Rosuvastatin Calcium 40 MG Oral Tablet [...] :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 45 Tablet 3 024 Active Zoster Vac Recomb Adjuvanted 50 MCG/0.5ML Intramuscular Suspension Reconstituted (Shingrix)Indicatio ns:Need for shingles vaccine Inject 0.5 mL into a large muscle now and repeat dose in 60 to 180 days 1 Each 1 024 Active Eliquis 5 MG Oral Tablet (Apixaban)Indicatio ns:Paroxysmal atrial fibrillation (HCC) TAKE 1 TABLET BY MOUTH IN THE MORNING AND BEFORE BEDTIME 180 Tablet 3 024 Active Hydrocortisone (Perianal) 2.5 % External CreamIndications:He morrhoids, external without complications ADMINISTER INTO RECTUM TWICE A DAY 30 g 2 024 Active Metoprolol Succinate ER 100 MG Oral Tablet Extended Release 24 Hour (toPROL XL)Indications:Esse ntial hypertension with goal blood pressure less than 140/90,Paroxysmal atrial fibrillation (HCC) TAKE 1 TABLET BY MOUTH EVERY DAY IN THE MORNING 90 Tablet 3 024 Active Klor-Con M20 20 MEQ Oral Tablet Extended Release (Potassium Chloride ER)Indications:Hypo kalemia TAKE 1 TABLET BY MOUTH EVERY DAY IN THE MORNING 90 Tablet 3 024 Active Isosorbide Dinitrate 10 MG Oral Tablet (Isordil)Indication s: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 45 Tablet 1 024 Active Furosemide 20 MG Oral Tablet (Lasix)Indications: Heart failure, systolic, due to CAD (HCC) Take 0.5 Tablets by mouth in the morning. Take an extra half tablet daily as needed for swelling.. 90 Tablet 1 024 2023 Discontinued documented as of this encounter (statuses as of 08/04/2024) Active Problems Problem Noted Date Diagnosed Date [...] as of this encounter (statuses as of 08/04/2024) Resolved Problems Problem Noted Date Diagnosed Date [...] Prediabetes protocol #1 - [employer] Other*[id number] 08/12/2013 10/08/2016 Overview (08/12/2013): Study Title: Genomic Markers for Patients with Cardiovascular Disease Project # [id number] Aircraft Refueller: Swati Ashraf MD [phone] Chest pain 08/06/2013 08/09/2013 Screening for iron [...] posthemorrhagic anemia 09/08/2007 08/19/2017 Coronary atherosclerosis of [place] coronary artery 09/03/2007 12/11/2018 Other nonspecific abnormal c ardiovascular system function study 07/29/2007 09/22/2007 Dyslipidemia, goal to be determined 10/23/2001 08/10/2009 Overview (08/10/2009): Per Lipid Taxonomy. PURE HYPERCHOLESTEROLEM 09/29/200008/01 Respiratory symptoms 008 Overview (06/03/2019): ICD-10 update of inactive term BENIGN HYPERTENSION 08/18/20 08 documented as of this encounter (statuses as of 08/04/2024) Immunizations Name Administration Dates Next Due COVID-19 [...] encounter Miscellaneous Notes * Telephone Encounter - Galina Mcdowell RPh - 08/04/2024 2:55 PM ESTSigned Prescriptions: Disp Refills Furosemide 20 MG Oral Tablet (Lasix) 45 Tab*1 Sig: TAKE 0.5 TABLETS BY MOUTH IN THE MORNING. TAKE AN EXTRA HALF TABLET DAILY NEEDED FOR SWELLING..Authorizing Provider: LUIS CALVERT User: GALINA MCDOWELL * Telephone Encounter - Galina Mcdowell RPh - 08/04/2024 2:47 PM EST Cardio apt 09/08/24 Galina Lopez, PharmD Clinical Pharmacist [facility] 08/04/2024, 2:53 PM documented in this encounter Plan of Treatment Upcoming Encounters Date Type Department Care Team (Late st Contact Info) Description 08/06/2024 11:20 AM EST Office Visit Family Practice, [place] [address] [place] [address] Calude Flores MD [address] [place] [address] 09/08/2024 11:00 AM EST Office Visit Cardiology, [facility] [address] [place] [address] Vianey Morillo CRNP [address] [place] [place] [address] 09/24/2024 9:30 AM EST Office Visit Family [facility], [place] [address] Emely Christine DO [address] [facility] [place] [address] 10/05/2024 3:15 PM EST Office Visit Ophthalmology, [facility] [address] [place] [address] Yaniv Jacobs DO [address] [place] [address] 10/12/2024 1:00 PM EST Nurse Only Ancillary Department, [place] [address] Nahid, Nurse Annual Wellness [facility] [address] [facility] [place] [address] 03/22/2025 11:00 AM EDT Office Visit Dermatology, [place] [address] Gertrude Cooper PA-C [address] [place] [address] [place] [address] Health Maintenance Due Date Last Done Comments Zoster Vaccines (2 of 3) 06/12/2011 04/17/2011 DXA Scan 08/08/2023 08/08/2021, 12/04/2021, 12/29/2018, Additional history exists Albumin/Creatinine Ratio 04/30/2024 04/30/2023 COVID-19 Vaccine ( season) 2024 08/05/2022, 08/06/2021, 10/27/2020, Additional history exists Adult Wellness Visit 10/09/2024 10/09/2023, 10/07/19 Depression Screening 10/09/2024 10/09/2023 CKD PHOS USE SMARTSET 12614 02/23/202501/31, 06/21/2022, 01/30/2021, Additional history exists CKD HGB USE SMARTSET 07030 07/31/202507/31, 07/24/2024, 02/24/2024, Additional history exists DTap/Tdap Vaccines (2 - Td or Tdap) 12/22/2028 12/22/2018, 07/06/2008, 12/30/1992 VITAMIN D LEVEL ONCE IN A LIFETIME-USE SMARTSET# 13494 Completed 06/02/2008 Influenza Vaccine (FLU shot) Completed [...] as of this encounter Visit Diagnoses Diagnosis Heart failure, systolic, due to CAD (HCC) Unspecified systolic heart failure documented in this encounter Advance Directives * Full Code (Latest Code Status on File) Date Activated Date Inactivated Comments 09/07/2007 3:02 PM 09/13/2007 9:02 PM * Full Code Date Activated Date Inactivated Comments 09/03/2007 8:43 PM 09/07/2007 3:02 PM Care Teams Plate Take Out Worker Relationship Specialty Start Date End Date Emely Christine DO [address] [facility] [place] [address] PCP - General Family Medicine 10/20/19 documented as of this encounter
--- OUTSIDE RECORDS SUMMARY | 2024-08-14 14:40 | External Medical Summary ---
Author Name Unknown Address Unknown Organization [facility] [place] [address] [place] [address] Laboratory Report Ordering Provider Test Date Status JACQUIE BIRCH 07/24/2024 08:30:40 Final Observation Date Value Abnormality Reference (Units ) Status BUN 07/24/2024 08:30:40 22 Above high normal 6-20 (mg/dL) Final Creatinine 07/24/2024 08:30:40 1.0 0.5-1.0 (mg/dL) Final Glomerular filtration rate/1.73 sq M.predicted [Volume Rate/Area] in Serum, Plasma or Blood by Creatinine-based formula (CKD-EPI) 07/24/2024 08:30:40 55 Below low normal >=60 (mL/min) Final eGFR is calculated based on the CKD-EPI 2020 equation. Sodium 07/24/2024 08:30:40 140 135-146 (m mol/L) Final Potassium 07/24/2024 08:30:40 4.5 3.5-5.1 (m mol/L) Final Cl 07/24/2024 08:30:40 103 98-107 (mm ol/L) Final CO2 07/24/2024 08:30:40 28 22-32 (mmo l/L) Final Anion gap 07/24/2024 08:30:40 9 7-15 (mmol /L) Final Glucose 07/24/2024 08:30:40 89 70-120 (mg /dL) Final Calcium 07/24/2024 08:30:40 9.4 8.4-10.2 ( mg/dL) Final Performing Location [facility] [address] [place] [address]
--- OUTSIDE RECORDS SUMMARY | 2024-08-14 14:40 | External Medical Summary ---
Author Name Unknown Address Unknown Organization [facility] [address] [place] [address] Laboratory Report Ordering Provider Test Date Status JACQUIE BIRCH 07/31/2024 07:12:20 Final Observation Date Value Abnormality Reference (Units ) Status WBC, Total 07/31/2024 07:12:20 5.40 4.00-10.8 0 (K/uL) Final RBC 07/31/2024 07:12:20 3.38 3.85-5.15 (M/uL) Final Hemoglobin 07/31/2024 07:12:20 10.6 Below low normal 12 .0-15.3 (g/dL) Final HCT 07/31/2024 07:12:20 32.2 Below low normal 36. 0-45.2 (%) Final MCV 07/31/2024 07:12:20 95.3 81.5-97.5 (fL) Final MCH 07/31/2024 07:12:20 31.4 27.0-34.0 (pg) Final MCHC 07/31/2024 07:12:20 32.9 32.0-36.0 (g/dL) Final RDW 07/31/2024 07:12:20 16.0 11.5-15.5 (%) Final Platelets 07/31/2024 07:12:20 157 140-400 (K /uL) Final MPV 07/31/2024 07:12:20 10.7 6.6-11.1 ( fL) Final Performing Location [facility] [address] [place] [address]
--- OUTSIDE RECORDS SUMMARY | 2024-08-14 14:40 | External Medical Summary ---
Author Name Unknown Address Unknown Organization [facility] [address] [place] [address] Laboratory Report Ordering Provider Test Date Status JACQUIE BIRCH 07/24/2024 08:30:40 Final Observation Date Value Abnormality Reference (Units ) Status WBC, Total 07/24/2024 08:30:40 4.84 4.00-10.8 0 (K/uL) Final RBC 07/24/2024 08:30:40 3.82 3.85-5.15 (M/uL) Final Hemoglobin 07/24/2024 08:30:40 11.9 Below low normal 12 .0-15.3 (g/dL) Final HCT 07/24/2024 08:30:40 36.0 36.0-45.2 (%) Final MCV 07/24/2024 08:30:40 94.2 81.5-97.5 (fL) Final MCH 07/24/2024 08:30:40 31.2 27.0-34.0 (pg) Final MCHC 07/24/2024 08:30:40 33.1 32.0-36.0 (g/dL) Final RDW 07/24/2024 08:30:40 15.4 11.5-15.5 (%) Final Platelets 07/24/2024 08:30:40 139 Below low normal 140 -400 (K/uL) Final MPV 07/24/2024 08:30:40 10.9 6.6-11.1 ( fL) Final Performing Location [facility] [place] [address] [place] [address]
--- OUTSIDE RECORDS SUMMARY | 2024-08-14 14:40 | External Medical Summary ---
Author Name Unknown Address Unknown Organization [facility] [place] [address] [place] [address] Laboratory Report Ordering Provider Test Date Status JACQUIE BIRCH 07/31/2024 07:12:20 Final Observation Date Value Abnormality Reference (Units ) Status BUN 07/31/2024 07:12:20 31 Above high normal 6-20 (mg/dL) Final Creatinine 07/31/2024 07:12:20 0.9 0.5-1.0 (mg/dL) Final Glomerular filtration rate/1.73 sq M.predicted [Volume Rate/Area] in Serum, Plasma or Blood by Creatinine-based formula (CKD-EPI) 07/31/2024 07:12:20 60 >=60 (mL/min) Final eGFR is calculated based on the CKD-EPI 2020 equation. Sodium 07/31/2024 07:12:20 142 135-146 (m mol/L) Final Potassium 07/31/2024 07:12:20 4.3 3.5-5.1 (m mol/L) Final Cl 07/31/2024 07:12:20 109 Above high normal 98 -107 (mmol/L) Final CO2 07/31/2024 07:12:20 26 22-32 (mmo l/L) Final Anion gap 07/31/2024 07:12:20 7 7-15 (mmol /L) Final Glucose 07/31/2024 07:12:20 101 70-120 (mg /dL) Final Calcium 07/31/2024 07:12:20 8.8 8.4-10.2 ( mg/dL) Final Performing Location [facility] [address] [place] [address]
[2024-08-15 07:38] LABS: BUN Creatinine Ratio 29.2 (10-20); Calcium 9.3 mg/dl (8.6-10.3); Creatinine Clr Calc Pharmacy 29.6 ml/min; Potassium 4.1 mmol/L (3.5-5.1)
[2024-08-15 07:47] VITALS: RESP 16
--- NOTE | 2024-08-15 10:12 | Cardiology Progress Note ---
Date of Service August 15, 2024 Assessment & Plan (1) Acute on chronic heart failure with preserved ejection fraction: (2) Demand ischemia of myocardium: (3) Chronic stable angina: (4) Tachy-trish syndrome: (5) Cardiac pacemaker in situ: Plan Admission on 08/13/2024 with acute decompensated diastolic congestive heart failure, responding well to IV furosemide at 40 mg BID Severe coronary artery disease with CCS class 3+ angina, inoperable CAD managed medically Symptomatic paroxysmal atrial fibrillation previously treated with amiodarone, discontinued in January 2020 secondary to hyperthyroidism Chronic Eliquis anticoagulation 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 Kyphoscoliosis with restricted respiratory physiology * Transition from IV to oral furosemide, 40 mg once a day * Add spironolactone 25 mg/day * Continue Eliquis, aspirin, ARB, isosorbide dinitrate, metoprolol, Ranexa, rosuvastatin. * Follow-up metabolic panel next week * Outpatient cardiology follow-up within two weeks Admission and Anticipated Discharge Date Admission Date: August 13, 2024 Supervising Physician Co-Signing Physician Notes I spent a total of 25 minutes on the date of service in preparation, delivery, and documentation of the care provided to this patient, excluding any time spent in the performance of separately billed services. I have personally performed a history and physical examination on the patient. I have reviewed the advance practitioner's documentation, and I agree with, and take responsibility for the plan of care. Subjective Patient seen and examined. Chart, medications, telemetry reviewed. Feeling better today Improved cough, dyspnea, lower extremity peripheral edema. No chest pain. No palpitations. No PND. Telemetry: Sinus in the 70's and 80's. I's/O's -2760 mL, -497 mL Review of Systems Review of Systems: Complete Review of Systems is as stated above, negative, or noncontributory Physical Exam Physical Exam: Examined in a chair General: A&Ox3. NAD. + kyphoscoliosis. HENT: Normocephalic. Atraumatic. Eyes: Conjunctiva pink, no scleral icterus. Neck: JVD. Heart: Regular 76 bpm. Grade II/ systolic murmur. No diastolic murmur. Lungs: Diminished at the bases, faint left basilar rales. No wheeze. Abdomen: Normal bowel sounds. Soft. Nontender. No masses or organomegaly. No abdominal bruits. Extremities: Mild edema. No clubbing. No cyanosis. Pulses: Posterior tibial=1/4. Neuro: No focal deficits. Results & Data Vital Signs (Past 12 Hours) Vital Signs Temp Pulse Pulse Resp BP Pulse Ox O2 Del Method 08/15/24 07:47 36.8 C 76 16 104/62 94 Room Air 08/15/24 07:00 73 08/15/24 03:37 36.3 C L 76 18 107/61 95 Room Air 08/14/24 23:21 36.6 C 78 18 107/64 94 Room Air Laboratory Results Comprehensive Metabolic Panel 08/15/24 Range/Units 06:43 Sodium 139 (136-145) mmol/L Potassium 4.1 (3.5-5.1) mmol/L Chloride 101 (98-107) mmol/L Carbon Dioxide 30 (21-32) mmol/L BUN 31 H (6-23) mg/dl Creatinine 1.06 (0.6-1.2) mg/dl Glucose 106 H (70-99(Fasting)) mg/dl Calcium 9.3 (8.6-10.3) mg/dl Intake and Output 08/14/24 08/15/24 08/15/24 22:59 06:59 14:59 Intake Total 240 / 780 100 / 780 Output Total 502 / 1277 175 / 1277 Balance -262 / -497 -75 / -497 Intake: Oral 240 / 780 100 / 780 Output: Urine 500 / 1275 175 / 1275 # Bowel Movements 2 / 2 Other: # Unmeasured Voids 1 Weight 63.1 kg Weight Measurement Method Standing Scale
[2024-08-15 11:12] VITALS: PULSE 80; TEMP 97.7; O2SAT 95
--- NOTE | 2024-08-15 11:20 | Discharge Summary ---
Discharge Summary Date of Service August 15, 2024 Principal Dx & Hospital Course #1 = Principal Diagnosis (1) Acute on chronic heart failure with preserved ejection fraction: (2) Demand ischemia of myocardium: (3) PAF (paroxysmal atrial fibrillation): (4) CKD (chronic kidney disease), stage III: (5) Coronary artery disease: (6) Chronic stable angina: Plan Patient presented to the emergency room with acute onset of chest tightness and pressure and shortness of breath. In the emergency room workup was consistent with heart failure and demand ischemia. Patient was cared for in the hospital. She was given IV diuresis with Lasix. Her troponins were trended and were consistent with demand ischemia. Cardiology consultation was obtained. Echocardiogram was updated and agreed with ongoing diuresis. Patient responded very well to IV diuresis. Her shortness of breath completely resolved. Chest pressure and tightness resolved as well. Her electrolytes were monitored and managed and replaced as needed. She diuresed close to 10 kg. On the day of discharge her lower extremity swelling was minimal. She had no shortness of breath. Her mobility had significantly improved with the decreased weight. Case management was involved with her care and helping coordinate resumption of her home services and should be discharged home to follow-up with her outpatient providers. Patient will also be investigating ongoing care at home through private duty nursing, [facility]. Notes For Next Care Provider Continue to monitor weight and edema. Diuretic regimen may need to be adjusted intermittently. Follow-up with cardiology Medication Changes From Visit Lasix increased to 40 mg Aldactone added to medical regimen Potassium dose decreased to 10 mill equivalents daily Admission HPI Per Admitting Provider Patient is an 89-year-old female with known Heart failure with preserved ejection fraction and paroxysmal atrial fibrillation. Woke up this morning with chest pressure and more shortness of breath. Came to the emergency room for evaluation. In the emergency room did have a elevated troponin, elevated BNP, and chest x-ray consistent with fluid overload. Referred to our service for further evaluation. Time my evaluation the patient was resting comfortably, she reports that her chest pain has resolved. Patient was recently in our hospital for exacerbation of her back pain and ambulatory dysfunction. She from here went to [facility] and she reported she did very well there and rehab to the point where she could return to independent living. She has been in her own home since then. However, she has noticed increased swelling in her legs and weight gain over the last week or 2. She reports that her Lasix dosage had been adjusted over the past month or so but she does not really sure why. She does not admit to excessive fluid intake and does not admit to missing of any of her medications. She does state that she does not eat a lot that it would be weight gain from eating. And she has noticed that her legs are quite swollen. She does admit to a bit of cough when lying down and improves when sitting up. No fevers, no chills, no purulent sputum. Some intermittent constipation but no other changes in her bowel or bladder habits. She did admit to feeling as though her heart was racing this morning as well with some palpitations. She does have a history of paroxysmal atrial fibrillation and pacemaker placement. Daughter is at the bedside she to states that she just notices significant swelling in the patient's legs over the last day or 2. Normally she said this just in her ankles but now is extended up above the knee. Admission Exam Per Admitting Provider See H&P Discharge Exam Constitutional: Alert, nontoxic HEENT: Mucous membranes moist. Lungs: Decreased breath sounds, no wheezes, no significant rales CV: S1-S2, regular, systolic murmur Abdomen: Soft, nontender, nondistended Extremities: Ankle edema, significantly improved from admission Neuro: No focal deficits Psych: Cooperative, normal mood Updated Medication List Medication Instructions Recorded Confirmed Type ferrous sulfate 325 mg (65 mg 325 mg PO DAILY ##0 12/14/13 08/13/24 History iron) tablet nitroglycerin 0.4 mg sublingual 0.4 mg sublingual DIRECTED PRN 12/14/13 08/13/24 History tablet Chest Pain #0 BTLS vitamins A,C,T-sahc-pfezke 4,296 1 cap PO BID ##0 12/14/13 08/13/24 History mcg-226 mg-90 mg capsule (PreserVision AREDS) irbesartan 75 mg tablet 37.5 mg PO HS ##0 01/27/18 08/13/24 History alendronate 70 mg tablet 70 mg PO WK 03/01/19 08/13/24 History apixaban 5 mg tablet 5 mg PO BID 04/12/20 08/13/24 History isosorbide dinitrate 10 mg tablet 10 mg PO TID 04/12/20 08/13/24 History aspirin 81 mg chewable tablet 81 mg PO DAILY 01/30/21 08/13/24 History (Aspirin Childrens) ranolazine 500 mg tablet,extended 500 mg PO BID 01/30/21 08/13/24 History release,12 hr metoprolol succinate 100 mg 50 mg PO QAM 04/21/24 08/13/24 History tablet,extended release 24 hr pantoprazole 20 mg tablet,delayed 20 mg PO QAM 04/21/24 08/13/24 History release rosuvastatin 40 mg tablet 20 mg PO QAM 04/21/24 08/13/24 History prednisolone acetate 1 % eye 1 drp OPR HS 07/20/24 08/13/24 History drops,suspension acetaminophen 500 mg tablet 1,000 mg (2 x 500 mg) PO TID #0 07/23/24 08/13/24 Rx (Tylenol Extra Strength) tabs furosemide 40 mg tablet (Lasix) 40 mg PO DAILY #30 tabs 08/15/24 Rx potassium chloride 10 mEq 10 meq PO DAILY #30 tabs 08/15/24 Rx tablet,extended release(part/cryst) spironolactone 25 mg tablet 25 mg PO DAILY #30 tabs 08/15/24 Rx (Aldactone) Hospital Stay Data Consultations 08/13/24 06:43 ED Decision to Admit Stat 08/13/24 08:36 Consult Cardiology Stat Diagnostic Imagining Performed Reviewed imaging, laboratory and diagnostic studies. Pertinent findings as below. Echocardiogram shows ejection fraction 5055% with some hypokinesis of the posterior and lateral left ventricle, some left ventricular hypertrophy, mild mitral regurgitation. Mild pulmonary pretension. I refer you to the full report for details. Potassium 4.1 Creatinine 1.06 Pending Results Patient Have Any Pending Studies at Discharge: No Discharge Instructions Given to Patient (Per Discharging Provider) Call 911 and go to the Emergency Room if: * You have tightness or pain in your chest that does not go away with rest or Nitroglycerin * You are very short of breath even with rest Call your doctor if any of the following symptoms or problems start or get worse: * Shortness of breath or difficulty breathing * Wake up at night short of breath * Chest pain * Cough * Swelling of your hands, fee, or legs * More fatigued or tired with your normal activity * Palpitations - sudden fast heart beats WEIGHT * Weigh yourself every morning after using the bathroom. * Use the same scale. * Wear the same amount of clothing. * Write your weight down on your chart. * Call your doctor if you gain more than 2-3 pounds in 1-2 days. MEDICATIONS * Use this discharge instruction sheet for instructions. * Take your medications at the time your doctor ordered. * Do not skip a dose of your medicines. * If you miss a dose of medicine, take as soon as possible, but DO NOT DOUBLE A DOSE. * Read your medicine information when you get home. * Know all of the side effects of your medicine. * Call your doctor's office if you have any side effects. * Be sure all of your doctors know what medicine and herbs you take (including cold, flu, and herbal medicine). * Pain Medicine: If you do not get relief from your pain, please call your doctor for help. Take the following with you to your follow-up doctor appointments: * Weight Chart * Medication List * List of questions Do not drink excessive alcohol, beer or wine. Home Health Attestation I certify that this patient is under my care and that I, or a physicians dairy and food laboratory assistant working with me, had a face to-face encounter that meets the home health [id number] encounter requirements with this patient. The encounter with the patient was in whole, or in part, for the following medical condition, which is the primary reason for home health care (list medical condition): I certify that, based on my findings, the following services are medically nec essary home health services: My clinical findings support the need for the above services because: Further, I certify that my clinical findings support that this patient is homebound (i.e. absences from home require considerable and taxing effort and are for medical reasons or scientologist services or infrequently or of short duration when for other reasons) because: Certification for Home Health Services: Based on the above findings, I certify that this patient is confined to the home and needs intermittent nursing home care, physical therapy and/or speech therapy or continues to need occupational therapy. The patient is under my care, and I have initiated the establishment of the plan of care. This patient will be followed by a physician who will periodically review the plan of care. Total Time Total Time Spent Total Time Spent (In Minutes): 35
[2024-08-15 11:31] VITALS: BP 108/65
[2024-08-15] MEDS: PNEUMOCOCCAL VACCINE (PCV20) 20-VAL CONJ-DIP CRM/PF 0.5 ML SYR IM ONE (13:41)
== END 2024-08-15 14:35 | disposition home health service (06) | DRG 291 ==
LOC: ED 05:35 → EDINP 08:29 → 2N 10:59

== ENCOUNTER 2025-08-23 07:33 | Inpatient (IN) ==
--- NOTE | 2025-08-23 07:47 | Emergency Department Note ---
Impression & Plan Acute non-ST elevation myocardial infarction (NSTEMI), Atrial fibrillation with RVR ED Provider Note Name: BALWINDER BALTAZAR Age: 89 Sex: Female Arrives Via: Ambulance Informant: Patient, Daughter, EMS ED Provider: Markell Smith MD Chief Complaint: Chest pain Impression: As per impressions above Medical Decision Making: Pleasant evaluation of substernal chest pain that occurred twice over the last few hours. On arrival she is not having any further pain. Initial EKG with normal sinus rhythm and no overt STEMI appreciated though some ST depressions throughout. Review of EMS strips do show a wide-complex tachycardia at times. Patient fortunately currently is completely asymptomatic. Laboratory workup does show an elevated troponin. My suspicion is she had a tachyarrhythmia that stressed her left main and caused rate related ischemia. Will start heparin as she did not have her Eliquis this morning and hospitalist were consulted for further management. I did give athletic events scorer heads up as well. Patient is breathing comfortably in no distress at time of hospitalization. She does not have signs or symptoms of a dissection at this time. She is chronically on Eliquis thus PE is quite unlikely and I do not feel CT PE study is necessary. Patient does not have any signs or symptoms of infectious etiology. She has a soft nontender abdomen. I had a discussion with her and daughter regarding the risks and benefits of heparin and they wish to proceed with doing so. Triage/Nursing Notes reviewed by Me External Chart Review by me: I reviewed a cardiology consult note from 08/13/2024 to discuss patient's past cardiac history. Differential:Cardiac ischemia, aortic dissection, pulmonary embolism, pneumothorax, pneumonia, pericarditis, myocarditis, esophageal rupture, GERD, cholecystitis, pancreatitis, musculoskeletal, as well as other pathologies. Vital Signs: reviewed and remarkable for no significant abnormalities Interventions: Heparin IV Labs:ED labs Reviewed by me and remarkable for elevated troponin Imagin view chest x-ray as per my interpretation no widened mediastinum, no pneumothorax or overt lobar consolidation EKG:Normal sinus rhythm at 82 bpm QTc 497. There is no ectopy over there is some nonspecific ST depressions throughout. When compared to EKG of September 23, 2024 ST depressions are more prominent. Cardiac/Tele Monitoring: Cardiac Monitoring: An Order was placed for continuous cardiac monitoring. The monitor shows a rate of 80 with a normal sinus rhythm. Consults:Discussed with [facility] cardiology and hospitalist services and plan to hospitalize patient. Plan: Disposition:Hospitalization. Condition: Fair History of Present Illness: 89-year-old female arrives for evaluation of chest pain. Patient notes awakening around 1 AM last night with substernal chest pressure/pain. No radiation of pain. Associated with some palpitations. She notes the pain eventually subsided and she was able to fall back to sleep. Patient then awoke around 7 AM with return of chest pain. Associated again with palpitations. EMS was called. Patient denies any shortness of breath, syncope, lightheadedness, nausea, vomiting, fevers, chills, back pain, abdominal pain or other concerning signs or symptoms on EMS arrival patient was given aspirin and loaded into the ambulance bed. She was noticed to have a run of wide-complex tachycardia for 20 to 30 seconds. Pacer pads were placed however she converted back to A-fib/sinus rhythm with paced rhythms as well. Did have another brief episode of what appeared to be V. tach on the EKG however at that point some pacer spikes were noted. Patient was given aspirin and taken to ER for further evaluation. Patient states at this point there is no current pain. Patient notes a history of CABG and cardiac catheterization. Notes last hospitalization about a year ago for possible heart attack. Past Medical History:See Below Home Medications:See Below Allergies: Lisinopril, sulfa. History of bleeding thus care with aspirin. Vitals:Blood Pressure: 117/67, Pulse 79, RR 16, T 36.8C, O2 98% on RA Physical Exam: GENERAL: Patient is mildly anxious appearing and in minimal distress. RESPIRATORY: No dyspnea. Clear to auscultation and equal bilaterally. CARDIOVASCULAR: Regular rate and rhythm.No murmur appreciated. GASTROINTESTINAL: Abdomen soft, non-tender, no peritonitis. EXTREMITIES: Normal motion all extremities, no cyanosis, no edema. NEUROLOGIC: Alert and oriented. No focal neurologic deficits appreciated SKIN: No rash, no jaundice, no diaphoresis. Yellowing bruising of much of the right shoulder extending onto the right upper chest without tenderness PSYCH: Appropriate GCS: 15 ED Course: Times/Reassessments: Multiple repeat evaluations of patient throughout her stay. She is not having any current chest pain. They are agreeable to heparin. Critical Care: I have personally spent 35 minutes of critical care time in the direct management of this patient. KULWANTTEMI requiring heparinization and discussion with multiple specialists and coordination of care. This was a life/limb threatening event. This 35 minutes is in excess of all separately billable procedures. Markell Smith MD Past Med/Surg History Problem List (Updated 08/23/25 @ 14:53 by Markell Smith MD) Acute non-ST elevation myocardial infarction (NSTEMI) (Acute) Cardiac pacemaker in situ Chronic stable angina Acute on chronic heart failure with preserved ejection fraction Chest pain (Acute) Degenerative joint disease of spine Trouble walking (Acute) Low back pain at multiple sites Tachy-trish syndrome Pt admitted for elective ppm. Underwent procedure without any complications; monitored overnight; her coreg was increased and she was discharged home following day. NSTEMI (non-ST elevated myocardial infarction) Demand ischemia of myocardium Paroxysmal atrial fibrillation with rapid ventricular response Atrial fibrillation with RVR (Acute) Atrial fibrillation (Acute) increase coreg and restart eliquis Asthma (Chronic) Scoliosis (Chronic) Back pain, acute (Acute 12/14/13) Shoulder pain (Acute) Medical History Acute exacerbation of chronic low back pain Abnormal CT scan, pelvis Abnormal urinalysis Acute hyperglycemia Vertigo Kyphoscoliosis Dyslipidemia CKD (chronic kidney disease), stage III Chronic heart failure with preserved ejection fraction (HFpEF) PAF (paroxysmal atrial fibrillation) Ambulatory dysfunction Dizziness SSS (sick sinus syndrome) Pt admitted for elective ppm. Underwent procedure without any complications; monitored overnight; her coreg was increased and she was discharged home following day. Coronary artery disease Hypertension CHF (congestive heart failure) Surgical History History of cataract surgery History of appendectomy History of coronary artery bypass graft Family History Other Asthma Hypertension Social History Smoking Status: Never smoker Second Hand Exposure: No; Do You Dip or Chew Tobacco: No; Hx Alcohol Use: No Hx Substance Use: No Preferred Language: Polish Communication Ability: Effective Drapery Examiner Required: No Beliefs That Will Affect Care: Taoist Taoist Beliefs: Episcopalian marital status: Current Living Situation: Alone Feels Safe at Home: Yes Assistive Devices: Cane, Stair Lift, Walker and Wheelchair Allergies Allergies Allergy/AdvReac Type Severity Reaction Status Date / Time lisinopril Allergy Unknown "THROAT Verified 08/23/25 09:29 CLOSES" sulfamethoxazole Allergy Unknown RASH Verified 08/23/25 09:29 Home Meds Home Medications Medication Instructions Recorded Confirmed ferrous sulfate 325 mg (65 mg 325 mg PO DAILY ##0 12/14/13 08/23/25 iron) tablet nitroglycerin 0.4 mg sublingual 0.4 mg sublingual DIRECTED PRN 12/14/13 08/23/25 tablet Chest Pain #0 BTLS vitamins A,C,Y-ngaz-snqgto 4,296 1 cap PO BID ##0 12/14/13 08/23/25 mcg-226 mg-90 mg capsule (PreserVision AREDS) alendronate 70 mg tablet 70 mg PO FR 03/01/19 08/23/25 apixaban 5 mg tablet 5 mg PO BID 04/12/20 08/23/25 isosorbide dinitrate 10 mg tablet 10 mg PO TID 04/12/20 08/23/25 aspirin 81 mg chewable tablet 81 mg PO DAILY 01/30/21 08/23/25 (Aspirin Childrens) ranolazine 500 mg tablet,extended 500 mg PO BID 01/30/21 08/23/25 release,12 hr pantoprazole 20 mg tablet,delayed 20 mg PO QAM 04/21/24 08/23/25 release rosuvastatin 40 mg tablet 20 mg PO QAM 04/21/24 08/23/25 prednisolone acetate 1 % eye 1 drp OPR HS 07/20/24 08/23/25 drops,suspension acetaminophen 500 mg tablet 1,000 mg PO TID PRN Pain 08/23/25 08/23/25 (Tylenol Extra Strength) buspirone 5 mg tablet 5 mg PO BID 08/23/25 08/23/25 furosemide 20 mg tablet 20 mg PO DAILY 08/23/25 08/23/25 metoprolol succinate 25 mg 12.5 mg PO DAILY 08/23/25 08/23/25 tablet,extended release 24 hr spironolactone 25 mg tablet 25 mg PO DAILY 08/23/25 08/23/25 Results & Data (ED) Vital Signs Vital Signs - 24 hr 08/23/25 07:45 08/23/25 08:15 Temperature 36.6 C Temperature Source Oral Pulse Rate 82 82 Respiratory Rate 18 Respiratory Effort / Characteristics Non-Labored Spontaneous Respiratory Depth Normal Blood Pressure 117/67 Blood Pressure Mean 83 Blood Pressure Position Sitting Pulse Oximetry 99 Oxygen Delivery Method Room Air Sepsis Recent Fever Within 48 Hours No Sepsis New/Unexplained Change in Mental Status No Sepsis Action Taken by Nursing No Action Required Laboratory Data 08/23/25 07:45 08/23/25 07:45 Lab Results 08/23/25 Range/Units 07:45 WBC 6.61 (4.8-10.8) K/ul RBC 3.40 L (4.20-5.40) M/uL Hgb 10.8 L (12.0-16.0) g/dL Hct 31.8 L (37.0-47.0) % MCV 93.5 (80.0-100.0) fL MCH 31.8 (25.0-34.0) pg MCHC 34.0 (32.0-36.0) g/dL RDW Std Deviation 55.0 H (36.4-46.3) fL RDW Coeff of [place] 16.1 H (11.5-14.5) % Plt Count 183 (130-400) K/uL MPV 9.5 (9.4-12.4) fL Immature Gran % (Auto) 0.3 % Neut % (Auto) 64.3 % Lymph % (Auto) 19.7 % [place] % (Auto) 13.8 % Eos % (Auto) 1.1 % Baso % (Auto) 0.8 % Neut # (Auto) 4.26 (1.40-6.50) K/uL Lymph # (Auto) 1.30 (1.20-3.40) K/uL [place] # (Auto) 0.91 H (0.11-0.59) K/uL Eos # (Auto) 0.07 (0.00-0.50) K/uL Baso # (Auto) 0.05 (0.00-0.20) K/uL Immature Gran # (Auto) 0.02 (0.01-0.20) K/uL PT 13.2 H (9.0-12.0) Seconds INR 1.3 H (0.9-1.1) APTT 33 H (21-31) Seconds PTT Ratio 1.2 Sodium 139 (136-145) mmol/L Potassium 3.7 (3.5-5.1) mmol/L Chloride 105 (98-107) mmol/L Carbon Dioxide 26 (21-32) mmol/L Anion Gap 8 (3-11) BUN 22 (6-23) mg/dl Creatinine 1.08 (0.6-1.2) mg/dl Est Cr Clr Drug Dosing 28.8 ml/min eGFR 49.10 BUN/Creatinine Ratio 20.4 H (10-20) Glucose 107 H (70-99(Fasting)) mg/dl Calcium 8.5 L (8.6-10.3) mg/dl Magnesium 2.1 (1.7-2.4) mg/dl Total Bilirubin 0.7 (0.2-1.0) mg/dl Direct Bilirubin 0.2 (0-0.2) mg/dl AST 38 (13-39) U/L ALT 14 (7-52) U/L Alkaline Phosphatase 60 (34-104) U/L Troponin I High Sens 3822.3 H* (0-14) pg/ml Total Protein 5.9 L (6.0-8.3) gm/dl Albumin 3.2 L (3.4-5.0) gm/dl TSH 1.451 (0.300-4.500) uIu/ml Administered Medications Furosemide (Furosemide 20 Mg Tab) 20 mg PO DAILY [facility] Stop: 09/22/25 11:54 Last Admin: 08/23/25 13:17 Dose: 20 mg Documented By: SO Heparin Sodium/Dextrose (Heparin 62147 Unit/500 Ml D5w) 25,000 units in 500 mls @ 13 mls/hr IV .Q24H [facility]; Protocol Stop: 09/22/25 09:14 Last Admin: 08/23/25 09:17 Dose: 650 units/hr, 13 mls/hr Documented By: JANICE Co-signed By: AMANDA Isosorbide Dinitrate (Isosorbide Dinitrate 5 Mg Tab) 10 mg PO TID@0800,1300,1800 [facility] Stop: 09/22/25 12:59 Last Admin: 08/23/25 13:16 Dose: 10 mg Documented By: SO Discontinued Medications Heparin Sodium/Dextrose (Heparin Iv Adult Wt-Based Low-Dose *No* Initial Bolus Protocol) 1 each IV ONE STA; Protocol Stop: 08/23/25 08:48 Last Admin: 08/23/25 10:40 Dose: Not Given Documented By: SO Potassium Chloride (Potassium Chloride Crtab 20 Meq Tabcr) 40 meq PO NOW STA Stop: 08/23/25 09:11 Last Admin: 08/23/25 10:46 Dose: 40 meq Documented By: SO Imaging Data Radiologist's Impression: Chest X-Ray 08/23/25 07:44 XR chest 1V portable CLINICAL HISTORY: Chest pain. COMPARISON STUDY: Chest radiograph September 23, 2024. FINDINGS: Left subclavian pacer, median sternotomy wires and mediastinal surgical clips are noted. Cardiomegaly is unchanged. A hiatal hernia is again noted. Left basilar opacity favors atelectasis. There is no pneumothorax or pleural effusion. There is mild interstitial thickening. Patient is mildly rotated. IMPRESSION: Cardiomegaly with mild interstitial pulmonary edema. ACT 112: Negative or not required by law. Electronically signed by: Jose Carlos Doyle M.D. 08/23/2025 8:08 AM Discharge Plan Visit Data Chief Complaint: Chest Pain Stated Complaint: CHEST PAIN ED Provider: Markell Smith Discharge Problem: Acute non-ST elevation myocardial infarction (NSTEMI), Atrial fibrillation with RVR Patient Disposition: Admitted As Inpatient Condition: Fair Discharge Instructions Interventions: ED Discharge Assessment Last Done: 08/23/25 11:56
[2025-08-23 07:59] LABS: Hematocrit (blood only) 31.8 % (37.0-47.0); Hemoglobin 10.8 g/dL (12.0-16.0); Immature Granulocytes # (auto) 0.02 K/uL (0.01-0.20); Immature Granulocytes % (auto) 0.3 %; Mean Corpuscular Hemoglobin 31.8 pg (25.0-34.0); Mean Corpuscular Volume 93.5 fL (80.0-100.0); Platelet Count 183 K/uL (130-400); RDW Standard Deviation 55.0 fL (36.4-46.3); Red Blood Count 3.40 M/uL (4.20-5.40); White Blood Count 6.61 K/ul (4.8-10.8)
--- NOTE | 2025-08-23 08:09 | XRay Report ---
XR chest 1V portable CLINICAL HISTORY: Chest pain. COMPARISON STUDY: Chest radiograph September 23, 2024. FINDINGS: Left subclavian pacer, median sternotomy wires and mediastinal surgical clips are noted. Ca rdiomegaly is unchanged. A hiatal hernia is again noted. Left basilar opacity favors atelectasis. The re is no pneumothorax or pleural effusion. There is mild interstitial thickening. Patient is mildly r otated. IMPRESSION: Cardiomegaly with mild interstitial pulmonary edema. ACT 112: Negative or not required by law. Electronically signed by: Jose Carlos Doyle M.D. 08/23/2025 8:08 AM
[2025-08-23 08:22] LABS: Alanine Aminotransferase 14.0 U/L (7-52); Albumin Level 3.2 gm/dl (3.4-5.0); Alkaline Phosphatase 60.0 U/L (34-104); Anion Gap 8.0 (3-11); Bilirubin,Total 0.7 mg/dl (0.2-1.0); Blood Urea Nitrogen 22.0 mg/dl (6-23); Calcium 8.5 mg/dl (8.6-10.3); Carbon Dioxide 26.0 mmol/L (21-32); Chloride 105.0 mmol/L (98-107); Creatinine Clr Calc Pharmacy 28.8 ml/min; Glucose 107.0 mg/dl (70-99(Fasting)); Magnesium 2.1 mg/dl (1.7-2.4); Potassium 3.7 mmol/L (3.5-5.1); Sodium 139.0 mmol/L (136-145); Total Protein 5.9 gm/dl (6.0-8.3)
[2025-08-23 08:37] LABS: Thyroid Stimulating Hormone 1.451 uIu/ml (0.300-4.500)
[2025-08-23] MEDS: HEPARIN 25000 UNIT/500 ML D5W 25,000 UNITS/500 ML BAG IV SCH (09:17)
[2025-08-23 09:38] LABS: INR 1.3 (0.9-1.1); Partial Thromboplastin Time 33 Seconds (21-31); Prothrombin Time 13.2 Seconds (9.0-12.0)
--- NOTE | 2025-08-23 10:29 | History & Physical Report ---
Date of Service August 23, 2025 Assessment & Plan (1) Atrial fibrillation with RVR: (2) NSTEMI (non-ST elevated myocardial infarction): (3) Cardiac pacemaker in situ: (4) CKD (chronic kidney disease), stage III: (5) Chronic heart failure with preserved ejection fraction (HFpEF): (6) Coronary artery disease: Plan This is an 89-year-old female who has significant past medical history of severe CAD, chronic HFpEF, PAF, TBI status post PPM, HTN, HLD, CKD stage III, osteo porosis, idiopathic scoliosis, macular degeneration who presents to the hospital secondary to 2 episodes of heart palpitations at 1 a.m. and 6 a.m. Heart palpitations at 1 a.m. with associated precordial chest discomfort lasting 30 minutes and resolving. Sx started again at 6 a.m. this time w/o chest discomfort and EMS was summoned. Initial rhythm strips showing wide complex tachycardia. Pacer interrogation with evidence of AF/AT with rates over 170. Initial ecg w/o ischemic change in ED, but elevated trop 3822.3 pg/ml. #Afib with RVR #Possible NSTEMI #Chest pain #CAD #TBS s/p PPM admit to PCU consult cardiology obtain echocardiogram Start IV heparin, last dose of eliquis was 1900 08/22 Initial trop 3822.3pg/ml, repeat 7899.1pg/ml continue ASA, statin, lasix, aldactone, isosorbide, metoprolol and ranexa last echo 08/24 ef 50-55%, moderate concentric LVH, moderate sized posterior and lateral wall motion abnormality with hypokinesis of segments, aortic root dilated 3.9cm will defer adjustments of beta phyllis to cardiology if indicated #HTN #Chronic HFpEF chronic, stable daily weights, I and O continue lasix, aldactone, metoprolol, imdur and ranexa pt previously on irbesartan but d/c CKD-3 baseline cr 1.5, avoid nephrotoxic agents and monitor DVT ppx: IV Heparin FULL CODE PCP: Emely Christine Dispo: admit to pcu Pt was seen and examined in collaboration with Dr. Pryor, please see addendum I spent a total of 60 minutes coordinating, documenting and providing care for this patient excluding time spent in the performance of separately billed services or time spent by another provider/QHP. History of Present Illness Chief Complaint: Heart palpitations at 1a.m. and 6 a.m. Primary Care Provider: Emely Christine DO This is an 89-year-old female who has significant past medical history of severe CAD, chronic HFpEF, PAF, TBI status post PPM, HTN, HLD, CKD stage III, osteoporosis, idiopathic scoliosis, macular degeneration who presents to the hospital secondary to 2 episodes of heart palpitations at 1 a.m. and 6 a.m. Pt daughter is at bedside who helps elicit history. Patient reports being awoken from sleep at 1 AM with significant heart palpitations and the feeling of her heart racing. She also had substernal chest pressure associated with this. The chest pressure did not radiate. She was lying down and therefore denied any dizziness, lightheadedness, shortness of breath, nausea or diaphoresis with her symptoms. Her heart racing felt similar to her prior episodes of atrial fibrillation. First episode lasted approximately 30 minutes and resolved on its own. She was able to fall back asleep until about 6 AM when she got awakened again by heart palpitations. At this time she called her daughter who then summoned EMS. History obtained from patient, ED provider and external chart review. Daughter also helps elicit history. ED provider reports initial ECG tracings of possible wide-complex tachycardia upon EMS arrival. Pacemaker interrogation was performed which showed several episodes of atrial fibrillation. Patient reports having similar episodes in the past but not this severe. Currently she feels comfortable. She denies any recent illness. She has been otherwise healthy and at her baseline. She has good family support. She denies recent fever, chills, sweats, lightheadedness, dizziness, chest pain, shortness of breath, nausea, vomiting, abdominal pain, change in her bowel or urinary habits. She has been compliant with her medications. Her last doses were last evening. Her trop was elevated at 3800 and she was started on IV Heparin. Allergies Allergy/AdvReac Type Severity Reaction Status Date / Time lisinopril Allergy Unknown "THROAT Verified 08/23/25 09:29 CLOSES" sulfamethoxazole Allergy Unknown RASH Verified 08/23/25 09:29 Home Medications Medication Instructions Recorded Confirmed Type ferrous sulfate 325 mg (65 mg 325 mg PO DAILY ##0 12/14/13 08/23/25 History iron) tablet nitroglycerin 0.4 mg sublingual 0.4 mg sublingual DIRECTED PRN 12/14/13 08/23/25 History tablet Chest Pain #0 BTLS vitamins A,C,U-ehra-xwpitj 4,296 1 cap PO BID ##0 12/14/13 08/23/25 History mcg-226 mg-90 mg capsule (PreserVision AREDS) alendronate 70 mg tablet 70 mg PO FR 03/01/19 08/23/25 History apixaban 5 mg tablet 5 mg PO BID 04/12/20 08/23/25 History isosorbide dinitrate 10 mg tablet 10 mg PO TID 04/12/20 08/23/25 History aspirin 81 mg chewable tablet 81 mg PO DAILY 01/30/21 08/23/25 History (Aspirin Childrens) ranolazine 500 mg tablet,extended 500 mg PO BID 01/30/21 08/23/25 History release,12 hr pantoprazole 20 mg tablet,delayed 20 mg PO QAM 04/21/24 08/23/25 History release rosuvastatin 40 mg tablet 20 mg PO QAM 04/21/24 08/23/25 History prednisolone acetate 1 % eye 1 drp OPR HS 07/20/24 08/23/25 History drops,suspension acetaminophen 500 mg tablet 1,000 mg PO TID PRN Pain 08/23/25 08/23/25 History (Tylenol Extra Strength) buspirone 5 mg tablet 5 mg PO BID 08/23/25 08/23/25 History furosemide 20 mg tablet 20 mg PO DAILY 08/23/25 08/23/25 History metoprolol succinate 25 mg 12.5 mg PO DAILY 08/23/25 08/23/25 History tablet,extended release 24 hr spironolactone 25 mg tablet 25 mg PO DAILY 08/23/25 08/23/25 History Past Med/Surg History Problem List Cardiac pacemaker in situ Chronic stable angina Acute on chronic heart failure with preserved ejection fraction Chest pain (Acute) Degenerative joint disease of spine Trouble walking (Acute) Low back pain at multiple sites Tachy-trish syndrome Pt admitted for elective ppm. Underwent procedure without any complications; monitored overnight; her coreg was increased and she was discharged home following day. NSTEMI (non-ST elevated myocardial infarction) Demand ischemia of myocardium Paroxysmal atrial fibrillation with rapid ventricular response Atrial fibrillation with RVR (Acute) Atrial fibrillation (Acute) increase coreg and restart eliquis Asthma (Chronic) Scoliosis (Chronic) Back pain, acute (Acute 12/14/13) Shoulder pain (Acute) Medical History Acute exacerbation of chronic low back pain Abnormal CT scan, pelvis Abnormal urinalysis Acute hyperglycemia Vertigo Kyphoscoliosis Dyslipidemia CKD (chronic kidney disease), stage III Chronic heart failure with preserved ejection fraction (HFpEF) PAF (paroxysmal atrial fibrillation) Ambulatory dysfunction Dizziness SSS (sick sinus syndrome) Pt admitted for elective ppm. Underwent procedure without any complications; monitored overnight; her coreg was increased and she was discharged home following day. Coronary artery disease Hypertension CHF (congestive heart failure) Surgical History History of cataract surgery History of appendectomy History of coronary artery bypass graft Family History Other Asthma Hypertension Social History Smoking Status: Never smoker Second Hand Exposure: No; Do You Dip or Chew Tobacco: No; Hx Alcohol Use: No Hx Substance Use: No Preferred Language: [place]an Communication Ability: Effective Endoscopic Technician Required: No Beliefs That Will Affect Care: Rastafarian Rastafarian Beliefs: Sabianism marital status: Current Living Situation: Alone Feels Safe at Home: Yes Assistive Devices: Cane, Stair Lift, Walker and Wheelchair Review of Systems Review of Systems: All systems reviewed & are unremarkable except as noted in HPI & below Physical Exam Physical Exam: Gen: WD/WN, NAD, A&O x3 HEENT: Normocephalic, atraumatic, conjunctivae moist, sclerae anicteric, mucous membranes moist. Lung: Clear to Auscultation bilaterally, no wheezes/rales/rhonchi Heart: Regular rate, regular rhythm, no murmurs, rubs, or gallops, LACW pacer Abdomen: Soft, NT, ND +BS x 4 Extremities: trace lower ext edema Skin: Warm, no rash, negative turgor. Results & Data Results & Data Vital Signs (Past 12 Hours) Vital Signs Temp Pulse Resp BP Pulse Ox O2 Del Method 08/23/25 08:15 82 08/23/25 07:45 36.6 C 82 18 117/67 99 Room Air Laboratory Results I have independently reviewed and interpreted patient's admitting labs including CBC, CMP, PTT, PT/INR, tsh, mag and troponin. Diagnostic Findings Chest X-Ray 08/23/25 07:44 XR chest 1V portable CLINICAL HISTORY: Chest pain. COMPARISON STUDY: Chest radiograph September 23, 2024. FINDINGS: Left subclavian pacer, median sternotomy wires and mediastinal surgical clips are noted. Cardiomegaly is unchanged. A hiatal hernia is again noted. Left basilar opacity favors atelectasis. There is no pneumothorax or pleural effusion. There is mild interstitial thickening. Patient is mildly rotated. IMPRESSION: Cardiomegaly with mild interstitial pulmonary edema. ACT 112: Negative or not required by law. Electronically signed by: Jose Carlos Doyle M.D. 08/23/2025 8:08 AM Medications Administered Medication List Heparin Sodium/Dextrose (Heparin 87352 Unit/500 Ml D5w) 25,000 units in 500 mls @ 13 mls/hr IV .Q24H [facility]; Protocol Stop: 09/22/25 09:14 Last Admin: 08/23/25 09:17 Dose: 650 units/hr, 13 mls/hr Documented By: JANICE Co-signed By: AMANDA ECG Additional Comments: I have independently reviewed and interpreted patient's admitting EKG which revealed: 82 bpm, RBBB, no st or t wave changes, qtc 497ms Code Status & VTE Plan Code Status FULL CODE VTE Prophylaxis Plan VTE Prophylaxis will be ordered: No Supervising Physician Co-Signing Physician Notes Patient seen and examined at bedside. Daughter present. Patient with chest pain and palpitations, has happened before. Otherwise feels ok. On exam, no pitting edema, irregular rhythm regular rate. Troponin elevated at 3800. K of 3.7 replenished. EKG similar to prior on personal read, mild ST depressions in lateral leads with pacer spikes noted. Pacemaker report with paced atrial fibrillation event. Presentation consistent with pacemaker firing for RVR event, less likely true NSTEMI but possible. Continue heparin, cardiology consult, appreciate recs. Check echo. May need medication adjustments, trend troponins. I have seen and discussed the case with the collaborating advanced practitioner. I agree with the above H&P. I have reviewed and confirmed the patients medical history, the findings on physical examination, and the patients diagnosis and treatment plan with Keri Brantley PA-C and agree with the information documented. I spent a total of 20 minutes coordinating, documenting, and providing care for this patient excluding time spent in the performance of separately billed services. All of the aforementioned completed outside of collaborating with the assigned advanced practitioner for a full treatment plan. I have reviewed the advanced practitioner's documentation, and I agree with, and take responsibility for the plan of care
[2025-08-23] MEDS: Heparin IV Adult Wt-Based Low-Dose *NO* INITIAL Bolus Protocol IV STA (10:40)
[2025-08-23] MEDS: POTASSIUM CHLORIDE CRTAB 20 MEQ TABCR PO STA (10:46)
[2025-08-23] MEDS ORDERED: ALUMINUM/MAGNESIUM SUSP 30 ML UDC PO PRN (11:55)
[2025-08-23] MEDS ORDERED: POLYETHYLENE (MIRALAX) 17 GM PACK PO PRN (11:55)
[2025-08-23] MEDS ORDERED: MAGNESIUM HYDROXIDE SUSP 30 ML UDC PO PRN (11:55)
--- NOTE | 2025-08-23 12:58 | Cardiology Consultation ---
Date of Consultation August 23, 2025 Assessment & Plan (1) Chest pain: (2) Paroxysmal atrial fibrillation with rapid ventricular response: (3) Demand ischemia of myocardium: (4) NSTEMI (non-ST elevated myocardial infarction): (5) Chronic heart failure with preserved ejection fraction (HFpEF): (6) Tachy-trish syndrome: (7) Cardiac pacemaker in situ: Plan - Patient presenting to ED with palpitations and substernal chest pain. Pacemaker interrogation and telemetry with paroxysmal atrial fibrillation with RVR and brief, nonsustained runs of Vtach. Troponin elevated and patient started on IV heparin. Eliquis on hold while on IV heparin. - Demand ischemia secondary to Afib RVR in the setting of known severe CAD. Previous cardiac catheterization at [facility] in 2012 revealed left main and left circumflex stenosis with patent LYONS to LAD and occluded SVG and LCx. LCx inte rvention not preformed secondary to severe LM disease. - Consider addition of amiodarone with close monitoring as this was previous trialed and discontinued in January 2020 due to hyperthyroidism. - Consider titration of metoprolol dose with close BP monitoring. - Patient reporting progressive SOB/FARIAS, decreased breath sounds on exam, CXR revealing cardiomegaly with mild interstitial thickening. Echo results pending. Patient received PO Lasix 1:15 pm. If patient continues feeling SOB would consider dose of IV Lasix. - Further recommendations pending discussion and evaluation with Dr. Devries. I spent a total of 60 minutes on the date of service in preparation, delivery, and documentation of the care provided to this patient, excluding any time spent in the performance of separately billed services. Eulalia Rosen PA-C Department of Cardiology, [facility] This chart was completed in part utilizing Speech Voice Recognition Software. Grammatical errors, random word insertions, pronoun errors, and incomplete sentences are an occasional consequence of this system due to software limitations, ambient noise, and hardware issues. Any formal questions or concerns about the content, text, or information contained within the body of this dictation should be directly addressed to the provider for clarification. Supervising Physician Co-Signing Physician Notes Patient seen and examined. Past medical history, surgical history, social history and family history have been reviewed. The medical record and all the above studies have been reviewed. Case DW ROSAILND including management. NSTEMI PAFib with RVR -> sinus rhythm nsvt CAD S/P CABG SSS S/P PPM ECHO showed WMA c/w with LCX disease that was not revascularized as per cath in 2013 Recommend: IV Heparin, ASA, statin, metoprolol, Imdur, Ranexa Hold off Eliquis - last dose on 08/22/25 PM Patient on exam is in sinus rhythm and CP free correct and f/u electrolytes f/u renal function GDMT for HFrEF and CAD as tolerated adjust rate control meds keeping HR between 60 to 100 BPM and systolic BP between 100-140 mmHg adjust anti-HTN meds keeping systolic BP between 100-140 mmHg avoid hypovolemia keep patient euvolemic strict I&Os salt restriction counseling will dw Sales Department Clerk for possible cardiac cath NPO post NC escept meds History of Present Illness Reason for Consultation: NSTEMI Requesting Physician: Hospitalist Attending Physician: Dr. Devries History of Present Illness Zarina Vines is an 89 year old female with a PMHx of chronic severe CAD (prior CABG 2007, LYONS-LAD, SVG-Lcx), paroxysmal atrial fibrillation, tachy- trish syndrome s/p permanent dual chamber pacemaker (implanted 04/2020), symptomatic PVCs, chronic HFpEF, HTN, DLD, CKD III seen in cardiology consultation for NSTEMI in setting of Afib with RVR. Patient presented to [facility] ED on 08/23/25 due to palpitations and substernal chest pressure/pain that started around 1am. Pain seem to subside for some time, but she woke up with palpitations again around 5:30-6a which prompted her to call EMS. Troponin was elevated and rising on repeat. Patient was admitted and started on IV heparin. Pacemaker interrogation reveals recent episodes of Afib with rates over 170 bpm. Currently, patient denies chest pain. She does report SOB/FARIAS that has been present for about 1 month, but it is worse today. She weighs herself routinely at home and has not noticed any change. She has been compliant with all of her home medications stating her daughter helps her with them. She denies cough, LE edema, dizziness/lightheadedness, syncope, recent illness, fever/chills. Allergies Allergy/AdvReac Type Severity Reaction Status Date / Time lisinopril Allergy Unknown "THROAT Verified 08/23/25 09:29 CLOSES" sulfamethoxazole Allergy Unknown RASH Verified 08/23/25 09:29 Home Medications Medication Instructions Recorded Confirmed Type ferrous sulfate 325 mg (65 mg 325 mg PO DAILY ##0 12/14/13 08/23/25 History iron) tablet nitroglycerin 0.4 mg sublingual 0.4 mg sublingual DIRECTED PRN 12/14/13 08/23/25 History tablet Chest Pain #0 BTLS vitamins A,C,B-uamu-zoqaha 4,296 1 cap PO BID ##0 12/14/13 08/23/25 History mcg-226 mg-90 mg capsule (PreserVision AREDS) alendronate 70 mg tablet 70 mg PO FR 03/01/19 08/23/25 History apixaban 5 mg tablet 5 mg PO BID 04/12/20 08/23/25 History isosorbide dinitrate 10 mg tablet 10 mg PO TID 04/12/20 08/23/25 History aspirin 81 mg chewable tablet 81 mg PO DAILY 01/30/21 08/23/25 History (Aspirin Childrens) ranolazine 500 mg tablet,extended 500 mg PO BID 01/30/21 08/23/25 History release,12 hr pantoprazole 20 mg tablet,delayed 20 mg PO QAM 04/21/24 08/23/25 History release rosuvastatin 40 mg tablet 20 mg PO QAM 04/21/24 08/23/25 History prednisolone acetate 1 % eye 1 drp OPR HS 07/20/24 08/23/25 History drops,suspension acetaminophen 500 mg tablet 1,000 mg PO TID PRN Pain 08/23/25 08/23/25 History (Tylenol Extra Strength) buspirone 5 mg tablet 5 mg PO BID 08/23/25 08/23/25 History furosemide 20 mg tablet 20 mg PO DAILY 08/23/25 08/23/25 History metoprolol succinate 25 mg 12.5 mg PO DAILY 08/23/25 08/23/25 History tablet,extended release 24 hr spironolactone 25 mg tablet 25 mg PO DAILY 08/23/25 08/23/25 History Patient History Medical History Acute exacerbation of chronic low back pain Abnormal CT scan, pelvis Abnormal urinalysis Acute hyperglycemia Vertigo Kyphoscoliosis Dyslipidemia CKD (chronic kidney disease), stage III Chronic heart failure with preserved ejection fraction (HFpEF) PAF (paroxysmal atrial fibrillation) Ambulatory dysfunction Dizziness SSS (sick sinus syndrome) Pt admitted for elective ppm. Underwent procedure without any complications; monitored overnight; her coreg was increased and she was discharged home following day. Coronary artery disease Hypertension CHF (congestive heart failure) Surgical History History of cataract surgery History of appendectomy History of coronary artery bypass graft Family History Other Asthma Hypertension Social History Smoking Status: Never smoker Second Hand Exposure: No; Do You Dip or Chew Tobacco: No; Hx Alcohol Use: No Hx Substance Use: No Preferred Language: Georgian Communication Ability: Effective Belt Sander Stone Required: No Beliefs That Will Affect Care: None marital status: Current Living Situation: Alone Feels Safe at Home: Yes Safety Concerns: Feels Safe At This Time Assistive Devices: Glasses, Hearing Aid - Bilateral and Walker Review of Systems Review of Systems: All systems reviewed & are unremarkable except as noted in Subjective Physical Exam Constitutional: WD/WN, vitals as above Eyes: PERRL, conjunctivae normal, anicteric sclerae Neck: trachea midline, no thyromegaly Respiratory: Auscultation: + diminished lung sounds Cardiovascular: Rate/Rhythm: regular rate and regular rhythm Heart Sounds: normal S1, normal S2 and + murmur (2/6 systolic murmur) Vessels: no JVD Extremities: no edema Gastrointestinal (Abdomen): normal bowel sounds, soft, nontender, no hepatosplenomegaly Skin: no rashes, warm and dry Psychiatric: A+Ox3, euthymic affect Results & Data Vital Signs (Past 12 Hours) Vital Signs Temp Pulse Pulse Resp BP BP Pulse Ox 08/23/25 12:00 08/23/25 12:00 70 16 98/57 L 98 08/23/25 11:22 129 H 08/23/25 10:00 77 18 101/67 99 08/23/25 08:15 82 08/23/25 07:45 36.6 C 82 18 117/67 99 Pulse Ox O2 Del Method O2 Del Method 08/23/25 12:00 98 Room Air 08/23/25 12:00 Room Air 08/23/25 11:22 08/23/25 10:00 Room Air 08/23/25 08:15 08/23/25 07:45 Room Air Laboratory Results Laboratory Results WBC 6.61 K/ul (4.8-10.8) 08/23/25 07:45 RBC 3.40 M/uL (4.20-5.40) L 08/23/25 07:45 Hgb 10.8 g/dL (12.0-16.0) L 08/23/25 07:45 Hct 31.8 % (37.0-47.0) L 08/23/25 07:45 MCV 93.5 fL (80.0-100.0) 08/23/25 07:45 MCH 31.8 pg (25.0-34.0) 08/23/25 07:45 MCHC 34.0 g/dL (32.0-36.0) 08/23/25 07:45 RDW Std Deviation 55.0 fL (36.4-46.3) H 08/23/25 07:45 RDW Coeff of [place] 16.1 % (11.5-14.5) H 08/23/25 07:45 Plt Count 183 K/uL (130-400) 08/23/25 07:45 MPV 9.5 fL (9.4-12.4) 08/23/25 07:45 Immature Gran % (Auto) 0.3 % 08/23/25 07:45 Neut % (Auto) 64.3 % 08/23/25 07:45 Lymph % (Auto) 19.7 % 08/23/25 07:45 Marion % (Auto) 13.8 % 08/23/25 07:45 Eos % (Auto) 1.1 % 08/23/25 07:45 Baso % (Auto) 0.8 % 08/23/25 07:45 Neut # (Auto) 4.26 K/uL (1.40-6.50) 08/23/25 07:45 Lymph # (Auto) 1.30 K/uL (1.20-3.40) 08/23/25 07:45 Marion # (Auto) 0.91 K/uL (0.11-0.59) H 08/23/25 07:45 Eos # (Auto) 0.07 K/uL (0.00-0.50) 08/23/25 07:45 Baso # (Auto) 0.05 K/uL (0.00-0.20) 08/23/25 07:45 Immature Gran # (Auto) 0.02 K/uL (0.01-0.20) 08/23/25 07:45 PT 13.2 Seconds (9.0-12.0) H 08/23/25 07:45 INR 1.3 (0.9-1.1) H 08/23/25 07:45 APTT 33 Seconds (21-31) H 08/23/25 07:45 PTT Ratio 1.2 08/23/25 07:45 Sodium 139 mmol/L (136-145) 08/23/25 07:45 Potassium 3.7 mmol/L (3.5-5.1) 08/23/25 07:45 Chloride 105 mmol/L (98-107) 08/23/25 07:45 Carbon Dioxide 26 mmol/L (21-32) 08/23/25 07:45 Anion Gap 8 (3-11) 08/23/25 07:45 BUN 22 mg/dl (6-23) 08/23/25 07:45 Creatinine 1.08 mg/dl (0.6-1.2) 08/23/25 07:45 Est Cr Clr Drug Dosing 28.8 ml/min 08/23/25 07:45 eGFR 49.10 08/23/25 07:45 BUN/Creatinine Ratio 20.4 (10-20) H 08/23/25 07:45 Glucose 107 mg/dl (70-99(Fasting)) H 08/23/25 07:45 Calcium 8.5 mg/dl (8.6-10.3) L 08/23/25 07:45 Magnesium 2.1 mg/dl (1.7-2.4) 08/23/25 07:45 Total Bilirubin 0.7 mg/dl (0.2-1.0) 08/23/25 07:45 Direct Bilirubin 0.2 mg/dl (0-0.2) 08/23/25 07:45 AST 38 U/L (13-39) 08/23/25 07:45 ALT 14 U/L (7-52) 08/23/25 07:45 Alkaline Phosphatase 60 U/L (34-104) 08/23/25 07:45 Troponin I High Sens 65520.7 pg/ml (0-14) H* D 08/23/25 11:57 Total Protein 5.9 gm/dl (6.0-8.3) L 08/23/25 07:45 Albumin 3.2 gm/dl (3.4-5.0) L 08/23/25 07:45 TSH 1.451 uIu/ml (0.300-4.500) 08/23/25 07:45 Impressions Chest X-Ray 08/23/25 07:44 XR chest 1V portable CLINICAL HISTORY: Chest pain. COMPARISON STUDY: Chest radiograph September 23, 2024. FINDINGS: Left subclavian pacer, median sternotomy wires and mediastinal surgical clips are noted. Cardiomegaly is unchanged. A hiatal hernia is again noted. Left basilar opacity favors atelectasis. There is no pneumothorax or pleural effusion. There is mild interstitial thickening. Patient is mildly ro tated. IMPRESSION: Cardiomegaly with mild interstitial pulmonary edema. Diagnostic Findings Telemetry Monitoring On admission, noted wide complex tachycardia and episodes of atrial fibrillation. Sinus rhythm with episodes of atrial fibrillation and brief, nonsustained runs of Vtach EKG 08/23/25 NSR, 82 bpm RBBB EKG 07/25/25 NSR, 75 bpm RBBB Possible lateral infarct, age undetermined ECHO 08/13/24 Moderate concentric LVH Moderate sized posterior and lateral wall motion abnormality with hypokinesis of the segments LV systolic function is low normal LVEF = 50-55% Aortic valve sclerosis mild, without significant aortic stenosis Mild-moderate mitral regurgitation Pulmonary systolic pressure estimated to be 38 mmHg (mildly elevated) Aortic root is mildly dilated, 3.9 cm Medications Administered Current Inpatient Medications Acetaminophen (Acetaminophen 325 Mg Tab) 650 mg PO Q4H PRN PRN Reason: Pain or Fever Stop: 09/22/25 11:54 Al Hydrox/Mg Hydrox/Simethicone (Aluminum/Magnesium Susp 30 Ml Udc) 15 ml PO Q4H PRN PRN Reason: Dyspepsia Stop: 09/22/25 11:54 Aspirin (Aspirin 81 Mg Ectab) 81 mg PO DAILY [facility] Stop: 09/23/25 08:59 Buspirone HCl (Buspirone 5 Mg Tab) 5 mg PO BID [facility] Stop: 09/22/25 20:59 Ferrous Sulfate (Ferrous Sulfate 325 Mg Tab) 325 mg PO DAILY [facility] Stop: 09/23/25 08:59 Furosemide (Furosemide 20 Mg Tab) 20 mg PO DAILY [facility] Stop: 09/22/25 11:54 Heparin Sodium/Dextrose (Heparin 48206 Unit/500 Ml D5w) 25,000 units in 500 mls @ 13 mls/hr IV .Q24H [facility]; Protocol Stop: 09/22/25 09:14 Last Admin: 08/23/25 09:17 Dose: 650 units/hr, 13 mls/hr Isosorbide Dinitrate (Isosorbide Dinitrate 5 Mg Tab) 10 mg PO TID@0800,1300,1800 [facility] Stop: 09/22/25 12:59 Magnesium Hydroxide (Magnesium Hydroxide Susp 30 Ml Udc) 30 ml PO Q12H PRN PRN Reason: Constipation Stop: 09/22/25 11:54 Metoprolol Succinate (Metoprolol Succ 25mg Ext Rel Tab) 12.5 mg PO DAILY [facility] Stop: 09/23/25 08:59 Multivitamins/Minerals (Cerovite Adv Formula Tab) 1 tab PO DAILY [facility] Stop: 09/23/25 08:59 Pantoprazole Sodium (Pantoprazole 40 Mg Tab) 20 mg PO QAM [facility] Stop: 09/23/25 08:59 Polyethylene Glycol (Polyethylene (Miralax) 17 Gm Pack) 17 gm PO DAILY PRN PRN Reason: Constipation Stop: 09/22/25 11:54 Prednisolone Acetate (Prednisolone Acetate 1% Op Susp 5 Ml Btl) 1 drops OPR HS [facility] Stop: 09/22/25 20:59 Ranolazine (Ranolazine 500 Mg Er Tab) 500 mg PO BID [facility] Stop: 09/22/25 20:59 Rosuvastatin Calcium (Rosuvastatin Calcium 20 Mg Tab) 20 mg PO QAM [facility] Stop: 09/23/25 08:59 Spironolactone (Spironolactone 25 Mg Tab) 25 mg PO DAILY [facility] Stop: 09/23/25 08:59 PG Care Time/CCT Total # of Minutes Spent Total Time Spent with Patient: Total time spent is greater than 50% in coordination of care (as documented) at patient's floor/unit and/or counseling patient: Coding Level of Care Code 21017 INT INP/OBS CARE MIN Diagnoses Chest pain R07.9 Chest pain type: unspecified Paroxysmal atrial fibrillation with rapid ventricular response I48.0 Demand ischemia of myocardium I24.8 NSTEMI (non-ST elevated myocardial infarction) I21.4 Chronic heart failure with preserved ejection fraction (HFpEF) I50.32 Tachy-trish syndrome I49.5 Cardiac pacemaker in situ Z95.0 (1) Chest pain Chest pain type: unspecified Qualified Code(s): R07.9 - Chest pain, unspecified
[2025-08-23] MEDS: ISOSORBIDE DINITRATE 5 MG TAB PO SCH (13:16)
[2025-08-23] MEDS: FUROSEMIDE 20 MG TAB PO SCH (13:17)
[2025-08-23 16:21] LABS: ANTI-Xa, UFH(UnfractionatedHep > 1.50 IU/ml (0.3-0.7)
[2025-08-23 16:55] LABS: Appearance Urine Clear (Clear); Bacteria Urine Automated None Seen (None Seen); Cast Urine Automated 0-2 /lpf (0-2); Glucose Urine UA Negative (Negative); RBC Urine Automated 0-2 /hpf (0-2)
--- NOTE | 2025-08-23 17:14 | XCELERA ---
[id number]
[2025-08-23 18:12] LABS: ANTI-Xa, UFH(UnfractionatedHep > 1.50 IU/ml (0.3-0.7)
--- NOTE | 2025-08-23 18:47 | Electrocardiogram Report ---
Test Reason : Blood Pressure : */* mmHG Vent. Rate : 82 BPM Atrial Rate : 82 BPM P-R Int : 172 ms QRS Dur : 146 ms QT Int : 426 ms P-R-T Axes : 78 50 34 degrees QTcB Int : 497 ms Normal sinus rhythm Right bundle branch block Abnormal ECG When compared with ECG of 23-Sep-2024 08:49, Nonspecific T wave abnormality no longer evident in Lateral leads Confirmed by Yaniv Pickens ([id number]) on 08/23/2025 6:47:42 PM Referred By: REFERRED SELF Confirmed By: Yaniv Pickens
[2025-08-23 19:20] LABS: ANTI-Xa, UFH(UnfractionatedHep > 1.50 IU/ml (0.3-0.7)
[2025-08-23 20:38] LABS: ANTI-Xa, UFH(UnfractionatedHep > 1.50 IU/ml (0.3-0.7)
[2025-08-23] MEDS: prednisoLONE acetate 1% OP SUSP 5 ML BTL OPR SCH (20:49)
[2025-08-23] MEDS: busPIRone 5 MG TAB PO SCH (20:50)
[2025-08-23] MEDS: RANOLAZINE 500 MG ER TAB PO SCH (20:50)
[2025-08-23] MEDS: cefTRIAXone SODIUM 2,000 MG/50 ML BAG IV SCH (21:09)
[2025-08-23 22:10] LABS: ANTI-Xa, UFH(UnfractionatedHep 1.42 IU/ml (0.3-0.7)
[2025-08-23 23:39] LABS: ANTI-Xa, UFH(UnfractionatedHep 1.24 IU/ml (0.3-0.7)
[2025-08-24 01:05] LABS: ANTI-Xa, UFH(UnfractionatedHep 1.42 IU/ml (0.3-0.7)
[2025-08-24] MEDS: ACETAMINOPHEN 325 MG TAB PO PRN (03:14)
[2025-08-24 08:05] LABS: Hematocrit (blood only) 33.1 % (37.0-47.0); Hemoglobin 11.2 g/dL (12.0-16.0); Immature Granulocytes # (auto) 0.04 K/uL (0.01-0.20); Immature Granulocytes % (auto) 0.7 %; Mean Corpuscular Hemoglobin 31.4 pg (25.0-34.0); Mean Corpuscular Volume 92.7 fL (80.0-100.0); Platelet Count 173 K/uL (130-400); RDW Standard Deviation 55.2 fL (36.4-46.3); Red Blood Count 3.57 M/uL (4.20-5.40); White Blood Count 5.99 K/ul (4.8-10.8)
[2025-08-24 08:35] LABS: Alanine Aminotransferase 17.0 U/L (7-52); Albumin Globulin Ratio 1.2 (0.9-2); Albumin Level 3.3 gm/dl (3.4-5.0); Alkaline Phosphatase 69.0 U/L (34-104); Anion Gap 8.0 (3-11); Bilirubin,Total 0.7 mg/dl (0.2-1.0); Blood Urea Nitrogen 23.0 mg/dl (6-23); Calcium 8.9 mg/dl (8.6-10.3); Carbon Dioxide 25.0 mmol/L (21-32); Chloride 106.0 mmol/L (98-107); Cholesterol 134.0 mg/dl (0-200); Creatinine Clr Calc Pharmacy 26.9 ml/min; Globulin 2.8 gm/dl (2.5-4.0); Glucose 91.0 mg/dl (70-99(Fasting)); HDL Cholesterol 54.0 mg/dl; Magnesium 2.1 mg/dl (1.7-2.4); Potassium 4.2 mmol/L (3.5-5.1); Sodium 139.0 mmol/L (136-145); Total Protein 6.1 gm/dl (6.0-8.3); Triglycerides 84.0 mg/dl (0-150)
[2025-08-24 08:46] LABS: Hemoglobin A1C 5.0 % (4.5-5.6)
[2025-08-24 08:50] LABS: ANTI-Xa, UFH(UnfractionatedHep 1.12 IU/ml (0.3-0.7)
[2025-08-24] MEDS ORDERED: FERROUS SULFATE 325 MG TAB PO SCH (09:00)
[2025-08-24] MEDS: METOPROLOL SUCC 25MG EXT REL TAB PO SCH (09:02)
[2025-08-24] MEDS: ASPIRIN 81 MG ECTAB PO SCH (09:02)
[2025-08-24] MEDS: SPIRONOLACTONE 25 MG TAB PO SCH (09:02)
[2025-08-24] MEDS: ROSUVASTATIN CALCIUM 20 MG TAB PO SCH (09:03)
[2025-08-24] MEDS: CEROVITE ADV FORMULA TAB PO SCH (09:03)
[2025-08-24 11:08] VITALS: BP 110/63; RESP 18; TEMP 98.1; O2SAT 97
[2025-08-24 14:31] VITALS: PULSE 79
--- NOTE | 2025-08-24 15:26 | Discharge Summary ---
Date of Service August 24, 2025 Admission HPI Per Admitting Provider This is an 89-year-old female who has significant past medical history of severe CAD, chronic HFpEF, PAF, TBI status post PPM, HTN, HLD, CKD stage III, osteoporosis, idiopathic scoliosis, macular degeneration who presents to the hospital secondary to 2 episodes of heart palpitations at 1 a.m. and 6 a.m. Pt daughter is at bedside who helps elicit history. Patient reports being awoken from sleep at 1 AM with significant heart palpitations and the feeling of her heart racing. She also had substernal chest pressure associated with this. The chest pressure did not radiate. She was lying down and therefore denied any dizziness, lightheadedness, shortness of breath, nausea or diaphoresis with her symptoms. Her heart racing felt similar to her prior episodes of atrial fibrillation. First episode lasted approximately 30 minutes and resolved on its own. She was able to fall back asleep until about 6 AM when she got awakened again by heart palpitations. At this time she called her daughter who then summoned EMS. History obtained from patient, ED provider and external chart review. Daughter also helps elicit history. ED provider reports initial ECG tracings of possible wide-complex tachycardia upon EMS arrival. Pacemaker interrogation was performed which showed several episodes of atrial fibrillation. Patient reports having similar episodes in the past but not this severe. Currently she feels comfortable. She denies any recent illness. She has been otherwise healthy and at her baseline. She has good family support. She denies recent fever, chills, sweats, lightheadedness, dizziness, chest pain, shortness of breath, nausea, vomiting, abdominal pain, change in her bowel or urinary habits. She has been compliant with her medications. Her last doses were last evening. Her trop was elevated at 3800 and she was started on IV Heparin. Admission Exam Per Admitting Provider Gen: WD/WN, NAD, A&O x3 HEENT: Normocephalic, atraumatic, conjunctivae moist, sclerae anicteric, mucous membranes moist. Lung: Clear to Auscultation bilaterally, no wheezes/rales/rhonchi Heart: Regular rate, regular rhythm, no murmurs, rubs, or gallops, LACW pacer Abdomen: Soft, NT, ND +BS x 4 Extremities: trace lower ext edema Skin: Warm, no rash, negative turgor. Principal Diagnosis nstemi Discharge Exam Gen: WD/WN, NAD, A&O x3 HEENT: Normocephalic, atraumatic, conjunctivae moist, sclerae anicteric, mucous membranes moist. Lung: Clear to Auscultation bilaterally, no wheezes/rales/rhonchi Heart: Regular rate, regular rhythm, no murmurs, rubs, or gallops, LACW pacer Abdomen: Soft, NT, ND +BS x 4 Extremities: trace lower ext edema Skin: Warm, no rash, negative turgor. Discharge Data Allergies Allergy/AdvReac Type Severity Reaction Status Date / Time lisinopril Allergy Unknown "THROAT Verified 08/23/25 09:29 CLOSES" sulfamethoxazole Allergy Unknown RASH Verified 08/23/25 09:29 Consultations 08/23/25 08:38 ED Decision to Admit Stat 08/23/25 08:47 Consult Cardiology Stat Hospital Course (1) Atrial fibrillation with RVR: (2) NSTEMI (non-ST elevated myocardial infarction): (3) Cardiac pacemaker in situ: (4) CKD (chronic kidney disease), stage III: (5) Chronic heart failure with preserved ejection fraction (HFpEF): (6) Coronary artery disease: Plan Per prior attending with addendum: This is an 89-year-old female who has significant past medical history of severe CAD, chronic HFpEF, PAF, TBI status post PPM, HTN, HLD, CKD stage III, osteoporosis, idiopathic scoliosis, macular degeneration who presents to the hospital secondary to 2 episodes of heart palpitations at 1 a.m. and 6 a.m. Heart palpitations at 1 a.m. with associated precordial chest discomfort lasting 30 minutes and resolving. Sx started again at 6 a.m. this time w/o chest discomfort and EMS was summoned. Initial rhythm strips showing wide complex tachycardia. Pacer interrogation with evidence of AF/AT with rates over 170. Initial ecg w/o ischemic change in ED, but elevated trop 3822.3 pg/ml. #Afib with RVR #Possible NSTEMI #Chest pain #CAD #TBS s/p PPM admit to PCU consult cardiology obtain echocardiogram Start IV heparin, last dose of eliquis was 1900 08/22 Initial trop 3822.3pg/ml, repeat 7899.1pg/ml continue ASA, statin, lasix, aldactone, isosorbide, metoprolol and ranexa last echo 08/24 ef 50-55%, moderate concentric LVH, moderate sized posterior and lateral wall motion abnormality with hypokinesis of segments, aortic root dilated 3.9cm will defer adjustments of beta phyllis to cardiology if indicated #HTN #Chronic HFpEF chronic, stable daily weights, I and O continue lasix, aldactone, metoprolol, imdur and ranexa pt previously on irbesartan but d/c CKD-3 baseline cr 1.5, avoid nephrotoxic agents and monitor DVT ppx: IV Heparin FULL CODE PCP: Emely Christine Dispo: admit to pcu Pt was seen and examined in collaboration with Dr. Pryor, please see addendum Addendum 08/20/2025: Patient was admitted for chest discomfort and palpitation, noted to have NSTEMI, was on heparin drip. Cardiology recommended transfer to [facility] for high risk cardiac cath. Communicated with [facility], they accepted the patient, patient is being discharged there. Patient denies further chest discomfort in the hospital but reports will get chest discomfort if she exerts herself. Home Health Attestation I certify that this patient is under my care and that I, or a physicians optometrist assistant working with me, had a face to-face encounter that meets the home health [id number]-[id number] encounter requirements with this patient. The encounter with the patient was in whole, or in part, for the following medical condition, which is the primary reason for home health care (list medical condition): I certify that, based on my findings, the following services are medically necessary home health services: My clinical findings support the need for the above services because: Further, I certify that my clinical findings support that this patient is homebound (i.e. absences from home require considerable and taxing effort and are for medical reasons or christian services or infrequently or of short duration when for other reasons) because: Certification for Home Health Services: Based on the above findings, I certify that this patient is confined to the home and needs intermittent snf care, physical therapy and/or speech therapy or continues to need occupational therapy. The patient is under my care, and I have initiated the establishment of the plan of care. This patient will be followed by a physician who will periodically review the plan of care. Total Time Total Time Spent Total Time Spent (In Minutes): 45 Discharge Plan Discharge Items Patient Disposition: Transfer Acute Care Hospital Reason For Visit: NSTEMI Discharge Diagnosis: NSTEMI Condition on Discharge: Fair Activity: As commented below Activity Comment: per tertiary care recommendation Non-emergency contact: Primary Care Provider Call non-emergency contact if: you have any medication questions Follow-up/Referrals: Emely Christine DO [Primary Care Provider] - Diet: Nothing by Mouth Addtl Attending Provider Instructions: you are being discharged to [facility] due to high risk cardiac cath per cardiology recommendation. Your current inpatient medications are: Current Inpatient Medications Acetaminophen (Acetaminophen 325 Mg Tab) 650 mg PO Q4H PRN PRN Reason: Pain or Fever Stop: 09/22/25 11:54 Last Admin: 08/24/25 03:14 Dose: 650 mg Aspirin (Aspirin 81 Mg Ectab) 81 mg PO DAILY [facility] Stop: 09/23/25 08:59 Last Admin: 08/24/25 09:02 Dose: 81 mg Buspirone HCl (Buspirone 5 Mg Tab) 5 mg PO BID [facility] Stop: 09/22/25 20:59 Last Admin: 08/24/25 09:03 Dose: 5 mg Furosemide (Furosemide 20 Mg Tab) 20 mg PO DAILY [facility] Stop: 09/22/25 11:54 Last Admin: 08/24/25 09:02 Dose: 20 mg Heparin Sodium/Dextrose (Heparin 12307 Unit/500 Ml D5w) 25,000 units in 500 mls @ 0 mls/hr IV .Q0M [facility]; Protocol Stop: 09/22/25 09:14 Last Titration: 08/23/25 19:00 Dose: 0 units/hr, 0 mls/hr Ceftriaxone Sodium (Rocephin) 2,000 mg in 50 mls @ 100 mls/hr IV Q24H [facility] Stop: 08/28/25 19:59 Last Infusion: 08/23/25 21:39 Dose: Infused Isosorbide Dinitrate (Isosorbide Dinitrate 5 Mg Tab) 10 mg PO TID@0800,1300,1800 [facility] Stop: 09/22/25 12:59 Last Admin: 08/24/25 14:26 Dose: 10 mg Metoprolol Succinate (Metoprolol Succ 25mg Ext Rel Tab) 12.5 mg PO DAILY [facility] Stop: 09/23/25 08:59 Last Admin: 08/24/25 09:02 Dose: 12.5 mg Multivitamins/Minerals (Cerovite Adv Formula Tab) 1 tab PO DAILY [facility] Stop: 09/23/25 08:59 Last Admin: 08/24/25 09:03 Dose: 1 tab Pantoprazole Sodium (Pantoprazole 40 Mg Tab) 20 mg PO QAM [facility] Stop: 09/23/25 08:59 Last Admin: 08/24/25 09:03 Dose: 20 mg Polyethylene Glycol (Polyethylene (Miralax) 17 Gm Pack) 17 gm PO DAILY PRN PRN Reason: Constipation Stop: 09/22/25 11:54 Prednisolone Acetate (Prednisolone Acetate 1% Op Susp 5 Ml Btl) 1 drops OPR HS [facility] Stop: 09/22/25 20:59 Last Admin: 08/23/25 20:49 Dose: Not Given Ranolazine (Ranolazine 500 Mg Er Tab) 500 mg PO BID [facility] Stop: 09/22/25 20:59 Last Admin: 08/24/25 09:03 Dose: 500 mg Rosuvastatin Calcium (Rosuvastatin Calcium 20 Mg Tab) 20 mg PO QAM [facility] Stop: 09/23/25 08:59 Last Admin: 08/24/25 09:03 Dose: 20 mg Spironolactone (Spironolactone 25 Mg Tab) 25 mg PO DAILY [facility] Stop: 09/23/25 08:59 Last Admin: 08/24/25 09:02 Dose: 25 mg Pending Studies at Discharge: No Stand-Alone Forms: [facility], [facility] Skilled Items Patient informed of condition?: Yes DNR: No Discharge Level of Care: Other Communicable Disease: No Discharge Prognosis: Other Lines: Peripheral IV Urinary Catheter: No Medications and DC Order Prescriptions: Continued ferrous sulfate 325 mg (65 mg iron) Tablet 325 mg PO DAILY Qty: 0 nitroglycerin 0.4 mg Tablet, Sublingual 0.4 mg sublingual DIRECTED PRN (Reason: Chest Pain) Qty: 0 PreserVision AREDS [id number] Capsule 1 cap PO BID Qty: 0 Rx Instructions: Unable to verify OTC meds at this date/time isosorbide dinitrate 10 mg Tablet 10 mg PO TID Rx Instructions: 8am, 1pm, 5-6pm apixaban 5 mg Tablet 5 mg PO BID alendronate 70 mg tablet 70 mg PO FR Rx Instructions: take 1 tablet one time per week on an empty stomach. aspirin [Aspirin Childrens] 81 mg Tablet,Chewable 81 mg PO DAILY Rx Instructions: Unable to verify OTC meds at this date/time, this is also listed on pt's allergy list. ranolazine 500 mg tablet extended release 12 hr 500 mg PO BID prednisolone acetate 1 % drops,suspension 1 drp OPR HS pantoprazole 20 mg tablet,delayed release (DR/EC) 20 mg PO QAM rosuvastatin 40 mg tablet 20 mg PO QAM furosemide 20 mg tablet 20 mg PO DAILY metoprolol succinate 25 mg tablet extended release 24 hr 12.5 mg PO DAILY buspirone 5 mg tablet 5 mg PO BID spironolactone 25 mg tablet 25 mg PO DAILY acetaminophen [Tylenol Extra Strength] 500 mg tablet 1,000 mg PO TID PRN (Reason: Pain) Discharge Orders: Discharge Order (Routine); Ordered 08/24/25 Ordered By: Delfina Olvera Admission Data Admit Date/Time: 08/23/25 09:09 Attending Provider: Delfina Olvera Admit Provider: Oleksandr Pryor Primary Care Provider: Emely Christine Other Providers: Oleksandr Pryor; Jovan Devries
--- NOTE | 2025-08-24 18:31 | Cardiology Progress Note ---
Date of Service August 24, 2025 Assessment & Plan (1) Chest pain: (2) Paroxysmal atrial fibrillation with rapid ventricular response: (3) Demand ischemia of myocardium: (4) NSTEMI (non-ST elevated myocardial infarction): (5) Chronic heart failure with preserved ejection fraction (HFpEF): (6) Tachy-trish syndrome: (7) Cardiac pacemaker in situ: Plan Patient presenting to ED with palpitations and substernal chest pain. Pacemaker interrogation and telemetry with paroxysmal atrial fibrillation with RVR and brief, nonsustained runs of Vtach. Troponin elevated and patient started on IV heparin. Eliquis on hold while on IV heparin. Known severe CAD. Previous cardiac catheterization at [facility] in 2012 revealed left main and left circumflex stenosis with patent LYONS to LAD and occluded SVG and LCx. LCx intervention not preformed secondary to severe LM disease. NSTEMI PAFib with RVR -> sinus rhythm nsvt CAD S/P CABG SSS S/P PPM ECHO showed WMA c/w with LCX disease that was not revascularized as per cath in 2012 Recommend: IV Heparin, ASA, statin, metoprolol, Imdur, Ranexa Hold off Eliquis - last dose on 08/22/25 PM Patient on exam is in sinus rhythm and CP free correct and f/u electrolytes f/u renal function GDMT for HFrEF and CAD as tolerated adjust rate control meds keeping HR between 60 to 100 BPM and systolic BP between 100-140 mmHg adjust anti-HTN meds keeping systolic BP between 100-140 mmHg avoid hypovolemia keep patient euvolemic strict I&Os salt restriction counseling DW patient and daughter over the phone options of medical management and transfer for cardiac cath with possible high risk PCI based on prior cath findings. Further management as per patient and family's decision Admission and Anticipated Discharge Date Admission Date: August 23, 2025 Subjective Patient on exam is sitting in chair in NAD; no c/o cp, sob, palpitations, dizziness, LOC, cough, fever, nausea, vomiting, abdominal pain, urinary or bowel problem problems, melena, hematemesis, hemoptysis, hematochezia, leg swelling;pt seen earlier today; DW patient and daughter over the phone options of medical management and transfer for cardiac cath with possible high risk PCI based on prior cath findings Review of Systems Review of Systems: as per hpi Physical Exam Constitutional: WD/WN, vitals as above Eyes: PERRL, conjunctivae normal, anicteric sclerae Neck: trachea midline, no thyromegaly Respiratory: BLBS, no rales, no wheezing Cardiovascular: Rate/Rhythm: regular rate and regular rhythm Heart Sounds: normal S1, normal S2 and + murmur (2/6 systolic murmur) Vessels: no JVD Extremities: no edema Gastrointestinal (Abdomen): normal bowel sounds, soft, nontender, no he patosplenomegaly Skin: no rashes, warm and dry Psychiatric: A+Ox3, euthymic affect Results & Data Vital Signs (Past 12 Hours) Vital Signs Temp Pulse Pulse Resp BP Pulse Ox O2 Del Method 08/24/25 14:31 79 08/24/25 11:07 36.7 C 86 18 110/63 97 Room Air 08/24/25 07:22 36.6 C 104 H 16 120/67 95 Room Air Laboratory Results Laboratory Results WBC 5.99 K/ul (4.8-10.8) 08/24/25 07:43 RBC 3.57 M/uL (4.20-5.40) L 08/24/25 07:43 Hgb 11.2 g/dL (12.0-16.0) L 08/24/25 07:43 Hct 33.1 % (37.0-47.0) L 08/24/25 07:43 MCV 92.7 fL (80.0-100.0) 08/24/25 07:43 MCH 31.4 pg (25.0-34.0) 08/24/25 07:43 MCHC 33.8 g/dL (32.0-36.0) 08/24/25 07:43 RDW Std Deviation 55.2 fL (36.4-46.3) H 08/24/25 07:43 RDW Coeff of [place] 16.4 % (11.5-14.5) H 08/24/25 07:43 Plt Count 173 K/uL (130-400) 08/24/25 07:43 MPV 9.5 fL (9.4-12.4) 08/24/25 07:43 Immature Gran % (Auto) 0.7 % 08/24/25 07:43 Neut % (Auto) 57.9 % 08/24/25 07:43 Lymph % (Auto) 25.2 % 08/24/25 07:43 [place] % (Auto) 13.9 % 08/24/25 07:43 Eos % (Auto) 1.3 % 08/24/25 07:43 Baso % (Auto) 1.0 % 08/24/25 07:43 Neut # (Auto) 3.47 K/uL (1.40-6.50) 08/24/25 07:43 Lymph # (Auto) 1.51 K/uL (1.20-3.40) 08/24/25 07:43 [place] # (Auto) 0.83 K/uL (0.11-0.59) H 08/24/25 07:43 Eos # (Auto) 0.08 K/uL (0.00-0.50) 08/24/25 07:43 Baso # (Auto) 0.06 K/uL (0.00-0.20) 08/24/25 07:43 Immature Gran # (Auto) 0.04 K/uL (0.01-0.20) 08/24/25 07:43 PT 13.2 Seconds (9.0-12.0) H 08/23/25 07:45 INR 1.3 (0.9-1.1) H 08/23/25 07:45 APTT 33 Seconds (21-31) H 08/23/25 07:45 PTT Ratio 1.2 08/23/25 07:45 Heparin Anti-Xa, Unfract 1.12 IU/ml (0.3-0.7) H* 08/24/25 07:43 Sodium 139 mmol/L (136-145) 08/24/25 07:43 Potassium 4.2 mmol/L (3.5-5.1) 08/24/25 07:43 Chloride 106 mmol/L (98-107) 08/24/25 07:43 Carbon Dioxide 25 mmol/L (21-32) 08/24/25 07:43 Anion Gap 8 (3-11) 08/24/25 07:43 BUN 23 mg/dl (6-23) 08/24/25 07:43 Creatinine 1.15 mg/dl (0.6-1.2) 08/24/25 07:43 Est Cr Clr Drug Dosing 26.9 ml/min 08/24/25 07:43 eGFR 45.54 08/24/25 07:43 BUN/Creatinine Ratio 20.0 (10-20) 08/24/25 07:43 Glucose 91 mg/dl (70-99(Fasting)) 08/24/25 07:43 Estimat Average Glucose 97 mg/dl 08/24/25 07:43 Hemoglobin A1c 5.0 % (4.5-5.6) 08/24/25 07:43 Calcium 8.9 mg/dl (8.6-10.3) 08/24/25 07:43 Ionized Calcium 1.17 mmol/L (1.12-1.32) 08/24/25 07:43 Magnesium 2.1 mg/dl (1.7-2.4) 08/24/25 07:43 Total Bilirubin 0.7 mg/dl (0.2-1.0) 08/24/25 07:43 Direct Bilirubin 0.2 mg/dl (0-0.2) 08/23/25 07:45 AST 77 U/L (13-39) H 08/24/25 07:43 ALT 17 U/L (7-52) 08/24/25 07:43 Alkaline Phosphatase 69 U/L (34-104) 08/24/25 07:43 Troponin I High Sens 23614.3 pg/ml (0-14) H* 08/23/25 22:39 Total Protein 6.1 gm/dl (6.0-8.3) 08/24/25 07:43 Albumin 3.3 gm/dl (3.4-5.0) L 08/24/25 07:43 Globulin 2.8 gm/dl (2.5-4.0) 08/24/25 07:43 Albumin/Globulin Ratio 1.2 (0.9-2) 08/24/25 07:43 Triglycerides 84 mg/dl (0-150) 08/24/25 07:43 Cholesterol 134 mg/dl (0-200) 08/24/25 07:43 LDL Cholesterol, Calc 63 mg/dl 08/24/25 07:43 VLDL Cholesterol, Calc 17 mg/dl (0-30) 08/24/25 07:43 HDL Cholesterol 54 mg/dl 08/24/25 07:43 Cholesterol/HDL Ratio 2.5 (0-5) 08/24/25 07:43 TSH 1.451 uIu/ml (0.300-4.500) 08/23/25 07:45 Urine Color Yellow 08/23/25 Unknown Urine Appearance Clear (Clear) 08/23/25 Unknown Urine pH 5.5 (4.5-7.5) 08/23/25 Unknown Ur Specific [place] 1.017 (1.000-1.030) 08/23/25 Unknown Urine Protein Trace (Negative) H 08/23/25 Unknown Urine Glucose (UA) Negative (Negative) 08/23/25 Unknown Urine Ketones Trace (Negative) H 08/23/25 Unknown Urine Blood Negative (Negative) 08/23/25 Unknown Urine Nitrite Negative (Negative) 08/23/25 Unknown Urine Bilirubin Negative (Negative) 08/23/25 Unknown Urine Urobilinogen Negative (Negative) 08/23/25 Unknown Ur Leukocyte Esterase 2+ (Negative) H 08/23/25 Unknown Urine WBC (Auto) 11-20 /hpf (0-5) H 08/23/25 Unknown Urine RBC (Auto) 0-2 /hpf (0-2) 08/23/25 Unknown U Hyaline Cast (Auto) 0-2 /lpf (0-2) 08/23/25 Unknown U Epithel Cells (Auto) 6-10 /hpf (0-2) H 08/23/25 Unknown Urine Bacteria (Auto) None Seen (None Seen) 08/23/25 Unknown Urine Comment 08/23/25 Unknown Impressions Chest X-Ray 08/23/25 07:44 XR chest 1V portable CLINICAL HISTORY: Chest pain. COMPARISON STUDY: Chest radiograph September 23, 2024. FINDINGS: Left subclavian pacer, median sternotomy wires and mediastinal surgical clips are noted. Cardiomegaly is unchanged. A hiatal hernia is again noted. Left basilar opacity favors atelectasis. There is no pneumothorax or pleural effusion. There is mild interstitial thickening. Patient is mildly rotated. IMPRESSION: Cardiomegaly with mild interstitial pulmonary edema. ACT 112: Negative or not required by law. Electronically signed by: Jose Carlos Doyle M.D. 08/23/2025 8:08 AM Diagnostic Findings Cardiac Enzymes 08/23/25 08/23/25 08/24/25 Range/Units 18:23 22:39 07:43 AST 77 H (13-39) U/L Troponin I High Sens 69625.9 H* D 69081.3 H* (0-14) pg/ml Lipids 08/24/25 Range/Units 07:43 Triglycerides 84 (0-150) mg/dl Cholesterol 134 (0-200) mg/dl HDL Cholesterol 54 mg/dl Cholesterol/HDL Ratio 2.5 (0-5) CBC 08/24/25 Range/Units 07:43 WBC 5.99 (4.8-10.8) K/ul RBC 3.57 L (4.20-5.40) M/uL Hgb 11.2 L (12.0-16.0) g/dL Hct 33.1 L (37.0-47.0) % Plt Count 173 (130-400) K/uL Neut # (Auto) 3.47 (1.40-6.50) K/uL Lymph # (Auto) 1.51 (1.20-3.40) K/uL [place] # (Auto) 0.83 H (0.11-0.59) K/uL Eos # (Auto) 0.08 (0.00-0.50) K/uL Baso # (Auto) 0.06 (0.00-0.20) K/uL Comprehensive Metabolic Panel 08/24/25 Range/Units 07:43 Sodium 139 (136-145) mmol/L Potassium 4.2 (3.5-5.1) mmol/L Chloride 106 (98-107) mmol/L Carbon Dioxide 25 (21-32) mmol/L BUN 23 (6-23) mg/dl Creatinine 1.15 (0.6-1.2) mg/dl Glucose 91 (70-99(Fasting)) mg/dl Calcium 8.9 (8.6-10.3) mg/dl AST 77 H (13-39) U/L ALT 17 (7-52) U/L Alkaline Phosphatase 69 (34-104) U/L Total Protein 6.1 (6.0-8.3) gm/dl Albumin 3.3 L (3.4-5.0) gm/dl Intake and Output 08/24/25 08/24/25 08/24/25 06:59 14:59 22:59 Other: Other Intake Source Patient is NPO # Unmeasured Voids 1 Weight 63.5 kg 63.5 kg Weight Measurement Method Built in [facility] Patient Weight 12/25/25 06:59 Weight 63.5 kg Medications Administered Home Medications Medication Instructions Recorded Confirmed Last Taken ferrous sulfate 325 mg (65 mg 325 mg PO DAILY ##0 12/14/13 08/23/25 08/12/24 iron) tablet nitroglycerin 0.4 mg sublingual 0.4 mg sublingual DIRECTED PRN 12/14/13 08/23/25 Unknown tablet Chest Pain #0 BTLS vitamins A,C,Z-hzut-wnkswz 4,296 1 cap PO BID ##0 12/14/13 08/23/25 08/12/24 mcg-226 mg-90 mg capsule (PreserVision AREDS) alendronate 70 mg tablet 70 mg PO FR 03/01/19 08/23/25 08/10/24 apixaban 5 mg tablet 5 mg PO BID 04/12/20 08/23/25 08/12/24 isosorbide dinitrate 10 mg tablet 10 mg PO TID 04/12/20 08/23/25 08/12/24 aspirin 81 mg chewable tablet 81 mg PO DAILY 01/30/21 08/23/25 08/12/24 (Aspirin Childrens) ranolazine 500 mg tablet,extended 500 mg PO BID 01/30/21 08/23/25 08/12/24 release,12 hr pantoprazole 20 mg tablet,delayed 20 mg PO QAM 04/21/24 08/23/25 08/12/24 release rosuvastatin 40 mg tablet 20 mg PO QAM 04/21/24 08/23/25 08/12/24 prednisolone acetate 1 % eye 1 drp OPR HS 07/20/24 08/23/25 08/12/24 drops,suspension acetaminophen 500 mg tablet 1,000 mg PO TID PRN Pain 08/23/25 08/23/25 Unknown (Tylenol Extra Strength) buspirone 5 mg tablet 5 mg PO BID 08/23/25 08/23/25 Unknown furosemide 20 mg tablet 20 mg PO DAILY 08/23/25 08/23/25 Unknown metoprolol succinate 25 mg 12.5 mg PO DAILY 08/23/25 08/23/25 Unknown tablet,extended release 24 hr spironolactone 25 mg tablet 25 mg PO DAILY 08/23/25 08/23/25 Unknown PG Care Time/CCT Total # of Minutes Spent Total Time Spent with Patient: Total time spent is greater than 50% in coordination of care (as documented) at patient's floor/unit and/or counseling patient: Coding Level of Care Code 94833 SUB INP/OBS CARE 3/50MIN Diagnoses Chest pain R07.9 Chest pain type: unspecified Paroxysmal atrial fibrillation with rapid ventricular response I48.0 Demand ischemia of myocardium I24.8 NSTEMI (non-ST elevated myocardial infarction) I21.4 Chronic heart failure with preserved ejection fraction (HFpEF) I50.32 Tachy-trish syndrome I49.5 Cardiac pacemaker in situ Z95.0 (1) Chest pain Chest pain type: unspecified Qualified Code(s): R07.9 - Chest pain, u nspecified
== END 2025-08-24 14:00 | disposition short-term general hospital (02) | DRG 281 ==
LOC: ED 07:33 → SUATTDRO 09:09 → EDINP 09:09 → 2S 11:56